=== PATIENT | male | born 1970 | race Caucasian/White ===

== ENCOUNTER 2016-09-08 19:47 | Inpatient (IN) | payer OTHER ==
[2016-09-08 20:16] VITALS: BMI 26.9
--- NOTE | 2016-09-08 20:42 | HP ---
COWS - Scale Resting Pulse: 2= SD 101-120 Sweatin= Chills/Flushing Restless Observation: 1= Difficult to Sit Still Pupil Size: 1= Pupils >than Normal Bone or Joint Aches: 1= Mild Discomfort Runny Nose/ Eye Tearin= Nasal Congestion GI Upset > 30mins: 3= Vomiting/Diarrhea Tremor Observation: 2= Slight Tremor Visible Yawning Observation: 1= 1-2x During Session Anxiety or Irritability: 2=Irritable/Anxious Goose Flesh Skin: 0=Smooth Skin COWS Score: 15 CIWA Score - CIWA Score Nausea/Vomitin Muscle Tremors: 4-Moderate,w/Arms Extend Anxiety: 4-Mod. Anxious/Guarded Agitation: 4-Moderately Restless Paroxysmal Sweats: 1-Minimal Palms Moist Orientation: 3-Disoriented Date>2 days Tacttile Disturbances: 0-None Auditory Disturbances: 0-None Visual Disturbances: 0-None Headache: 0-None Present CIWA-Ar Total Score: 18 Admission ROS S - HPI Chief Complaint: withdrawal sx Allergies/Adverse Reactions: Allergies Allergy/AdvReac Type Severity Reaction Status Date / Time No Known Allergies Allergy Verified 09/08/16 20:16 History of Present Illness: 46 years old male with long history alcohol, xanax nicotine dependence, has depression is admitted to detox Exam Limitations: No Limitations - Ebola screening Have you traveled outside of the country in the last 21 days: No Have you had contact with anyone from an Ebola affected area: No Have you been sick,other than usual withdrawal symptoms: No Do you have a fever: No - Review of Systems Constitutional: Chills, Changes in sleep, Weight Stable EENT: reports: No Symptoms Reported Respiratory: reports: SOB with Exertion Cardiac: reports: No Symptoms Reported GI: reports: Poor Fluid Intake, Abdominal cramping : reports: No Symptoms Reported Musculoskeletal: reports: No Symptoms Reported Integumentary: reports: Change in Color (both inner elbows) Neuro: reports: Tremors Endocrine: reports: No Symptoms Reported Hematology: reports: No Symptoms Reported Psychiatric: reports: Judgement Intact, Depressed Other Systems: Reviewed and Negative Patient History - Patient Medical History Hx Anemia: No Hx Asthma: No Hx Chronic Obstructive Pulmonary Disease (COPD): No Hx Cancer: No Hx Cardiac Disorders: No Hx Congestive Heart Failure: No Hx Hypertension: No Hx Hypercholesterolemia: No Hx Pacemaker: No HX Cerebrovascular Accident: No Hx Seizures: No Hx Dementia: No Hx Diabetes: No Hx Gastrointestinal Disorders: No Hx Liver Disease: Yes (UNTREATED HEP-C; DIAGNOSED 1997.) Hx Genitourinary Disorders: No Hx Sexually Transmitted Disorders: No Hx Renal Disease (ESRD): No Hx Thyroid Disease: No Hx Human Immunodeficiency Virus (HIV): No (LAST TESTED: 12/2015 AT [facility]: NEGATIVE.) Hx Hepatitis C: Yes (UNTREATED; DIAGNOSED 1997.) Hx Depression: No Hx Suicide Attempt: No Hx Bipolar Disorder: Yes (TAKES MEDICATION (SEROQUEL)) Hx Schizophrenia: No - Patient Surgical History Past Surgical History: No Hx Neurologic Surgery: No Hx Cataract Extraction: No Hx Cardiac Surgery: No Hx Lung Surgery: No Hx Breast Surgery: No Hx Breast Biopsy: No Hx Abdominal Surgery: No Hx Appendectomy: No Hx Cholecystectomy: No Hx Genitourinary Surgery: No Hx Orthopedic Surgery: No - PPD History Previous Implant?: Yes Documented Results: Negative w/proof Implanted On Prior [facility] Admission?: Yes Date: 07/21/15 Results: 0 mm PPD to be Administered?: Yes - Smoking Cessation Smoking history: Current every day smoker Have you smoked in the past 12 months: Yes Aproximately how many cigarettes per day: 10 Cigars Per Day: 0 Hx Chewing Tobacco Use: No Initiated information on smoking cessation: Yes 'Breaking Loose' booklet given: 09/08/16 - Substance & Tx. History Hx Alcohol Use: Yes Hx Substance Use: Yes Substance Use Type: Alcohol, Tranquilizers Hx Substance Use Treatment: Yes - Substances Abused Alcohol Route: Oral Frequency: Daily Amount used: 2 PINTS SUOMYA 12 BEERS Age of first use: 18 Date of Last Use: 09/08/16 Alprazolam (Xanax) Route: Oral Frequency: Daily Amount used: 6 mg Age of first use: 37 Date of Last Use: 09/07/16 Heroin Route: Injection Frequency: Daily Amount used: 8 BAGS Age of first use: 23 Date of Last Use: 09/08/16 Family Disease History - Family Disease History Family Disease History: Diabetes: Grandparent, [place]: Mother (LEUKEMIA.), Other: Brother (DSA,ALCOHOL; BIPOLAR DISORDER.) Admission Physical Exam S - Vital Signs Vital Signs: Vital Signs - 24 hr 09/08/16 20:12 Temperature 98.2 F Pulse Rate 102 H Respiratory 20 Rate Blood Pressure 131/70 - Physical General Appearance: Yes: Nourished, Appropriately Dressed, Moderate Distress, Alcohol on Breath, Tremorous, Irritable, Sweating, Anxious HEENTM: Yes: Hearing grossly Normal, Normal ENT Inspection, Normocephalic, Normal Voice Respiratory: Yes: Chest Non-Tender, Lungs Clear, Normal Breath Sounds, No Respiratory Distress, No Accessory Muscle Use Neck: Yes: Supple, Trachea in good position Breast: Yes: Breasts Symetrical Cardiology: Yes: Regular Rhythm, S1, S2, Tachycardia Abdominal: Yes: Non Tender, Soft Genitourinary: Yes: Within Normal Limits Back: Yes: Normal Inspection Musculoskeletal: Yes: full range of Motion, Gait Steady Extremities: Yes: Normal Range of Motion, Non-Tender, Tremors Neurological: Yes: Alert, Motor Strength 5/5, Normal Response, Depressed Affect Integumentary: Yes: Warm, Track [place] Lymphatic: Yes: Within Normal Limits - Diagnostic (1) Alcohol dependence with uncomplicated withdrawal Current Visit: Yes Status: Acute (2) Bipolar II disorder Current Visit: Yes Status: Suspected (3) Hepatitis C Current Visit: Yes Status: Chronic Qualifiers: Viral hepatitis chronicity: chronic Hepatic coma status: without hepatic coma Qualified Code(s): B18.2 - Chronic viral hepatitis C (4) Methadone maintenance therapy patient Current Visit: Yes Status: Acute Comment: LAST DOSE OF METHADONE ADMINISTERED AT [facility] OTP PROGRAM: 50 MG, verification pending (5) Nicotine dependence Current Visit: Yes Status: Acute Qualifiers: Nicotine product type: cigarettes Substance use status: in withdrawal Qualified Code(s): F17.213 - Nicotine dependence, cigarettes, with withdrawal (6) Sedative, hypnotic or anxiolytic dependence with withdrawal, uncomplicated Current Visit: Yes Status: Acute (7) Flat feet, bilateral Current Visit: Yes Status: Chronic Comment: own shoes Cleared for Admission S - Detox or Rehab [facility] Level of Care: Medically Managed Detox Regimen/Protocol: Valium [facility] Breath Alcohol Content Breath Alcohol Content: 0.170 Urine Drug Screen - Results Drug Screen Negative: No Urine Drug Screen Results: OPI-Opiates, MTD-Methadone, OXY-Oxycodone
[2016-09-08] MEDS ORDERED: guaiFENesin/D-METHORPHAN HB 10 ML UNIT-DOSE CUPS PO PRN (20:44)
[2016-09-08] MEDS ORDERED: MAGNESIUM HYDROX 2400MG/30ML ORAL SUSPENSION 30 ML CUP PO PRN (20:44)
[2016-09-08] MEDS ORDERED: MENTHOL/PHENOL 1 EACH UD MM PRN (20:44)
[2016-09-08] MEDS ORDERED: P-EPHED 60MG/TRIPROLIDI 2.5MG TABLET PO PRN (20:44)
[2016-09-08] MEDS ORDERED: diazePAM 5 MG TABLET PO ONE (20:44)
[2016-09-08] MEDS ORDERED: ACETAMINOPHEN 325 MG TABLET (FP) PO PRN (20:44)
[2016-09-08] MEDS ORDERED: IBUPROFEN 400 MG TABLET (FP) PO PRN (20:44)
[2016-09-08] MEDS ORDERED: NICOTINE POLACRILEX 2 MG GUM BC PRN (20:44)
[2016-09-08] MEDS ORDERED: MAG HYDROX/AL HYDROX/SIMETH 30 ML UNIT-DOSE CUP PO PRN (20:44)
[2016-09-08] MEDS ORDERED: MAGNESIUM CITRATE 300 ML BOTTLE PO PRN (20:44)
[2016-09-08] MEDS ORDERED: LOPERAMIDE HCL 2 MG CAPSULE PO PRN (20:44)
[2016-09-08] MEDS: THIAMINE HCL 100 MG TABLET (FP) PO SCH (21:23)
[2016-09-08] MEDS: diazePAM 5 MG TABLET PO SCH (21:33)
[2016-09-08] MEDS: diphenhydrAMINE HCL 50 MG CAPSULE PO PRN (22:22)
[2016-09-09] MEDS: diazePAM 5 MG TABLET PO PRN ×3 (00:27→17:20)
[2016-09-09] MEDS: diazePAM 5 MG TABLET PO SCH ×3 (05:24→22:10)
[2016-09-09] MEDS ORDERED: METHADONE HCL 40 MG DISPERSABLE TABLET PO SCH (07:30)
[2016-09-09] MEDS ORDERED: METHADONE HCL 10 MG TABLET (FOR DETOX USE ONLY) ONE (07:39)
[2016-09-09] MEDS ORDERED: METHADONE HCL 40 MG DISPERSABLE TABLET ONE (07:39)
[2016-09-09] MEDS: METHADONE 40 MG, METHADONE (DETOX) 20 MG PO SCH (07:45)
--- NOTE | 2016-09-09 09:26 | CONSULT ---
[facility] Psychiatric Consult - Data Date of interview: 09/09/16 Admission source: [facility] Identifying data: This is 46 years old male with no psychiatric hospiotalization history intoxicated with: Alcohol, Opioids, Xamax amd Nicotine Substance Abuse History: - Smoking Cessation. Smoking history: Current every day smoker. Have you smoked in the past 12 months: Yes. Aproximately how many cigarettes per day: 10. Cigars Per Day: 0. Hx Chewing Tobacco Use: No. Initiated information on smoking cessation: Yes. 'Breaking Loose' booklet given : 09/08/16. - Substance & Tx. History. Hx Alcohol Use: Yes. Hx Substance Use : Yes. Substance Use Type: Alcohol, Tranquilizers. Hx Substance Use Treatment : Yes. - Substances Abused. Alcohol. Route: Oral. Frequency: Daily. Amount used: 2 PINTS SOUMYA 12 BEERS. Age of first use: 18. Date of Last Use: 09/08/16. Alprazolam (Xanax). Route: Oral. Frequency: Daily. Amount used : 6 mg. Age of first use: 37. Date of Last Use: 09/07/16. Heroin. Route: Injection. Frequency: Daily. Amount used: 8 BAGS. Age of first use: 23. Date of Last Use: 09/08/16 Medical History: HepC+, Weight loss, Seizure history, MMTP history Psychiatric History: Patient erewports history of depression and insomjnia, reports good response on Seroquel 200mg po qhs prior to admission Physical/Sexual Abuse/Trauma History: Denies Additional Comment: Seroquel 200mg po qhs Mental Status Exam - Mental Status Exam Alert and Oriented to: Person Cognitive Function: Fair Patient Appearance: Unkempt Mood: Sad Affect: Flat Patient Behavior: Sedated Speech Pattern: Delayed Voice Loudness: Mildly Soft/Quiet Thought Process: Circumstantial Thought Disorder: Being Controlled Hallucinations: Denies Suicidal Ideation: Denies Homicidal Ideation: Denies Appetite: Weight loss Muscle strength/Tone: Mild Hypotonicity Gait/Station: Shuffling Additional Comments: Seroquel 200mg po qhs Psychiatric Findings - Problem List ([place] 1, 2,3) (1) Alcohol dependence with uncomplicated withdrawal Current Visit: Yes Status: Acute (2) Methadone maintenance therapy patient Current Visit: Yes Status: Acute Comment: LAST DOSE OF METHADONE ADMINISTERED AT [facility] OTP PROGRAM: 50 MG, verification pending (3) Nicotine dependence Current Visit: Yes Status: Acute Qualifiers: Nicotine product type: cigarettes Substance use status: in withdrawal Qualified Code(s): F17.213 - Nicotine dependence, cigarettes, with withdrawal (4) Sedative, hypnotic or anxiolytic dependence with withdrawal, uncomplicated Current Visit: Yes Status: Acute (5) Bipolar II disorder Current Visit: Yes Status: Suspected (6) Drug-induced mood disorder Current Visit: Yes Status: Acute - Initial Treatment Plan Initial Treatment Plan: Seroquel 200mg po qhs
--- NOTE | 2016-09-09 09:58 | PN ---
[facility] CIWA - CIWA Score Nausea/Vomitin-No Nausea/No Vomiting Muscle Tremors: 4-Moderate,w/Arms Extend Anxiety: 5 Agitation: 4-Moderately Restless Paroxysmal Sweats: 1-Minimal Palms Moist Orientation: 0-Oriented Tacttile Disturbances: 3-Moderate Itch/Numb/Burn Auditory Disturbances: 0-None Visual Disturbances: 0-None Headache: 0-None Present CIWA-Ar Total Score: 17 BHS Progress Note (SOAP) Subjective: ANXIETY,SWEATS, FATIGUE,INTERMITTENT SLEEP. Objective: 09/09/16 09:54 Vital Signs Temperature 97.5 F L 09/09/16 09:18 Pulse Rate 82 09/09/16 09:18 Respiratory Rate 18 09/09/16 09:18 Blood Pressure 111/72 09/09/16 09:18 O2 Sat by Pulse Oximetry (%) LABS PENDING Assessment: 09/09/16 09:58 WITHDRAWAL SX Plan: CONTINUE DETOX
[2016-09-09 10:12] LABS: MCH 29.3 pg (25.7-33.7); MCHC 33.4 g/dl (32.0-35.9); MEAN CELL VOLUME 87.7 fl (80-96); MEAN PLT VOLUME 8.9 fl (7.5-11.1); PLATELET COUNT 208 K/MM3 (134-434); RDW 13.2 % (11.9-15.9); WHITE BLOOD COUNT 5.5 K/mm3 (4.0-10.0)
[2016-09-09] MEDS: PRENATAL VITAMINS W/ FOLIC ACID TABLET (FP) PO SCH (10:24)
[2016-09-09] MEDS: NICOTINE 14 MG/24 HOURS TOPICAL PATCH TD SCH (10:24)
[2016-09-09 10:27] LABS: ALBUMIN 3.8 g/dl (3.4-5.0); ALK PHOS 77 U/L (45-117); ANION GAP 6 (8-16); BILIRUBIN,TOTAL 0.2 mg/dL (0.2-1.0); CALCIUM 8.9 mg/dL (8.5-10.1); CO2 32 mmol/L (21-32); CREATININE 0.9 mg/dL (0.7-1.3); GLUCOSE,RANDOM 108 mg/dL (74-106); SGOT/AST 60 U/L (15-37); SGPT/ALT 58 U/L (12-78); TOT PROT 7.7 g/dl (6.4-8.2)
[2016-09-09 11:35] LABS: HIV 1 & 2 AB NEGATIVE; HIV 1 AGp24 NEGATIVE
--- NOTE | 2016-09-09 14:15 | EKG ---
Test Reason : Blood Pressure : / mmHG Vent. Rate : 082 BPM Atrial Rate : 082 BPM P-R Int : 170 ms QRS Dur : 094 ms QT Int : 362 ms P-R-T Axes : 061 022 043 degrees QTc Int : 422 ms NORMAL SINUS RHYTHM NORMAL ECG NO PREVIOUS ECGS AVAILABLE Confirmed by GERSON TORREZ MD ([id number]) on 09/09/2016 2:14:43 PM Referred By: Confirmed By:GERSON TORREZ MD
[2016-09-09] MEDS: THIAMINE HCL 100 MG TABLET (FP) PO SCH (22:10)
[2016-09-09] MEDS: QUEtiapine FUMARATE 200 MG TABLET PO SCH (22:10)
[2016-09-10] MEDS: diazePAM 5 MG TABLET PO PRN ×4 (01:00→17:11)
[2016-09-10] MEDS: diphenhydrAMINE HCL 50 MG CAPSULE PO PRN ×2 (01:00→22:11)
[2016-09-10] MEDS ORDERED: METHADONE HCL 10 MG TABLET (FOR DETOX USE ONLY) ONE (03:19)
[2016-09-10] MEDS ORDERED: METHADONE HCL 40 MG DISPERSABLE TABLET ONE (03:20)
[2016-09-10] MEDS: METHADONE 40 MG, METHADONE (DETOX) 20 MG PO SCH (05:54)
[2016-09-10] MEDS: PRENATAL VITAMINS W/ FOLIC ACID TABLET (FP) PO SCH (10:04)
[2016-09-10] MEDS: NICOTINE 14 MG/24 HOURS TOPICAL PATCH TD SCH (10:05)
[2016-09-10] MEDS: diazePAM 5 MG TABLET PO SCH ×2 (10:05→22:10)
--- NOTE | 2016-09-10 11:20 | PN ---
[facility] CIWA - CIWA Score Nausea/Vomitin Muscle Tremors: 2 Anxiety: 3 Agitation: 0-Normal Activity Paroxysmal Sweats: 3 Orientation: 0-Oriented Tacttile Disturbances: 2-Mild Itch/Numbness/Burn Auditory Disturbances: 2-Mild Harshness/Frighten Visual Disturbances: 0-None Headache: 0-None Present CIWA-Ar Total Score: 15 BHS COWS - Scale Resting Pulse: 1= [place] 81-100 Sweatin= Chills/Flushing Restless Observation: 0= Sits Still Pupil Size: 0= Normal to Room Light Bone or Joint Aches: 2= Severe Diffuse Aches Runny Nose/ Eye Tearin= Nasal Congestion GI Upset > 30mins: 2= Nausea/Diarrhea Tremor Observation of Outstretched Hands: 2= Slight Tremor Visible Yawning Observation: 1= 1-2x During Session Anxiety or Irritability: 2=Irritable/Anxious Goose Flesh Skin: 3=Piloerection COWS Score: 15 S Progress Note (SOAP) Subjective: Interrupted sleep, Lower back ache, Stomach cramping, Diarrhea, Sweating. Objective: PT. A & O X 3, OBSERVED AMBULATING ON UNIT. 09/10/16 11:18 Vital Signs Temperature 96.8 F L 09/10/16 09:33 Pulse Rate 81 09/10/16 09:33 Respiratory Rate 20 09/10/16 09:33 Blood Pressure 122/87 09/10/16 09:33 O2 Sat by Pulse Oximetry (%) Laboratory Last Values WBC 5.5 K/mm3 (4.0-10.0) 09/09/16 07:00 RBC 4.31 M/mm3 (4.00-5.60) 09/09/16 07:00 Hgb 12.6 GM/dL (11.7-16.9) 09/09/16 07:00 Hct 37.8 % (35.4-49) 09/09/16 07:00 MCV 87.7 fl (80-96) 09/09/16 07:00 MCHC 33.4 g/dl (32.0-35.9) 09/09/16 07:00 RDW 13.2 % (11.9-15.9) D 09/09/16 07:00 Plt Count 208 K/MM3 (134-434) 09/09/16 07:00 MPV 8.9 fl (7.5-11.1) 09/09/16 07:00 Sodium 142 mmol/L (136-145) 09/09/16 07:00 Potassium 4.2 mmol/L (3.5-5.1) 09/09/16 07:00 Chloride 104 mmol/L (98-107) 09/09/16 07:00 Carbon Dioxide 32 mmol/L (21-32) 09/09/16 07:00 Anion Gap 6 (8-16) L 09/09/16 07:00 BUN 8 mg/dL (7-18) 09/09/16 07:00 Creatinine 0.9 mg/dL (0.7-1.3) 09/09/16 07:00 Creat Clearance w eGFR > 60 (>60) 09/09/16 07:00 Random Glucose 108 mg/dL (74-106) H D 09/09/16 07:00 Calcium 8.9 mg/dL (8.5-10.1) 09/09/16 07:00 Total Bilirubin 0.2 mg/dL (0.2-1.0) D 09/09/16 07:00 AST 60 U/L (15-37) H 09/09/16 07:00 ALT 58 U/L (12-78) D 09/09/16 07:00 Alkaline Phosphatase 77 U/L (45-117) 09/09/16 07:00 Total Protein 7.7 g/dl (6.4-8.2) 09/09/16 07:00 Albumin 3.8 g/dl (3.4-5.0) 09/09/16 07:00 RPR Titer Nonreactive (NONREACTIVE) 09/09/16 07:00 HIV 1&2 Antibody Screen Negative 09/08/16 07:00 HIV P24 Antigen Negative 09/08/16 07:00 LABS NOTED. Assessment: 09/10/16 11:19 WITHDRAWAL SYMPTOMS. Plan: CONTINUE DETOX. ADVISED PATIENT TO FOLLOW-UP WITH PLATFORM MATERIAL HANDLER MANAGER / REHAB MEDICAL PROVIDER AFTER DISCHARGE FROM DETOX FOR GENERAL MEDICAL ASSESSMENT AND FOR ABNORMAL ADMISSION LAB VALUES.
[2016-09-10 14:17] LABS: URINE APPEARANCE CLEAR; URINE BILIRUBIN NEGATIVE (NEGATIVE); URINE BLOOD NEGATIVE (NEGATIVE); URINE COLOR LTYELLOW; URINE GLUCOSE (UA) NEGATIVE (NEGATIVE); URINE KETONE NEGATIVE (NEGATIVE); URINE LEUK ESTERASE NEGATIVE (NEGATIVE); URINE NITRITE NEGATIVE (NEGATIVE); URINE PROTEIN NEGATIVE (NEGATIVE); URINE UROBILINOGEN NEGATIVE E.U./dl (0.2-1.0)
[2016-09-10] MEDS: QUEtiapine FUMARATE 200 MG TABLET PO SCH (22:10)
[2016-09-10] MEDS: THIAMINE HCL 100 MG TABLET (FP) PO SCH (22:10)
[2016-09-11] MEDS: diphenhydrAMINE HCL 50 MG CAPSULE PO PRN ×2 (00:20→22:09)
[2016-09-11] MEDS: diazePAM 5 MG TABLET PO PRN ×4 (00:20→18:41)
[2016-09-11] MEDS ORDERED: METHADONE HCL 40 MG DISPERSABLE TABLET ONE (04:31)
[2016-09-11] MEDS ORDERED: METHADONE HCL 10 MG TABLET (FOR DETOX USE ONLY) ONE (04:31)
[2016-09-11] MEDS: METHADONE 40 MG, METHADONE (DETOX) 20 MG PO SCH (05:21)
[2016-09-11] MEDS: diazePAM 5 MG TABLET PO SCH ×2 (10:07→22:09)
[2016-09-11] MEDS: PRENATAL VITAMINS W/ FOLIC ACID TABLET (FP) PO SCH (10:07)
[2016-09-11] MEDS: NICOTINE 14 MG/24 HOURS TOPICAL PATCH TD SCH (10:08)
--- NOTE | 2016-09-11 12:16 | PN ---
BHS Progress Note (SOAP) Subjective: sweating,restless,interrupted sleep. Objective: 09/11/16 12:15 Vital Signs - 8 hr 09/11/16 09/11/16 06:20 10:32 Temperature 95.8 F L 96.0 F L Pulse Rate 76 96 H Respiratory 18 20 Rate Blood Pressure 117/76 107/77 Laboratory Tests 09/08/16 09/09/16 09/09/16 07:00 07:00 07:00 WBC 5.5 RBC 4.31 Hgb 12.6 Hct 37.8 MCV 87.7 MCHC 33.4 RDW 13.2 D Plt Count 208 MPV 8.9 Sodium 142 Potassium 4.2 Chloride 104 Carbon Dioxide 32 Anion Gap 6 L BUN 8 Creatinine 0.9 Creat Clearance w eGFR > 60 Random Glucose 108 H D Calcium 8.9 Total Bilirubin 0.2 D AST 60 H ALT 58 D Alkaline Phosphatase 77 Total Protein 7.7 Albumin 3.8 Urine Color Urine Appearance Urine pH Ur Specific [place] Urine Protein Urine Glucose (UA) Urine Ketones Urine Blood Urine Nitrite Urine Bilirubin Urine Urobilinogen Ur Leukocyte Esterase RPR Titer HIV 1&2 Antibody Screen Negative HIV P24 Antigen Negative 09/09/16 09/10/16 07:00 11:00 WBC RBC Hgb Hct MCV MCHC RDW Plt Count MPV Sodium Potassium Chloride Carbon Dioxide Anion Gap BUN Creatinine Creat Clearance w eGFR Random Glucose Calcium Total Bilirubin AST ALT Alkaline Phosphatase Total Protein Albumin Urine Color Ltyellow Urine Appearance Clear Urine pH 7.0 Ur Specific [place] 1.012 Urine Protein Negative Urine Glucose (UA) Negative Urine Ketones Negative Urine Blood Negative Urine Nitrite Negative Urine Bilirubin Negative Urine Urobilinogen Negative Ur Leukocyte Esterase Negative RPR Titer Nonreactive HIV 1&2 Antibody Screen HIV P24 Antigen labs noted Assessment: 09/11/16 12:16 withdrawal sx. Plan: continue detox
[2016-09-11] MEDS: hydrOXYzine PAMOATE 50 MG CAPSULE (FP) PO PRN (17:42)
[2016-09-11] MEDS: QUEtiapine FUMARATE 200 MG TABLET PO SCH (22:09)
[2016-09-11] MEDS: THIAMINE HCL 100 MG TABLET (FP) PO SCH (22:09)
[2016-09-12] MEDS ORDERED: METHADONE HCL 10 MG TABLET (FOR DETOX USE ONLY) ONE (03:54)
[2016-09-12] MEDS ORDERED: METHADONE HCL 40 MG DISPERSABLE TABLET ONE (03:55)
[2016-09-12] MEDS: hydrOXYzine PAMOATE 50 MG CAPSULE (FP) PO PRN (04:45)
[2016-09-12] MEDS: METHADONE 40 MG, METHADONE (DETOX) 20 MG PO SCH (05:53)
[2016-09-12 06:17] VITALS: BP 112/74; PULSE 88; TEMP 96.1
[2016-09-12] MEDS ORDERED: diazePAM 5 MG TABLET PO SCH (10:00)
--- NOTE | 2016-09-12 12:26 | DS ---
[facility] Detox Discharge Summary Admission Date: 09/08/16 Discharge Date: 09/12/16 - History Present History: Alcohol Dependence, Sedative Dependence, MMTP Pertinent Past History: Hepatitis C - Physical Exam Results Vital Signs: Vital Signs Temperature 96.1 F L 09/12/16 06:16 Pulse Rate 88 09/12/16 06:16 Respiratory Rate 16 09/12/16 06:16 Blood Pressure 112/74 09/12/16 06:16 O2 Sat by Pulse Oximetry (%) Pertinent Admission Physical Exam Findings: Withdrawal symptoms Laboratory Tests 09/08/16 09/09/16 09/09/16 07:00 07:00 07:00 WBC 5.5 RBC 4.31 Hgb 12.6 Hct 37.8 MCV 87.7 MCHC 33.4 RDW 13.2 D Plt Count 208 MPV 8.9 Sodium 142 Potassium 4.2 Chloride 104 Carbon Dioxide 32 Anion Gap 6 L BUN 8 Creatinine 0.9 Creat Clearance w eGFR > 60 Random Glucose 108 H D Calcium 8.9 Total Bilirubin 0.2 D AST 60 H ALT 58 D Alkaline Phosphatase 77 Total Protein 7.7 Albumin 3.8 Urine Color Urine Appearance Urine pH Ur Specific [place] Urine Protein Urine Glucose (UA) Urine Ketones Urine Blood Urine Nitrite Urine Bilirubin Urine Urobilinogen Ur Leukocyte Esterase RPR Titer HIV 1&2 Antibody Screen Negative HIV P24 Antigen Negative 09/09/16 09/10/16 07:00 11:00 WBC RBC Hgb Hct MCV MCHC RDW Plt Count MPV Sodium Potassium Chloride Carbon Dioxide Anion Gap BUN Creatinine Creat Clearance w eGFR Random Glucose Calcium Total Bilirubin AST ALT Alkaline Phosphatase Total Protein Albumin Urine Color Ltyellow Urine Appearance Clear Urine pH 7.0 Ur Specific [place] 1.012 Urine Protein Negative Urine Glucose (UA) Negative Urine Ketones Negative Urine Blood Negative Urine Nitrite Negative Urine Bilirubin Negative Urine Urobilinogen Negative Ur Leukocyte Esterase Negative RPR Titer Nonreactive HIV 1&2 Antibody Screen HIV P24 Antigen Labs noted - Treatment Hospital Course: Detox Protocol Followed, Detoxed Safely, Responded well, Discharged Condition Good - Medication Discharge Medications: Ambulatory Orders Quetiapine Fumarate [Seroquel -] 200 mg PO HS #30 tab 05/06/16 Quetiapine Fumarate [Seroquel -] 200 mg PO HS #30 tab 09/09/16 - Diagnosis (1) Alcohol dependence with uncomplicated withdrawal Status: Acute (2) Methadone maintenance therapy patient Status: Chronic (3) Nicotine dependence Status: Chronic Qualifiers: Nicotine product type: cigarettes Substance use status: in withdrawal Qualified Code(s): F17.213 - Nicotine dependence, cigarettes, with withdrawal (4) Sedative, hypnotic or anxiolytic dependence with withdrawal, uncomplicated Status: Acute (5) Hepatitis C Status: Chronic Qualifiers: Viral hepatitis chronicity: chronic Hepatic coma status: without hepatic coma Qualified Code(s): B18.2 - Chronic viral hepatitis C - AMA Did Patient Leave Against Medical Advice: No
== END 2016-09-12 09:12 | disposition home or self-care (01) | DRG 773 ==
LOC: YASAS 19:47 → Y3N 20:41
PROVIDERS: ADMIT Internal Medicine; ATTEND Internal Medicine
PROC: HZ2ZZZZ Detoxification Services for Substance Abuse Treatment (ICD-10-PCS; principal; 2016-09-12)
DX: F11.20 Opioid dependence, uncomplicated (principal); F13.230 Sedative, hypnotic or anxiolytic dependence with withdrawal, uncomplicated; F10.230 Alcohol dependence with withdrawal, uncomplicated; F17.213 Nicotine dependence, cigarettes, with withdrawal; F19.24 Other psychoactive substance dependence with psychoactive substance-induced mood disorder; F31.81 Bipolar II disorder; B18.2 Chronic viral hepatitis C; M21.42 Flat foot [pes planus] (acquired), left foot; M21.41 Flat foot [pes planus] (acquired), right foot
CPT/HCPCS: 36415; 80053; 81003; 85027; 86593; 87389; 93005; 93010

== ENCOUNTER 2016-10-09 20:52 | Inpatient (IN) | payer OTHER ==
--- NOTE | 2016-10-09 21:09 | HP ---
[id number] Extend Anxiety: 4-Mod. Anxious/Guarded Agitation: 4-Moderately Restless Paroxysmal Sweats: 3 Orientation: 0-Oriented Tacttile Disturbances: 0-None Auditory Disturbances: 0-None Visual Disturbances: 0-None Headache: 0-None Present CIWA-Ar Total Score: 18 Admission ROS BHS - HPI Chief Complaint: WITHDRAWAL SYMPTOMS Allergies/Adverse Reactions: Allergies Allergy/AdvReac Type Severity Reaction Status Date / Time No Known Allergies Allergy Verified 09/08/16 20:16 History of Present Illness: 46 Y.O. MALE WITH EXTENSIVE HISTORY OF ALCOHOL DEPENDENCE IS SEEKING DETOX. HE LONGEST PERIOD OF SOBRIETY IS 3 YEARS. HIS LAST ADMISSION HERE WAS LAST MONTH. HE CURRENTLY IN A MMTP. Exam Limitations: Intoxication - Ebola screening Have you traveled outside of the country in the last 21 days: No Have you had contact with anyone from an Ebola affected area: No Do you have a fever: No - Review of Systems Constitutional: Loss of Appetite, Night Sweats, Changes in sleep EENT: reports: No Symptoms Reported Respiratory: reports: No Symptoms reported Cardiac: reports: Syncope (ETOH RELATED-2 DAYS AGO) GI: reports: Diarrhea, Nausea Musculoskeletal: reports: Back Pain Integumentary: reports: No Symptoms Reported Neuro: reports: Tremors Endocrine: reports: No Symptoms Reported Hematology: reports: No Symptoms Reported Psychiatric: reports: Depressed (BIPOLAR), other Other Systems: Reviewed and Negative Patient History - Patient Medical History Hx Anemia: No Hx Asthma: No Hx Chronic Obstructive Pulmonary Disease (COPD): No Hx Cancer: No Hx Cardiac Disorders: No Hx Congestive Heart Failure: No Hx Hypertension: No Hx Hypercholesterolemia: No Hx Pacemaker: No HX Cerebrovascular Accident: No Hx Seizures: No Hx Dementia: No Hx Diabetes: No Hx Gastrointestinal Disorders: No Hx Liver Disease: Yes (UNTREATED HEP-C; DIAGNOSED 1997.) Hx Genitourinary Disorders: No Hx Sexually Transmitted Disorders: No Hx Renal Disease (ESRD): No Hx Thyroid Disease: No Hx Human Immunodeficiency Virus (HIV): No (LAST TESTED: 12/2015 AT [facility]: NEGATIVE.) Hx Hepatitis C: Yes (UNTREATED; DIAGNOSED 1997.) Hx Depression: Yes Hx Suicide Attempt: No Hx Bipolar Disorder: Yes (TAKES MEDICATION (SEROQUEL)) Hx Schizophrenia: No - Patient Surgical History Past Surgical History: No Hx Neurologic Surgery: No Hx Cataract Extraction: No Hx Cardiac Surgery: No Hx Lung Surgery: No Hx Breast Surgery: No Hx Breast Biopsy: No Hx Abdominal Surgery: No Hx Appendectomy: No Hx Cholecystectomy: No Hx Genitourinary Surgery: No Hx Section: No Hx Orthopedic Surgery: No Anesthesia Reaction: No - PPD History Previous Implant?: Yes Documented Results: Negative w/proof Implanted On Prior [facility] Admission?: Yes Date: 09/10/16 Results: 0 mm PPD to be Administered?: No - Reproductive History Patient is a Female of Child Bearing Age (11 -55 yrs old): No - Smoking Cessation Smoking history: Current every day smoker Have you smoked in the past 12 months: Yes Aproximately how many cigarettes per day: 10 Cigars Per Day: 0 Hx Chewing Tobacco Use: No Initiated information on smoking cessation: Yes 'Breaking Loose' booklet given: 10/09/16 - Substance & Tx. History Hx Alcohol Use: Yes Hx Substance Use: Yes Substance Use Type: Alcohol, Heroin Hx Substance Use Treatment: Yes (DETOX AND [facility] ) - Substances Abused Alcohol Route: Oral Frequency: Daily Amount used: 2 PINTS OF VODKA Age of first use: 18 Date of Last Use: 10/09/16 Heroin Route: Inhalation Frequency: 1-3 times last 30 days Amount used: 4 BAGS Age of first use: 23 Date of Last Use: 10/06/16 Family Disease History - Family Disease History Family Disease History: Diabetes: Grandparent, [place]: Mother (LEUKEMIA.), Other: Brother (DSA,ALCOHOL; BIPOLAR DISORDER.) Admission Physical Exam BHS - Vital Signs Vital Signs: Last Vital Signs Temp Pulse Resp BP Pulse Ox 97.8 F 78 18 135/79 10/09/16 21:19 10/09/16 21:19 10/09/16 21:19 10/09/16 21:19 - Physical General Appearance: Yes: Disheveled, Alcohol on Breath, Intoxicated, Tremorous, Irritable, Anxious HEENTM: Yes: Hearing grossly Normal, Normocephalic, Normal Voice Respiratory: Yes: Chest Non-Tender, Lungs Clear, Normal Breath Sounds, No Respiratory Distress, No Accessory Muscle Use Neck: Yes: No masses,lesions,Nodules, Trachea in good position Breast: Yes: Breast Exam Deferred Cardiology: Yes: Regular Rhythm, Regular Rate Abdominal: Yes: Normal Bowel Sounds, Non Tender, Flat, Soft Genitourinary: Yes: Other (NO COMPLAINTS REPORTED) Back: Yes: Normal Inspection Musculoskeletal: Yes: Back pain Extremities: Yes: Non-Tender, Tremors Neurological: Yes: Alert Integumentary: Yes: Normal Color, Dry, Warm Lymphatic: Yes: Within Normal Limits - Diagnostic (1) Alcohol dependence with uncomplicated withdrawal Current Visit: Yes Status: Chronic (2) Hepatitis C carrier Current Visit: Yes Status: Chronic (3) Nicotine dependence Current Visit: Yes Status: Chronic Qualifiers: Nicotine product type: cigarettes Substance use status: in withdrawal Qualified Code(s): F17.213 - Nicotine dependence, cigarettes, with withdrawal (4) History of syncope Current Visit: Yes Status: Chronic (5) Opioid dependence on agonist therapy Current Visit: Yes Status: Chronic Cleared for Admission [facility] - Detox or Rehab [facility] Level of Care: Medically Managed Detox Regimen/Protocol: Valium S Breath Alcohol Content Breath Alcohol Content: 0.388 Vital Signs - Vital Signs Vital Signs Refused: No Temperature: 97.8 F Temperature Source: Oral Pulse Rate: 78 Respiratory Rate: 18 Blood Pressure: 135/79 BP Location: Left Arm Blood Pressure Position: Sitting - Height Height: 5 ft 9 in - Weight Weight: 194 lb Weight Measurement Method: Standing Scale Body Mass Index (BMI): 28.6 Urine Drug Screen - Test Device Lot Number: [id number] - Control Is Test Valid: Yes - Results Drug Screen Negative: No Urine Drug Screen Results: MTD-Methadone
[2016-10-09 21:15] VITALS: BMI 28.6
[2016-10-09] MEDS ORDERED: MAGNESIUM HYDROX 2400MG/30ML ORAL SUSPENSION 30 ML CUP PO PRN (21:16)
[2016-10-09] MEDS ORDERED: IBUPROFEN 400 MG TABLET (FP) PO PRN (21:16)
[2016-10-09] MEDS ORDERED: MAG HYDROX/AL HYDROX/SIMETH 30 ML UNIT-DOSE CUP PO PRN (21:16)
[2016-10-09] MEDS ORDERED: guaiFENesin/D-METHORPHAN HB 10 ML UNIT-DOSE CUPS PO PRN (21:16)
[2016-10-09] MEDS ORDERED: ACETAMINOPHEN 325 MG TABLET (FP) PO PRN (21:16)
[2016-10-09] MEDS ORDERED: NICOTINE POLACRILEX 2 MG GUM BC PRN (21:16)
[2016-10-09] MEDS ORDERED: MAGNESIUM CITRATE 300 ML BOTTLE PO PRN (21:16)
[2016-10-09] MEDS ORDERED: diazePAM 5 MG TABLET PO ONE (21:16)
[2016-10-09] MEDS ORDERED: diphenhydrAMINE HCL 50 MG CAPSULE PO PRN (21:16)
[2016-10-09] MEDS ORDERED: P-EPHED 60MG/TRIPROLIDI 2.5MG TABLET PO PRN (21:16)
[2016-10-09] MEDS ORDERED: LOPERAMIDE HCL 2 MG CAPSULE PO PRN (21:16)
[2016-10-09] MEDS ORDERED: MENTHOL/PHENOL 1 EACH UD MM PRN (21:16)
[2016-10-09 22:41] LABS: URINE APPEARANCE CLEAR; URINE BILIRUBIN NEGATIVE (NEGATIVE); URINE BLOOD NEGATIVE (NEGATIVE); URINE COLOR COLORLESS; URINE GLUCOSE (UA) NEGATIVE (NEGATIVE); URINE KETONE NEGATIVE (NEGATIVE); URINE LEUK ESTERASE NEGATIVE (NEGATIVE); URINE NITRITE NEGATIVE (NEGATIVE); URINE PROTEIN NEGATIVE (NEGATIVE); URINE UROBILINOGEN NEGATIVE E.U./dl (0.2-1.0)
[2016-10-09] MEDS: THIAMINE HCL 100 MG TABLET (FP) PO SCH (23:50)
[2016-10-10] MEDS: diazePAM 5 MG TABLET PO SCH ×4 (00:06→21:21)
[2016-10-10] MEDS: diazePAM 5 MG TABLET PO PRN ×4 (04:07→21:19)
[2016-10-10] MEDS ORDERED: METHADONE HCL 10 MG TABLET PO ONE (07:49)
[2016-10-10] MEDS ORDERED: METHADONE 40 MG, METHADONE 20 MG PO ONE (08:00)
[2016-10-10] MEDS ORDERED: METHADONE HCL 40 MG DISPERSABLE TABLET ONE (08:22)
[2016-10-10] MEDS ORDERED: METHADONE HCL 10 MG TABLET ONE (08:23)
[2016-10-10] MEDS: NICOTINE 14 MG/24 HOURS TOPICAL PATCH TD SCH (09:42)
[2016-10-10] MEDS: PRENATAL VITAMINS W/ FOLIC ACID TABLET (FP) PO SCH (09:42)
[2016-10-10 10:24] LABS: MCH 27.9 pg (25.7-33.7); MCHC 32.5 g/dl (32.0-35.9); MEAN CELL VOLUME 85.6 fl (80-96); MEAN PLT VOLUME 9.1 fl (7.5-11.1); PLATELET COUNT 177 K/MM3 (134-434); RDW 12.9 % (11.9-15.9); WHITE BLOOD COUNT 5.6 K/mm3 (4.0-10.0)
[2016-10-10 10:52] LABS: ALBUMIN 3.6 g/dl (3.4-5.0); ALK PHOS 76 U/L (45-117); ANION GAP 10 (8-16); BILIRUBIN,TOTAL 0.7 mg/dL (0.2-1.0); CALCIUM 8.5 mg/dL (8.5-10.1); CO2 29 mmol/L (21-32); CREATININE 0.8 mg/dL (0.7-1.3); GLUCOSE,RANDOM 81 mg/dL (74-106); SGOT/AST 47 U/L (15-37); SGPT/ALT 60 U/L (12-78); TOT PROT 7.5 g/dl (6.4-8.2)
[2016-10-10 11:13] LABS: HIV 1 & 2 AB NEGATIVE; HIV 1 AGp24 NEGATIVE
--- NOTE | 2016-10-10 12:36 | PN ---
S CIWA - CIWA Score Nausea/Vomitin Muscle Tremors: 3 Anxiety: 3 Agitation: 2 Paroxysmal Sweats: 1-Minimal Palms Moist Orientation: 0-Oriented Tacttile Disturbances: 1-Very Mild Itch/Numbness Auditory Disturbances: 1-Very Mild Visual Disturbances: 1-Very Mild Sensitivity Headache: 2-Mild CIWA-Ar Total Score: 17 BHS Progress Note (SOAP) Subjective: ALERT,IRRITABLE,ANXIOUS,INTERRUPTED SLEEP,TREMOR,PAIN IN THE BODY AND BACK Objective: 10/10/16 12:34 Vital Signs Temperature 98.4 F 10/10/16 10:49 Pulse Rate 80 10/10/16 10:49 Respiratory Rate 18 10/10/16 10:49 Blood Pressure 120/75 10/10/16 10:49 O2 Sat by Pulse Oximetry (%) EKG NSR,NORMAL ECG Laboratory Last Values WBC 5.6 K/mm3 (4.0-10.0) 10/10/16 07:45 RBC 4.42 M/mm3 (4.00-5.60) 10/10/16 07:45 Hgb 12.3 GM/dL (11.7-16.9) 10/10/16 07:45 Hct 37.8 % (35.4-49) 10/10/16 07:45 MCV 85.6 fl (80-96) 10/10/16 07:45 MCHC 32.5 g/dl (32.0-35.9) 10/10/16 07:45 RDW 12.9 % (11.9-15.9) 10/10/16 07:45 Plt Count 177 K/MM3 (134-434) 10/10/16 07:45 MPV 9.1 fl (7.5-11.1) 10/10/16 07:45 Sodium 140 mmol/L (136-145) 10/10/16 07:45 Potassium 4.0 mmol/L (3.5-5.1) 10/10/16 07:45 Chloride 101 mmol/L (98-107) 10/10/16 07:45 Carbon Dioxide 29 mmol/L (21-32) 10/10/16 07:45 Anion Gap 10 (8-16) 10/10/16 07:45 BUN 8 mg/dL (7-18) 10/10/16 07:45 Creatinine 0.8 mg/dL (0.7-1.3) 10/10/16 07:45 Creat Clearance w eGFR > 60 (>60) 10/10/16 07:45 Random Glucose 81 mg/dL (74-106) D 10/10/16 07:45 Calcium 8.5 mg/dL (8.5-10.1) 10/10/16 07:45 Total Bilirubin 0.7 mg/dL (0.2-1.0) D 10/10/16 07:45 AST 47 U/L (15-37) H D 10/10/16 07:45 ALT 60 U/L (12-78) 10/10/16 07:45 Alkaline Phosphatase 76 U/L (45-117) 10/10/16 07:45 Total Protein 7.5 g/dl (6.4-8.2) 10/10/16 07:45 Albumin 3.6 g/dl (3.4-5.0) 10/10/16 07:45 Urine Color Colorless 10/09/16 22:30 Urine Appearance Clear 10/09/16 22:30 Urine pH 7.0 (5.0-8.0) 10/09/16 22:30 Ur Specific [place] 1.003 (1.001-1.035) 10/09/16 22:30 Urine Protein Negative (NEGATIVE) 10/09/16 22:30 Urine Glucose (UA) Negative (NEGATIVE) 10/09/16 22:30 Urine Ketones Negative (NEGATIVE) 10/09/16 22:30 Urine Blood Negative (NEGATIVE) 10/09/16 22:30 Urine Nitrite Negative (NEGATIVE) 10/09/16 22:30 Urine Bilirubin Negative (NEGATIVE) 10/09/16 22:30 Urine Urobilinogen Negative E.U./dl (0.2-1.0) 10/09/16 22:30 Ur Leukocyte Esterase Negative (NEGATIVE) 10/09/16 22:30 RPR Titer Nonreactive (NONREACTIVE) 10/10/16 07:45 HIV 1&2 Antibody Screen Negative 10/10/16 07:45 HIV P24 Antigen Negative 10/10/16 07:45 Assessment: 10/10/16 12:35 WITHDRAWAL SYMPTOM Plan: CONTINUE DETOX
--- NOTE | 2016-10-10 20:03 | PN ---
DEX Progress Note Note: PLEASE DISRECARD FALL PROTOCOL,BELONG TO OTHER PATIENT
[2016-10-10] MEDS: THIAMINE HCL 100 MG TABLET (FP) PO SCH (21:20)
[2016-10-11] MEDS: diazePAM 5 MG TABLET PO PRN ×5 (01:33→22:06)
[2016-10-11] MEDS ORDERED: METHADONE HCL 40 MG DISPERSABLE TABLET ONE (04:15)
[2016-10-11] MEDS ORDERED: METHADONE HCL 10 MG TABLET ONE (04:16)
[2016-10-11] MEDS: METHADONE 40 MG, METHADONE 20 MG PO SCH (05:39)
[2016-10-11] MEDS ORDERED: METHADONE HCL 40 MG DISPERSABLE TABLET PO SCH (06:00)
--- NOTE | 2016-10-11 09:58 | PN ---
[facility] CIWA - CIWA Score Nausea/Vomitin-No Nausea/No Vomiting Muscle Tremors: 4-Moderate,w/Arms Extend Anxiety: 3 Agitation: 3 Paroxysmal Sweats: 3 Orientation: 0-Oriented Tacttile Disturbances: 0-None Auditory Disturbances: 0-None Visual Disturbances: 0-None Headache: 1-Very Mild CIWA-Ar Total Score: 14 S Progress Note (SOAP) Subjective: headache sweats body aches Objective: 10/11/16 09:53 Vital Signs Temperature 97.5 F L 10/11/16 06:00 Pulse Rate 62 10/11/16 06:00 Respiratory Rate 18 10/11/16 06:00 Blood Pressure 119/72 10/11/16 06:00 O2 Sat by Pulse Oximetry (%) Laboratory Tests 10/09/16 10/10/16 10/10/16 22:30 07:45 07:45 WBC 5.6 RBC 4.42 Hgb 12.3 Hct 37.8 MCV 85.6 MCHC 32.5 RDW 12.9 Plt Count 177 MPV 9.1 Sodium 140 Potassium 4.0 Chloride 101 Carbon Dioxide 29 Anion Gap 10 BUN 8 Creatinine 0.8 Creat Clearance w eGFR > 60 Random Glucose 81 D Calcium 8.5 Total Bilirubin 0.7 D AST 47 H D ALT 60 Alkaline Phosphatase 76 Total Protein 7.5 Albumin 3.6 Urine Color Colorless Urine Appearance Clear Urine pH 7.0 Ur Specific [place] 1.003 Urine Protein Negative Urine Glucose (UA) Negative Urine Ketones Negative Urine Blood Negative Urine Nitrite Negative Urine Bilirubin Negative Urine Urobilinogen Negative Ur Leukocyte Esterase Negative RPR Titer HIV 1&2 Antibody Screen HIV P24 Antigen 10/10/16 10/10/16 07:45 07:45 WBC RBC Hgb Hct MCV MCHC RDW Plt Count MPV Sodium Potassium Chloride Carbon Dioxide Anion Gap BUN Creatinine Creat Clearance w eGFR Random Glucose Calcium Total Bilirubin AST ALT Alkaline Phosphatase Total Protein Albumin Urine Color Urine Appearance Urine pH Ur Specific [place] Urine Protein Urine Glucose (UA) Urine Ketones Urine Blood Urine Nitrite Urine Bilirubin Urine Urobilinogen Ur Leukocyte Esterase RPR Titer Nonreactive HIV 1&2 Antibody Screen Negative HIV P24 Antigen Negative awake/alert ambulating no acute distress Assessment: 10/11/16 09:54 withdrawal sx Plan: continue detox increase fluids tylenol/motrin prn labs pending
[2016-10-11] MEDS: NICOTINE 14 MG/24 HOURS TOPICAL PATCH TD SCH (10:38)
[2016-10-11] MEDS: PRENATAL VITAMINS W/ FOLIC ACID TABLET (FP) PO SCH (10:38)
[2016-10-11] MEDS: diazePAM 5 MG TABLET PO SCH ×2 (10:38→22:07)
[2016-10-11] MEDS: NAPROXEN 500 MG TABLET (FP) PO SCH ×2 (11:48→22:06)
[2016-10-11] MEDS: LIDOCAINE 5% TOPICAL PATCH TP SCH (11:48)
--- NOTE | 2016-10-11 12:35 | CONSULT ---
[facility] Psychiatric Consult - Data Date of interview: 10/11/16 Admission source: [facility] Identifying data: Another admission to [facility] for this 46 y/o male seeking detox treatment on for alcohol,heroin and benzodiazepine dependence.Patient is single,a father of one,domiciled,unemployed and dependent on [facility] benefits. Substance Abuse History: - Smoking Cessation. Smoking history: Current every day smoker. Have you smoked in the past 12 months: Yes. Aproximately how many cigarettes per day: 10. Cigars Per Day: 0. Hx Chewing Tobacco Use: No. Initiated information on smoking cessation: Yes. 'Breaking Loose' booklet given : 10/09/16. - Substance & Tx. History. Hx Alcohol Use: Yes. Hx Substance Use : Yes. Substance Use Type: Alcohol, Heroin. Hx Substance Use Treatment: Yes ( [facility] ). - Substances Abused. Alcohol. Route: Oral. Frequency: Daily. Amount used: 2 PINTS OF VODKA. Age of first use: 18. Date of Last Use : 10/09/16. Heroin. Route: Inhalation. Frequency: 1-3 times last 30 days. Amount used: 4 BAGS. Age of first use: 23. Date of Last Use: 10/06/16. Confirmed by patient. Medical History: Hepatitis C. Psychiatric History: Diagnosed with bipolar depression.No history of psychiatric hospitalizations.Patient is prescribed seroquel 200 mg/hs.He is currently on methadone maintenance (60 mg/day) at the [facility] MMTP program.No history of suicide attempts. Physical/Sexual Abuse/Trauma History: Patient denies. Mental Status Exam - Mental Status Exam Alert and Oriented to: Time, Place, Person Cognitive Function: Good Patient Appearance: Well Groomed Mood: Hopeful, Euthymic Affect: Appropriate, Normal Range Patient Behavior: Appropriate, Cooperative Speech Pattern: Clear, Appropriate Voice Loudness: Normal Thought Process: Goal Oriented Thought Disorder: Not Present Hallucinations: Denies Suicidal Ideation: Denies Homicidal Ideation: Denies Insight/Judgement: Poor Sleep: Poorly, Difficulty falling asleep Appetite: Good Muscle strength/Tone: Normal Gait/Station: Normal Psychiatric Findings - Problem List ([place] 1, 2,3) (1) Alcohol dependence with uncomplicated withdrawal Current Visit: Yes Status: Acute (2) Opioid dependence on agonist therapy Current Visit: Yes Status: Acute (3) Nicotine dependence Current Visit: Yes Status: Acute Qualifiers: Nicotine product type: cigarettes Substance use status: in withdrawal Qualified Code(s): F17.213 - Nicotine dependence, cigarettes, with withdrawal (4) Drug-induced mood disorder Current Visit: Yes Status: Acute (5) Bipolar II disorder Current Visit: Yes Status: Chronic Comment: Self-report. (6) Hepatitis C carrier Current Visit: Yes Status: Chronic (7) Hepatitis C Current Visit: Yes Status: Chronic Qualifiers: Viral hepatitis chronicity: chronic Hepatic coma status: without hepatic coma Qualified Code(s): B18.2 - Chronic viral hepatitis C - Initial Treatment Plan Initial Treatment Plan: Psychoeducation.Detoxification.Seroquel 200 mg po hs.Side effects/benefits discussed with the patient.He agrees with this careplan.Observation.
[2016-10-11] MEDS: hydrOXYzine PAMOATE 50 MG CAPSULE (FP) PO PRN (15:50)
[2016-10-11] MEDS: QUEtiapine FUMARATE 200 MG TABLET PO SCH (22:06)
[2016-10-11] MEDS: THIAMINE HCL 100 MG TABLET (FP) PO SCH (22:06)
[2016-10-12] MEDS ORDERED: METHADONE HCL 40 MG DISPERSABLE TABLET ONE (04:08)
[2016-10-12] MEDS ORDERED: METHADONE HCL 10 MG TABLET ONE (04:09)
[2016-10-12] MEDS: diazePAM 5 MG TABLET PO PRN ×3 (05:32→14:58)
[2016-10-12] MEDS: METHADONE 40 MG, METHADONE 20 MG PO SCH (05:32)
[2016-10-12] MEDS: hydrOXYzine PAMOATE 50 MG CAPSULE (FP) PO PRN ×4 (06:33→22:18)
--- NOTE | 2016-10-12 10:36 | PN ---
BHS Progress Note (SOAP) Subjective: interrupted sleep, sweats , shakes , decreased appetite, lbp Objective: 10/12/16 10:32 Vital Signs Temperature 98.2 F 10/12/16 06:25 Pulse Rate 69 10/12/16 06:25 Respiratory Rate 16 10/12/16 06:25 Blood Pressure 107/72 10/12/16 06:25 O2 Sat by Pulse Oximetry (%) Laboratory Tests 10/09/16 10/10/16 10/10/16 22:30 07:45 07:45 WBC 5.6 RBC 4.42 Hgb 12.3 Hct 37.8 MCV 85.6 MCHC 32.5 RDW 12.9 Plt Count 177 MPV 9.1 Sodium 140 Potassium 4.0 Chloride 101 Carbon Dioxide 29 Anion Gap 10 BUN 8 Creatinine 0.8 Creat Clearance w eGFR > 60 Random Glucose 81 D Calcium 8.5 Total Bilirubin 0.7 D AST 47 H D ALT 60 Alkaline Phosphatase 76 Total Protein 7.5 Albumin 3.6 Urine Color Colorless Urine Appearance Clear Urine pH 7.0 Ur Specific [place] 1.003 Urine Protein Negative Urine Glucose (UA) Negative Urine Ketones Negative Urine Blood Negative Urine Nitrite Negative Urine Bilirubin Negative Urine Urobilinogen Negative Ur Leukocyte Esterase Negative RPR Titer HIV 1&2 Antibody Screen HIV P24 Antigen 10/10/16 10/10/16 07:45 07:45 WBC RBC Hgb Hct MCV MCHC RDW Plt Count MPV Sodium Potassium Chloride Carbon Dioxide Anion Gap BUN Creatinine Creat Clearance w eGFR Random Glucose Calcium Total Bilirubin AST ALT Alkaline Phosphatase Total Protein Albumin Urine Color Urine Appearance Urine pH Ur Specific [place] Urine Protein Urine Glucose (UA) Urine Ketones Urine Blood Urine Nitrite Urine Bilirubin Urine Urobilinogen Ur Leukocyte Esterase RPR Titer Nonreactive HIV 1&2 Antibody Screen Negative HIV P24 Antigen Negative pt aox3 in nad ambulating Assessment: 10/12/16 10:33 withdrawal sx's lbp Plan: cont. detox increase fluids flexeril 10mg tid d/c in am
[2016-10-12] MEDS: PRENATAL VITAMINS W/ FOLIC ACID TABLET (FP) PO SCH (10:50)
[2016-10-12] MEDS: NAPROXEN 500 MG TABLET (FP) PO SCH ×2 (10:50→22:18)
[2016-10-12] MEDS: diazePAM 5 MG TABLET PO SCH ×2 (10:52→22:18)
[2016-10-12] MEDS: NICOTINE 14 MG/24 HOURS TOPICAL PATCH TD SCH (10:52)
[2016-10-12] MEDS: LIDOCAINE 5% TOPICAL PATCH TP SCH (10:54)
[2016-10-12] MEDS: CYCLOBENZAPRINE HCL 10 MG TABLET (FP) PO PRN ×2 (11:32→22:18)
[2016-10-12] MEDS: THIAMINE HCL 100 MG TABLET (FP) PO SCH (22:18)
[2016-10-12] MEDS: QUEtiapine FUMARATE 200 MG TABLET PO SCH (22:18)
--- NOTE | 2016-10-12 23:07 | EKG ---
Test Reason : Blood Pressure : / mmHG Vent. Rate : 081 BPM Atrial Rate : 081 BPM P-R Int : 166 ms QRS Dur : 102 ms QT Int : 396 ms P-R-T Axes : 050 010 032 degrees QTc Int : 460 ms NORMAL SINUS RHYTHM NORMAL ECG WHEN COMPARED WITH ECG OF 08-SEP-2016 21:27, NO SIGNIFICANT CHANGE WAS FOUND Confirmed by MICHI JOHNSON MD ([id number]) on 10/12/2016 11:07:33 PM Referred By: Confirmed By:MICHI JOHNSON MD
[2016-10-13] MEDS ORDERED: METHADONE HCL 40 MG DISPERSABLE TABLET ONE (03:58)
[2016-10-13] MEDS ORDERED: METHADONE HCL 10 MG TABLET ONE (03:59)
[2016-10-13] MEDS: METHADONE 40 MG, METHADONE 20 MG PO SCH (05:15)
--- NOTE | 2016-10-13 08:48 | DS ---
[facility] Detox Discharge Summary Admission Date: 10/09/16 Discharge Date: 10/13/16 - History Present History: Alcohol Dependence, Opioid Dependence, Sedative Dependence, MMTP - Physical Exam Results Vital Signs: Vital Signs Temperature 96.3 F L 10/13/16 06:00 Pulse Rate 67 10/13/16 06:00 Respiratory Rate 18 10/13/16 06:00 Blood Pressure 119/84 10/13/16 06:00 O2 Sat by Pulse Oximetry (%) - Treatment Hospital Course: Detox Protocol Followed, Detoxed Safely, Responded well, Discharged Condition Good, Rehab Referral Accepted - Medication Discharge Medications: Ambulatory Orders Quetiapine Fumarate [Seroquel -] 200 mg PO HS #30 tab 09/09/16 Hydroxyzine Pamoate [Vistaril -] 25 mg PO TID #30 capsule 10/11/16 Quetiapine Fumarate [Seroquel -] 200 mg PO HS #30 tab 10/11/16 - Diagnosis (1) Alcohol dependence with uncomplicated withdrawal Current Visit: Yes Status: Chronic (2) Drug-induced mood disorder Current Visit: Yes Status: Acute (3) Nicotine dependence Current Visit: Yes Status: Chronic Qualifiers: Nicotine product type: cigarettes Substance use status: uncomplicated Qualified Code(s): F17.210 - Nicotine dependence, cigarettes, uncomplicated (4) Opioid dependence on agonist therapy Current Visit: Yes Status: Acute (5) Bipolar II disorder Current Visit: Yes Status: Chronic (6) Hepatitis C Current Visit: Yes Status: Chronic Qualifiers: Viral hepatitis chronicity: chronic Hepatic coma status: without hepatic coma Qualified Code(s): B18.2 - Chronic viral hepatitis C (7) Hepatitis C carrier Current Visit: Yes Status: Chronic (8) History of syncope Current Visit: Yes Status: Chronic (9) Sedative, hypnotic or anxiolytic dependence with withdrawal, uncomplicated Current Visit: Yes Status: Chronic (10) Weight loss Current Visit: No Status: Acute (11) Flat feet, bilateral Current Visit: No Status: Chronic (12) Methadone maintenance therapy patient Current Visit: Yes Status: Chronic (13) depression Current Visit: No Status: Suspected - AMA Did Patient Leave Against Medical Advice: No
[2016-10-13] MEDS: NICOTINE 14 MG/24 HOURS TOPICAL PATCH TD SCH (09:10)
[2016-10-13] MEDS: NAPROXEN 500 MG TABLET (FP) PO SCH (09:10)
[2016-10-13] MEDS: LIDOCAINE 5% TOPICAL PATCH TP SCH (09:10)
[2016-10-13] MEDS: PRENATAL VITAMINS W/ FOLIC ACID TABLET (FP) PO SCH (09:10)
[2016-10-13 09:53] VITALS: BP 107/61; PULSE 93; TEMP 97.7
[2016-10-13] MEDS ORDERED: diazePAM 5 MG TABLET PO SCH (10:00)
== END 2016-10-13 09:12 | disposition home or self-care (01) | DRG 773 ==
LOC: YASAS 20:52 → Y6N 20:54
PROVIDERS: ADMIT Internal Medicine; ATTEND Internal Medicine Addiction Medicine
PROC: HZ2ZZZZ Detoxification Services for Substance Abuse Treatment (ICD-10-PCS; principal; 2016-10-09)
DX: F10.230 Alcohol dependence with withdrawal, uncomplicated (principal); F11.20 Opioid dependence, uncomplicated; F17.210 Nicotine dependence, cigarettes, uncomplicated; F19.24 Other psychoactive substance dependence with psychoactive substance-induced mood disorder; F31.81 Bipolar II disorder; F32.9 Major depressive disorder, single episode, unspecified; B18.2 Chronic viral hepatitis C; M21.42 Flat foot [pes planus] (acquired), left foot; M21.41 Flat foot [pes planus] (acquired), right foot; M54.5 Low back pain; Z86.79 Personal history of other diseases of the circulatory system; Z87.898 Personal history of other specified conditions
CPT/HCPCS: 36415; 80053; 81003; 85027; 86593; 87389; 93005; 93010

== ENCOUNTER 2016-11-08 14:43 | Inpatient (IN) | payer OTHER ==
[2016-11-08 20:16] VITALS: BMI 20.9
--- NOTE | 2016-11-08 20:16 | HP ---
CIWA Score - CIWA Score Nausea/Vomitin-Mild Nausea/No Vomiting Muscle Tremors: 4-Moderate,w/Arms Extend Anxiety: 4-Mod. Anxious/Guarded Agitation: 4-Moderately Restless Paroxysmal Sweats: 1-Minimal Palms Moist Orientation: 1-Uncertain about Date Tacttile Disturbances: 0-None Auditory Disturbances: 0-None Visual Disturbances: 0-None Headache: 2-Mild CIWA-Ar Total Score: 17 Admission ROS BHS - HPI Chief Complaint: WITHDRAWAL SX Allergies/Adverse Reactions: Allergies Allergy/AdvReac Type Severity Reaction Status Date / Time No Known Allergies Allergy Verified 11/08/16 20:22 History of Present Illness: 46 YEARS OLD MALE WITH LONG HISTORY OF ALCOHOL XANAX NICOTINE DEPENDENCE HAS HEPATITIS C AND BIPOLAR II IS ADMITTED TO DETOX Exam Limitations: No Limitations - Ebola screening Have you traveled outside of the country in the last 21 days: No Have you had contact with anyone from an Ebola affected area: No Have you been sick,other than usual withdrawal symptoms: No Do you have a fever: No - Review of Systems Constitutional: Chills, Changes in sleep Patient History - Patient Medical History Hx Anemia: No Hx Asthma: No Hx Chronic Obstructive Pulmonary Disease (COPD): No Hx Cancer: No Hx Cardiac Disorders: No Hx Congestive Heart Failure: No Hx Hypertension: No Hx Hypercholesterolemia: No Hx Pacemaker: No HX Cerebrovascular Accident: No Hx Seizures: No Hx Dementia: No Hx Diabetes: No Hx Gastrointestinal Disorders: No Hx Liver Disease: Yes (UNTREATED HEP-C; DIAGNOSED 1997.) Hx Genitourinary Disorders: No Hx Sexually Transmitted Disorders: No Hx Renal Disease (ESRD): No Hx Thyroid Disease: No Hx Human Immunodeficiency Virus (HIV): No (LAST TESTED: 12/2015 AT [facility]: NEGATIVE.) Hx Hepatitis C: Yes (UNTREATED; DIAGNOSED 1997.) Hx Depression: Yes Hx Suicide Attempt: No Hx Bipolar Disorder: Yes (TAKES MEDICATION (SEROQUEL)) Hx Schizophrenia: No - Patient Surgical History Past Surgical History: No Hx Neurologic Surgery: No Hx Cataract Extraction: No Hx Cardiac Surgery: No Hx Lung Surgery: No Hx Breast Surgery: No Hx Breast Biopsy: No Hx Abdominal Surgery: No Hx Appendectomy: No Hx Cholecystectomy: No Hx Genitourinary Surgery: No Hx Section: No Hx Orthopedic Surgery: No Anesthesia Reaction: No - PPD History Date: 03/03/17 Results: 0 mm - Smoking Cessation Smoking history: Current every day smoker Have you smoked in the past 12 months: Yes Aproximately how many cigarettes per day: 10 Cigars Per Day: 0 Hx Chewing Tobacco Use: No Initiated information on smoking cessation: Yes 'Breaking Loose' booklet given: 11/09/16 - Substances Abused Alcohol Route: Oral Frequency: Daily Amount used: LIQUOR- 2 PINTS, BEER- 2 SIX PACKS Age of first use: 18 Date of Last Use: 11/08/16 Alprazolam (Xanax) Route: Oral Frequency: Daily Amount used: 4 MG Age of first use: 23 Date of Last Use: 11/06/16 Family Disease History - Family Disease History Family Disease History: Diabetes: Grandparent, [place]: Mother (LEUKEMIA.), Other: Brother (DSA,ALCOHOL; BIPOLAR DISORDER.) Admission Physical Exam [facility] - Physical General Appearance: Yes: Appropriately Dressed, Mild Distress, Thin, Tremorous, Irritable, Sweating, Anxious HEENTM: Yes: Hearing grossly Normal, Normal ENT Inspection, Normocephalic, Normal Voice Respiratory: Yes: Chest Non-Tender, Lungs Clear, Normal Breath Sounds, No Respiratory Distress, No Accessory Muscle Use Neck: Yes: Trachea in good position Breast: Yes: Breasts Symetrical Cardiology: Yes: Regular Rhythm, Regular Rate, S1, S2 Abdominal: Yes: Non Tender, Soft Genitourinary: Yes: Within Normal Limits Back: Yes: Normal Inspection Musculoskeletal: Yes: full range of Motion, Gait Steady, Back pain, Muscle Pain Extremities: Yes: Normal Range of Motion, Non-Tender, Tremors Neurological: Yes: Alert, Motor Strength 5/5, Normal Response, Depressed Affect Integumentary: Yes: Warm, Track [place] Lymphatic: Yes: Within Normal Limits - Diagnostic (1) Alcohol dependence with uncomplicated withdrawal Current Visit: Yes Status: Acute (2) Bipolar II disorder Current Visit: Yes Status: Chronic Comment: Self-report. (3) Hepatitis C Current Visit: Yes Status: Chronic Qualifiers: Viral hepatitis chronicity: chronic Hepatic coma status: without hepatic coma Qualified Code(s): B18.2 - Chronic viral hepatitis C (4) Methadone maintenance therapy patient Current Visit: Yes Status: Chronic Comment: LAST DOSE OF METHADONE ADMINISTERED AT [facility]: 60 MG, verification pending (5) Sedative, hypnotic or anxiolytic dependence with withdrawal, uncomplicated Current Visit: Yes Status: Acute Cleared for Admission [facility] - Detox or Rehab [facility] Level of Care: Medically Managed Detox Regimen/Protocol: Valium [facility] Breath Alcohol Content Breath Alcohol Content: 0.388 (0.131) Vital Signs - Vital Signs Vital Signs Refused: No Temperature: 98 F Temperature Source: Oral Pulse Rate: 82 Respiratory Rate: 18 Blood Pressure: 130/80 BP Location: Left Arm Blood Pressure Position: Sitting - Height Height: 5 ft 9 in - Weight Weight: 142 lb Weight Measurement Method: Standing Scale Body Mass Index (BMI): 20.9 - Bowel Function Bowel Movement: Yes Urine Drug Screen - Control Is Test Valid: Yes - Results Drug Screen Negative: No Urine Drug Screen Results: JONATHON-Cocaine, OPI-Opiates, BZO-Benzodiazepines, MTD- Methadone
[2016-11-08] MEDS ORDERED: NICOTINE POLACRILEX 4 MG GUM BC PRN (20:20)
[2016-11-08] MEDS ORDERED: MAGNESIUM CITRATE 300 ML BOTTLE PO PRN (20:20)
[2016-11-08] MEDS ORDERED: diphenhydrAMINE HCL 50 MG CAPSULE PO PRN (20:20)
[2016-11-08] MEDS ORDERED: MAG HYDROX/AL HYDROX/SIMETH 30 ML UNIT-DOSE CUP PO PRN (20:20)
[2016-11-08] MEDS ORDERED: MAGNESIUM HYDROX 2400MG/30ML ORAL SUSPENSION 30 ML CUP PO PRN (20:20)
[2016-11-08] MEDS ORDERED: MENTHOL/PHENOL 1 EACH UD MM PRN (20:20)
[2016-11-08] MEDS ORDERED: diazePAM 5 MG TABLET PO ONE (20:20)
[2016-11-08] MEDS ORDERED: P-EPHED 60MG/TRIPROLIDI 2.5MG TABLET PO PRN (20:20)
[2016-11-08] MEDS ORDERED: ACETAMINOPHEN 325 MG TABLET (FP) PO PRN (20:20)
[2016-11-08] MEDS ORDERED: guaiFENesin/D-METHORPHAN HB 10 ML UNIT-DOSE CUPS PO PRN (20:20)
[2016-11-08] MEDS ORDERED: IBUPROFEN 400 MG TABLET (FP) PO PRN (20:20)
[2016-11-08] MEDS ORDERED: LOPERAMIDE HCL 2 MG CAPSULE PO PRN (20:20)
[2016-11-08] MEDS: THIAMINE HCL 100 MG TABLET (FP) PO SCH (21:27)
[2016-11-08] MEDS: diazePAM 5 MG TABLET PO SCH (21:29)
[2016-11-09] MEDS: diazePAM 5 MG TABLET PO SCH ×3 (05:25→22:26)
[2016-11-09] MEDS ORDERED: METHADONE HCL 40 MG DISPERSABLE TABLET PO ONE (07:17)
[2016-11-09] MEDS: PRENATAL VITAMINS W/ FOLIC ACID TABLET (FP) PO SCH (10:06)
[2016-11-09] MEDS: diazePAM 5 MG TABLET PO PRN ×2 (10:06→17:15)
[2016-11-09] MEDS: NICOTINE 21 MG/24 HOURS TOPICAL PATCH TD SCH (10:07)
[2016-11-09 10:10] LABS: MCH 27.8 pg (25.7-33.7); MEAN CELL VOLUME 84.1 fl (80-96); MEAN PLT VOLUME 8.7 fl (7.5-11.1); PLATELET COUNT 209 K/MM3 (134-434); RDW 13.1 % (11.9-15.9); WHITE BLOOD COUNT 6.4 K/mm3 (4.0-10.0)
[2016-11-09 10:23] LABS: ALBUMIN 3.6 g/dl (3.4-5.0); ALK PHOS 87 U/L (45-117); ANION GAP 9 (8-16); BILIRUBIN,TOTAL 0.5 mg/dL (0.2-1.0); CALCIUM 8.7 mg/dL (8.5-10.1); CO2 28 mmol/L (21-32); COCKROFT - GAULT 95.4; CREATININE 0.9 mg/dL (0.7-1.3); GLUCOSE,RANDOM 100 mg/dL (74-106); SGOT/AST 45 U/L (15-37); SGPT/ALT 51 U/L (12-78); TOT PROT 7.5 g/dl (6.4-8.2)
--- NOTE | 2016-11-09 10:58 | PN ---
[facility] CIWA - CIWA Score Nausea/Vomitin-No Nausea/No Vomiting Muscle Tremors: 4-Moderate,w/Arms Extend Anxiety: 4-Mod. Anxious/Guarded Agitation: 4-Moderately Restless Paroxysmal Sweats: 1-Minimal Palms Moist Orientation: 0-Oriented Tacttile Disturbances: 3-Moderate Itch/Numb/Burn Auditory Disturbances: 0-None Visual Disturbances: 0-None Headache: 0-None Present CIWA-Ar Total Score: 16 S Progress Note (SOAP) Subjective: ANXIETY,SWEATS/CHILLS,TREMORS, Objective: 11/09/16 11:04 Vital Signs Temperature 96.7 F L 11/09/16 09:46 Pulse Rate 7 L 11/09/16 09:46 Respiratory Rate 18 11/09/16 09:46 Blood Pressure 124/84 11/09/16 09:46 O2 Sat by Pulse Oximetry (%) Laboratory Last Values WBC 6.4 K/mm3 (4.0-10.0) 11/09/16 07:00 RBC 4.37 M/mm3 (4.00-5.60) 11/09/16 07:00 Hgb 12.2 GM/dL (11.7-16.9) 11/09/16 07:00 Hct 36.8 % (35.4-49) 11/09/16 07:00 MCV 84.1 fl (80-96) 11/09/16 07:00 MCHC 33.0 g/dl (32.0-35.9) 11/09/16 07:00 RDW 13.1 % (11.9-15.9) 11/09/16 07:00 Plt Count 209 K/MM3 (134-434) 11/09/16 07:00 MPV 8.7 fl (7.5-11.1) 11/09/16 07:00 Sodium 141 mmol/L (136-145) 11/09/16 07:00 Potassium 3.8 mmol/L (3.5-5.1) 11/09/16 07:00 Chloride 104 mmol/L (98-107) 11/09/16 07:00 Carbon Dioxide 28 mmol/L (21-32) 11/09/16 07:00 Anion Gap 9 (8-16) 11/09/16 07:00 BUN 13 mg/dL (7-18) D 11/09/16 07:00 Creatinine 0.9 mg/dL (0.7-1.3) 11/09/16 07:00 Creat Clearance w eGFR > 60 (>60) 11/09/16 07:00 Random Glucose 100 mg/dL (74-106) D 11/09/16 07:00 Calcium 8.7 mg/dL (8.5-10.1) 11/09/16 07:00 Total Bilirubin 0.5 mg/dL (0.2-1.0) D 11/09/16 07:00 AST 45 U/L (15-37) H 11/09/16 07:00 ALT 51 U/L (12-78) 11/09/16 07:00 Alkaline Phosphatase 87 U/L (45-117) 11/09/16 07:00 Total Protein 7.5 g/dl (6.4-8.2) 11/09/16 07:00 Albumin 3.6 g/dl (3.4-5.0) 11/09/16 07:00 Assessment: 11/09/16 11:04 WITHDRAWAL SX Plan: CONTINUE DETOX
--- NOTE | 2016-11-09 13:39 | CONSULT ---
[facility] Psychiatric Consult - Data Date of interview: 11/09/16 Admission source: [facility] Identifying data: Another admission to [facility] for this 46 y/o male seeking detox treatment on for alcohol,heroin and benzodiazepine dependence.Patient is single,a father of one,domiciled,unemployed and dependent on [facility] benefits. Substance Abuse History: Patient admits to using alcohol,heroin and xanax prior to this [facility] visit. Medical History: Hepatitis C. Psychiatric History: Diagnosed with Bipolar Disorder.No history of psychiatric hospitalizations.Prescribed seroquel 200 mg/hs.Mr Jones is currently on methadone maintenance (60 mg/day) at the [facility] MMTP program.No history of suicide attempts. Physical/Sexual Abuse/Trauma History: Patient denies. Mental Status Exam - Mental Status Exam Alert and Oriented to: Time, Place, Person Cognitive Function: Good Patient Appearance: Well Groomed Mood: Hopeful, Euthymic Affect: Appropriate, Normal Range Patient Behavior: Fatigued, Appropriate, Cooperative Speech Pattern: Clear, Appropriate Voice Loudness: Normal Thought Process: Goal Oriented Thought Disorder: Not Present Hallucinations: Denies Suicidal Ideation: Denies Homicidal Ideation: Denies Insight/Judgement: Poor Sleep: Poorly, Difficulty falling asleep Appetite: Good Muscle strength/Tone: Normal Gait/Station: Normal Psychiatric Findings - Problem List ([place] 1, 2,3) (1) Alcohol dependence with uncomplicated withdrawal Current Visit: Yes Status: Acute (2) Sedative, hypnotic or anxiolytic dependence with withdrawal, uncomplicated Current Visit: Yes Status: Acute (3) Opioid dependence on agonist therapy Current Visit: Yes Status: Acute (4) Nicotine dependence Current Visit: Yes Status: Acute Qualifiers: Nicotine product type: cigarettes Substance use status: uncomplicated Qualified Code(s): F17.210 - Nicotine dependence, cigarettes, uncomplicated (5) Drug-induced mood disorder Current Visit: Yes Status: Acute (6) Bipolar II disorder Current Visit: Yes Status: Chronic Comment: Self-report. (7) Hepatitis C Current Visit: Yes Status: Chronic Qualifiers: Viral hepatitis chronicity: chronic Hepatic coma status: without hepatic coma Qualified Code(s): B18.2 - Chronic viral hepatitis C (8) Insomnia Current Visit: Yes Status: Acute - Initial Treatment Plan Initial Treatment Plan: Psychoeducation.Detoxification.Medication : seroquel 200 mg po hs.Side effects/benefits discussed with patient.He agrees with plan.Observation.
[2016-11-09 13:57] LABS: URINE APPEARANCE SLCLOUDY; URINE BILIRUBIN NEGATIVE (NEGATIVE); URINE BLOOD NEGATIVE (NEGATIVE); URINE COLOR DKYELLOW; URINE GLUCOSE (UA) NEGATIVE (NEGATIVE); URINE KETONE NEGATIVE (NEGATIVE); URINE LEUK ESTERASE NEGATIVE (NEGATIVE); URINE NITRITE NEGATIVE (NEGATIVE); URINE UROBILINOGEN NEGATIVE E.U./dl (0.2-1.0)
[2016-11-09 14:01] LABS: URINE PROTEIN 1+ (NEGATIVE)
[2016-11-09 14:10] LABS: CALCIUM OXALATE CRYSTALS MODERATE /hpf (NONE SEEN); URINE HYALINE CAST 20 /lpf; URINE MUCUS MANY; URINE RBC 5 /hpf (0-3); URINE WBC 3 /hpf (3-5)
[2016-11-09] MEDS: QUEtiapine FUMARATE 200 MG TABLET PO SCH (22:26)
[2016-11-09] MEDS: THIAMINE HCL 100 MG TABLET (FP) PO SCH (22:26)
--- NOTE | 2016-11-09 23:07 | EKG ---
Test Reason : Blood Pressure : / mmHG Vent. Rate : 065 BPM Atrial Rate : 065 BPM P-R Int : 180 ms QRS Dur : 110 ms QT Int : 416 ms P-R-T Axes : 029 015 041 degrees QTc Int : 432 ms NORMAL SINUS RHYTHM NORMAL ECG WHEN COMPARED WITH ECG OF 09-OCT-2016 20:45, NO SIGNIFICANT CHANGE WAS FOUND Confirmed by GENIA ASIF MD ([id number]) on 11/09/2016 11:07:11 PM Referred By: Erick Barba Confirmed By:GENIA ASIF MD
[2016-11-10] MEDS ORDERED: METHADONE HCL 10 MG TABLET ONE (04:07)
[2016-11-10] MEDS ORDERED: METHADONE HCL 40 MG DISPERSABLE TABLET ONE (04:07)
[2016-11-10] MEDS: diazePAM 5 MG TABLET PO PRN ×3 (05:33→17:10)
[2016-11-10] MEDS ORDERED: METHADONE HCL 10 MG TABLET PO ONE (06:00)
[2016-11-10] MEDS ORDERED: METHADONE 40 MG, METHADONE 10 MG PO ONE (06:00)
[2016-11-10] MEDS: NICOTINE 21 MG/24 HOURS TOPICAL PATCH TD SCH (10:44)
[2016-11-10] MEDS: PRENATAL VITAMINS W/ FOLIC ACID TABLET (FP) PO SCH (10:44)
[2016-11-10] MEDS: diazePAM 5 MG TABLET PO SCH ×2 (10:44→22:36)
--- NOTE | 2016-11-10 10:44 | PN ---
[facility] CIWA - CIWA Score Nausea/Vomitin-No Nausea/No Vomiting Muscle Tremors: 4-Moderate,w/Arms Extend Anxiety: 4-Mod. Anxious/Guarded Agitation: 4-Moderately Restless Paroxysmal Sweats: 1-Minimal Palms Moist Orientation: 0-Oriented Tacttile Disturbances: 3-Moderate Itch/Numb/Burn Auditory Disturbances: 0-None Visual Disturbances: 0-None Headache: 0-None Present CIWA-Ar Total Score: 16 S Progress Note (SOAP) Subjective: ANXIETY,IRRITABILITY,SWEATS,INTERMITTENT SLEEP. Objective: 11/10/16 10:43 Vital Signs Temperature 96.8 F L 11/10/16 09:32 Pulse Rate 64 11/10/16 09:32 Respiratory Rate 18 11/10/16 09:32 Blood Pressure 120/85 11/10/16 09:32 O2 Sat by Pulse Oximetry (%) Laboratory Last Values WBC 6.4 K/mm3 (4.0-10.0) 11/09/16 07:00 RBC 4.37 M/mm3 (4.00-5.60) 11/09/16 07:00 Hgb 12.2 GM/dL (11.7-16.9) 11/09/16 07:00 Hct 36.8 % (35.4-49) 11/09/16 07:00 MCV 84.1 fl (80-96) 11/09/16 07:00 MCHC 33.0 g/dl (32.0-35.9) 11/09/16 07:00 RDW 13.1 % (11.9-15.9) 11/09/16 07:00 Plt Count 209 K/MM3 (134-434) 11/09/16 07:00 MPV 8.7 fl (7.5-11.1) 11/09/16 07:00 Sodium 141 mmol/L (136-145) 11/09/16 07:00 Potassium 3.8 mmol/L (3.5-5.1) 11/09/16 07:00 Chloride 104 mmol/L (98-107) 11/09/16 07:00 Carbon Dioxide 28 mmol/L (21-32) 11/09/16 07:00 Anion Gap 9 (8-16) 11/09/16 07:00 BUN 13 mg/dL (7-18) D 11/09/16 07:00 Creatinine 0.9 mg/dL (0.7-1.3) 11/09/16 07:00 Creat Clearance w eGFR > 60 (>60) 11/09/16 07:00 Random Glucose 100 mg/dL (74-106) D 11/09/16 07:00 Calcium 8.7 mg/dL (8.5-10.1) 11/09/16 07:00 Total Bilirubin 0.5 mg/dL (0.2-1.0) D 11/09/16 07:00 AST 45 U/L (15-37) H 11/09/16 07:00 ALT 51 U/L (12-78) 11/09/16 07:00 Alkaline Phosphatase 87 U/L (45-117) 11/09/16 07:00 Total Protein 7.5 g/dl (6.4-8.2) 11/09/16 07:00 Albumin 3.6 g/dl (3.4-5.0) 11/09/16 07:00 Urine Color Dkyellow 11/09/16 10:05 Urine Appearance Slcloudy 11/09/16 10:05 Urine pH 5.0 (5.0-8.0) D 11/09/16 10:05 Ur Specific [place] 1.030 (1.001-1.035) 11/09/16 10:05 Urine Protein 1+ (NEGATIVE) H 11/09/16 10:05 Urine Glucose (UA) Negative (NEGATIVE) 11/09/16 10:05 Urine Ketones Negative (NEGATIVE) 11/09/16 10:05 Urine Blood Negative (NEGATIVE) 11/09/16 10:05 Urine Nitrite Negative (NEGATIVE) 11/09/16 10:05 Urine Bilirubin Negative (NEGATIVE) 11/09/16 10:05 Urine Urobilinogen Negative E.U./dl (0.2-1.0) 11/09/16 10:05 Ur Leukocyte Esterase Negative (NEGATIVE) 11/09/16 10:05 Urine RBC 5 /hpf (0-3) 11/09/16 10:05 Urine WBC 3 /hpf (3-5) 11/09/16 10:05 Ur Epithelial Cells Rare /hpf (FEW) 11/09/16 10:05 Calcium Oxalate Crystal Moderate /hpf (NONE SEEN) 11/09/16 10:05 Hyaline Casts 20 /lpf 11/09/16 10:05 Urine Mucus Many 11/09/16 10:05 RPR Titer Nonreactive (NONREACTIVE) 11/09/16 07:00 Assessment: 11/10/16 10:44 WITHDRAWAL SX Plan: CONTINUE DETOX
[2016-11-10] MEDS: hydrOXYzine PAMOATE 50 MG CAPSULE (FP) PO PRN ×2 (12:58→18:51)
[2016-11-10] MEDS: QUEtiapine FUMARATE 200 MG TABLET PO SCH (22:36)
[2016-11-10] MEDS: THIAMINE HCL 100 MG TABLET (FP) PO SCH (22:36)
[2016-11-11] MEDS ORDERED: METHADONE HCL 10 MG TABLET ONE (04:19)
[2016-11-11] MEDS ORDERED: METHADONE HCL 40 MG DISPERSABLE TABLET ONE (04:19)
[2016-11-11] MEDS: diazePAM 5 MG TABLET PO PRN ×4 (05:30→19:22)
[2016-11-11] MEDS: METHADONE 40 MG, METHADONE 20 MG PO SCH (05:30)
[2016-11-11] MEDS ORDERED: METHADONE HCL 10 MG TABLET PO SCH (06:00)
[2016-11-11] MEDS: PRENATAL VITAMINS W/ FOLIC ACID TABLET (FP) PO SCH (10:04)
[2016-11-11] MEDS: diazePAM 5 MG TABLET PO SCH ×2 (10:04→22:56)
[2016-11-11] MEDS: NICOTINE 21 MG/24 HOURS TOPICAL PATCH TD SCH (10:06)
[2016-11-11] MEDS: hydrOXYzine PAMOATE 50 MG CAPSULE (FP) PO PRN ×3 (10:06→18:49)
[2016-11-11] MEDS: HYDROCORTISONE 1% TOPICAL CREAM 30 GM TUBE TP SCH ×2 (11:13→22:55)
--- NOTE | 2016-11-11 11:40 | PN ---
[facility] Progress Note (SOAP) Subjective: SLIGHT ANXIETY,IRRITABILITY,N SWEATS. C/O RASH ON FACE. Objective: 11/11/16 11:38 Vital Signs Temperature 97.6 F 11/11/16 09:35 Pulse Rate 74 11/11/16 09:35 Respiratory Rate 18 11/11/16 09:35 Blood Pressure 117/79 11/11/16 09:35 O2 Sat by Pulse Oximetry (%) Laboratory Last Values WBC 6.4 K/mm3 (4.0-10.0) 11/09/16 07:00 RBC 4.37 M/mm3 (4.00-5.60) 11/09/16 07:00 Hgb 12.2 GM/dL (11.7-16.9) 11/09/16 07:00 Hct 36.8 % (35.4-49) 11/09/16 07:00 MCV 84.1 fl (80-96) 11/09/16 07:00 MCHC 33.0 g/dl (32.0-35.9) 11/09/16 07:00 RDW 13.1 % (11.9-15.9) 11/09/16 07:00 Plt Count 209 K/MM3 (134-434) 11/09/16 07:00 MPV 8.7 fl (7.5-11.1) 11/09/16 07:00 Sodium 141 mmol/L (136-145) 11/09/16 07:00 Potassium 3.8 mmol/L (3.5-5.1) 11/09/16 07:00 Chloride 104 mmol/L (98-107) 11/09/16 07:00 Carbon Dioxide 28 mmol/L (21-32) 11/09/16 07:00 Anion Gap 9 (8-16) 11/09/16 07:00 BUN 13 mg/dL (7-18) D 11/09/16 07:00 Creatinine 0.9 mg/dL (0.7-1.3) 11/09/16 07:00 Creat Clearance w eGFR > 60 (>60) 11/09/16 07:00 Random Glucose 100 mg/dL (74-106) D 11/09/16 07:00 Calcium 8.7 mg/dL (8.5-10.1) 11/09/16 07:00 Total Bilirubin 0.5 mg/dL (0.2-1.0) D 11/09/16 07:00 AST 45 U/L (15-37) H 11/09/16 07:00 ALT 51 U/L (12-78) 11/09/16 07:00 Alkaline Phosphatase 87 U/L (45-117) 11/09/16 07:00 Total Protein 7.5 g/dl (6.4-8.2) 11/09/16 07:00 Albumin 3.6 g/dl (3.4-5.0) 11/09/16 07:00 Urine Color Dkyellow 11/09/16 10:05 Urine Appearance Slcloudy 11/09/16 10:05 Urine pH 5.0 (5.0-8.0) D 11/09/16 10:05 Ur Specific [place] 1.030 (1.001-1.035) 11/09/16 10:05 Urine Protein 1+ (NEGATIVE) H 11/09/16 10:05 Urine Glucose (UA) Negative (NEGATIVE) 11/09/16 10:05 Urine Ketones Negative (NEGATIVE) 11/09/16 10:05 Urine Blood Negative (NEGATIVE) 11/09/16 10:05 Urine Nitrite Negative (NEGATIVE) 11/09/16 10:05 Urine Bilirubin Negative (NEGATIVE) 11/09/16 10:05 Urine Urobilinogen Negative E.U./dl (0.2-1.0) 11/09/16 10:05 Ur Leukocyte Esterase Negative (NEGATIVE) 11/09/16 10:05 Urine RBC 5 /hpf (0-3) 11/09/16 10:05 Urine WBC 3 /hpf (3-5) 11/09/16 10:05 Ur Epithelial Cells Rare /hpf (FEW) 11/09/16 10:05 Calcium Oxalate Crystal Moderate /hpf (NONE SEEN) 11/09/16 10:05 Hyaline Casts 20 /lpf 11/09/16 10:05 Urine Mucus Many 11/09/16 10:05 RPR Titer Nonreactive (NONREACTIVE) 11/09/16 07:00 AREAS OF PATCHY LIGHT DISCOLORATION Assessment: 11/11/16 11:39 WITHDRAWAL SX ECZEMA Plan: CONTINUE DETOX HYTONE CREAM 1% APPLY TO AFFECTED AREAS DIRECTED
[2016-11-11] MEDS: THIAMINE HCL 100 MG TABLET (FP) PO SCH (22:56)
[2016-11-11] MEDS: QUEtiapine FUMARATE 200 MG TABLET PO SCH (22:56)
[2016-11-12] MEDS ORDERED: METHADONE HCL 10 MG TABLET ONE (04:34)
[2016-11-12] MEDS ORDERED: METHADONE HCL 40 MG DISPERSABLE TABLET ONE (04:34)
[2016-11-12] MEDS: METHADONE 40 MG, METHADONE 20 MG PO SCH (05:51)
[2016-11-12] MEDS: hydrOXYzine PAMOATE 50 MG CAPSULE (FP) PO PRN ×2 (05:51→10:52)
[2016-11-12 06:48] VITALS: TEMP 95.9
--- NOTE | 2016-11-12 08:41 | DS ---
[facility] Detox Discharge Summary Admission Date: 11/08/16 Discharge Date: 11/12/16 - History Present History: Alcohol Dependence, Sedative Dependence, MMTP Pertinent Past History: Hep C - Physical Exam Results Vital Signs: Vital Signs Temperature 95.9 F L 11/12/16 06:48 Pulse Rate 75 11/12/16 06:48 Respiratory Rate 18 11/12/16 06:48 Blood Pressure 112/73 11/12/16 06:48 O2 Sat by Pulse Oximetry (%) Pertinent Admission Physical Exam Findings: Withdrawal sx. Laboratory Last Values WBC 6.4 K/mm3 (4.0-10.0) 11/09/16 07:00 RBC 4.37 M/mm3 (4.00-5.60) 11/09/16 07:00 Hgb 12.2 GM/dL (11.7-16.9) 11/09/16 07:00 Hct 36.8 % (35.4-49) 11/09/16 07:00 MCV 84.1 fl (80-96) 11/09/16 07:00 MCHC 33.0 g/dl (32.0-35.9) 11/09/16 07:00 RDW 13.1 % (11.9-15.9) 11/09/16 07:00 Plt Count 209 K/MM3 (134-434) 11/09/16 07:00 MPV 8.7 fl (7.5-11.1) 11/09/16 07:00 Sodium 141 mmol/L (136-145) 11/09/16 07:00 Potassium 3.8 mmol/L (3.5-5.1) 11/09/16 07:00 Chloride 104 mmol/L (98-107) 11/09/16 07:00 Carbon Dioxide 28 mmol/L (21-32) 11/09/16 07:00 Anion Gap 9 (8-16) 11/09/16 07:00 BUN 13 mg/dL (7-18) D 11/09/16 07:00 Creatinine 0.9 mg/dL (0.7-1.3) 11/09/16 07:00 Creat Clearance w eGFR > 60 (>60) 11/09/16 07:00 Random Glucose 100 mg/dL (74-106) D 11/09/16 07:00 Calcium 8.7 mg/dL (8.5-10.1) 11/09/16 07:00 Total Bilirubin 0.5 mg/dL (0.2-1.0) D 11/09/16 07:00 AST 45 U/L (15-37) H 11/09/16 07:00 ALT 51 U/L (12-78) 11/09/16 07:00 Alkaline Phosphatase 87 U/L (45-117) 11/09/16 07:00 Total Protein 7.5 g/dl (6.4-8.2) 11/09/16 07:00 Albumin 3.6 g/dl (3.4-5.0) 11/09/16 07:00 Urine Color Dkyellow 11/09/16 10:05 Urine Appearance Slcloudy 11/09/16 10:05 Urine pH 5.0 (5.0-8.0) D 11/09/16 10:05 Ur Specific [place] 1.030 (1.001-1.035) 11/09/16 10:05 Urine Protein 1+ (NEGATIVE) H 11/09/16 10:05 Urine Glucose (UA) Negative (NEGATIVE) 11/09/16 10:05 Urine Ketones Negative (NEGATIVE) 11/09/16 10:05 Urine Blood Negative (NEGATIVE) 11/09/16 10:05 Urine Nitrite Negative (NEGATIVE) 11/09/16 10:05 Urine Bilirubin Negative (NEGATIVE) 11/09/16 10:05 Urine Urobilinogen Negative E.U./dl (0.2-1.0) 11/09/16 10:05 Ur Leukocyte Esterase Negative (NEGATIVE) 11/09/16 10:05 Urine RBC 5 /hpf (0-3) 11/09/16 10:05 Urine WBC 3 /hpf (3-5) 11/09/16 10:05 Ur Epithelial Cells Rare /hpf (FEW) 11/09/16 10:05 Calcium Oxalate Crystal Moderate /hpf (NONE SEEN) 11/09/16 10:05 Hyaline Casts 20 /lpf 11/09/16 10:05 Urine Mucus Many 11/09/16 10:05 RPR Titer Nonreactive (NONREACTIVE) 11/09/16 07:00 labs noted - Treatment Hospital Course: Detox Protocol Followed, Detoxed Safely, Responded well, Discharged Condition Good, Rehab Referral Accepted Patient has Accepted a Rehab Referral to: [facility] - Medication Discharge Medications: Ambulatory Orders Quetiapine Fumarate [Seroquel -] 200 mg PO HS #30 tab 09/09/16 Hydroxyzine Pamoate [Vistaril -] 25 mg PO TID #30 capsule 10/11/16 Quetiapine Fumarate [Seroquel -] 200 mg PO HS #30 tab 11/09/16 - Diagnosis (1) Alcohol dependence with uncomplicated withdrawal Current Visit: Yes Status: Acute (2) Nicotine dependence Current Visit: Yes Status: Acute Qualifiers: Nicotine product type: cigarettes Substance use status: uncomplicated Qualified Code(s): F17.210 - Nicotine dependence, cigarettes, uncomplicated (3) Opioid dependence on agonist therapy Current Visit: Yes Status: Acute (4) Sedative, hypnotic or anxiolytic dependence with withdrawal, uncomplicated Current Visit: Yes Status: Acute (5) Hepatitis C Current Visit: Yes Status: Chronic Qualifiers: Viral hepatitis chronicity: chronic Hepatic coma status: without hepatic coma Qualified Code(s): B18.2 - Chronic viral hepatitis C (6) Bipolar II disorder Current Visit: Yes Status: Chronic - AMA Did Patient Leave Against Medical Advice: No
[2016-11-12] MEDS ORDERED: diazePAM 5 MG TABLET PO SCH (10:00)
[2016-11-12 10:47] VITALS: BP 117/74; PULSE 85
[2016-11-12] MEDS: PRENATAL VITAMINS W/ FOLIC ACID TABLET (FP) PO SCH (10:51)
[2016-11-12] MEDS: HYDROCORTISONE 1% TOPICAL CREAM 30 GM TUBE TP SCH (10:52)
[2016-11-12] MEDS: NICOTINE 21 MG/24 HOURS TOPICAL PATCH TD SCH (10:52)
== END 2016-11-12 13:13 | disposition other institution (70) | DRG 773 ==
LOC: YASAS 14:43 → Y3N 20:17
PROVIDERS: ADMIT Internal Medicine; ATTEND Internal Medicine
PROC: HZ2ZZZZ Detoxification Services for Substance Abuse Treatment (ICD-10-PCS; principal; 2016-11-12)
DX: F11.23 Opioid dependence with withdrawal (principal); F13.230 Sedative, hypnotic or anxiolytic dependence with withdrawal, uncomplicated; F10.230 Alcohol dependence with withdrawal, uncomplicated; F17.210 Nicotine dependence, cigarettes, uncomplicated; F19.24 Other psychoactive substance dependence with psychoactive substance-induced mood disorder; F31.81 Bipolar II disorder; B18.2 Chronic viral hepatitis C; G47.00 Insomnia, unspecified
CPT/HCPCS: 36415; 80053; 81003; 81015; 85027; 86593; 93005; 93010

== ENCOUNTER 2016-11-12 14:08 | Inpatient (IN) | payer OTHER ==
[2016-11-12] MEDS ORDERED: IBUPROFEN 400 MG TABLET (FP) PO PRN (15:30)
[2016-11-12] MEDS ORDERED: MENTHOL/PHENOL 1 EACH UD MM PRN (15:30)
[2016-11-12] MEDS ORDERED: MAGNESIUM CITRATE 300 ML BOTTLE PO PRN (15:30)
[2016-11-12] MEDS ORDERED: MAG HYDROX/AL HYDROX/SIMETH 30 ML UNIT-DOSE CUP PO PRN (15:30)
[2016-11-12] MEDS ORDERED: P-EPHED 60MG/TRIPROLIDI 2.5MG TABLET PO PRN (15:30)
[2016-11-12] MEDS ORDERED: diphenhydrAMINE HCL 50 MG CAPSULE PO PRN (15:30)
[2016-11-12] MEDS ORDERED: LOPERAMIDE HCL 2 MG CAPSULE PO PRN (15:30)
[2016-11-12] MEDS ORDERED: NICOTINE POLACRILEX 2 MG GUM BUC PRN (15:30)
[2016-11-12] MEDS ORDERED: MAGNESIUM HYDROX 2400MG/30ML ORAL SUSPENSION 30 ML CUP PO PRN (15:30)
[2016-11-12] MEDS ORDERED: guaiFENesin/D-METHORPHAN HB 10 ML UNIT-DOSE CUPS PO PRN (15:30)
[2016-11-12] MEDS ORDERED: ACETAMINOPHEN 325 MG TABLET (FP) PO PRN (15:30)
--- NOTE | 2016-11-12 16:24 | HP ---
[facility] Rehab Assess/Revision - Admission History Admitted to Rehab from: [facility] Date of Admission to Rehab: 11/12/16 - Findings Detox History & Physical reviewed: Yes Concur with findings: Yes Comments/Additional Findings: transferred from detox to rehab admission as per protocol
--- NOTE | 2016-11-12 19:44 | PN ---
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 Mr Jones is already known to me. Just transferred from [address] [place] [address]. Intervention : Seroquel 200 mg po hs.Ordered. Informed consent : in effect. Patient is in agreement with careplan.
[2016-11-12] MEDS: THIAMINE HCL 100 MG TABLET (FP) PO SCH (21:16)
[2016-11-12] MEDS: QUEtiapine FUMARATE 200 MG TABLET PO SCH (21:16)
[2016-11-12] MEDS: hydrOXYzine PAMOATE 50 MG CAPSULE (FP) PO PRN (21:17)
[2016-11-13] MEDS ORDERED: METHADONE HCL 10 MG TABLET ONE (05:53)
[2016-11-13] MEDS ORDERED: METHADONE HCL 40 MG DISPERSABLE TABLET ONE (05:53)
[2016-11-13] MEDS ORDERED: METHADONE HCL 10 MG TABLET PO SCH ×2 (06:00)
[2016-11-13] MEDS: METHADONE 40 MG, METHADONE 20 MG PO SCH (06:28)
[2016-11-13] MEDS: hydrOXYzine PAMOATE 50 MG CAPSULE (FP) PO PRN ×2 (10:01→17:31)
[2016-11-13] MEDS: NICOTINE 14 MG/24 HOURS TOPICAL PATCH TD SCH (10:01)
[2016-11-13] MEDS: PRENATAL VITAMINS W/ FOLIC ACID TABLET (FP) PO SCH (10:01)
[2016-11-13] MEDS: THIAMINE HCL 100 MG TABLET (FP) PO SCH (21:12)
[2016-11-13] MEDS: QUEtiapine FUMARATE 200 MG TABLET PO SCH (21:12)
[2016-11-14] MEDS ORDERED: METHADONE HCL 10 MG TABLET ONE (05:44)
[2016-11-14] MEDS ORDERED: METHADONE HCL 40 MG DISPERSABLE TABLET ONE (05:44)
[2016-11-14] MEDS: hydrOXYzine PAMOATE 50 MG CAPSULE (FP) PO PRN ×4 (06:28→21:29)
[2016-11-14] MEDS: METHADONE 40 MG, METHADONE 20 MG PO SCH (06:28)
[2016-11-14] MEDS: PRENATAL VITAMINS W/ FOLIC ACID TABLET (FP) PO SCH (09:40)
[2016-11-14] MEDS: NICOTINE 14 MG/24 HOURS TOPICAL PATCH TD SCH (09:40)
[2016-11-14] MEDS: THIAMINE HCL 100 MG TABLET (FP) PO SCH (21:28)
[2016-11-14] MEDS: QUEtiapine FUMARATE 200 MG TABLET PO SCH (21:28)
[2016-11-15] MEDS ORDERED: METHADONE HCL 10 MG TABLET ONE (04:03)
[2016-11-15] MEDS ORDERED: METHADONE HCL 40 MG DISPERSABLE TABLET ONE (04:03)
[2016-11-15] MEDS: METHADONE 40 MG, METHADONE 20 MG PO SCH (06:08)
[2016-11-15] MEDS: hydrOXYzine PAMOATE 50 MG CAPSULE (FP) PO PRN ×4 (06:09→18:08)
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
[2016-11-15] MEDS: PRENATAL VITAMINS W/ FOLIC ACID TABLET (FP) PO SCH (10:23)
[2016-11-15] MEDS: NICOTINE 14 MG/24 HOURS TOPICAL PATCH TD SCH (10:24)
[2016-11-15] MEDS: QUEtiapine FUMARATE 200 MG TABLET PO SCH (21:17)
[2016-11-15] MEDS: traZODone HCL 100 MG TABLET (FP) PO PRN (21:17)
[2016-11-15] MEDS: THIAMINE HCL 100 MG TABLET (FP) PO SCH (21:17)
[2016-11-16] MEDS ORDERED: METHADONE HCL 10 MG TABLET ONE (04:05)
[2016-11-16] MEDS ORDERED: METHADONE HCL 40 MG DISPERSABLE TABLET ONE (04:05)
[2016-11-16] MEDS: METHADONE 40 MG, METHADONE 20 MG PO SCH (06:00)
[2016-11-16] MEDS: hydrOXYzine PAMOATE 50 MG CAPSULE (FP) PO PRN ×3 (06:03→15:22)
[2016-11-16] MEDS: PRENATAL VITAMINS W/ FOLIC ACID TABLET (FP) PO SCH (10:04)
[2016-11-16] MEDS: NICOTINE 14 MG/24 HOURS TOPICAL PATCH TD SCH (10:06)
[2016-11-16] MEDS: QUEtiapine FUMARATE 200 MG TABLET PO SCH (21:14)
[2016-11-16] MEDS: traZODone HCL 100 MG TABLET (FP) PO PRN (21:14)
[2016-11-16] MEDS: THIAMINE HCL 100 MG TABLET (FP) PO SCH (21:14)
[2016-11-17] MEDS ORDERED: METHADONE HCL 40 MG DISPERSABLE TABLET ONE (05:10)
[2016-11-17] MEDS ORDERED: METHADONE HCL 10 MG TABLET ONE (05:10)
[2016-11-17] MEDS: METHADONE 40 MG, METHADONE 20 MG PO SCH (06:06)
[2016-11-17] MEDS: hydrOXYzine PAMOATE 50 MG CAPSULE (FP) PO PRN ×4 (06:06→21:44)
[2016-11-17] MEDS: PRENATAL VITAMINS W/ FOLIC ACID TABLET (FP) PO SCH (09:44)
[2016-11-17] MEDS: NICOTINE 14 MG/24 HOURS TOPICAL PATCH TD SCH (09:44)
[2016-11-17] MEDS: THIAMINE HCL 100 MG TABLET (FP) PO SCH (21:43)
[2016-11-17] MEDS: QUEtiapine FUMARATE 200 MG TABLET PO SCH (21:43)
[2016-11-18] MEDS ORDERED: METHADONE HCL 40 MG DISPERSABLE TABLET ONE (05:31)
[2016-11-18] MEDS ORDERED: METHADONE HCL 10 MG TABLET ONE (05:31)
[2016-11-18] MEDS: METHADONE 40 MG, METHADONE 20 MG PO SCH (06:05)
[2016-11-18] MEDS: hydrOXYzine PAMOATE 50 MG CAPSULE (FP) PO PRN ×3 (06:06→14:22)
[2016-11-18] MEDS: PRENATAL VITAMINS W/ FOLIC ACID TABLET (FP) PO SCH (09:48)
[2016-11-18] MEDS: NICOTINE 14 MG/24 HOURS TOPICAL PATCH TD SCH (09:48)
[2016-11-18] MEDS: THIAMINE HCL 100 MG TABLET (FP) PO SCH (21:38)
[2016-11-18] MEDS: QUEtiapine FUMARATE 200 MG TABLET PO SCH (21:38)
[2016-11-18] MEDS: traZODone HCL 100 MG TABLET (FP) PO PRN (21:39)
[2016-11-19] MEDS ORDERED: METHADONE HCL 40 MG DISPERSABLE TABLET ONE (04:03)
[2016-11-19] MEDS ORDERED: METHADONE HCL 10 MG TABLET ONE (04:03)
[2016-11-19] MEDS: METHADONE 40 MG, METHADONE 20 MG PO SCH (06:08)
[2016-11-19] MEDS: hydrOXYzine PAMOATE 50 MG CAPSULE (FP) PO PRN ×3 (06:08→13:43)
[2016-11-19] MEDS: PRENATAL VITAMINS W/ FOLIC ACID TABLET (FP) PO SCH (10:17)
[2016-11-19] MEDS: NICOTINE 14 MG/24 HOURS TOPICAL PATCH TD SCH (10:19)
[2016-11-19] MEDS: NICOTINE 21 MG/24 HOURS TOPICAL PATCH TD SCH (13:43)
[2016-11-19] MEDS: QUEtiapine FUMARATE 200 MG TABLET PO SCH (21:21)
[2016-11-19] MEDS: traZODone HCL 100 MG TABLET (FP) PO PRN (21:21)
[2016-11-19] MEDS: THIAMINE HCL 100 MG TABLET (FP) PO SCH (21:21)
[2016-11-20] MEDS ORDERED: METHADONE HCL 10 MG TABLET ONE (04:06)
[2016-11-20] MEDS ORDERED: METHADONE HCL 40 MG DISPERSABLE TABLET ONE (04:06)
[2016-11-20] MEDS: hydrOXYzine PAMOATE 50 MG CAPSULE (FP) PO PRN ×3 (05:57→20:09)
[2016-11-20] MEDS: METHADONE 40 MG, METHADONE 20 MG PO SCH (05:58)
[2016-11-20] MEDS ORDERED: PT OWN MED DRAWER 7, Y5N ONE (08:40)
[2016-11-20] MEDS: NICOTINE 21 MG/24 HOURS TOPICAL PATCH TD SCH (09:53)
[2016-11-20] MEDS: PRENATAL VITAMINS W/ FOLIC ACID TABLET (FP) PO SCH (09:54)
[2016-11-20] MEDS: THIAMINE HCL 100 MG TABLET (FP) PO SCH (21:44)
[2016-11-20] MEDS: QUEtiapine FUMARATE 200 MG TABLET PO SCH (21:44)
[2016-11-20] MEDS: traZODone HCL 100 MG TABLET (FP) PO PRN (21:44)
[2016-11-21] MEDS ORDERED: METHADONE HCL 40 MG DISPERSABLE TABLET ONE (04:18)
[2016-11-21] MEDS ORDERED: METHADONE HCL 10 MG TABLET ONE (04:18)
[2016-11-21] MEDS: hydrOXYzine PAMOATE 50 MG CAPSULE (FP) PO PRN ×3 (06:07→15:02)
[2016-11-21] MEDS: METHADONE 40 MG, METHADONE 20 MG PO SCH (06:07)
[2016-11-21] MEDS: NICOTINE 21 MG/24 HOURS TOPICAL PATCH TD SCH (09:35)
[2016-11-21] MEDS: PRENATAL VITAMINS W/ FOLIC ACID TABLET (FP) PO SCH (09:58)
[2016-11-21] MEDS ORDERED: traZODone HCL 50 MG TABLET (FP) ONE (19:39)
[2016-11-21] MEDS: THIAMINE HCL 100 MG TABLET (FP) PO SCH (21:57)
[2016-11-21] MEDS: QUEtiapine FUMARATE 200 MG TABLET PO SCH (21:58)
[2016-11-22] MEDS ORDERED: METHADONE HCL 40 MG DISPERSABLE TABLET ONE (02:06)
[2016-11-22] MEDS ORDERED: METHADONE HCL 10 MG TABLET ONE (02:06)
[2016-11-22] MEDS: hydrOXYzine PAMOATE 50 MG CAPSULE (FP) PO PRN ×3 (05:54→18:49)
[2016-11-22] MEDS: METHADONE 40 MG, METHADONE 20 MG PO SCH (05:54)
[2016-11-22] MEDS: NICOTINE 21 MG/24 HOURS TOPICAL PATCH TD SCH (09:52)
[2016-11-22] MEDS: PRENATAL VITAMINS W/ FOLIC ACID TABLET (FP) PO SCH (09:52)
[2016-11-22] MEDS: CYCLOBENZAPRINE HCL 10 MG TABLET (FP) PO PRN ×2 (18:49→21:48)
[2016-11-22] MEDS: traZODone HCL 100 MG TABLET (FP) PO PRN (21:48)
[2016-11-22] MEDS: QUEtiapine FUMARATE 200 MG TABLET PO SCH (21:48)
[2016-11-22] MEDS: THIAMINE HCL 100 MG TABLET (FP) PO SCH (21:48)
[2016-11-23] MEDS ORDERED: METHADONE HCL 40 MG DISPERSABLE TABLET ONE (04:01)
[2016-11-23] MEDS ORDERED: METHADONE HCL 10 MG TABLET ONE (04:01)
[2016-11-23] MEDS: hydrOXYzine PAMOATE 50 MG CAPSULE (FP) PO PRN ×3 (05:59→14:27)
[2016-11-23] MEDS: METHADONE 40 MG, METHADONE 20 MG PO SCH (06:00)
[2016-11-23] MEDS: CYCLOBENZAPRINE HCL 10 MG TABLET (FP) PO PRN ×3 (06:00→21:38)
[2016-11-23] MEDS: PRENATAL VITAMINS W/ FOLIC ACID TABLET (FP) PO SCH (10:00)
[2016-11-23] MEDS: NICOTINE 21 MG/24 HOURS TOPICAL PATCH TD SCH (10:00)
[2016-11-23] MEDS: THIAMINE HCL 100 MG TABLET (FP) PO SCH (21:37)
[2016-11-23] MEDS: QUEtiapine FUMARATE 200 MG TABLET PO SCH (21:37)
[2016-11-23] MEDS: traZODone HCL 100 MG TABLET (FP) PO PRN (21:38)
[2016-11-24] MEDS ORDERED: METHADONE HCL 10 MG TABLET ONE (04:16)
[2016-11-24] MEDS ORDERED: METHADONE HCL 40 MG DISPERSABLE TABLET ONE (04:16)
[2016-11-24] MEDS: hydrOXYzine PAMOATE 50 MG CAPSULE (FP) PO PRN ×3 (06:21→14:11)
[2016-11-24] MEDS: METHADONE 40 MG, METHADONE 20 MG PO SCH (06:21)
[2016-11-24] MEDS: CYCLOBENZAPRINE HCL 10 MG TABLET (FP) PO PRN ×3 (06:21→21:44)
[2016-11-24] MEDS: PRENATAL VITAMINS W/ FOLIC ACID TABLET (FP) PO SCH (09:49)
[2016-11-24] MEDS: NICOTINE 21 MG/24 HOURS TOPICAL PATCH TD SCH (09:50)
[2016-11-24] MEDS: traZODone HCL 100 MG TABLET (FP) PO PRN (21:43)
[2016-11-24] MEDS: THIAMINE HCL 100 MG TABLET (FP) PO SCH (21:43)
[2016-11-24] MEDS: QUEtiapine FUMARATE 200 MG TABLET PO SCH (21:43)
[2016-11-25] MEDS ORDERED: METHADONE HCL 10 MG TABLET ONE (04:27)
[2016-11-25] MEDS ORDERED: METHADONE HCL 40 MG DISPERSABLE TABLET ONE (04:27)
[2016-11-25] MEDS ORDERED: METHADONE HCL 40 MG DISPERSABLE TABLET PO SCH ×2 (06:00)
[2016-11-25] MEDS: hydrOXYzine PAMOATE 50 MG CAPSULE (FP) PO PRN ×3 (06:14→14:18)
[2016-11-25] MEDS: METHADONE 40 MG, METHADONE 20 MG PO SCH (06:14)
[2016-11-25] MEDS: CYCLOBENZAPRINE HCL 10 MG TABLET (FP) PO PRN ×4 (06:14→21:38)
[2016-11-25] MEDS: NICOTINE 21 MG/24 HOURS TOPICAL PATCH TD SCH (10:01)
[2016-11-25] MEDS: PRENATAL VITAMINS W/ FOLIC ACID TABLET (FP) PO SCH (10:01)
[2016-11-25] MEDS: THIAMINE HCL 100 MG TABLET (FP) PO SCH (21:37)
[2016-11-25] MEDS: traZODone HCL 100 MG TABLET (FP) PO PRN (21:37)
[2016-11-25] MEDS: QUEtiapine FUMARATE 200 MG TABLET PO SCH (21:38)
[2016-11-26] MEDS ORDERED: METHADONE HCL 10 MG TABLET ONE (04:02)
[2016-11-26] MEDS ORDERED: METHADONE HCL 40 MG DISPERSABLE TABLET ONE (04:02)
[2016-11-26] MEDS: CYCLOBENZAPRINE HCL 10 MG TABLET (FP) PO PRN ×3 (06:05→21:37)
[2016-11-26] MEDS: METHADONE 40 MG, METHADONE 20 MG PO SCH (06:05)
[2016-11-26] MEDS: PRENATAL VITAMINS W/ FOLIC ACID TABLET (FP) PO SCH (10:08)
[2016-11-26] MEDS: NICOTINE 21 MG/24 HOURS TOPICAL PATCH TD SCH (10:08)
[2016-11-26] MEDS: hydrOXYzine PAMOATE 50 MG CAPSULE (FP) PO PRN ×2 (10:08→21:36)
[2016-11-26] MEDS: traZODone HCL 100 MG TABLET (FP) PO PRN (21:36)
[2016-11-26] MEDS: QUEtiapine FUMARATE 200 MG TABLET PO SCH (21:36)
[2016-11-26] MEDS: THIAMINE HCL 100 MG TABLET (FP) PO SCH (21:36)
[2016-11-27] MEDS ORDERED: METHADONE HCL 10 MG TABLET ONE (05:55)
[2016-11-27] MEDS ORDERED: METHADONE HCL 40 MG DISPERSABLE TABLET ONE (05:55)
[2016-11-27] MEDS: CYCLOBENZAPRINE HCL 10 MG TABLET (FP) PO PRN ×3 (06:03→21:22)
[2016-11-27] MEDS: METHADONE 40 MG, METHADONE 20 MG PO SCH (06:03)
[2016-11-27] MEDS: hydrOXYzine PAMOATE 50 MG CAPSULE (FP) PO PRN ×3 (06:03→15:06)
[2016-11-27] MEDS: PRENATAL VITAMINS W/ FOLIC ACID TABLET (FP) PO SCH (09:43)
[2016-11-27] MEDS: NICOTINE 21 MG/24 HOURS TOPICAL PATCH TD SCH (09:43)
[2016-11-27] MEDS: traZODone HCL 100 MG TABLET (FP) PO PRN (21:22)
[2016-11-27] MEDS: QUEtiapine FUMARATE 200 MG TABLET PO SCH (21:22)
[2016-11-27] MEDS: THIAMINE HCL 100 MG TABLET (FP) PO SCH (21:22)
[2016-11-28] MEDS ORDERED: METHADONE HCL 10 MG TABLET ONE (05:54)
[2016-11-28] MEDS ORDERED: METHADONE HCL 40 MG DISPERSABLE TABLET ONE (05:55)
[2016-11-28] MEDS: CYCLOBENZAPRINE HCL 10 MG TABLET (FP) PO PRN ×2 (06:28→15:28)
[2016-11-28] MEDS: METHADONE 40 MG, METHADONE 20 MG PO SCH (06:29)
[2016-11-28] MEDS: NICOTINE 21 MG/24 HOURS TOPICAL PATCH TD SCH (09:47)
[2016-11-28] MEDS: PRENATAL VITAMINS W/ FOLIC ACID TABLET (FP) PO SCH (09:47)
[2016-11-28] MEDS: hydrOXYzine PAMOATE 50 MG CAPSULE (FP) PO PRN ×2 (09:49→15:29)
[2016-11-28] MEDS: THIAMINE HCL 100 MG TABLET (FP) PO SCH (21:09)
[2016-11-28] MEDS: QUEtiapine FUMARATE 200 MG TABLET PO SCH (21:09)
[2016-11-29] MEDS ORDERED: METHADONE HCL 40 MG DISPERSABLE TABLET ONE (04:27)
[2016-11-29] MEDS ORDERED: METHADONE HCL 10 MG TABLET ONE (04:27)
[2016-11-29] MEDS: METHADONE 40 MG, METHADONE 20 MG PO SCH (06:03)
[2016-11-29] MEDS: CYCLOBENZAPRINE HCL 10 MG TABLET (FP) PO PRN ×2 (06:03→16:00)
[2016-11-29] MEDS: NICOTINE 21 MG/24 HOURS TOPICAL PATCH TD SCH (10:06)
[2016-11-29] MEDS: PRENATAL VITAMINS W/ FOLIC ACID TABLET (FP) PO SCH (10:06)
[2016-11-29] MEDS ORDERED: diphenhydrAMINE HCL 25 MG CAPSULE (FP) PO PRN (13:37)
[2016-11-29] MEDS ORDERED: COLLOIDAL OATMEAL 1 BAR EACH TP PRN (13:37)
[2016-11-29] MEDS: HYDROCORTISONE 0.5% TOPICAL CREAM 30 GM TUBE TP SCH ×2 (14:56→22:34)
[2016-11-29] MEDS ORDERED: PT OWN MED DRAWER 7, Y5N ONE (15:59)
[2016-11-29] MEDS: hydrOXYzine PAMOATE 50 MG CAPSULE (FP) PO PRN (16:00)
[2016-11-29] MEDS: traZODone HCL 100 MG TABLET (FP) PO PRN (21:26)
[2016-11-29] MEDS: THIAMINE HCL 100 MG TABLET (FP) PO SCH (21:26)
[2016-11-29] MEDS: QUEtiapine FUMARATE 200 MG TABLET PO SCH (21:26)
[2016-11-30] MEDS ORDERED: METHADONE HCL 40 MG DISPERSABLE TABLET ONE (04:08)
[2016-11-30] MEDS ORDERED: METHADONE HCL 10 MG TABLET ONE (04:08)
[2016-11-30] MEDS: CYCLOBENZAPRINE HCL 10 MG TABLET (FP) PO PRN ×2 (05:51→09:58)
[2016-11-30] MEDS: METHADONE 40 MG, METHADONE 20 MG PO SCH (05:51)
[2016-11-30] MEDS: hydrOXYzine PAMOATE 50 MG CAPSULE (FP) PO PRN (09:58)
[2016-11-30] MEDS: PRENATAL VITAMINS W/ FOLIC ACID TABLET (FP) PO SCH (09:58)
[2016-11-30] MEDS: HYDROCORTISONE 0.5% TOPICAL CREAM 30 GM TUBE TP SCH ×2 (09:58→21:13)
[2016-11-30] MEDS: NICOTINE 21 MG/24 HOURS TOPICAL PATCH TD SCH (10:00)
[2016-11-30] MEDS: QUEtiapine FUMARATE 200 MG TABLET PO SCH (21:14)
[2016-11-30] MEDS: THIAMINE HCL 100 MG TABLET (FP) PO SCH (21:14)
[2016-12-01] MEDS ORDERED: METHADONE HCL 40 MG DISPERSABLE TABLET ONE (04:09)
[2016-12-01] MEDS ORDERED: METHADONE HCL 10 MG TABLET ONE (04:09)
[2016-12-01] MEDS: CYCLOBENZAPRINE HCL 10 MG TABLET (FP) PO PRN ×2 (05:59→09:56)
[2016-12-01] MEDS: METHADONE 40 MG, METHADONE 20 MG PO SCH (06:00)
[2016-12-01] MEDS ORDERED: PT OWN MED DRAWER 7, Y5N ONE (08:48)
[2016-12-01] MEDS: hydrOXYzine PAMOATE 50 MG CAPSULE (FP) PO PRN (09:56)
[2016-12-01] MEDS: PRENATAL VITAMINS W/ FOLIC ACID TABLET (FP) PO SCH (09:56)
[2016-12-01] MEDS: HYDROCORTISONE 0.5% TOPICAL CREAM 30 GM TUBE TP SCH ×2 (09:56→21:33)
[2016-12-01] MEDS: NICOTINE 21 MG/24 HOURS TOPICAL PATCH TD SCH (09:59)
[2016-12-01] MEDS: THIAMINE HCL 100 MG TABLET (FP) PO SCH (21:33)
[2016-12-01] MEDS: QUEtiapine FUMARATE 200 MG TABLET PO SCH (21:33)
[2016-12-02] MEDS ORDERED: METHADONE HCL 10 MG TABLET ONE (03:22)
[2016-12-02] MEDS ORDERED: METHADONE HCL 40 MG DISPERSABLE TABLET ONE (03:24)
[2016-12-02] MEDS: METHADONE 40 MG, METHADONE 20 MG PO SCH (06:05)
[2016-12-02] MEDS: hydrOXYzine PAMOATE 50 MG CAPSULE (FP) PO PRN (09:50)
[2016-12-02] MEDS: CYCLOBENZAPRINE HCL 10 MG TABLET (FP) PO PRN (09:50)
[2016-12-02] MEDS: PRENATAL VITAMINS W/ FOLIC ACID TABLET (FP) PO SCH (09:50)
[2016-12-02] MEDS: NICOTINE 21 MG/24 HOURS TOPICAL PATCH TD SCH (09:50)
[2016-12-02] MEDS: HYDROCORTISONE 0.5% TOPICAL CREAM 30 GM TUBE TP SCH ×2 (09:51→21:13)
[2016-12-02] MEDS: QUEtiapine FUMARATE 200 MG TABLET PO SCH (21:12)
[2016-12-02] MEDS: THIAMINE HCL 100 MG TABLET (FP) PO SCH (21:12)
[2016-12-02] MEDS ORDERED: PT OWN MED DRAWER 7, Y5N ONE (21:13)
[2016-12-03] MEDS ORDERED: METHADONE HCL 10 MG TABLET ONE (05:44)
[2016-12-03] MEDS ORDERED: METHADONE HCL 40 MG DISPERSABLE TABLET ONE (05:44)
[2016-12-03] MEDS: METHADONE 40 MG, METHADONE 20 MG PO SCH (05:57)
[2016-12-03] MEDS ORDERED: PT OWN MED DRAWER 7, Y5N ONE (09:00)
[2016-12-03] MEDS: NICOTINE 21 MG/24 HOURS TOPICAL PATCH TD SCH (10:22)
[2016-12-03] MEDS: PRENATAL VITAMINS W/ FOLIC ACID TABLET (FP) PO SCH (10:22)
[2016-12-03] MEDS: HYDROCORTISONE 0.5% TOPICAL CREAM 30 GM TUBE TP SCH ×2 (10:22→21:03)
[2016-12-03] MEDS: CYCLOBENZAPRINE HCL 10 MG TABLET (FP) PO PRN (10:23)
[2016-12-03] MEDS: hydrOXYzine PAMOATE 50 MG CAPSULE (FP) PO PRN (10:23)
[2016-12-03] MEDS: QUEtiapine FUMARATE 200 MG TABLET PO SCH (21:03)
[2016-12-03] MEDS: THIAMINE HCL 100 MG TABLET (FP) PO SCH (21:03)
[2016-12-04] MEDS ORDERED: METHADONE HCL 10 MG TABLET ONE (04:17)
[2016-12-04] MEDS ORDERED: METHADONE HCL 40 MG DISPERSABLE TABLET ONE (04:17)
[2016-12-04] MEDS: CYCLOBENZAPRINE HCL 10 MG TABLET (FP) PO PRN ×3 (05:58→18:30)
[2016-12-04] MEDS: METHADONE 40 MG, METHADONE 20 MG PO SCH (05:58)
[2016-12-04] MEDS: hydrOXYzine PAMOATE 50 MG CAPSULE (FP) PO PRN ×2 (09:55→17:44)
[2016-12-04] MEDS: PRENATAL VITAMINS W/ FOLIC ACID TABLET (FP) PO SCH (09:55)
[2016-12-04] MEDS: NICOTINE 21 MG/24 HOURS TOPICAL PATCH TD SCH (09:56)
[2016-12-04] MEDS: HYDROCORTISONE 0.5% TOPICAL CREAM 30 GM TUBE TP SCH ×2 (10:15→21:07)
[2016-12-04] MEDS: THIAMINE HCL 100 MG TABLET (FP) PO SCH (21:06)
[2016-12-04] MEDS: traZODone HCL 100 MG TABLET (FP) PO PRN (21:06)
[2016-12-04] MEDS: QUEtiapine FUMARATE 200 MG TABLET PO SCH (21:06)
[2016-12-05] MEDS ORDERED: METHADONE HCL 40 MG DISPERSABLE TABLET ONE (03:57)
[2016-12-05] MEDS ORDERED: METHADONE HCL 10 MG TABLET ONE (03:57)
[2016-12-05] MEDS: METHADONE 40 MG, METHADONE 20 MG PO SCH (06:10)
[2016-12-05] MEDS: NICOTINE 21 MG/24 HOURS TOPICAL PATCH TD SCH (09:50)
[2016-12-05] MEDS: HYDROCORTISONE 0.5% TOPICAL CREAM 30 GM TUBE TP SCH ×2 (09:51→21:08)
[2016-12-05] MEDS: CYCLOBENZAPRINE HCL 10 MG TABLET (FP) PO PRN (09:51)
[2016-12-05] MEDS: PRENATAL VITAMINS W/ FOLIC ACID TABLET (FP) PO SCH (09:51)
[2016-12-05] MEDS: QUEtiapine FUMARATE 200 MG TABLET PO SCH (21:07)
[2016-12-05] MEDS: THIAMINE HCL 100 MG TABLET (FP) PO SCH (21:07)
[2016-12-05] MEDS: traZODone HCL 100 MG TABLET (FP) PO PRN (21:07)
[2016-12-06] MEDS ORDERED: METHADONE HCL 10 MG TABLET ONE (03:57)
[2016-12-06] MEDS ORDERED: METHADONE HCL 40 MG DISPERSABLE TABLET ONE (03:57)
[2016-12-06] MEDS: METHADONE 40 MG, METHADONE 20 MG PO SCH (06:09)
[2016-12-06] MEDS: CYCLOBENZAPRINE HCL 10 MG TABLET (FP) PO PRN ×3 (06:10→21:05)
[2016-12-06] MEDS: PRENATAL VITAMINS W/ FOLIC ACID TABLET (FP) PO SCH (09:57)
[2016-12-06] MEDS: NICOTINE 21 MG/24 HOURS TOPICAL PATCH TD SCH (09:58)
[2016-12-06] MEDS: HYDROCORTISONE 0.5% TOPICAL CREAM 30 GM TUBE TP SCH ×2 (09:58→21:06)
[2016-12-06] MEDS: THIAMINE HCL 100 MG TABLET (FP) PO SCH (21:05)
[2016-12-06] MEDS: QUEtiapine FUMARATE 200 MG TABLET PO SCH (21:06)
[2016-12-07] MEDS ORDERED: METHADONE HCL 10 MG TABLET ONE (04:32)
[2016-12-07] MEDS ORDERED: METHADONE HCL 40 MG DISPERSABLE TABLET ONE (04:32)
[2016-12-07] MEDS ORDERED: METHADONE HCL 10 MG TABLET PO SCH (06:00)
[2016-12-07] MEDS: METHADONE 40 MG, METHADONE 20 MG PO SCH (06:17)
[2016-12-07] MEDS ORDERED: PT OWN MED DRAWER 7, Y5N ONE ×2 (08:39→21:07)
[2016-12-07] MEDS: PRENATAL VITAMINS W/ FOLIC ACID TABLET (FP) PO SCH (10:05)
[2016-12-07] MEDS: NICOTINE 21 MG/24 HOURS TOPICAL PATCH TD SCH (10:06)
[2016-12-07] MEDS: CYCLOBENZAPRINE HCL 10 MG TABLET (FP) PO PRN ×2 (10:06→15:33)
[2016-12-07] MEDS: HYDROCORTISONE 0.5% TOPICAL CREAM 30 GM TUBE TP SCH ×2 (10:07→21:07)
--- NOTE | 2016-12-07 15:33 | PN ---
Psychiatric Progress Note Vital Signs: Vital Signs Period Temp Pulse Resp BP Sys/Banuelos Pulse Ox Last 24 Hr 97.6 F 77 16-18 103/66 Date of Session: 12/07/16 Chief Complaint:: Discharge visit HPI: Case of a 46 y/o male admitted to [address] to address alcohol dependence,opioid dependence,sedaive/anxiolytic dependence co-morbid with nicotine dependence and bipolar-II disorder.Patient will complete this program on 12/08/16. ROS: Unremarkable.Patient is cognitively intact.Ambulatory,active,well- controlled.No evidence of distress.No complaints offered. Current Medications: Active Medications Generic Name Dose Route Start Last Admin Trade Name Freq PRN Reason Stop Dose Admin Acetaminophen 650 mg 11/12/16 15:30 Tylenol - PO Q4H PRN FEVER OR PAIN Al Hydroxide/Mg Hydroxide 30 ml 11/12/16 15:30 Mylanta Oral Suspension - PO Q6H PRN DYSPEPSIA Colloidal Oatmeal 1 applic 11/29/16 13:37 11/29/16 16:00 Aveeno Soap - TP 1 applic DAILY PRN Administration HYGEINE Cyclobenzaprine HCl 10 mg 11/22/16 14:15 12/07/16 10:06 Flexeril - PO 10 mg TID PRN Administration MUSCLE SPASMS Diphenhydramine HCl 50 mg 11/12/16 15:30 Benadryl - PO HSMR1 PRN FOR ITCHING Diphenhydramine HCl 25 mg 11/29/16 13:37 Benadryl - PO Q6H PRN FOR ITCHING Eucalyptus/Menthol/Phenol/Sorbitol 1 each 11/12/16 15:30 Cepastat Lozenge - MM Q4H PRN SORE THROAT Guaifenesin 10 ml 11/12/16 15:30 Robitussin Dm - PO Q6H PRN COUGH Hydrocortisone 1 applic 11/29/16 14:00 12/07/16 10:07 Hytone 0.5% Cream - TP Not Given BID AJ Hydroxyzine Pamoate 50 mg 11/12/16 15:30 12/04/16 17:44 Vistaril - PO 50 mg Q4H PRN Administration AGITATION Ibuprofen 400 mg 11/12/16 15:30 Motrin - PO Q6H PRN PAIN Loperamide HCl 4 mg 11/12/16 15:30 Imodium - PO Q6H PRN DIARRHEA Magnesium Hydroxide 30 ml 11/12/16 15:30 11/27/16 09:45 Milk Of Magnesia - PO 30 ml DAILY PRN Administration CONSTIPATION Methadone HCl 40 mg/ Methadone 60 mg 12/07/16 06:00 12/07/16 06:17 HCl 20 mg PO 60 mg DAILY@0600 AJ Administration Nicotine 21 mg 11/19/16 13:25 12/07/16 10:06 Nicoderm Patch - TD 21 mg DAILY AJ Administration Nicotine Polacrilex 2 mg 11/12/16 15:30 11/23/16 10:01 Nicorette Gum - BUC 2 mg Q2H PRN Administration NICOTINE REPLACEMENT RX Multivit/Folic Acid/Iron 1 tab 11/13/16 10:00 12/07/16 10:05 Vitamins (Sjr) - PO 1 tab DAILY AJ Administration Pseudoephedrine/Triprolidine 1 combo 11/12/16 15:30 Actifed - PO TID PRN NASAL CONGESTION Quetiapine Fumarate 200 mg 11/12/16 22:00 12/06/16 21:06 Seroquel - PO 200 mg HS AJ Administration Thiamine HCl 100 mg 11/12/16 22:00 12/06/16 21:05 Vitamin B1 - PO 100 mg HS AJ Administration Trazodone HCl 100 mg 11/15/16 10:50 12/05/16 21:07 Desyrel - PO 100 mg HS PRN Administration INSOMNIA Medication(s) Change(s): Script for seroquel 200 mg po hs : 30-day supply.Electronically sent to [facility].Side effects/benefits are discussed with the patient.Mr Jones is in agreement with this careplan. Current Side Effect: No Lab tests ordered: No Lab tests reviewed: Yes Provider note:: Patient has completed this program.He has addressed his issues and met his treatment goals.Mr Jones will continue to address his issues at the [facility] in [facility].Patient endorses euthymic mood,adequate sleep, good energy level,self-confidence and an overall sense of well-being.He declares his intent to utilize principles of conduct learned at [address] for the maintenance of sobriety.Patient indicates that he feels more confident to answer the challenges awaiting him in the community.He verbalizes his plan to avoid triggers,to distance self from behaviors that predispose to relapses,to adhere to his medications and utilize all supports available for maintenance of wellness.No acute medical issues at this time.Mental status is stable.See report.Mr Jones is at his baseline.He is stable for discharge on . Total face to face time:: 35 Mental Status Exam - Mental Status Exam Alert and Oriented to: Time, Place, Person Cognitive Function: Good Patient Appearance: Well Groomed Mood: Hopeful, Euthymic Affect: Appropriate, Normal Range Patient Behavior: Appropriate, Cooperative Speech Pattern: Clear Voice Loudness: Normal Thought Process: Intact, Goal Oriented Thought Disorder: Not Present Hallucinations: Denies Suicidal Ideation: Denies Homicidal Ideation: Denies Insight/Judgement: Fair Sleep: Well Appetite: Good Muscle strength/Tone: Normal Gait/Station: Normal Psychiatric Treatment Plan - Problem List (1) Alcohol dependence with uncomplicated withdrawal Current Visit: Yes (2) Drug-induced mood disorder Current Visit: Yes (3) Nicotine dependence Current Visit: Yes Qualifiers: Nicotine product type: cigarettes Substance use status: uncomplicated Qualified Code(s): F17.210 - Nicotine dependence, cigarettes, uncomplicated (4) Opioid dependence on agonist therapy Current Visit: Yes (5) Sedative, hypnotic or anxiolytic dependence with withdrawal, uncomplicated Current Visit: Yes (6) Bipolar II disorder Current Visit: Yes Comment: Self-report. (7) Insomnia Current Visit: Yes (8) Hepatitis C Current Visit: Yes Qualifiers: Viral hepatitis chronicity: chronic Hepatic coma status: without hepatic coma Qualified Code(s): B18.2 - Chronic viral hepatitis C
[2016-12-07] MEDS: THIAMINE HCL 100 MG TABLET (FP) PO SCH (21:07)
[2016-12-07] MEDS: QUEtiapine FUMARATE 200 MG TABLET PO SCH (21:07)
[2016-12-08] MEDS ORDERED: METHADONE HCL 40 MG DISPERSABLE TABLET ONE (04:16)
[2016-12-08] MEDS ORDERED: METHADONE HCL 10 MG TABLET ONE (04:16)
[2016-12-08] MEDS: METHADONE 40 MG, METHADONE 20 MG PO SCH (06:12)
[2016-12-08 07:12] VITALS: BP 119/72; PULSE 87; TEMP 97.7
== END 2016-12-08 08:53 | disposition home or self-care (01) | DRG 772 ==
LOC: YASAS 14:08 → Y3W 14:09
PROVIDERS: ADMIT Psychiatry & Neurology Psychiatry; ATTEND Psychiatry & Neurology Psychiatry
PROC: HZ42ZZZ Group Counseling for Substance Abuse Treatment, Cognitive-Behavioral (ICD-10-PCS; principal; 2016-12-08)
DX: F11.20 Opioid dependence, uncomplicated (principal); F13.230 Sedative, hypnotic or anxiolytic dependence with withdrawal, uncomplicated; F10.230 Alcohol dependence with withdrawal, uncomplicated; F17.210 Nicotine dependence, cigarettes, uncomplicated; F31.81 Bipolar II disorder; F19.24 Other psychoactive substance dependence with psychoactive substance-induced mood disorder; G47.00 Insomnia, unspecified; B18.2 Chronic viral hepatitis C

== ENCOUNTER 2017-04-25 16:27 | Inpatient (IN) | payer OTHER ==
[2017-04-25 19:14] VITALS: BMI 31.3
--- NOTE | 2017-04-25 22:11 | HP ---
CIWA Score - CIWA Score Nausea/Vomitin Muscle Tremors: 4-Moderate,w/Arms Extend Anxiety: 4-Mod. Anxious/Guarded Agitation: 5 Paroxysmal Sweats: 3 Orientation: 2-Disoriented Date<2 days Tacttile Disturbances: 3-Moderate Itch/Numb/Burn Auditory Disturbances: 0-None Visual Disturbances: 0-None Headache: 3-Moderate CIWA-Ar Total Score: 27 Admission ROS BHS - HPI Chief Complaint: SEEKING DETOX DUE TO WITHDRAWAL SX'S FROM ALCOHOL AND BENZO Allergies/Adverse Reactions: Allergies Allergy/AdvReac Type Severity Reaction Status Date / Time No Known Allergies Allergy Verified 11/08/16 20:22 History of Present Illness: 46 Y.YO. MALE WITH LONG HX OF POLYSUBSTANCE ABUSE ADMITTED TO DETOX. CLIENT IS ON MMTP 110MG DOES NOT RECALL NAME OF PROGRAM. HE IS ALSO DEPENDENT ON ALCOHOL AND XANAX. STATES LONGEST CLEAN TIME 2 YEARS, RELAPSING 2011. SELF REFERRED Exam Limitations: No Limitations - Ebola screening Have you traveled outside of the country in the last 21 days: No Have you had contact with anyone from an Ebola affected area: No Have you been sick,other than usual withdrawal symptoms: No Do you have a fever: No - Review of Systems Constitutional: Chills, Loss of Appetite, Night Sweats, Changes in sleep EENT: reports: No Symptoms Reported Respiratory: reports: No Symptoms reported Cardiac: reports: No Symptoms Reported GI: reports: Nausea, Poor Appetite, Abdominal cramping : reports: No Symptoms Reported Musculoskeletal: reports: Back Pain Integumentary: reports: No Symptoms Reported Neuro: reports: Tremors (R/T ETOH WITHDRAWAL) Endocrine: reports: No Symptoms Reported Hematology: reports: No Symptoms Reported Psychiatric: reports: Agitated, Anxious, Depressed Other Systems: Reviewed and Negative Patient History - Patient Medical History Hx Anemia: No Hx Asthma: No Hx Chronic Obstructive Pulmonary Disease (COPD): No Hx Cancer: No Hx Cardiac Disorders: No Hx Congestive Heart Failure: No Hx Hypertension: No Hx Hypercholesterolemia: No Hx Pacemaker: No HX Cerebrovascular Accident: No Hx Seizures: No Hx Dementia: No Hx Diabetes: No Hx Gastrointestinal Disorders: No Hx Liver Disease: Yes (UNTREATED HEP-C; DIAGNOSED 1997.) Hx Genitourinary Disorders: No Hx Sexually Transmitted Disorders: No Hx Renal Disease (ESRD): No Hx Thyroid Disease: No Hx Human Immunodeficiency Virus (HIV): No (LAST TESTED: 12/2015 AT [facility]: NEGATIVE.) Hx Hepatitis C: Yes (UNTREATED; DIAGNOSED 1997.) Hx Depression: Yes Hx Suicide Attempt: No Hx Bipolar Disorder: Yes (TAKES MEDICATION (SEROQUEL)) Hx Schizophrenia: No - Patient Surgical History Past Surgical History: No Hx Neurologic Surgery: No Hx Cataract Extraction: No Hx Cardiac Surgery: No Hx Lung Surgery: No Hx Breast Surgery: No Hx Breast Biopsy: No Hx Abdominal Surgery: No Hx Appendectomy: No Hx Cholecystectomy: No Hx Genitourinary Surgery: No Hx Section: No Hx Orthopedic Surgery: No Anesthesia Reaction: No - PPD History Previous Implant?: Yes Documented Results: Negative w/proof Implanted On Prior [facility] Admission?: Yes Date: 09/10/16 Results: 0 mm PPD to be Administered?: No - Smoking Cessation Smoking history: Current every day smoker Have you smoked in the past 12 months: Yes Aproximately how many cigarettes per day: 10 Cigars Per Day: 0 Hx Chewing Tobacco Use: No Initiated information on smoking cessation: Yes 'Breaking Loose' booklet given: 04/25/17 - Substance & Tx. History Hx Alcohol Use: Yes Hx Substance Use: Yes Substance Use Type: Alcohol, Opiates (MMTP), Tranquilizers (XANAX) Hx Substance Use Treatment: Yes ([facility]) - Substances Abused LIQUOR Route: Oral Frequency: Daily Amount used: 3 PINTS Age of first use: 18 Date of Last Use: 04/25/17 XANAX Route: Oral Frequency: Daily Amount used: 6 MG Age of first use: 23 Date of Last Use: 04/30/17 Family Disease History - Family Disease History Family Disease History: Diabetes: Grandparent, CA: Mother (LEUKEMIA.), Other: Brother (DSA,ALCOHOL; BIPOLAR DISORDER.) Admission Physical Exam S - Vital Signs Vital Signs: Vital Signs - 24 hr 04/25/17 19:12 Temperature 96.4 F L Pulse Rate 73 Respiratory 18 Rate Blood Pressure 125/73 - Physical General Appearance: Yes: Appropriately Dressed, Moderate Distress, Alcohol on Breath, Intoxicated, Tremorous, Irritable HEENTM: Yes: EOMI, Normocephalic, Pharynx Normal Respiratory: Yes: Chest Non-Tender, Lungs Clear, Normal Breath Sounds, No Respiratory Distress, No Accessory Muscle Use Neck: Yes: No masses,lesions,Nodules, Supple, Trachea in good position Breast: Yes: Breast Exam Deferred Cardiology: Yes: Regular Rhythm, Regular Rate, S1, S2 Abdominal: Yes: Normal Bowel Sounds, Non Tender, Soft Genitourinary: Yes: Within Normal Limits Back: Yes: Normal Inspection Musculoskeletal: Yes: full range of Motion, Gait Steady Extremities: Yes: Normal Capillary Refill, Normal Range of Motion, Non-Tender, Tremors Neurological: Yes: 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 II-XII NML intact, Alert, Motor Strength 5/5, Normal Mood /Affect, Normal Response Integumentary: Yes: Normal Color, Dry, Warm, Other (INJECTION SITES NOTED TO R/ L AC) Lymphatic: Yes: Within Normal Limits - Diagnostic (1) Alcohol dependence with uncomplicated withdrawal Current Visit: Yes Status: Chronic (2) Nicotine dependence Current Visit: Yes Status: Chronic Qualifiers: Nicotine product type: cigarettes Substance use status: uncomplicated Qualified Code(s): F17.210 - Nicotine dependence, cigarettes, uncomplicated; F17.210 - Nicotine dependence, cigarettes, uncomplicated (3) Opioid dependence on agonist therapy Current Visit: Yes Status: Chronic (4) Sedative, hypnotic or anxiolytic dependence with withdrawal, uncomplicated Current Visit: Yes Status: Chronic (5) Hepatitis C Current Visit: Yes Status: Chronic Qualifiers: Viral hepatitis chronicity: chronic Hepatic coma status: without hepatic coma Qualified Code(s): B18.2 - Chronic viral hepatitis C; B18.2 - Chronic viral hepatitis C; B18.2 - Chronic viral hepatitis C; B18.2 - Chronic viral hepatitis C (6) Methadone maintenance therapy patient Current Visit: No Status: Chronic Comment: LAST DOSE OF METHADONE ADMINISTERED AT [facility] OT PROGRAM: 60 MG, verification pending Cleared for Admission [facility] - Detox or Rehab [facility] Level of Care: Medically Managed Detox Regimen/Protocol: Valium [facility] Breath Alcohol Content Breath Alcohol Content: 0.115 Urine Drug Screen - Results Drug Screen Negative: No Urine Drug Screen Results: JONATHON-Cocaine, OPI-Opiates, BZO-Benzodiazepines, MTD- Methadone
[2017-04-25] MEDS ORDERED: MENTHOL/PHENOL 1 EACH UD MM PRN (22:22)
[2017-04-25] MEDS ORDERED: MAG HYDROX/AL HYDROX/SIMETH 30 ML UNIT-DOSE CUP PO PRN (22:22)
[2017-04-25] MEDS ORDERED: diazePAM 5 MG TABLET PO ONE (22:22)
[2017-04-25] MEDS ORDERED: ACETAMINOPHEN 325 MG TABLET (FP) PO PRN (22:22)
[2017-04-25] MEDS ORDERED: LOPERAMIDE HCL 2 MG CAPSULE PO PRN (22:22)
[2017-04-25] MEDS ORDERED: P-EPHED 60MG/TRIPROLIDI 2.5MG TABLET PO PRN (22:22)
[2017-04-25] MEDS ORDERED: diphenhydrAMINE HCL 50 MG CAPSULE PO PRN (22:22)
[2017-04-25] MEDS ORDERED: MAGNESIUM CITRATE 300 ML BOTTLE PO PRN (22:22)
[2017-04-25] MEDS ORDERED: guaiFENesin/D-METHORPHAN HB 10 ML UNIT-DOSE CUPS PO PRN (22:22)
[2017-04-25] MEDS ORDERED: MAGNESIUM HYDROX 2400MG/30ML ORAL SUSPENSION 30 ML CUP PO PRN (22:22)
[2017-04-26 01:24] LABS: URINE APPEARANCE CLEAR; URINE BILIRUBIN NEGATIVE (NEGATIVE); URINE BLOOD NEGATIVE (NEGATIVE); URINE COLOR YELLOW; URINE GLUCOSE (UA) NEGATIVE (NEGATIVE); URINE KETONE NEGATIVE (NEGATIVE); URINE NITRITE NEGATIVE (NEGATIVE); URINE PROTEIN NEGATIVE (NEGATIVE)
[2017-04-26] MEDS: diazePAM 5 MG TABLET PO PRN ×2 (01:45→09:24)
[2017-04-26] MEDS: IBUPROFEN 400 MG TABLET (FP) PO PRN ×2 (01:45→09:24)
[2017-04-26] MEDS: diazePAM 5 MG TABLET PO SCH ×4 (02:30→23:06)
[2017-04-26] MEDS ORDERED: METHADONE HCL 10 MG TABLET PO ONE (08:57)
[2017-04-26] MEDS ORDERED: METHADONE 80 MG, METHADONE 30 MG PO ONE (09:15)
[2017-04-26] MEDS ORDERED: METHADONE HCL 10 MG TABLET ONE (09:16)
[2017-04-26] MEDS ORDERED: METHADONE HCL 40 MG DISPERSABLE TABLET ONE (09:16)
[2017-04-26] MEDS: PRENATAL VITAMINS W/ FOLIC ACID TABLET (FP) PO SCH (09:24)
[2017-04-26 09:53] LABS: MCH 26.7 pg (25.7-33.7); MCHC 32.5 g/dl (32.0-35.9); MEAN CELL VOLUME 82.1 fl (80-96); MEAN PLT VOLUME 9.2 fl (7.5-11.1); PLATELET COUNT 147 K/MM3 (134-434); RDW 13.7 % (11.9-15.9); WHITE BLOOD COUNT 5.2 K/mm3 (4.0-10.0)
--- NOTE | 2017-04-26 09:57 | PN ---
S CIWA - CIWA Score Nausea/Vomitin-Mild Nausea/No Vomiting Muscle Tremors: 4-Moderate,w/Arms Extend Anxiety: 3 Agitation: 4-Moderately Restless Paroxysmal Sweats: 3 Orientation: 0-Oriented Tacttile Disturbances: 0-None Auditory Disturbances: 0-None Visual Disturbances: 0-None Headache: 1-Very Mild CIWA-Ar Total Score: 16 BHS Progress Note (SOAP) Subjective: agitation anxiety sweats interrupted sleep irritable body aches nausea Objective: 04/26/17 09:55 Vital Signs Temperature 102.0 04/26/17 10:00 Pulse Rate 107 04/26/17 10:00 Respiratory Rate 18 04/26/17 10:00 Blood Pressure 132/77 04/26/17 10:00 O2 Sat by Pulse Oximetry (%) Laboratory Tests 04/25/17 04/26/17 23:30 07:00 WBC 5.2 RBC 4.61 Hgb 12.3 Hct 37.9 MCV 82.1 MCH 26.7 MCHC 32.5 RDW 13.7 Plt Count 147 D MPV 9.2 Urine Color Yellow Urine Appearance Clear Urine pH 6.0 Urine Protein Negative Urine Glucose (UA) Negative Urine Ketones Negative Urine Blood Negative Urine Nitrite Negative Urine Bilirubin Negative Urine Urobilinogen 2.0 rest of labs pending aaox3 ambulating no acute distress temp 102; tylenol offered encourage fluids Assessment: 04/26/17 09:56 withdrawal sx Plan: continue detox increase fluids monitor labs and V/S
[2017-04-26 10:00] LABS: URINE LEUK ESTERASE Negative (NEGATIVE)
[2017-04-26 10:23] LABS: ALBUMIN 3.6 g/dl (3.4-5.0); ALK PHOS 78 U/L (45-117); ANION GAP 8 (8-16); BILIRUBIN,TOTAL 0.5 mg/dL (0.2-1.0); CO2 29 mmol/L (21-32); CREATININE 0.9 mg/dL (0.7-1.3); GLUCOSE,RANDOM 90 mg/dL (74-106); SGOT/AST 46 U/L (15-37); SGPT/ALT 54 U/L (12-78); TOT PROT 7.4 g/dl (6.4-8.2)
[2017-04-26] MEDS ORDERED: FLU VACCINE QUAD 60 MCG/0.5 ML (MDV 17-18) IM ONE ×2 (12:00→12:05)
--- NOTE | 2017-04-26 12:27 | CONSULT ---
[facility] Psychiatric Consult - Data Date of interview: 04/26/17 Admission source: [facility] Identifying data: Readmission to [facility] for this 46 y/o male seeking detox treatment on for alcohol,heroin and xanax dependence.Patient is single,a father of one,domiciled,unemployed and dependent on [facility] benefits. Substance Abuse History: Confirmed by patient. Smoking Cessation. Smoking history: Current every day smoker. Have you smoked in the past 12 months: Yes. Aproximately how many cigarettes per day: 10. Cigars Per Day: 0. Hx Chewing Tobacco Use: No. Initiated information on smoking cessation: Yes. 'Breaking Loose' booklet given: 04/25/17. - Substance & Tx. History. Hx Alcohol Use: Yes. Hx Substance Use: Yes. Substance Use Type: Alcohol, Opiates (MMTP), Tranquilizers (XANAX). Hx Substance Use Treatment: Yes ([facility]). - Substances Abused. LIQUOR. Route: Oral. Frequency: Daily. Amount used: 3 PINTS. Age of first use: 18. Date of Last Use: 04/25/17. XANAX. Route: Oral. Frequency: Daily. Amount used: 6 MG. Age of first use: 23. Date of Last Use: 04/30/17 Medical History: Hepatitis C. Psychiatric History: Diagnosed with Bipolar Disorder.No history of psychiatric hospitalizations.Prescribed seroquel 200 mg/hs.Mr Jones is currently on [facility] ([facility] [place].No history of suicide attempts. Physical/Sexual Abuse/Trauma History: No reported history of abuse. Additional Comment: Urine Drug Screen Results: JONATHON-Cocaine, OPI-Opiates, BZO- Benzodiazepines, MTD-Methadone.Noted. Mental Status Exam - Mental Status Exam Alert and Oriented to: Time, Place, Person Cognitive Function: Good Patient Appearance: Well Groomed Mood: Hopeful, Euthymic Affect: Normal Range Patient Behavior: Appropriate, Cooperative Speech Pattern: Clear Voice Loudness: Normal Thought Process: Goal Oriented Thought Disorder: Not Present Hallucinations: Denies Suicidal Ideation: Denies Homicidal Ideation: Denies Insight/Judgement: Poor Sleep: Poorly, Difficulty falling asleep Appetite: Good Muscle strength/Tone: Normal Gait/Station: Normal Psychiatric Findings - Problem List ([facility] 1, 2,3) (1) Alcohol dependence with uncomplicated withdrawal Current Visit: Yes Status: Acute (2) Opioid dependence on agonist therapy Current Visit: Yes Status: Chronic (3) Sedative, hypnotic or anxiolytic dependence with withdrawal, uncomplicated Current Visit: Yes Status: Acute (4) Nicotine dependence Current Visit: Yes Status: Acute Qualifiers: Nicotine product type: cigarettes Substance use status: uncomplicated Qualified Code(s): F17.210 - Nicotine dependence, cigarettes, uncomplicated; F17.210 - Nicotine dependence, cigarettes, uncomplicated (5) Drug-induced mood disorder Current Visit: Yes Status: Acute (6) Hepatitis C Current Visit: Yes Status: Chronic Qualifiers: Viral hepatitis chronicity: chronic Hepatic coma status: without hepatic coma Qualified Code(s): B18.2 - Chronic viral hepatitis C; B18.2 - Chronic viral hepatitis C; B18.2 - Chronic viral hepatitis C; B18.2 - Chronic viral hepatitis C (7) Bipolar II disorder Current Visit: Yes Status: Chronic Comment: Self-report. (8) Hepatitis C carrier Current Visit: Yes Status: Chronic (9) Insomnia Current Visit: Yes Status: Acute - Initial Treatment Plan Initial Treatment Plan: Psychoeducation.Detoxification.Seroquel 200 mg po hs.Side effects/benefits are discussed with the patient.He agrees with this careplan.Observation.
[2017-04-26] MEDS: QUEtiapine FUMARATE 200 MG TABLET PO SCH (23:06)
[2017-04-26] MEDS: THIAMINE HCL 100 MG TABLET (FP) PO SCH (23:07)
[2017-04-26] MEDS: MELATONIN 5 MG TABLETS PO SCH (23:07)
[2017-04-27] MEDS ORDERED: METHADONE HCL 10 MG TABLET ONE (04:00)
[2017-04-27] MEDS ORDERED: METHADONE HCL 40 MG DISPERSABLE TABLET ONE (04:00)
[2017-04-27] MEDS ORDERED: METHADONE HCL 40 MG DISPERSABLE TABLET PO SCH (06:00)
[2017-04-27] MEDS: PRENATAL VITAMINS W/ FOLIC ACID TABLET (FP) PO SCH (10:10)
[2017-04-27] MEDS: diazePAM 5 MG TABLET PO SCH ×2 (10:11→22:29)
[2017-04-27] MEDS: METHADONE 80 MG, METHADONE 30 MG PO SCH (10:11)
--- NOTE | 2017-04-27 11:53 | PN ---
BHS Progress Note (SOAP) Subjective: Body aches, sweating, anxious, interrupted sleep Objective: 04/27/17 11:49 Last Vital Signs Temp Pulse Resp BP Pulse Ox 96.2 F L 117 H 20 110/66 04/27/17 10:00 04/27/17 10:00 04/27/17 10:00 04/27/17 10:00 Tachycardic at 117 bpm Laboratory Tests 04/25/17 04/25/17 04/26/17 07:00 23:30 07:00 WBC 5.2 RBC 4.61 Hgb 12.3 Hct 37.9 MCV 82.1 MCH 26.7 MCHC 32.5 RDW 13.7 Plt Count 147 D MPV 9.2 Sodium Potassium Chloride Carbon Dioxide Anion Gap BUN Creatinine Creat Clearance w eGFR Random Glucose Calcium Total Bilirubin AST ALT Alkaline Phosphatase Total Protein Albumin Urine Color Yellow Urine Appearance Clear Urine pH 6.0 Ur Specific [place] 1.020 Urine Protein Negative Urine Glucose (UA) Negative Urine Ketones Negative Urine Blood Negative Urine Nitrite Negative Urine Bilirubin Negative Urine Urobilinogen 2.0 Ur Leukocyte Esterase Negative RPR Titer Hepatitis C Antibody >11.0 H 04/26/17 04/26/17 07:00 07:00 WBC RBC Hgb Hct MCV MCH MCHC RDW Plt Count MPV Sodium 139 Potassium 3.8 Chloride 102 Carbon Dioxide 29 Anion Gap 8 BUN 11 Creatinine 0.9 Creat Clearance w eGFR > 60 Random Glucose 90 Calcium 8.0 L Total Bilirubin 0.5 AST 46 H ALT 54 Alkaline Phosphatase 78 Total Protein 7.4 Albumin 3.6 Urine Color Urine Appearance Urine pH Ur Specific [place] Urine Protein Urine Glucose (UA) Urine Ketones Urine Blood Urine Nitrite Urine Bilirubin Urine Urobilinogen Ur Leukocyte Esterase RPR Titer Nonreactive Hepatitis C Antibody Labs noted Assessment: 04/27/17 11:51 Withdrawal symptoms Noted with tachycardia Plan: Continue detox Tachycardia possibly due to anxiety and withdrawal: encouraged to drink lots of water, encouraged relaxation techniques (deep breathing exercises, watching TV, socializing with peers and staff etc), continue to monitor
--- NOTE | 2017-04-27 11:59 | EKG ---
Test Reason : Blood Pressure : / mmHG Vent. Rate : 093 BPM Atrial Rate : 093 BPM P-R Int : 188 ms QRS Dur : 098 ms QT Int : 360 ms P-R-T Axes : 046 009 044 degrees QTc Int : 447 ms NORMAL SINUS RHYTHM NORMAL ECG WHEN COMPARED WITH ECG OF 08-NOV-2016 20:42, NO SIGNIFICANT CHANGE WAS FOUND Confirmed by CHARLINE MORRELL MD ([id number]) on 04/27/2017 11:59:10 AM Referred By: Confirmed By:CHARLINE MORRELL MD
[2017-04-27] MEDS: diazePAM 5 MG TABLET PO PRN ×2 (13:11→18:06)
[2017-04-27] MEDS: IBUPROFEN 400 MG TABLET (FP) PO PRN (15:37)
[2017-04-27] MEDS: QUEtiapine FUMARATE 200 MG TABLET PO SCH (22:29)
[2017-04-27] MEDS: THIAMINE HCL 100 MG TABLET (FP) PO SCH (22:29)
[2017-04-27] MEDS: MELATONIN 5 MG TABLETS PO SCH (22:30)
[2017-04-28] MEDS ORDERED: METHADONE HCL 10 MG TABLET ONE (06:23)
[2017-04-28] MEDS ORDERED: METHADONE HCL 40 MG DISPERSABLE TABLET ONE (06:23)
[2017-04-28] MEDS: METHADONE 80 MG, METHADONE 30 MG PO SCH (06:23)
[2017-04-28] MEDS: diazePAM 5 MG TABLET PO PRN ×3 (06:25→17:05)
[2017-04-28] MEDS: diazePAM 5 MG TABLET PO SCH ×2 (10:00→21:59)
[2017-04-28] MEDS: PRENATAL VITAMINS W/ FOLIC ACID TABLET (FP) PO SCH (10:01)
--- NOTE | 2017-04-28 10:10 | PN ---
BHS Progress Note (SOAP) Subjective: feeling so much better little anxiety Objective: 04/28/17 10:09 Vital Signs Temperature 97.0 F L 04/28/17 10:00 Pulse Rate 60 04/28/17 10:00 Respiratory Rate 16 04/28/17 10:00 Blood Pressure 132/92 04/28/17 10:00 O2 Sat by Pulse Oximetry (%) aaox3 ambulating no acute distress Assessment: 04/28/17 10:10 withdrawal sx Plan: continue detox increase fluids d/c in am
[2017-04-28] MEDS ORDERED: FLU VACCINE QUAD 60 MCG/0.5 ML (MDV 17-18) IM ONE (12:00)
[2017-04-28] MEDS: THIAMINE HCL 100 MG TABLET (FP) PO SCH (21:59)
[2017-04-28] MEDS: QUEtiapine FUMARATE 200 MG TABLET PO SCH (21:59)
[2017-04-28] MEDS: MELATONIN 5 MG TABLETS PO SCH (22:00)
[2017-04-29] MEDS ORDERED: METHADONE HCL 40 MG DISPERSABLE TABLET ONE (05:09)
[2017-04-29] MEDS ORDERED: METHADONE HCL 10 MG TABLET ONE (05:09)
[2017-04-29] MEDS: METHADONE 80 MG, METHADONE 30 MG PO SCH (05:48)
[2017-04-29 09:52] VITALS: BP 113/69; PULSE 96; TEMP 97.5
[2017-04-29] MEDS ORDERED: diazePAM 5 MG TABLET PO SCH (10:00)
[2017-04-29] MEDS: PRENATAL VITAMINS W/ FOLIC ACID TABLET (FP) PO SCH (10:11)
--- NOTE | 2017-04-29 11:57 | DS ---
[facility] Detox Discharge Summary Admission Date: 04/25/17 Discharge Date: 04/29/17 - History Present History: Alcohol Dependence, Opioid Dependence, Sedative Dependence - Physical Exam Results Vital Signs: Vital Signs Temperature 97.5 F L 04/29/17 09:52 Pulse Rate 96 H 04/29/17 09:52 Respiratory Rate 20 04/29/17 09:52 Blood Pressure 113/69 04/29/17 09:52 O2 Sat by Pulse Oximetry (%) - Treatment Hospital Course: Detox Protocol Followed, Detoxed Safely, Responded well, Discharged Condition Good, Rehab Referral Accepted - Medication Discharge Medications: Ambulatory Orders Quetiapine Fumarate [Seroquel -] 200 mg PO HS #30 tab 12/07/16 Melatonin 10 mg PO HS 04/26/17 Quetiapine Fumarate [Seroquel -] 200 mg PO HS #30 tab 04/26/17 Quetiapine Fumarate [Seroquel -] 200 mg PO HS #30 tab 04/29/17 - Diagnosis (1) Alcohol dependence with uncomplicated withdrawal Status: Acute (2) Hepatitis C Status: Acute Qualifiers: Viral hepatitis chronicity: chronic Hepatic coma status: without hepatic coma Qualified Code(s): B18.2 - Chronic viral hepatitis C; B18.2 - Chronic viral hepatitis C; B18.2 - Chronic viral hepatitis C; B18.2 - Chronic viral hepatitis C (3) Nicotine dependence Status: Acute Qualifiers: Nicotine product type: cigarettes Substance use status: uncomplicated Qualified Code(s): F17.210 - Nicotine dependence, cigarettes, uncomplicated; F17.210 - Nicotine dependence, cigarettes, uncomplicated (4) Sedative, hypnotic or anxiolytic dependence with withdrawal, uncomplicated Status: Chronic (5) Hepatitis C carrier Status: Chronic (6) Methadone maintenance therapy patient Status: Chronic - AMA Did Patient Leave Against Medical Advice: No ([facility])
[2017-05-04 14:16] LABS: HCV LOG 10 7.299 (.); HCV RNA IU/ML 19919000 IU/mL (.)
== END 2017-04-29 13:41 | disposition other institution (70) | DRG 773 ==
LOC: YASAS 16:27 → Y6N 22:57
PROVIDERS: ADMIT Internal Medicine; ATTEND Internal Medicine
PROC: HZ2ZZZZ Detoxification Services for Substance Abuse Treatment (ICD-10-PCS; principal; 2017-04-25)
DX: F11.20 Opioid dependence, uncomplicated (principal); F13.230 Sedative, hypnotic or anxiolytic dependence with withdrawal, uncomplicated; F10.230 Alcohol dependence with withdrawal, uncomplicated; F31.81 Bipolar II disorder; F19.24 Other psychoactive substance dependence with psychoactive substance-induced mood disorder; G47.00 Insomnia, unspecified; B18.2 Chronic viral hepatitis C
CPT/HCPCS: 36415; 80053; 81003; 85027; 86593; 86803; 87522; 90688; 93005; 93010; G0008

== ENCOUNTER 2017-06-13 13:44 | Inpatient (IN) | payer OTHER ==
[2017-06-13 18:21] VITALS: BMI 32.5
--- NOTE | 2017-06-13 22:26 | HP ---
CIWA Score - CIWA Score Nausea/Vomitin-Mild Nausea/No Vomiting Muscle Tremors: 3 Anxiety: 3 Agitation: 3 Paroxysmal Sweats: 1-Minimal Palms Moist Orientation: 3-Disoriented Date>2 days Tacttile Disturbances: 0-None Auditory Disturbances: 0-None Visual Disturbances: 0-None Headache: 0-None Present CIWA-Ar Total Score: 14 Admission ROS S - HPI Chief Complaint: withdrawal sx Allergies/Adverse Reactions: Allergies Allergy/AdvReac Type Severity Reaction Status Date / Time No Known Allergies Allergy Verified 04/26/17 01:59 History of Present Illness: 46 years old male with long history of xanax alcohol nicotine dependence on methadone program 110 mg po has bipolar ii fell 06/12, right knee on the ground, denies pain, able to walk without limitation Exam Limitations: No Limitations - Ebola screening Have you traveled outside of the country in the last 21 days: No Have you had contact with anyone from an Ebola affected area: No Have you been sick,other than usual withdrawal symptoms: No Do you have a fever: No - Review of Systems Constitutional: Changes in sleep, Weight Stable EENT: reports: No Symptoms Reported Respiratory: reports: No Symptoms reported Cardiac: reports: No Symptoms Reported GI: reports: Diarrhea, Nausea, Poor Fluid Intake, Indigestion, Abdominal cramping : reports: No Symptoms Reported Musculoskeletal: reports: Back Pain, Joint Pain, Muscle Pain, Neck Pain Integumentary: reports: Change in Color (inner elbows) Neuro: reports: Seizure (2014 xanax withdrawal related), Tremors Endocrine: reports: No Symptoms Reported Hematology: reports: No Symptoms Reported Psychiatric: reports: Judgement Intact, Anxious, Depressed Other Systems: Reviewed and Negative Patient History - Patient Medical History Hx Anemia: No Hx Asthma: No Hx Chronic Obstructive Pulmonary Disease (COPD): No Hx Cancer: No Hx Cardiac Disorders: No Hx Congestive Heart Failure: No Hx Hypertension: No Hx Hypercholesterolemia: No Hx Pacemaker: No HX Cerebrovascular Accident: No Hx Seizures: Yes (2014) Hx Dementia: No Hx Diabetes: No Hx Gastrointestinal Disorders: Yes Hx Liver Disease: Yes (UNTREATED HEP-C; DIAGNOSED 1997.) Hx Genitourinary Disorders: No Hx Sexually Transmitted Disorders: No Hx Renal Disease (ESRD): No Hx Thyroid Disease: No Hx Human Immunodeficiency Virus (HIV): No (LAST TESTED: 12/2015 AT [facility]: NEGATIVE.) Hx Hepatitis C: Yes (UNTREATED; DIAGNOSED 1997.) Hx Depression: No Hx Suicide Attempt: No Hx Bipolar Disorder: Yes (TAKES MEDICATION (SEROQUEL)) Hx Schizophrenia: No - Patient Surgical History Past Surgical History: No Hx Neurologic Surgery: No Hx Cataract Extraction: No Hx Cardiac Surgery: No Hx Lung Surgery: No Hx Breast Surgery: No Hx Breast Biopsy: No Hx Abdominal Surgery: No Hx Appendectomy: No Hx Cholecystectomy: No Hx Genitourinary Surgery: No Hx Orthopedic Surgery: No - PPD History Previous Implant?: Yes Documented Results: Negative w/o proof Implanted On Prior [facility] Admission?: Yes Date: 09/10/16 Results: 0 mm PPD to be Administered?: No - Smoking Cessation Smoking history: Current every day smoker Have you smoked in the past 12 months: Yes Aproximately how many cigarettes per day: 10 Cigars Per Day: 0 Hx Chewing Tobacco Use: No Initiated information on smoking cessation: Yes 'Breaking Loose' booklet given: 06/13/17 - Substance & Tx. History Hx Alcohol Use: Yes Hx Substance Use: Yes Substance Use Type: Alcohol, Heroin, Tranquilizers Hx Substance Use Treatment: Yes (04/2017) - Substances Abused Alprazolam (Xanax) Route: Oral Frequency: Daily Amount used: 12 mg Age of first use: 23 Date of Last Use: 06/12/17 Alcohol Route: Oral Frequency: Daily Amount used: [id number] beer + [place] x 3 pints Age of first use: 18 Date of Last Use: 06/13/17 Family Disease History - Family Disease History Family Disease History: Diabetes: Grandparent, [place]: Mother (LEUKEMIA.), Other: Brother (DSA,ALCOHOL; BIPOLAR DISORDER.) Admission Physical Exam S - Vital Signs Vital Signs: Vital Signs - 24 hr 06/13/17 18:20 Temperature 98.1 F Pulse Rate 72 Respiratory 20 Rate Blood Pressure 101/52 - Physical General Appearance: Yes: Appropriately Dressed, Mild Distress, Alcohol on Breath , Tremorous, Irritable, Sweating, Anxious HEENTM: Yes: Hearing grossly Normal, Normal ENT Inspection, Normocephalic, Normal Voice Respiratory: Yes: Chest Non-Tender, Lungs Clear, Normal Breath Sounds, No Respiratory Distress, No Accessory Muscle Use Neck: Yes: Supple, Trachea in good position Breast: Yes: Breasts Symetrical Cardiology: Yes: Regular Rhythm, Regular Rate, S1, S2 Abdominal: Yes: Non Tender, Soft, Increased Bowel Sounds Genitourinary: Yes: Within Normal Limits Back: Yes: Normal Inspection Musculoskeletal: Yes: full range of Motion, Gait Steady, Back pain, Muscle Pain Extremities: Yes: Normal Range of Motion, Non-Tender, Tremors Neurological: Yes: Alert, Motor Strength 5/5, Normal Response, Depressed Affect Integumentary: Yes: Warm Lymphatic: Yes: Within Normal Limits - Diagnostic (1) GERD (gastroesophageal reflux disease) Current Visit: Yes Status: Chronic Qualifiers: Esophagitis presence: without esophagitis Qualified Code(s): K21.9 - Gastro -esophageal reflux disease without esophagitis (2) Alcohol dependence with uncomplicated withdrawal Current Visit: Yes Status: Acute (3) Hepatitis C Current Visit: Yes Status: Chronic Qualifiers: Viral hepatitis chronicity: chronic Hepatic coma status: without hepatic coma Qualified Code(s): B18.2 - Chronic viral hepatitis C (4) Nicotine dependence Current Visit: Yes Status: Acute Qualifiers: Nicotine product type: cigarettes Substance use status: in withdrawal Qualified Code(s): F17.213 - Nicotine dependence, cigarettes, with withdrawal (5) Bipolar II disorder Current Visit: Yes Status: Suspected Comment: Self-report. (6) Methadone maintenance therapy patient Current Visit: Yes Status: Chronic Comment: LAST DOSE OF METHADONE ADMINISTERED AT [facility] PROGRAM: 110 MG, verification pending (7) Sedative, hypnotic or anxiolytic dependence with withdrawal, uncomplicated Current Visit: Yes Status: Acute Cleared for Admission [facility] - Detox or Rehab [facility] Level of Care: Medically Managed Detox Regimen/Protocol: Librium [facility] Breath Alcohol Content Breath Alcohol Content: 0.242 Urine Drug Screen - Results Drug Screen Negative: No Urine Drug Screen Results: OPI-Opiates, BZO-Benzodiazepines, MTD-Methadone
[2017-06-13] MEDS ORDERED: MAGNESIUM CITRATE 300 ML BOTTLE PO PRN (22:43)
[2017-06-13] MEDS ORDERED: guaiFENesin/D-METHORPHAN HB 10 ML UNIT-DOSE CUPS PO PRN (22:43)
[2017-06-13] MEDS ORDERED: IBUPROFEN 400 MG TABLET (FP) PO PRN (22:43)
[2017-06-13] MEDS ORDERED: MAGNESIUM HYDROX 2400MG/30ML ORAL SUSPENSION 30 ML CUP PO PRN (22:43)
[2017-06-13] MEDS ORDERED: NICOTINE POLACRILEX 2 MG GUM BC PRN (22:43)
[2017-06-13] MEDS ORDERED: ACETAMINOPHEN 325 MG TABLET (FP) PO PRN (22:43)
[2017-06-13] MEDS ORDERED: LOPERAMIDE HCL 2 MG CAPSULE PO PRN (22:43)
[2017-06-13] MEDS ORDERED: P-EPHED 60MG/TRIPROLIDI 2.5MG TABLET PO PRN (22:43)
[2017-06-13] MEDS ORDERED: MENTHOL/PHENOL 1 EACH UD MM PRN (22:43)
[2017-06-13] MEDS ORDERED: MAG HYDROX/AL HYDROX/SIMETH 30 ML UNIT-DOSE CUP PO PRN (22:43)
[2017-06-13] MEDS ORDERED: diazePAM 5 MG TABLET PO ONE (22:47)
[2017-06-14] MEDS: diazePAM 5 MG TABLET PO PRN ×3 (00:33→17:10)
[2017-06-14] MEDS: diazePAM 5 MG TABLET PO SCH ×4 (00:34→22:03)
[2017-06-14] MEDS ORDERED: METHADONE HCL 10 MG TABLET PO SCH (09:00)
[2017-06-14] MEDS ORDERED: CYCLOBENZAPRINE HCL 5 MG TABLET PO PRN (09:05)
[2017-06-14] MEDS ORDERED: METHADONE 80 MG, METHADONE 30 MG PO ONE (09:30)
[2017-06-14 10:09] LABS: MCH 26.8 pg (25.7-33.7); MCHC 32.2 g/dl (32.0-35.9); MEAN CELL VOLUME 83.3 fl (80-96); MEAN PLT VOLUME 8.6 fl (7.5-11.1); PLATELET COUNT 227 K/MM3 (134-434); WHITE BLOOD COUNT 5.7 K/mm3 (4.0-10.0)
[2017-06-14] MEDS ORDERED: METHADONE HCL 40 MG DISPERSABLE TABLET ONE (10:17)
[2017-06-14] MEDS ORDERED: METHADONE HCL 10 MG TABLET ONE (10:17)
[2017-06-14] MEDS: PRENATAL VITAMINS W/ FOLIC ACID TABLET (FP) PO SCH (10:18)
[2017-06-14] MEDS: NICOTINE 14 MG/24 HOURS TOPICAL PATCH TD SCH (10:18)
[2017-06-14] MEDS: RANITIDINE HCL 150 MG TABLET (FP) PO SCH ×2 (10:18→22:03)
[2017-06-14 10:27] LABS: ALBUMIN 3.4 g/dl (3.4-5.0); ALK PHOS 110 U/L (45-117); ANION GAP 6 (8-16); BILIRUBIN,TOTAL 0.4 mg/dL (0.2-1.0); CALCIUM 8.1 mg/dL (8.5-10.1); CO2 31 mmol/L (21-32); CREATININE 0.7 mg/dL (0.7-1.3); GLUCOSE,RANDOM 59 mg/dL (74-106); SGOT/AST 77 U/L (15-37); SGPT/ALT 86 U/L (12-78); TOT PROT 7.6 g/dl (6.4-8.2)
--- NOTE | 2017-06-14 13:10 | CONSULT ---
[facility] Psychiatric Consult - Data Date of interview: 06/14/17 Admission source: [facility] Identifying data: Another admission to [facility] for this 46 y/o male seeking detox treatment on for alcohol,heroin and xanax dependence.Patient is single,a father of one,domiciled,unemployed and supported by relatives. Substance Abuse History: Confirmed by patient in this interview.See current [facility] report for details. Smoking history: Current every day smoker. Have you smoked in the past 12 months: Yes. Aproximately how many cigarettes per day: 10. Cigars Per Day: 0. Hx Chewing Tobacco Use: No. Initiated information on smoking cessation: Yes. 'Breaking Loose' booklet given: 06/13/17. - Substance & Tx. History. Hx Alcohol Use: Yes. Hx Substance Use: Yes. Substance Use Type : Alcohol, Heroin, Tranquilizers. Hx Substance Use Treatment: Yes (04/2017). - Substances Abused. Alprazolam (Xanax). Route: Oral. Frequency: Daily. Amount used: 12 mg. Age of first use: 23. Date of Last Use: 06/12/17. Alcohol. Route: Oral. Frequency: Daily. Amount used: [id number] beer + [place] x 3 pints. Age of first use: 18. Date of Last Use: 06/13/17 Medical History: Hepatitis C. Psychiatric History: Diagnosed with Bipolar Disorder.No history of psychiatric hospitalizations.Still maintained on seroquel 200 mg/hs.Mr Jones is currently on methadone maintenance (110 mg/day).No history of suicide attempts. Physical/Sexual Abuse/Trauma History: No history. Additional Comment: Urine Drug Screen Results: OPI-Opiates, BZO-Benzodiazepines , MTD-Methadone.Noted. Mental Status Exam - Mental Status Exam Alert and Oriented to: Time, Place, Person Cognitive Function: Good Patient Appearance: Unkempt, Disheveled Mood: Nervous, Anxious Affect: Mood Congruent, Blunted Patient Behavior: Restless, Fatigued, Cooperative Speech Pattern: Clear Voice Loudness: Normal Thought Process: Goal Oriented Thought Disorder: Not Present Hallucinations: Denies Suicidal Ideation: Denies Homicidal Ideation: Denies Insight/Judgement: Poor Sleep: Poorly, Difficulty falling asleep Appetite: Good Muscle strength/Tone: Normal Gait/Station: Normal Psychiatric Findings - Problem List ([place] 1, 2,3) (1) Alcohol dependence with uncomplicated withdrawal Current Visit: Yes Status: Acute (2) Opioid dependence on agonist therapy Current Visit: Yes Status: Acute (3) Sedative, hypnotic or anxiolytic dependence with withdrawal, uncomplicated Current Visit: Yes Status: Acute (4) Nicotine dependence Current Visit: Yes Status: Acute Qualifiers: Nicotine product type: cigarettes Substance use status: in withdrawal Qualified Code(s): F17.213 - Nicotine dependence, cigarettes, with withdrawal (5) Drug-induced mood disorder Current Visit: Yes Status: Acute (6) Bipolar disorder Current Visit: Yes Status: Chronic Comment: As per records.Non-adherent to OPD care and medications. (7) Insomnia Current Visit: Yes Status: Acute - Initial Treatment Plan Initial Treatment Plan: Psychoeducation.Detoxification.Sleep hygiene.Seroquel 200 mg po hs.Side effects/benefits are discussed with the patient.He agrees with this careplan.Observation.
--- NOTE | 2017-06-14 13:35 | PN ---
[facility] CIWA - CIWA Score Nausea/Vomitin-No Nausea/No Vomiting Muscle Tremors: 4-Moderate,w/Arms Extend Anxiety: 4-Mod. Anxious/Guarded Agitation: 3 Paroxysmal Sweats: 3 Orientation: 0-Oriented Tacttile Disturbances: 3-Moderate Itch/Numb/Burn Auditory Disturbances: 0-None Visual Disturbances: 2-Mild Sensitivity Headache: 0-None Present CIWA-Ar Total Score: 19 BHS Progress Note (SOAP) Subjective: Tremors, Sweating, Interrupted Sleep, Anxious. Objective: PT. A & O X 3, OBSERVED AMBULATING ON UNIT. NO ACUTE DISTRESS. 06/14/17 13:33 Vital Signs Temperature 98.1 F 06/14/17 13:30 Pulse Rate 70 06/14/17 13:30 Respiratory Rate 18 06/14/17 13:30 Blood Pressure 112/74 06/14/17 13:30 O2 Sat by Pulse Oximetry (%) Laboratory Tests 06/14/17 06/14/17 06/14/17 07:00 07:00 07:00 WBC 5.7 RBC 4.50 Hgb 12.0 Hct 37.5 MCV 83.3 MCH 26.8 MCHC 32.2 RDW 15.0 Plt Count 227 D MPV 8.6 Sodium 140 Potassium 3.5 Chloride 103 Carbon Dioxide 31 Anion Gap 6 L BUN 7 D Creatinine 0.7 D Creat Clearance w eGFR > 60 Random Glucose 59 L D Calcium 8.1 L Total Bilirubin 0.4 AST 77 H D ALT 86 H D Alkaline Phosphatase 110 D Total Protein 7.6 Albumin 3.4 RPR Titer Nonreactive LABS NOTED. UA RESULTS PENDING. 06/14/17 13:34 Assessment: 06/14/17 13:33 WITHDRAWAL SYMPTOMS. Plan: CONTINUE DETOX. PRN FLEXERIL FOR BODY ACHES / MUSCLE SPASMS. INCREASE DAILY PO FLUID INTAKE.
[2017-06-14 18:12] LABS: URINE APPEARANCE CLEAR; URINE BILIRUBIN NEGATIVE (NEGATIVE); URINE BLOOD NEGATIVE (NEGATIVE); URINE COLOR LTYELLOW; URINE GLUCOSE (UA) NEGATIVE (NEGATIVE); URINE KETONE NEGATIVE (NEGATIVE); URINE NITRITE NEGATIVE (NEGATIVE); URINE PROTEIN NEGATIVE (NEGATIVE); URINE UROBILINOGEN NEGATIVE mg/dL (0.2-1.0)
[2017-06-14] MEDS: QUEtiapine FUMARATE 200 MG TABLET PO SCH (22:03)
[2017-06-14] MEDS: THIAMINE HCL 100 MG TABLET (FP) PO SCH (22:03)
[2017-06-14 22:32] LABS: URINE LEUK ESTERASE Negative (NEGATIVE)
[2017-06-15] MEDS: diazePAM 5 MG TABLET PO PRN ×3 (04:21→17:12)
[2017-06-15] MEDS ORDERED: METHADONE HCL 10 MG TABLET ONE ×2 (04:50→08:33)
[2017-06-15] MEDS ORDERED: METHADONE HCL 40 MG DISPERSABLE TABLET ONE ×2 (04:50→08:34)
--- NOTE | 2017-06-15 07:56 | EKG ---
Test Reason : Blood Pressure : / mmHG Vent. Rate : 067 BPM Atrial Rate : 067 BPM P-R Int : 194 ms QRS Dur : 112 ms QT Int : 430 ms P-R-T Axes : 025 016 023 degrees QTc Int : 454 ms NORMAL SINUS RHYTHM NORMAL ECG WHEN COMPARED WITH ECG OF 26-APR-2017 00:33, NO SIGNIFICANT CHANGE WAS FOUND Confirmed by MD Schwarz Daniel ([id number]) on 06/14/2017 3:00:43 PM Also confirmed by MD Schwarz Daniel ([id number]), content editor MEHREEN RASHID ([id number]) on 06/15/2017 7:56:39 AM Referred By: Confirmed By:Mehreen Schwarz MD
[2017-06-15] MEDS: METHADONE 80 MG, METHADONE 30 MG PO SCH (08:37)
[2017-06-15] MEDS: RANITIDINE HCL 150 MG TABLET (FP) PO SCH ×2 (10:27→22:03)
[2017-06-15] MEDS: diazePAM 5 MG TABLET PO SCH ×2 (10:27→22:02)
[2017-06-15] MEDS: PRENATAL VITAMINS W/ FOLIC ACID TABLET (FP) PO SCH (10:27)
[2017-06-15] MEDS: NICOTINE 14 MG/24 HOURS TOPICAL PATCH TD SCH (10:27)
--- NOTE | 2017-06-15 13:14 | PN ---
[facility] CIWA - CIWA Score Nausea/Vomitin-No Nausea/No Vomiting Muscle Tremors: None Anxiety: 5 Agitation: 4-Moderately Restless Paroxysmal Sweats: 3 Orientation: 0-Oriented Tacttile Disturbances: 2-Mild Itch/Numbness/Burn Auditory Disturbances: 0-None Visual Disturbances: 2-Mild Sensitivity Headache: 0-None Present CIWA-Ar Total Score: 16 BHS Progress Note (SOAP) Subjective: Interrupted Sleep, Sweating, Fatigue, Anxious. Objective: PT. A & O X 3, OBSERVED AMBULATING ON UNIT. NO ACUTE DISTRESS. 06/15/17 13:12 Vital Signs Temperature 97.7 F 06/15/17 13:04 Pulse Rate 75 06/15/17 13:04 Respiratory Rate 18 06/15/17 13:04 Blood Pressure 103/69 06/15/17 13:04 O2 Sat by Pulse Oximetry (%) Laboratory Tests 06/14/17 06/14/17 06/14/17 07:00 07:00 07:00 WBC 5.7 RBC 4.50 Hgb 12.0 Hct 37.5 MCV 83.3 MCH 26.8 MCHC 32.2 RDW 15.0 Plt Count 227 D MPV 8.6 Sodium 140 Potassium 3.5 Chloride 103 Carbon Dioxide 31 Anion Gap 6 L BUN 7 D Creatinine 0.7 D Creat Clearance w eGFR > 60 Random Glucose 59 L D Calcium 8.1 L Total Bilirubin 0.4 AST 77 H D ALT 86 H D Alkaline Phosphatase 110 D Total Protein 7.6 Albumin 3.4 Urine Color Urine Appearance Urine pH Ur Specific [place] Urine Protein Urine Glucose (UA) Urine Ketones Urine Blood Urine Nitrite Urine Bilirubin Urine Urobilinogen Ur Leukocyte Esterase RPR Titer Nonreactive 06/14/17 17:30 WBC RBC Hgb Hct MCV MCH MCHC RDW Plt Count MPV Sodium Potassium Chloride Carbon Dioxide Anion Gap BUN Creatinine Creat Clearance w eGFR Random Glucose Calcium Total Bilirubin AST ALT Alkaline Phosphatase Total Protein Albumin Urine Color Ltyellow Urine Appearance Clear Urine pH 7.0 Ur Specific [place] 1.005 Urine Protein Negative Urine Glucose (UA) Negative Urine Ketones Negative Urine Blood Negative Urine Nitrite Negative Urine Bilirubin Negative Urine Urobilinogen Negative Ur Leukocyte Esterase Negative RPR Titer LABS NOTED. Assessment: 06/15/17 13:12 WITHDRAWAL SYMPTOMS. Plan: CONTINUE DETOX. INCREASE DAILY PO FLUID INTAKE.
[2017-06-15] MEDS: QUEtiapine FUMARATE 200 MG TABLET PO SCH (22:03)
[2017-06-15] MEDS: THIAMINE HCL 100 MG TABLET (FP) PO SCH (22:03)
[2017-06-16] MEDS ORDERED: METHADONE HCL 40 MG DISPERSABLE TABLET ONE (05:30)
[2017-06-16] MEDS: METHADONE 80 MG, METHADONE 30 MG PO SCH (05:30)
[2017-06-16] MEDS ORDERED: METHADONE HCL 10 MG TABLET ONE (05:30)
[2017-06-16] MEDS: diazePAM 5 MG TABLET PO PRN ×3 (08:56→18:26)
[2017-06-16] MEDS: RANITIDINE HCL 150 MG TABLET (FP) PO SCH ×2 (10:28→22:06)
[2017-06-16] MEDS: PRENATAL VITAMINS W/ FOLIC ACID TABLET (FP) PO SCH (10:28)
[2017-06-16] MEDS: NICOTINE 14 MG/24 HOURS TOPICAL PATCH TD SCH (10:28)
[2017-06-16] MEDS: diazePAM 5 MG TABLET PO SCH ×2 (10:30→22:07)
--- NOTE | 2017-06-16 15:37 | PN ---
BHS Progress Note (SOAP) Subjective: Body aches, Anxious, Sweating. Objective: PT. A & O X 3, OBSERVED AMBULATING ON UNIT. NO ACUTE DISTRESS. 06/16/17 15:36 Vital Signs Temperature 98.2 F 06/16/17 13:07 Pulse Rate 80 06/16/17 13:07 Respiratory Rate 16 06/16/17 13:07 Blood Pressure 106/69 06/16/17 13:07 O2 Sat by Pulse Oximetry (%) Laboratory Tests 06/14/17 06/14/17 06/14/17 07:00 07:00 07:00 WBC 5.7 RBC 4.50 Hgb 12.0 Hct 37.5 MCV 83.3 MCH 26.8 MCHC 32.2 RDW 15.0 Plt Count 227 D MPV 8.6 Sodium 140 Potassium 3.5 Chloride 103 Carbon Dioxide 31 Anion Gap 6 L BUN 7 D Creatinine 0.7 D Creat Clearance w eGFR > 60 Random Glucose 59 L D Calcium 8.1 L Total Bilirubin 0.4 AST 77 H D ALT 86 H D Alkaline Phosphatase 110 D Total Protein 7.6 Albumin 3.4 Urine Color Urine Appearance Urine pH Ur Specific [place] Urine Protein Urine Glucose (UA) Urine Ketones Urine Blood Urine Nitrite Urine Bilirubin Urine Urobilinogen Ur Leukocyte Esterase RPR Titer Nonreactive 06/14/17 17:30 WBC RBC Hgb Hct MCV MCH MCHC RDW Plt Count MPV Sodium Potassium Chloride Carbon Dioxide Anion Gap BUN Creatinine Creat Clearance w eGFR Random Glucose Calcium Total Bilirubin AST ALT Alkaline Phosphatase Total Protein Albumin Urine Color Ltyellow Urine Appearance Clear Urine pH 7.0 Ur Specific [place] 1.005 Urine Protein Negative Urine Glucose (UA) Negative Urine Ketones Negative Urine Blood Negative Urine Nitrite Negative Urine Bilirubin Negative Urine Urobilinogen Negative Ur Leukocyte Esterase Negative RPR Titer LABS NOTED. Assessment: 06/16/17 15:36 WITHDRAWAL SYMPTOMS. Plan: CONTINUE DETOX.
[2017-06-16] MEDS: QUEtiapine FUMARATE 200 MG TABLET PO SCH (22:06)
[2017-06-16] MEDS: THIAMINE HCL 100 MG TABLET (FP) PO SCH (22:07)
[2017-06-17] MEDS ORDERED: METHADONE HCL 10 MG TABLET ONE (04:22)
[2017-06-17] MEDS ORDERED: METHADONE HCL 40 MG DISPERSABLE TABLET ONE (04:23)
[2017-06-17] MEDS: METHADONE 80 MG, METHADONE 30 MG PO SCH (05:48)
[2017-06-17 06:23] VITALS: BP 108/69; PULSE 58; TEMP 97.7
[2017-06-17] MEDS ORDERED: diazePAM 5 MG TABLET PO SCH (10:00)
--- NOTE | 2017-06-17 16:28 | DS ---
[facility] Detox Discharge Summary Admission Date: 06/13/17 Discharge Date: 06/17/17 - History Present History: Alcohol Dependence, Opioid Dependence, Sedative Dependence, MMTP Additional Comments: PATIENT RETURNING TO [facility] PROGRAM AND ACCOMPANYING OUTPATIENT DAY PROGRAM FOR AFTERCARE. PATIENT WAS DISCHARGED FROM DETOX UNIT IN STABLE MEDICAL CONDITION. Pertinent Past History: Bipolar Disorder, Nicotine Dependence, MMTP, Hep C, Insomnia, GERD. - Physical Exam Results Vital Signs: Vital Signs Temperature 97.7 F 06/17/17 06:23 Pulse Rate 58 L 06/17/17 06:23 Respiratory Rate 18 06/17/17 06:23 Blood Pressure 108/69 06/17/17 06:23 O2 Sat by Pulse Oximetry (%) Pertinent Admission Physical Exam Findings: WITHDRAWAL SYMPTOMS. Laboratory Tests 06/14/17 06/14/17 06/14/17 07:00 07:00 07:00 WBC 5.7 RBC 4.50 Hgb 12.0 Hct 37.5 MCV 83.3 MCH 26.8 MCHC 32.2 RDW 15.0 Plt Count 227 D MPV 8.6 Sodium 140 Potassium 3.5 Chloride 103 Carbon Dioxide 31 Anion Gap 6 L BUN 7 D Creatinine 0.7 D Creat Clearance w eGFR > 60 Random Glucose 59 L D Calcium 8.1 L Total Bilirubin 0.4 AST 77 H D ALT 86 H D Alkaline Phosphatase 110 D Total Protein 7.6 Albumin 3.4 Urine Color Urine Appearance Urine pH Ur Specific [place] Urine Protein Urine Glucose (UA) Urine Ketones Urine Blood Urine Nitrite Urine Bilirubin Urine Urobilinogen Ur Leukocyte Esterase RPR Titer Nonreactive 06/14/17 17:30 WBC RBC Hgb Hct MCV MCH MCHC RDW Plt Count MPV Sodium Potassium Chloride Carbon Dioxide Anion Gap BUN Creatinine Creat Clearance w eGFR Random Glucose Calcium Total Bilirubin AST ALT Alkaline Phosphatase Total Protein Albumin Urine Color Ltyellow Urine Appearance Clear Urine pH 7.0 Ur Specific [place] 1.005 Urine Protein Negative Urine Glucose (UA) Negative Urine Ketones Negative Urine Blood Negative Urine Nitrite Negative Urine Bilirubin Negative Urine Urobilinogen Negative Ur Leukocyte Esterase Negative RPR Titer LABS NOTED. - Treatment Hospital Course: Detox Protocol Followed, Detoxed Safely, Responded well, Discharged Condition Good Patient has Accepted a Rehab Referral to: PT RETURNING TO [facility] / DAY PROGRAM FOR AFTERCARE. - Medication Discharge Medications: Ambulatory Orders Quetiapine Fumarate [Seroquel -] 200 mg PO HS #30 tab 12/07/16 Quetiapine Fumarate [Seroquel -] 200 mg PO HS #30 tab 06/14/17 - Diagnosis (1) Alcohol dependence with uncomplicated withdrawal Status: Acute (2) Sedative, hypnotic or anxiolytic dependence with withdrawal, uncomplicated Status: Acute (3) Methadone maintenance therapy patient Status: Chronic (4) Drug-induced mood disorder Status: Acute (5) Insomnia Status: Acute Qualifiers: Insomnia type: unspecified Qualified Code(s): G47.00 - Insomnia, unspecified (6) Nicotine dependence Status: Acute Qualifiers: Nicotine product type: cigarettes Substance use status: in withdrawal Qualified Code(s): F17.213 - Nicotine dependence, cigarettes, with withdrawal (7) Opioid dependence on agonist therapy Status: Chronic (8) Bipolar disorder Status: Chronic Qualifiers: Active/Remission status: remission status unspecified Qualified Code(s): F31.9 - Bipolar disorder, unspecified - AMA Did Patient Leave Against Medical Advice: No
== END 2017-06-17 09:10 | disposition home or self-care (01) | DRG 773 ==
LOC: YASAS 13:44 → Y3N 23:01
PROVIDERS: ADMIT Internal Medicine; ATTEND Internal Medicine
PROC: HZ2ZZZZ Detoxification Services for Substance Abuse Treatment (ICD-10-PCS; principal; 2017-06-13)
DX: F11.20 Opioid dependence, uncomplicated (principal); F13.230 Sedative, hypnotic or anxiolytic dependence with withdrawal, uncomplicated; F10.230 Alcohol dependence with withdrawal, uncomplicated; F17.210 Nicotine dependence, cigarettes, uncomplicated; F19.24 Other psychoactive substance dependence with psychoactive substance-induced mood disorder; F31.9 Bipolar disorder, unspecified; F31.81 Bipolar II disorder; G47.00 Insomnia, unspecified; K21.9 Gastro-esophageal reflux disease without esophagitis; B18.2 Chronic viral hepatitis C
CPT/HCPCS: 36415; 80053; 81003; 85027; 86593; 93005; 93010

== ENCOUNTER 2017-07-15 10:21 | Inpatient (IN) | payer MEDICARE, OTHER ==
[2017-07-15 11:45] VITALS: BMI 31.0
--- NOTE | 2017-07-15 14:42 | HP ---
CIWA Score - CIWA Score Nausea/Vomitin (N/V/D) Muscle Tremors: 4-Moderate,w/Arms Extend Anxiety: 4-Mod. Anxious/Guarded Agitation: 3 Paroxysmal Sweats: 1-Minimal Palms Moist Orientation: 0-Oriented Tacttile Disturbances: 3-Moderate Itch/Numb/Burn Auditory Disturbances: 0-None Visual Disturbances: 0-None Headache: 1-Very Mild CIWA-Ar Total Score: 21 Admission ROS S - HPI Chief Complaint: WITHDRAWAL SX FROM ALCOHOL AND XANAX Allergies/Adverse Reactions: Allergies Allergy/AdvReac Type Severity Reaction Status Date / Time No Known Allergies Allergy Verified 07/15/17 12:56 History of Present Illness: 47 Y/O H/MALE WITH A LONG HX OF HEROIN,ALCOHOL AND XANAX DEPENDENCE AND MULTIPLE TX EPISODES SEEKING DETOX TREATMENT. Exam Limitations: No Limitations, Intoxication - Ebola screening Have you traveled outside of the country in the last 21 days: No Have you had contact with anyone from an Ebola affected area: No Have you been sick,other than usual withdrawal symptoms: No Do you have a fever: No - Review of Systems Constitutional: Chills, Loss of Appetite, Night Sweats, Unintentional Wgt. Loss EENT: reports: Nose Congestion Respiratory: reports: No Symptoms reported Cardiac: reports: No Symptoms Reported GI: reports: Constipated, Diarrhea, Nausea, Poor Appetite, Poor Fluid Intake, Vomiting : reports: No Symptoms Reported Musculoskeletal: reports: Joint Pain (RIGHT HEEL PAIN DUE TO FALL ON 07/09/17. WENT TO [facility] FOR CARE. STATES XRAY AND MRI DONE. NO FX REPORTED. ), Muscle Pain Integumentary: reports: Lesions, Pruritus (RASH DEVELOPED WHILE IN [place]. GIVEN SOME CREAM 2 WEEKS AGO TO APPLY.), Rash ([place]. REPORTS WAS TREATED FOR ITCHY RASH IN [place] 06/29/17 TO 07/06/17.) Neuro: reports: Seizure, Tremors, Other ([place]) Endocrine: reports: No Symptoms Reported Hematology: reports: No Symptoms Reported Psychiatric: reports: Orientated x3, Anxious, Depressed Other Systems: Reviewed and Negative Patient History - Patient Medical History Hx Anemia: No Hx Asthma: No Hx Chronic Obstructive Pulmonary Disease (COPD): No Hx Cancer: No Hx Cardiac Disorders: No Hx Congestive Heart Failure: No Hx Hypertension: No Hx Hypercholesterolemia: No Hx Pacemaker: No HX Cerebrovascular Accident: No Hx Seizures: Yes (2016) Hx Dementia: No Hx Diabetes: No Hx Gastrointestinal Disorders: No Hx Liver Disease: Yes (UNTREATED HEP-C; DIAGNOSED 1997.) Hx Genitourinary Disorders: No Hx Sexually Transmitted Disorders: No Hx Renal Disease (ESRD): No Hx Thyroid Disease: No Hx Human Immunodeficiency Virus (HIV): No (LAST TESTED: 12/2015 AT [facility]: NEGATIVE.) Hx Hepatitis C: Yes (UNTREATED; DIAGNOSED 1997.) Hx Depression: Yes Hx Suicide Attempt: No (DENIES) Hx Bipolar Disorder: Yes (TAKES MEDICATION (SEROQUEL)) Hx Schizophrenia: No - Patient Surgical History Past Surgical History: No Hx Neurologic Surgery: No Hx Cataract Extraction: No Hx Cardiac Surgery: No Hx Lung Surgery: No Hx Breast Surgery: No Hx Breast Biopsy: No Hx Abdominal Surgery: No Hx Appendectomy: No Hx Cholecystectomy: No Hx Genitourinary Surgery: No Hx Orthopedic Surgery: No Anesthesia Reaction: No - PPD History Previous Implant?: Yes Documented Results: Negative w/proof Date: 09/10/16 Results: 0 mm PPD to be Administered?: No - Reproductive History Patient is a Female of Child Bearing Age (11 -55 yrs old): No (MALE) - Smoking Cessation Smoking history: Current every day smoker Have you smoked in the past 12 months: Yes Aproximately how many cigarettes per day: 10 Cigars Per Day: 0 Hx Chewing Tobacco Use: No Initiated information on smoking cessation: Yes 'Breaking Loose' booklet given: 07/15/17 - Substance & Tx. History Hx Alcohol Use: Yes Hx Substance Use: Yes Substance Use Type: Alcohol, Tranquilizers Hx Substance Use Treatment: Yes (LAST TX AT [facility] ) - Substances Abused Heroin Route: Injection Frequency: Daily Amount used: 20 bags Age of first use: 23 Date of Last Use: 07/15/17 Alcohol Route: Oral Frequency: Daily Amount used: beer(4 loco 6 cans)/henessey(1 pint) Age of first use: 18 Date of Last Use: 07/15/17 Alprazolam (Xanax) Route: Oral Frequency: Daily Amount used: 4-5 stiks-2mg Age of first use: 42 Date of Last Use: 07/15/17 Family Disease History - Family Disease History Family Disease History: Diabetes: Grandparent, [place]: Mother (LEUKEMIA.), Other: Brother (DSA,ALCOHOL; BIPOLAR DISORDER.) Admission Physical Exam [facility] - Vital Signs Vital Signs: Vital Signs - 24 hr 07/15/17 11:43 Temperature 96.9 F L Pulse Rate 80 Respiratory 20 Rate Blood Pressure 126/78 - Physical General Appearance: Yes: Moderate Distress, Alcohol on Breath, Intoxicated, Irritable, Anxious HEENTM: Yes: EOMI, Normocephalic, PREET, Pharynx Normal, Nasal Congestion Respiratory: Yes: Chest Non-Tender, Lungs Clear, Normal Breath Sounds, No Respiratory Distress Neck: Yes: No masses,lesions,Nodules, Supple, Trachea in good position Breast: Yes: Breast Exam Deferred Cardiology: Yes: Regular Rhythm, Regular Rate, S1, S2 Abdominal: Yes: Normal Bowel Sounds, Non Tender, Flat Genitourinary: Yes: Other (N/C) Back: Yes: Within Normal Limits Musculoskeletal: Yes: full range of Motion, Gait Steady Extremities: Yes: Normal Range of Motion, Non-Tender 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 intact, Fully Oriented, Alert, Motor Strength 5/5 Integumentary: Yes: Dry, Warm, Rash ([place]), Track Ponce (BOTH ARMS) Lymphatic: Yes: Within Normal Limits - Diagnostic (1) Alcohol dependence with uncomplicated withdrawal Current Visit: Yes Status: Acute (2) Sedative, hypnotic or anxiolytic dependence with withdrawal, uncomplicated Current Visit: Yes Status: Acute (3) Hepatitis C Current Visit: Yes Status: Chronic Qualifiers: Viral hepatitis chronicity: chronic Hepatic coma status: without hepatic coma Qualified Code(s): B18.2 - Chronic viral hepatitis C (4) Methadone maintenance therapy patient Current Visit: Yes Status: Chronic Comment: LAST DOSE ON 07/08/17-AT [facility] MMTP (5) Rash Current Visit: Yes Status: Acute Comment: GENERALIZED RED RASH ALL OVER [place] FRONT AND BACK. (6) Scabies Current Visit: Yes Status: Acute (7) Dandruff, adult Current Visit: Yes Status: Acute Cleared for Admission [facility] - Detox or Rehab [facility] Level of Care: Medically Managed Detox Regimen/Protocol: Valium (PT PREFFERS VALIUM TO LIBRIUM.) [facility] Breath Alcohol Content Breath Alcohol Content: 0.184 Urine Drug Screen - Results Drug Screen Negative: No Urine Drug Screen Results: OPI-Opiates, BZO-Benzodiazepines, MTD-Methadone, TCA- Tricyclic Antidepress, OXY-Oxycodone
[2017-07-15] MEDS ORDERED: MENTHOL/PHENOL 1 EACH UD MM PRN (15:01)
[2017-07-15] MEDS ORDERED: MAGNESIUM HYDROX 2400MG/30ML ORAL SUSPENSION 30 ML CUP PO PRN (15:01)
[2017-07-15] MEDS ORDERED: IBUPROFEN 400 MG TABLET (FP) PO PRN (15:01)
[2017-07-15] MEDS ORDERED: NICOTINE POLACRILEX 4 MG GUM BUC PRN (15:01)
[2017-07-15] MEDS ORDERED: LOPERAMIDE HCL 2 MG CAPSULE PO PRN (15:01)
[2017-07-15] MEDS ORDERED: MAG HYDROX/AL HYDROX/SIMETH 30 ML UNIT-DOSE CUP PO PRN (15:01)
[2017-07-15] MEDS ORDERED: ACETAMINOPHEN 325 MG TABLET (FP) PO PRN (15:01)
[2017-07-15] MEDS ORDERED: guaiFENesin/D-METHORPHAN HB 10 ML UNIT-DOSE CUPS PO PRN (15:01)
[2017-07-15] MEDS ORDERED: MAGNESIUM CITRATE 300 ML BOTTLE PO PRN (15:01)
[2017-07-15] MEDS ORDERED: P-EPHED 60MG/TRIPROLIDI 2.5MG TABLET PO PRN (15:01)
[2017-07-15] MEDS ORDERED: diazePAM 5 MG TABLET PO ONE (15:07)
[2017-07-15] MEDS ORDERED: PERMETHRIN 5% TOPICAL CREAM 60 GM TUBE TP ONE (15:14)
[2017-07-15] MEDS ORDERED: IBUPROFEN 400 MG TABLET (FP) PO SCH (15:15)
[2017-07-15] MEDS ORDERED: NICOTINE 21 MG/24 HOURS TOPICAL PATCH TD SCH (15:15)
[2017-07-15] MEDS ORDERED: HYDROCORTISONE 1% TOPICAL OINT 30 GM TUBE TP PRN (15:19)
[2017-07-15] MEDS ORDERED: METHADONE HCL 10 MG TABLET PO ONE (15:39)
[2017-07-15] MEDS ORDERED: NICOTINE POLACRILEX 2 MG GUM BUC PRN (15:42)
[2017-07-15] MEDS ORDERED: METHADONE 40 MG, METHADONE 30 MG PO ONE (15:45)
[2017-07-15] MEDS ORDERED: METHADONE HCL 40 MG DISPERSABLE TABLET ONE (15:53)
[2017-07-15] MEDS ORDERED: METHADONE HCL 10 MG TABLET ONE (15:54)
[2017-07-15] MEDS: IBUPROFEN 600 MG TABLET (FP) PO SCH ×2 (15:57→22:04)
--- NOTE | 2017-07-15 17:01 | CONSULT ---
[facility] Psychiatric Consult - Data Date of interview: 07/15/17 Admission source: [facility] Identifying data: One of multiple admissions to [facility] for this 47 y/o male seeking detox treatment on for alcohol,heroin and xanax dependence.Patient is single,a father of one,domiciled,unemployed and supported on [employer] benefits. Substance Abuse History: Confirmed by patient in this interview.Details in current [facility] report : Smoking history: Current every day smoker. Have you smoked in the past 12 months: Yes. Aproximately how many cigarettes per day: 10. Cigars Per Day: 0. Hx Chewing Tobacco Use: No. Initiated information on smoking cessation: Yes. 'Breaking Loose' booklet given: 07/15/17. - Substance & Tx. History. Hx Alcohol Use: Yes. Hx Substance Use: Yes. Substance Use Type : Alcohol, Tranquilizers. Hx Substance Use Treatment: Yes (LAST TX AT [facility] ). - Substances Abused. Heroin. Route: Injection. Frequency: Daily. Amount used: 20 bags. Age of first use: 23. Date of Last Use: 07/15/17. Alcohol. Route: Oral. Frequency: Daily. Amount used: beer(4 loco 6 cans)/ [place](1 pint). Age of first use: 18. Date of Last Use: 07/15/17. Alprazolam (Xanax). Route: Oral. Frequency: Daily. Amount used: 4-5 stiks- 2mg. Age of first use: 42. Date of Last Use: 07/15/17 Medical History: Hepatitis C. Psychiatric History: Diagnosed with Bipolar Disorder.No reported history of psychiatric hospitalizations.Patient endorses scripts for seroquel 200 mg/hs.Mr Jones is currently on methadone maintenance (120 mg/day) at the [facility] program [facility].No history of suicide attempts. Physical/Sexual Abuse/Trauma History: Not discussed in this session (patient declines). Additional Comment: Urine Drug Screen Results: OPI-Opiates, BZO-Benzodiazepines , MTD-Methadone, TCA-Tricyclic Antidepress, OXY-Oxycodone.Noted. Mental Status Exam - Mental Status Exam Alert and Oriented to: Time, Place, Person Cognitive Function: Good Patient Appearance: Unkempt, Disheveled Mood: Nervous, Withdrawn, Anxious Affect: Mood Congruent Patient Behavior: Fatigued, Appropriate, Cooperative Speech Pattern: Clear, Appropriate Voice Loudness: Normal Thought Process: Goal Oriented Thought Disorder: Not Present Hallucinations: Denies Suicidal Ideation: Denies Homicidal Ideation: Denies Insight/Judgement: Poor Sleep: Poorly, Difficulty falling asleep Appetite: Good Muscle strength/Tone: Normal Gait/Station: Other (walks with a limp) Psychiatric Findings - Problem List ([place] 1, 2,3) (1) Alcohol dependence with uncomplicated withdrawal Current Visit: Yes Status: Acute (2) Opioid dependence on agonist therapy Current Visit: Yes Status: Acute (3) Sedative, hypnotic or anxiolytic dependence with withdrawal, uncomplicated Current Visit: Yes Status: Acute (4) Nicotine dependence Current Visit: Yes Status: Acute Qualifiers: Nicotine product type: cigarettes Substance use status: in withdrawal Qualified Code(s): F17.213 - Nicotine dependence, cigarettes, with withdrawal (5) Drug-induced mood disorder Current Visit: Yes Status: Acute (6) Insomnia Current Visit: Yes Status: Acute Qualifiers: Insomnia type: unspecified Qualified Code(s): G47.00 - Insomnia, unspecified - Initial Treatment Plan Initial Treatment Plan: Old records are revisited.Sleep hygiene discussed in this session.Psychoeducation provided.Detoxification in progress.Seroquel 100 mg po hs (reduced dose as caution against oversedation from drug-drug interactions).Side effects/benefits discussed with patient.Consent (verbal) given.Observation.
[2017-07-15] MEDS: SELENIUM SULFIDE 2.5% LOTION 4 OZ. TP SCH (18:29)
[2017-07-15] MEDS: diazePAM 5 MG TABLET PO PRN (19:58)
[2017-07-15 20:56] LABS: URINE APPEARANCE CLEAR; URINE BILIRUBIN NEGATIVE (NEGATIVE); URINE BLOOD NEGATIVE (NEGATIVE); URINE COLOR LTYELLOW; URINE GLUCOSE (UA) 2+ (NEGATIVE); URINE KETONE NEGATIVE (NEGATIVE); URINE LEUK ESTERASE NEGATIVE (NEGATIVE); URINE NITRITE NEGATIVE (NEGATIVE); URINE PROTEIN NEGATIVE (NEGATIVE); URINE UROBILINOGEN NEGATIVE mg/dL (0.2-1.0)
[2017-07-15] MEDS: diazePAM 5 MG TABLET PO SCH (22:04)
[2017-07-15] MEDS: THIAMINE HCL 100 MG TABLET (FP) PO SCH (22:05)
[2017-07-15] MEDS: QUEtiapine FUMARATE 100 MG TABLET (FP) PO SCH (22:05)
[2017-07-16] MEDS: IBUPROFEN 600 MG TABLET (FP) PO SCH (05:27)
[2017-07-16] MEDS: diazePAM 5 MG TABLET PO SCH ×3 (05:29→22:39)
[2017-07-16] MEDS ORDERED: METHADONE HCL 40 MG DISPERSABLE TABLET PO SCH (06:00)
[2017-07-16] MEDS: NICOTINE 14 MG/24 HOURS TOPICAL PATCH TD SCH (09:42)
[2017-07-16] MEDS: diazePAM 5 MG TABLET PO PRN ×3 (09:42→22:24)
[2017-07-16] MEDS: SELENIUM SULFIDE 2.5% LOTION 4 OZ. TP SCH (09:42)
[2017-07-16] MEDS: PRENATAL VITAMINS W/ FOLIC ACID TABLET (FP) PO SCH (09:42)
[2017-07-16] MEDS: BACITRACIN 0.9 GM PACKET TP SCH (09:43)
--- NOTE | 2017-07-16 10:37 | PN ---
S CIWA - CIWA Score Nausea/Vomitin Muscle Tremors: 3 Anxiety: 3 Agitation: 3 Paroxysmal Sweats: 1-Minimal Palms Moist Orientation: 0-Oriented Tacttile Disturbances: 1-Very Mild Itch/Numbness Auditory Disturbances: 1-Very Mild Visual Disturbances: 0-None Headache: 2-Mild CIWA-Ar Total Score: 17 BHS Progress Note (SOAP) Subjective: ALERT,IRRITABLE,ANXIOUS,INTERRUPTED SLEEP,TREMOR,PAIN IN RIGHT FOOT AND LEFT KNEE OLD INJURY 3 WEEKS AGO Objective: 07/16/17 10:35 Vital Signs Temperature 97 F L 07/16/17 10:11 Pulse Rate 70 07/16/17 10:11 Respiratory Rate 18 07/16/17 10:11 Blood Pressure 143/95 07/16/17 10:11 O2 Sat by Pulse Oximetry (%) EKG NSR,NORMAL ECG Laboratory Last Values Urine Color Ltyellow 07/15/17 19:00 Urine Appearance Clear 07/15/17 19:00 Urine pH 7.0 (5.0-8.0) 07/15/17 19:00 Ur Specific [place] 1.004 (1.001-1.035) 07/15/17 19:00 Urine Protein Negative (NEGATIVE) 07/15/17 19:00 Urine Glucose (UA) 2+ (NEGATIVE) H 07/15/17 19:00 Urine Ketones Negative (NEGATIVE) 07/15/17 19:00 Urine Blood Negative (NEGATIVE) 07/15/17 19:00 Urine Nitrite Negative (NEGATIVE) 07/15/17 19:00 Urine Bilirubin Negative (NEGATIVE) 07/15/17 19:00 Urine Urobilinogen Negative mg/dL (0.2-1.0) 07/15/17 19:00 Ur Leukocyte Esterase Negative (NEGATIVE) 07/15/17 19:00 HIV 1&2 Antibody Screen Negative 07/15/17 13:50 HIV P24 Antigen Negative 07/15/17 13:50 LABS PENDING Assessment: 07/16/17 10:36 WITHDRAWAL SYMPTOM Plan: CONTINUE DETOX,MOTRIN 800 MGS PO TID PRN FOR PAIN,CANE FOR AMBULATORY AIS
[2017-07-16 11:05] LABS: ALBUMIN 3.8 g/dl (3.4-5.0); ALK PHOS 119 U/L (45-117); ANION GAP 4 (8-16); BILIRUBIN,TOTAL 0.5 mg/dL (0.2-1.0); BLOOD UREA NITROGEN 6 mg/dL (7-18); CALCIUM 8.7 mg/dL (8.5-10.1); CHLORIDE 105 mmol/L (98-107); CO2 31 mmol/L (21-32); CREATININE 0.7 mg/dL (0.7-1.3); GLUCOSE,RANDOM 98 mg/dL (74-106); POTASSIUM 3.9 mmol/L (3.5-5.1); SGOT/AST 46 U/L (15-37); SGPT/ALT 57 U/L (12-78); SODIUM 140 mmol/L (136-145); TOT PROT 8.4 g/dl (6.4-8.2)
[2017-07-16 11:09] LABS: HEMATOCRIT 40.9 % (35.4-49); HEMOGLOBIN 12.8 GM/dL (11.7-16.9); MCH 26.5 pg (25.7-33.7); MCHC 31.4 g/dl (32.0-35.9); MEAN CELL VOLUME 84.2 fl (80-96); MEAN PLT VOLUME 9.6 fl (7.5-11.1); PLATELET COUNT 231 K/MM3 (134-434); RBC 4.85 M/mm3 (4.00-5.60); RDW 14.6 % (11.9-15.9); WHITE BLOOD COUNT 6.6 K/mm3 (4.0-10.0)
[2017-07-16] MEDS: hydrOXYzine PAMOATE 50 MG CAPSULE (FP) PO PRN (11:43)
[2017-07-16] MEDS: IBUPROFEN 400 MG TABLET (FP) PO PRN (12:27)
--- NOTE | 2017-07-16 13:43 | EKG ---
Test Reason : Blood Pressure : / mmHG Vent. Rate : 075 BPM Atrial Rate : 075 BPM P-R Int : 196 ms QRS Dur : 098 ms QT Int : 404 ms P-R-T Axes : 051 002 020 degrees QTc Int : 451 ms NORMAL SINUS RHYTHM NORMAL ECG WHEN COMPARED WITH ECG OF 14-JUN-2017 01:43, NO SIGNIFICANT CHANGE WAS FOUND Confirmed by TEX OJEDA MD ([id number]) on 07/16/2017 1:43:28 PM Referred By: Confirmed By:TEX OJEDA MD
[2017-07-16] MEDS: QUEtiapine FUMARATE 100 MG TABLET (FP) PO SCH (22:24)
[2017-07-16] MEDS: THIAMINE HCL 100 MG TABLET (FP) PO SCH (22:24)
[2017-07-17] MEDS ORDERED: METHADONE HCL 40 MG DISPERSABLE TABLET ONE (04:51)
[2017-07-17] MEDS ORDERED: METHADONE HCL 10 MG TABLET ONE (04:52)
[2017-07-17] MEDS: diazePAM 5 MG TABLET PO PRN ×3 (05:33→17:40)
[2017-07-17] MEDS: IBUPROFEN 400 MG TABLET (FP) PO PRN ×2 (05:34→14:13)
[2017-07-17] MEDS ORDERED: METHADONE HCL 10 MG TABLET PO SCH (06:00)
[2017-07-17] MEDS ORDERED: METHADONE 80 MG, METHADONE 10 MG PO ONE (06:00)
[2017-07-17] MEDS: hydrOXYzine PAMOATE 50 MG CAPSULE (FP) PO PRN (10:00)
[2017-07-17] MEDS: diazePAM 5 MG TABLET PO SCH ×2 (10:30→22:39)
[2017-07-17] MEDS: NICOTINE 14 MG/24 HOURS TOPICAL PATCH TD SCH (10:30)
[2017-07-17] MEDS: BACITRACIN 0.9 GM PACKET TP SCH (10:30)
[2017-07-17] MEDS: PRENATAL VITAMINS W/ FOLIC ACID TABLET (FP) PO SCH (10:30)
[2017-07-17] MEDS: SELENIUM SULFIDE 2.5% LOTION 4 OZ. TP SCH (10:31)
--- NOTE | 2017-07-17 10:34 | PN ---
S CIWA - CIWA Score Nausea/Vomitin-No Nausea/No Vomiting Muscle Tremors: 4-Moderate,w/Arms Extend Anxiety: 3 Agitation: 3 Paroxysmal Sweats: 1-Minimal Palms Moist Orientation: 0-Oriented Tacttile Disturbances: 0-None Auditory Disturbances: 0-None Visual Disturbances: 0-None Headache: 0-None Present CIWA-Ar Total Score: 11 BHS Progress Note (SOAP) Subjective: tremore anxiety sweating insomnia Objective: 07/17/17 10:33 Vital Signs Temperature 97.5 F L 07/17/17 06:31 Pulse Rate 63 07/17/17 06:31 Respiratory Rate 16 07/17/17 06:31 Blood Pressure 125/79 07/17/17 06:31 O2 Sat by Pulse Oximetry (%) Laboratory Last Values WBC 6.6 K/mm3 (4.0-10.0) 07/16/17 05:40 RBC 4.85 M/mm3 (4.00-5.60) 07/16/17 05:40 Hgb 12.8 GM/dL (11.7-16.9) 07/16/17 05:40 Hct 40.9 % (35.4-49) 07/16/17 05:40 MCV 84.2 fl (80-96) 07/16/17 05:40 MCH 26.5 pg (25.7-33.7) 07/16/17 05:40 MCHC 31.4 g/dl (32.0-35.9) L 07/16/17 05:40 RDW 14.6 % (11.9-15.9) 07/16/17 05:40 Plt Count 231 K/MM3 (134-434) 07/16/17 05:40 MPV 9.6 fl (7.5-11.1) D 07/16/17 05:40 Sodium 140 mmol/L (136-145) 07/16/17 05:40 Potassium 3.9 mmol/L (3.5-5.1) 07/16/17 05:40 Chloride 105 mmol/L (98-107) 07/16/17 05:40 Carbon Dioxide 31 mmol/L (21-32) 07/16/17 05:40 Anion Gap 4 (8-16) L 07/16/17 05:40 BUN 6 mg/dL (7-18) L 07/16/17 05:40 Creatinine 0.7 mg/dL (0.7-1.3) 07/16/17 05:40 Creat Clearance w eGFR > 60 (>60) 07/16/17 05:40 Random Glucose 98 mg/dL (74-106) D 07/16/17 05:40 Calcium 8.7 mg/dL (8.5-10.1) 07/16/17 05:40 Total Bilirubin 0.5 mg/dL (0.2-1.0) D 07/16/17 05:40 AST 46 U/L (15-37) H D 07/16/17 05:40 ALT 57 U/L (12-78) D 07/16/17 05:40 Alkaline Phosphatase 119 U/L (45-117) H 07/16/17 05:40 Total Protein 8.4 g/dl (6.4-8.2) H 07/16/17 05:40 Albumin 3.8 g/dl (3.4-5.0) 07/16/17 05:40 Urine Color Ltyellow 07/15/17 19:00 Urine Appearance Clear 07/15/17 19:00 Urine pH 7.0 (5.0-8.0) 07/15/17 19:00 Ur Specific [place] 1.004 (1.001-1.035) 07/15/17 19:00 Urine Protein Negative (NEGATIVE) 07/15/17 19:00 Urine Glucose (UA) 2+ (NEGATIVE) H 07/15/17 19:00 Urine Ketones Negative (NEGATIVE) 07/15/17 19:00 Urine Blood Negative (NEGATIVE) 07/15/17 19:00 Urine Nitrite Negative (NEGATIVE) 07/15/17 19:00 Urine Bilirubin Negative (NEGATIVE) 07/15/17 19:00 Urine Urobilinogen Negative mg/dL (0.2-1.0) 07/15/17 19:00 Ur Leukocyte Esterase Negative (NEGATIVE) 07/15/17 19:00 RPR Titer Nonreactive (NONREACTIVE) 07/16/17 05:40 HIV 1&2 Antibody Screen Negative 07/15/17 13:50 HIV P24 Antigen Negative 07/15/17 13:50 lab noted Assessment: 07/17/17 10:34 withdrawal sx Plan: continue detox
[2017-07-17] MEDS: THIAMINE HCL 100 MG TABLET (FP) PO SCH (22:39)
[2017-07-17] MEDS: QUEtiapine FUMARATE 100 MG TABLET (FP) PO SCH (22:39)
[2017-07-18] MEDS ORDERED: METHADONE HCL 40 MG DISPERSABLE TABLET ONE (04:09)
[2017-07-18] MEDS ORDERED: METHADONE HCL 10 MG TABLET ONE (04:10)
[2017-07-18] MEDS: diazePAM 5 MG TABLET PO PRN ×2 (04:17→13:38)
[2017-07-18] MEDS ORDERED: METHADONE 80 MG, METHADONE 20 MG PO ONE (06:00)
[2017-07-18] MEDS ORDERED: METHADONE HCL 10 MG TABLET PO SCH (06:00)
[2017-07-18] MEDS: BACITRACIN 0.9 GM PACKET TP SCH (10:07)
[2017-07-18] MEDS: diazePAM 5 MG TABLET PO SCH ×2 (10:07→22:10)
[2017-07-18] MEDS: PRENATAL VITAMINS W/ FOLIC ACID TABLET (FP) PO SCH (10:07)
--- NOTE | 2017-07-18 10:07 | PN ---
BHS Progress Note (SOAP) Subjective: ALERT,IRRITABLE,ANXIOUS,INTERRUPTED SLEEP,PAIN IN THE BODY AND BACK Objective: 07/18/17 10:06 Vital Signs Temperature 97 F L 07/18/17 06:05 Pulse Rate 68 07/18/17 06:05 Respiratory Rate 18 07/18/17 06:05 Blood Pressure 142/88 07/18/17 06:05 O2 Sat by Pulse Oximetry (%) Assessment: 07/18/17 10:06 WITHDRAWAL SYMPTOM Plan: CONTINUE DETOX,DISCHARGE IN AM
[2017-07-18] MEDS: NICOTINE 14 MG/24 HOURS TOPICAL PATCH TD SCH (10:08)
[2017-07-18] MEDS: SELENIUM SULFIDE 2.5% LOTION 4 OZ. TP SCH (10:09)
[2017-07-18] MEDS: IBUPROFEN 400 MG TABLET (FP) PO PRN ×2 (10:10→17:43)
[2017-07-18] MEDS: hydrOXYzine PAMOATE 50 MG CAPSULE (FP) PO PRN ×3 (11:10→22:11)
[2017-07-18] MEDS: QUEtiapine FUMARATE 100 MG TABLET (FP) PO SCH (22:10)
[2017-07-18] MEDS: THIAMINE HCL 100 MG TABLET (FP) PO SCH (22:10)
[2017-07-19] MEDS ORDERED: METHADONE HCL 40 MG DISPERSABLE TABLET ONE (04:47)
[2017-07-19] MEDS ORDERED: METHADONE HCL 10 MG TABLET ONE (04:48)
[2017-07-19] MEDS ORDERED: METHADONE HCL 10 MG TABLET PO SCH (06:00)
[2017-07-19] MEDS ORDERED: METHADONE 80 MG, METHADONE 30 MG PO ONE (06:00)
[2017-07-19] MEDS: IBUPROFEN 400 MG TABLET (FP) PO PRN (06:06)
[2017-07-19] MEDS: hydrOXYzine PAMOATE 50 MG CAPSULE (FP) PO PRN ×2 (06:08→10:10)
--- NOTE | 2017-07-19 08:41 | DS ---
[facility] Detox Discharge Summary Admission Date: 07/15/17 Discharge Date: 07/19/17 - History Present History: Alcohol Dependence, Sedative Dependence, MMTP Additional Comments: FOLLOW UP WITH AFTER CARE PROGRAM ARRANGEMENT Pertinent Past History: HEPATITIS C OLD INJURY RIGHT FOOT AND LEFT KNEE - Physical Exam Results Vital Signs: Vital Signs Temperature 97.2 F L 07/19/17 06:00 Pulse Rate 58 L 07/19/17 06:00 Respiratory Rate 20 07/19/17 06:00 Blood Pressure 120/67 07/19/17 06:00 O2 Sat by Pulse Oximetry (%) Pertinent Admission Physical Exam Findings: WITHDRAWAL SYMPTOM - Treatment Hospital Course: Detox Protocol Followed, Detoxed Safely, Responded well, Discharged Condition Good Patient has Accepted a Rehab Referral to: DECLNED - Medication Discharge Medications: Ambulatory Orders Quetiapine Fumarate [Seroquel -] 200 mg PO HS #30 tab 06/14/17 Ibuprofen [Motrin -] 800 mg PO TID 07/15/17 Methadone [Dolophine -] 120 mg PO DAILY 07/15/17 - Diagnosis (1) Alcohol dependence with uncomplicated withdrawal Current Visit: Yes Status: Acute (2) Hepatitis C Current Visit: Yes Status: Acute (3) Opioid dependence on agonist therapy Current Visit: Yes Status: Acute (4) Rash Current Visit: Yes Status: Acute (5) Sedative, hypnotic or anxiolytic dependence with withdrawal, uncomplicated Current Visit: Yes Status: Acute (6) Methadone maintenance therapy patient Current Visit: Yes Status: Chronic (7) Injury of right foot Current Visit: Yes Status: Acute (8) Injury of left knee Current Visit: Yes Status: Acute
[2017-07-19] MEDS ORDERED: diazePAM 5 MG TABLET PO SCH (10:00)
[2017-07-19] MEDS: NICOTINE 14 MG/24 HOURS TOPICAL PATCH TD SCH (10:08)
[2017-07-19] MEDS: PRENATAL VITAMINS W/ FOLIC ACID TABLET (FP) PO SCH (10:08)
[2017-07-19] MEDS: BACITRACIN 0.9 GM PACKET TP SCH (10:09)
[2017-07-19 10:12] VITALS: BP 110/83; PULSE 77; TEMP 97.5
[2017-07-19] MEDS: SELENIUM SULFIDE 2.5% LOTION 4 OZ. TP SCH (11:14)
[2017-07-20] MEDS ORDERED: METHADONE HCL 40 MG DISPERSABLE TABLET PO SCH (06:00)
== END 2017-07-19 11:40 | disposition home or self-care (01) | DRG 773 ==
LOC: YASAS 10:21 → Y6N 13:34
PROVIDERS: ADMIT Internal Medicine; ATTEND Internal Medicine
PROC: HZ2ZZZZ Detoxification Services for Substance Abuse Treatment (ICD-10-PCS; principal; 2017-07-15)
DX: F11.20 Opioid dependence, uncomplicated (principal); F10.230 Alcohol dependence with withdrawal, uncomplicated; F13.230 Sedative, hypnotic or anxiolytic dependence with withdrawal, uncomplicated; F17.213 Nicotine dependence, cigarettes, with withdrawal; F19.24 Other psychoactive substance dependence with psychoactive substance-induced mood disorder; R21 Rash and other nonspecific skin eruption; B18.2 Chronic viral hepatitis C; G47.00 Insomnia, unspecified; B86 Scabies; L21.0 Seborrhea capitis; Z86.69 Personal history of other diseases of the nervous system and sense organs
CPT/HCPCS: 36415; 80053; 81003; 85027; 86593; 87389; 93005; 93010

== ENCOUNTER 2017-08-16 08:46 | Inpatient (IN) | payer OTHER ==
[2017-08-16 10:27] VITALS: BMI 31.0
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
[2017-08-16] MEDS ORDERED: MAGNESIUM CITRATE 300 ML BOTTLE PO PRN (12:15)
[2017-08-16] MEDS ORDERED: ACETAMINOPHEN 325 MG TABLET (FP) PO PRN (12:15)
[2017-08-16] MEDS ORDERED: MAG HYDROX/AL HYDROX/SIMETH 30 ML UNIT-DOSE CUP PO PRN (12:15)
[2017-08-16] MEDS ORDERED: IBUPROFEN 400 MG TABLET (FP) PO PRN (12:15)
[2017-08-16] MEDS ORDERED: guaiFENesin/D-METHORPHAN HB 10 ML UNIT-DOSE CUPS PO PRN (12:15)
[2017-08-16] MEDS ORDERED: LOPERAMIDE HCL 2 MG CAPSULE PO PRN (12:15)
[2017-08-16] MEDS ORDERED: hydrOXYzine PAMOATE 25 MG CAPSULE (FP) PO PRN (12:15)
[2017-08-16] MEDS ORDERED: MAGNESIUM HYDROX 2400MG/30ML ORAL SUSPENSION 30 ML CUP PO PRN (12:15)
[2017-08-16] MEDS ORDERED: P-EPHED 60MG/TRIPROLIDI 2.5MG TABLET PO PRN (12:15)
[2017-08-16] MEDS ORDERED: MENTHOL/PHENOL 1 EACH UD MM PRN (12:15)
[2017-08-16] MEDS ORDERED: diazePAM 5 MG TABLET PO ONE (12:57)
[2017-08-16] MEDS: NICOTINE 21 MG/24 HOURS TOPICAL PATCH TD SCH (13:15)
[2017-08-16] MEDS ORDERED: METHADONE HCL 10 MG TABLET PO ONE (13:17)
[2017-08-16] MEDS: diazePAM 5 MG TABLET PO SCH ×2 (13:20→22:18)
[2017-08-16] MEDS ORDERED: METHADONE 80 MG, METHADONE 20 MG PO ONE (13:35)
[2017-08-16] MEDS ORDERED: METHADONE HCL 10 MG TABLET ONE (13:39)
[2017-08-16] MEDS ORDERED: METHADONE HCL 40 MG DISPERSABLE TABLET ONE (13:40)
[2017-08-16 16:57] LABS: URINE APPEARANCE CLEAR; URINE BILIRUBIN NEGATIVE (NEGATIVE); URINE BLOOD NEGATIVE (NEGATIVE); URINE COLOR YELLOW; URINE GLUCOSE (UA) NEGATIVE (NEGATIVE); URINE KETONE NEGATIVE (NEGATIVE); URINE LEUK ESTERASE NEGATIVE (NEGATIVE); URINE NITRITE NEGATIVE (NEGATIVE); URINE PROTEIN NEGATIVE (NEGATIVE)
--- NOTE | 2017-08-16 17:31 | EKG ---
Test Reason : Blood Pressure : / mmHG Vent. Rate : 069 BPM Atrial Rate : 069 BPM P-R Int : 186 ms QRS Dur : 106 ms QT Int : 418 ms P-R-T Axes : 036 -08 012 degrees QTc Int : 447 ms NORMAL SINUS RHYTHM NORMAL ECG WHEN COMPARED WITH ECG OF 15-JUL-2017 15:36, NO SIGNIFICANT CHANGE WAS FOUND Confirmed by Tremaine Sparrow ([id number]) on 08/16/2017 5:31:05 PM Referred By: Confirmed By:Tremaine Sparrow
[2017-08-16] MEDS: diazePAM 5 MG TABLET PO PRN (17:56)
[2017-08-16] MEDS: THIAMINE HCL 100 MG TABLET (FP) PO SCH (22:18)
[2017-08-17] MEDS ORDERED: METHADONE HCL 10 MG TABLET ONE (04:04)
[2017-08-17] MEDS ORDERED: METHADONE HCL 40 MG DISPERSABLE TABLET ONE (04:05)
[2017-08-17] MEDS: diazePAM 5 MG TABLET PO SCH ×3 (05:32→22:19)
[2017-08-17] MEDS ORDERED: METHADONE HCL 10 MG TABLET PO ONE (06:00)
[2017-08-17] MEDS ORDERED: METHADONE 80 MG, METHADONE 30 MG PO ONE (06:00)
[2017-08-17] MEDS: diazePAM 5 MG TABLET PO PRN ×2 (09:50→17:03)
[2017-08-17] MEDS: PRENATAL VITAMINS W/ FOLIC ACID TABLET (FP) PO SCH (09:51)
[2017-08-17] MEDS: NICOTINE 21 MG/24 HOURS TOPICAL PATCH TD SCH (09:51)
[2017-08-17 10:30] LABS: HEMATOCRIT 39.8 % (35.4-49); HEMOGLOBIN 12.8 GM/dL (11.7-16.9); MCH 26.8 pg (25.7-33.7); MCHC 32.1 g/dl (32.0-35.9); MEAN CELL VOLUME 83.5 fl (80-96); MEAN PLT VOLUME 9.2 fl (7.5-11.1); PLATELET COUNT 221 K/MM3 (134-434); RBC 4.77 M/mm3 (4.00-5.60); RDW 14.9 % (11.9-15.9)
[2017-08-17 10:33] LABS: ALK PHOS 128 U/L (45-117); ANION GAP 11 (8-16); BILIRUBIN,TOTAL 0.5 mg/dL (0.2-1.0); BLOOD UREA NITROGEN 7 mg/dL (7-18); CALCIUM 8.8 mg/dL (8.5-10.1); CHLORIDE 104 mmol/L (98-107); CO2 25 mmol/L (21-32); CREATININE 0.7 mg/dL (0.7-1.3); GLUCOSE,RANDOM 102 mg/dL (74-106); POTASSIUM 3.8 mmol/L (3.5-5.1); SGOT/AST 46 U/L (15-37); SGPT/ALT 48 U/L (12-78); SODIUM 140 mmol/L (136-145); TOT PROT 8.6 g/dl (6.4-8.2)
--- NOTE | 2017-08-17 10:42 | PN ---
[facility] CIWA - CIWA Score Nausea/Vomitin (DIARRHEA) Muscle Tremors: 3 Anxiety: 4-Mod. Anxious/Guarded Agitation: 3 Paroxysmal Sweats: 1-Minimal Palms Moist Orientation: 0-Oriented Tacttile Disturbances: 3-Moderate Itch/Numb/Burn Auditory Disturbances: 0-None Visual Disturbances: 0-None Headache: 0-None Present CIWA-Ar Total Score: 17 S Progress Note (SOAP) Subjective: ANXIETY,SWEATS,DIARRHEA,TREMORS,IRRITABILITY, PAIN RIGHT HEEL DUE TO OLD INJURY- REQUESTING MOTRIN. Objective: 08/17/17 10:42 Vital Signs Temperature 97.2 F L 08/17/17 09:03 Pulse Rate 70 08/17/17 09:03 Respiratory Rate 18 08/17/17 09:03 Blood Pressure 113/72 08/17/17 09:03 O2 Sat by Pulse Oximetry (%) Laboratory Last Values WBC 7.0 K/mm3 (4.0-10.0) 08/17/17 06:00 RBC 4.77 M/mm3 (4.00-5.60) 08/17/17 06:00 Hgb 12.8 GM/dL (11.7-16.9) 08/17/17 06:00 Hct 39.8 % (35.4-49) 08/17/17 06:00 MCV 83.5 fl (80-96) 08/17/17 06:00 MCH 26.8 pg (25.7-33.7) 08/17/17 06:00 MCHC 32.1 g/dl (32.0-35.9) 08/17/17 06:00 RDW 14.9 % (11.9-15.9) 08/17/17 06:00 Plt Count 221 K/MM3 (134-434) 08/17/17 06:00 MPV 9.2 fl (7.5-11.1) 08/17/17 06:00 Sodium 140 mmol/L (136-145) 08/17/17 06:00 Potassium 3.8 mmol/L (3.5-5.1) 08/17/17 06:00 Chloride 104 mmol/L (98-107) 08/17/17 06:00 Carbon Dioxide 25 mmol/L (21-32) 08/17/17 06:00 Anion Gap 11 (8-16) 08/17/17 06:00 BUN 7 mg/dL (7-18) 08/17/17 06:00 Creatinine 0.7 mg/dL (0.7-1.3) 08/17/17 06:00 Creat Clearance w eGFR > 60 (>60) 08/17/17 06:00 Random Glucose 102 mg/dL (74-106) 08/17/17 06:00 Calcium 8.8 mg/dL (8.5-10.1) 08/17/17 06:00 Total Bilirubin 0.5 mg/dL (0.2-1.0) 08/17/17 06:00 AST 46 U/L (15-37) H 08/17/17 06:00 ALT 48 U/L (12-78) 08/17/17 06:00 Alkaline Phosphatase 128 U/L (45-117) H 08/17/17 06:00 Total Protein 8.6 g/dl (6.4-8.2) H 08/17/17 06:00 Albumin 4.0 g/dl (3.4-5.0) 08/17/17 06:00 Urine Color Yellow 08/16/17 15:00 Urine Appearance Clear 08/16/17 15:00 Urine pH 6.0 (5.0-8.0) 08/16/17 15:00 Ur Specific [place] 1.011 (1.001-1.035) 08/16/17 15:00 Urine Protein Negative (NEGATIVE) 08/16/17 15:00 Urine Glucose (UA) Negative (NEGATIVE) 08/16/17 15:00 Urine Ketones Negative (NEGATIVE) 08/16/17 15:00 Urine Blood Negative (NEGATIVE) 08/16/17 15:00 Urine Nitrite Negative (NEGATIVE) 08/16/17 15:00 Urine Bilirubin Negative (NEGATIVE) 08/16/17 15:00 Urine Urobilinogen 2.0 mg/dL (0.2-1.0) 08/16/17 15:00 Ur Leukocyte Esterase Negative (NEGATIVE) 08/16/17 15:00 Assessment: 08/17/17 10:42 WITHDRAWAL SX Plan: CONTINUE DETOX MOTRIN DIRECTED.
[2017-08-17] MEDS ORDERED: IBUPROFEN 600 MG TABLET (FP) PO PRN (10:47)
[2017-08-17] MEDS ORDERED: METHADONE HCL 5 MG TABLET (FOR DETOX USE ONLY) PO ONE (13:14)
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
[2017-08-17] MEDS: CYCLOBENZAPRINE HCL 10 MG TABLET (FP) PO PRN (22:19)
[2017-08-17] MEDS: THIAMINE HCL 100 MG TABLET (FP) PO SCH (22:19)
[2017-08-17] MEDS ORDERED: QUEtiapine FUMARATE 200 MG TABLET PO ONE (22:45)
[2017-08-18] MEDS: diazePAM 5 MG TABLET PO PRN ×3 (03:21→19:50)
[2017-08-18] MEDS: METHADONE HCL 40 MG DISPERSABLE TABLET PO SCH (05:24)
[2017-08-18] MEDS: NICOTINE 21 MG/24 HOURS TOPICAL PATCH TD SCH (10:13)
[2017-08-18] MEDS: diazePAM 5 MG TABLET PO SCH ×2 (10:13→22:24)
[2017-08-18] MEDS: PRENATAL VITAMINS W/ FOLIC ACID TABLET (FP) PO SCH (10:13)
--- NOTE | 2017-08-18 10:44 | PN ---
[facility] CIWA - CIWA Score Nausea/Vomitin-No Nausea/No Vomiting Muscle Tremors: 4-Moderate,w/Arms Extend Anxiety: 4-Mod. Anxious/Guarded Agitation: 4-Moderately Restless Paroxysmal Sweats: 1-Minimal Palms Moist Orientation: 0-Oriented Tacttile Disturbances: 3-Moderate Itch/Numb/Burn Auditory Disturbances: 0-None Visual Disturbances: 0-None Headache: 0-None Present CIWA-Ar Total Score: 16 S Progress Note (SOAP) Subjective: PT SEEN IN BED DURING ROUNDS. APPEARS TIRED BUT VERBAL, ALERT O X 3. STATES "I' M DOING BETTER". Objective: 08/18/17 10:42 Vital Signs Temperature 96.1 F L 08/18/17 09:26 Pulse Rate 81 08/18/17 09:26 Respiratory Rate 18 08/18/17 09:26 Blood Pressure 115/78 08/18/17 09:26 O2 Sat by Pulse Oximetry (%) Laboratory Last Values WBC 7.0 K/mm3 (4.0-10.0) 08/17/17 06:00 RBC 4.77 M/mm3 (4.00-5.60) 08/17/17 06:00 Hgb 12.8 GM/dL (11.7-16.9) 08/17/17 06:00 Hct 39.8 % (35.4-49) 08/17/17 06:00 MCV 83.5 fl (80-96) 08/17/17 06:00 MCH 26.8 pg (25.7-33.7) 08/17/17 06:00 MCHC 32.1 g/dl (32.0-35.9) 08/17/17 06:00 RDW 14.9 % (11.9-15.9) 08/17/17 06:00 Plt Count 221 K/MM3 (134-434) 08/17/17 06:00 MPV 9.2 fl (7.5-11.1) 08/17/17 06:00 Sodium 140 mmol/L (136-145) 08/17/17 06:00 Potassium 3.8 mmol/L (3.5-5.1) 08/17/17 06:00 Chloride 104 mmol/L (98-107) 08/17/17 06:00 Carbon Dioxide 25 mmol/L (21-32) 08/17/17 06:00 Anion Gap 11 (8-16) 08/17/17 06:00 BUN 7 mg/dL (7-18) 08/17/17 06:00 Creatinine 0.7 mg/dL (0.7-1.3) 08/17/17 06:00 Creat Clearance w eGFR > 60 (>60) 08/17/17 06:00 Random Glucose 102 mg/dL (74-106) 08/17/17 06:00 Calcium 8.8 mg/dL (8.5-10.1) 08/17/17 06:00 Total Bilirubin 0.5 mg/dL (0.2-1.0) 08/17/17 06:00 AST 46 U/L (15-37) H 08/17/17 06:00 ALT 48 U/L (12-78) 08/17/17 06:00 Alkaline Phosphatase 128 U/L (45-117) H 08/17/17 06:00 Total Protein 8.6 g/dl (6.4-8.2) H 08/17/17 06:00 Albumin 4.0 g/dl (3.4-5.0) 08/17/17 06:00 Urine Color Yellow 08/16/17 15:00 Urine Appearance Clear 08/16/17 15:00 Urine pH 6.0 (5.0-8.0) 08/16/17 15:00 Ur Specific [place] 1.011 (1.001-1.035) 08/16/17 15:00 Urine Protein Negative (NEGATIVE) 08/16/17 15:00 Urine Glucose (UA) Negative (NEGATIVE) 08/16/17 15:00 Urine Ketones Negative (NEGATIVE) 08/16/17 15:00 Urine Blood Negative (NEGATIVE) 08/16/17 15:00 Urine Nitrite Negative (NEGATIVE) 08/16/17 15:00 Urine Bilirubin Negative (NEGATIVE) 08/16/17 15:00 Urine Urobilinogen 2.0 mg/dL (0.2-1.0) 08/16/17 15:00 Ur Leukocyte Esterase Negative (NEGATIVE) 08/16/17 15:00 RPR Titer Nonreactive (NONREACTIVE) 08/17/17 06:00 Assessment: 08/18/17 10:43 WITHDRAWAL SX Plan: CONTINUE DETOX INCREASE PO FLUIDS.
[2017-08-18] MEDS: THIAMINE HCL 100 MG TABLET (FP) PO SCH (22:24)
[2017-08-18] MEDS: QUEtiapine FUMARATE 200 MG TABLET PO SCH (22:24)
[2017-08-18] MEDS: CYCLOBENZAPRINE HCL 10 MG TABLET (FP) PO PRN (22:24)
[2017-08-19] MEDS: METHADONE HCL 40 MG DISPERSABLE TABLET PO SCH (05:38)
[2017-08-19] MEDS: diazePAM 5 MG TABLET PO PRN (05:38)
[2017-08-19] MEDS: PRENATAL VITAMINS W/ FOLIC ACID TABLET (FP) PO SCH (10:07)
[2017-08-19] MEDS: NICOTINE 21 MG/24 HOURS TOPICAL PATCH TD SCH (10:07)
[2017-08-19] MEDS: diazePAM 5 MG TABLET PO SCH ×2 (10:07→22:25)
--- NOTE | 2017-08-19 10:40 | PN ---
S Progress Note (SOAP) Subjective: SLIGHT ANXIETY,SWEATS,FATIGUE, STATES DETOXING WELL. Objective: 08/19/17 10:39 Vital Signs 08/19/17 08/19/17 08/19/17 03:30 06:26 10:05 Temperature 98.4 F 97.0 F L Pulse Rate 67 90 Respiratory 18 18 20 Rate Blood Pressure 122/69 96/66 Laboratory Last Values WBC 7.0 K/mm3 (4.0-10.0) 08/17/17 06:00 RBC 4.77 M/mm3 (4.00-5.60) 08/17/17 06:00 Hgb 12.8 GM/dL (11.7-16.9) 08/17/17 06:00 Hct 39.8 % (35.4-49) 08/17/17 06:00 MCV 83.5 fl (80-96) 08/17/17 06:00 MCH 26.8 pg (25.7-33.7) 08/17/17 06:00 MCHC 32.1 g/dl (32.0-35.9) 08/17/17 06:00 RDW 14.9 % (11.9-15.9) 08/17/17 06:00 Plt Count 221 K/MM3 (134-434) 08/17/17 06:00 MPV 9.2 fl (7.5-11.1) 08/17/17 06:00 Sodium 140 mmol/L (136-145) 08/17/17 06:00 Potassium 3.8 mmol/L (3.5-5.1) 08/17/17 06:00 Chloride 104 mmol/L (98-107) 08/17/17 06:00 Carbon Dioxide 25 mmol/L (21-32) 08/17/17 06:00 Anion Gap 11 (8-16) 08/17/17 06:00 BUN 7 mg/dL (7-18) 08/17/17 06:00 Creatinine 0.7 mg/dL (0.7-1.3) 08/17/17 06:00 Creat Clearance w eGFR > 60 (>60) 08/17/17 06:00 Random Glucose 102 mg/dL (74-106) 08/17/17 06:00 Calcium 8.8 mg/dL (8.5-10.1) 08/17/17 06:00 Total Bilirubin 0.5 mg/dL (0.2-1.0) 08/17/17 06:00 AST 46 U/L (15-37) H 08/17/17 06:00 ALT 48 U/L (12-78) 08/17/17 06:00 Alkaline Phosphatase 128 U/L (45-117) H 08/17/17 06:00 Total Protein 8.6 g/dl (6.4-8.2) H 08/17/17 06:00 Albumin 4.0 g/dl (3.4-5.0) 08/17/17 06:00 Urine Color Yellow 08/16/17 15:00 Urine Appearance Clear 08/16/17 15:00 Urine pH 6.0 (5.0-8.0) 08/16/17 15:00 Ur Specific [place] 1.011 (1.001-1.035) 08/16/17 15:00 Urine Protein Negative (NEGATIVE) 08/16/17 15:00 Urine Glucose (UA) Negative (NEGATIVE) 08/16/17 15:00 Urine Ketones Negative (NEGATIVE) 08/16/17 15:00 Urine Blood Negative (NEGATIVE) 08/16/17 15:00 Urine Nitrite Negative (NEGATIVE) 08/16/17 15:00 Urine Bilirubin Negative (NEGATIVE) 08/16/17 15:00 Urine Urobilinogen 2.0 mg/dL (0.2-1.0) 08/16/17 15:00 Ur Leukocyte Esterase Negative (NEGATIVE) 08/16/17 15:00 RPR Titer Nonreactive (NONREACTIVE) 08/17/17 06:00 Assessment: 08/19/17 10:40 WITHDRAWAL SX Plan: CONTINUE DETOX
[2017-08-19] MEDS: QUEtiapine FUMARATE 200 MG TABLET PO SCH (22:25)
[2017-08-19] MEDS: THIAMINE HCL 100 MG TABLET (FP) PO SCH (22:25)
[2017-08-19] MEDS: CYCLOBENZAPRINE HCL 10 MG TABLET (FP) PO PRN (22:25)
[2017-08-20] MEDS: METHADONE HCL 40 MG DISPERSABLE TABLET PO SCH (05:09)
[2017-08-20] MEDS: NICOTINE 21 MG/24 HOURS TOPICAL PATCH TD SCH (09:24)
[2017-08-20] MEDS: PRENATAL VITAMINS W/ FOLIC ACID TABLET (FP) PO SCH (09:24)
[2017-08-20] MEDS ORDERED: diazePAM 5 MG TABLET PO SCH (10:00)
--- NOTE | 2017-08-20 15:56 | PN ---
[facility] Progress Note (SOAP) Subjective: Sweating, interrupted sleep, anxious, restless Objective: 08/20/17 15:52 Last Vital Signs Temp Pulse Resp BP Pulse Ox 97.6 F 92 H 18 106/74 08/20/17 14:02 08/20/17 14:02 08/20/17 14:02 08/20/17 14:02 Laboratory Tests 08/16/17 08/17/17 08/17/17 15:00 06:00 06:00 WBC 7.0 RBC 4.77 Hgb 12.8 Hct 39.8 MCV 83.5 MCH 26.8 MCHC 32.1 RDW 14.9 Plt Count 221 MPV 9.2 Sodium 140 Potassium 3.8 Chloride 104 Carbon Dioxide 25 Anion Gap 11 BUN 7 Creatinine 0.7 Creat Clearance w eGFR > 60 Random Glucose 102 Calcium 8.8 Total Bilirubin 0.5 AST 46 H ALT 48 Alkaline Phosphatase 128 H Total Protein 8.6 H Albumin 4.0 Urine Color Yellow Urine Appearance Clear Urine pH 6.0 Ur Specific [place] 1.011 Urine Protein Negative Urine Glucose (UA) Negative Urine Ketones Negative Urine Blood Negative Urine Nitrite Negative Urine Bilirubin Negative Urine Urobilinogen 2.0 Ur Leukocyte Esterase Negative RPR Titer 08/17/17 06:00 WBC RBC Hgb Hct MCV MCH MCHC RDW Plt Count MPV Sodium Potassium Chloride Carbon Dioxide Anion Gap BUN Creatinine Creat Clearance w eGFR Random Glucose Calcium Total Bilirubin AST ALT Alkaline Phosphatase Total Protein Albumin Urine Color Urine Appearance Urine pH Ur Specific [place] Urine Protein Urine Glucose (UA) Urine Ketones Urine Blood Urine Nitrite Urine Bilirubin Urine Urobilinogen Ur Leukocyte Esterase RPR Titer Nonreactive Labs noted Assessment: 08/20/17 15:53 Withdrawal symptoms Plan: Continue detox Discharge cancelled until Tuesday as patient requesting rehab here at [facility] or at [facility]. Patient is afraid of relapsing if discharged and is willing to go to rehab so that he can stay sober.
[2017-08-20] MEDS: THIAMINE HCL 100 MG TABLET (FP) PO SCH (22:03)
[2017-08-20] MEDS: QUEtiapine FUMARATE 200 MG TABLET PO SCH (22:03)
[2017-08-20] MEDS: CYCLOBENZAPRINE HCL 10 MG TABLET (FP) PO PRN (22:04)
[2017-08-21] MEDS: METHADONE HCL 40 MG DISPERSABLE TABLET PO SCH (05:01)
[2017-08-21] MEDS: NICOTINE 21 MG/24 HOURS TOPICAL PATCH TD SCH (10:13)
[2017-08-21] MEDS: PRENATAL VITAMINS W/ FOLIC ACID TABLET (FP) PO SCH (10:13)
--- NOTE | 2017-08-21 21:26 | PN ---
B[facility] Progress Note (SOAP) Subjective: anxious sweating Objective: 08/21/17 21:25 A & o x 3 Laboratory Last Values WBC 7.0 K/mm3 (4.0-10.0) 08/17/17 06:00 RBC 4.77 M/mm3 (4.00-5.60) 08/17/17 06:00 Hgb 12.8 GM/dL (11.7-16.9) 08/17/17 06:00 Hct 39.8 % (35.4-49) 08/17/17 06:00 MCV 83.5 fl (80-96) 08/17/17 06:00 MCH 26.8 pg (25.7-33.7) 08/17/17 06:00 MCHC 32.1 g/dl (32.0-35.9) 08/17/17 06:00 RDW 14.9 % (11.9-15.9) 08/17/17 06:00 Plt Count 221 K/MM3 (134-434) 08/17/17 06:00 MPV 9.2 fl (7.5-11.1) 08/17/17 06:00 Sodium 140 mmol/L (136-145) 08/17/17 06:00 Potassium 3.8 mmol/L (3.5-5.1) 08/17/17 06:00 Chloride 104 mmol/L (98-107) 08/17/17 06:00 Carbon Dioxide 25 mmol/L (21-32) 08/17/17 06:00 Anion Gap 11 (8-16) 08/17/17 06:00 BUN 7 mg/dL (7-18) 08/17/17 06:00 Creatinine 0.7 mg/dL (0.7-1.3) 08/17/17 06:00 Creat Clearance w eGFR > 60 (>60) 08/17/17 06:00 Random Glucose 102 mg/dL (74-106) 08/17/17 06:00 Calcium 8.8 mg/dL (8.5-10.1) 08/17/17 06:00 Total Bilirubin 0.5 mg/dL (0.2-1.0) 08/17/17 06:00 AST 46 U/L (15-37) H 08/17/17 06:00 ALT 48 U/L (12-78) 08/17/17 06:00 Alkaline Phosphatase 128 U/L (45-117) H 08/17/17 06:00 Total Protein 8.6 g/dl (6.4-8.2) H 08/17/17 06:00 Albumin 4.0 g/dl (3.4-5.0) 08/17/17 06:00 Urine Color Yellow 08/16/17 15:00 Urine Appearance Clear 08/16/17 15:00 Urine pH 6.0 (5.0-8.0) 08/16/17 15:00 Ur Specific [place] 1.011 (1.001-1.035) 08/16/17 15:00 Urine Protein Negative (NEGATIVE) 08/16/17 15:00 Urine Glucose (UA) Negative (NEGATIVE) 08/16/17 15:00 Urine Ketones Negative (NEGATIVE) 08/16/17 15:00 Urine Blood Negative (NEGATIVE) 08/16/17 15:00 Urine Nitrite Negative (NEGATIVE) 08/16/17 15:00 Urine Bilirubin Negative (NEGATIVE) 08/16/17 15:00 Urine Urobilinogen 2.0 mg/dL (0.2-1.0) 08/16/17 15:00 Ur Leukocyte Esterase Negative (NEGATIVE) 08/16/17 15:00 RPR Titer Nonreactive (NONREACTIVE) 08/17/17 06:00 labs noted Assessment: 08/21/17 21:25 withdrawal sx Plan: continue detox
[2017-08-21] MEDS: THIAMINE HCL 100 MG TABLET (FP) PO SCH (22:04)
[2017-08-21] MEDS: QUEtiapine FUMARATE 200 MG TABLET PO SCH (22:04)
[2017-08-21] MEDS: CYCLOBENZAPRINE HCL 10 MG TABLET (FP) PO PRN (22:04)
[2017-08-22] MEDS: METHADONE HCL 40 MG DISPERSABLE TABLET PO SCH (05:33)
[2017-08-22 06:02] VITALS: BP 114/69; PULSE 69; TEMP 96.7
[2017-08-22] MEDS: PRENATAL VITAMINS W/ FOLIC ACID TABLET (FP) PO SCH (10:01)
[2017-08-22] MEDS: NICOTINE 21 MG/24 HOURS TOPICAL PATCH TD SCH (10:02)
--- NOTE | 2017-08-22 11:39 | DS ---
[facility] Detox Discharge Summary Admission Date: 08/16/17 Discharge Date: 08/22/17 - History Additional Comments: Pt ambulated steadily out of unit accompanied by staff Pt will do in patient at [facility] Rehab Pertinent Past History: Hep c Bipolar - Physical Exam Results Vital Signs: Vital Signs Temperature 96.7 F L 08/22/17 06:01 Pulse Rate 69 08/22/17 06:01 Respiratory Rate 16 08/22/17 06:01 Blood Pressure 114/69 08/22/17 06:01 O2 Sat by Pulse Oximetry (%) Pertinent Admission Physical Exam Findings: withdrawal sx - Treatment Hospital Course: Detox Protocol Followed, Detoxed Safely, Responded well, Discharged Condition Good, Rehab Referral Accepted Patient has Accepted a Rehab Referral to: [facility] rehab program - Medication Discharge Medications: Ambulatory Orders Quetiapine Fumarate [Seroquel -] 200 mg PO HS #30 tab 06/14/17 - Diagnosis (1) Alcohol dependence with uncomplicated withdrawal Current Visit: Yes Status: Acute (2) Opioid dependence on agonist therapy Current Visit: Yes Status: Acute (3) Sedative, hypnotic or anxiolytic dependence with withdrawal, uncomplicated Current Visit: Yes Status: Acute (4) Use of cane as ambulatory aid Current Visit: Yes Status: Acute (5) Nicotine dependence Current Visit: Yes Status: Chronic Qualifiers: Nicotine product type: cigarettes Substance use status: in withdrawal Qualified Code(s): F17.213 - Nicotine dependence, cigarettes, with withdrawal (6) depression Current Visit: No Status: Suspected - AMA Did Patient Leave Against Medical Advice: No
== END 2017-08-22 14:32 | disposition home or self-care (01) | DRG 773 ==
LOC: YASAS 08:46 → Y3N 12:19
PROVIDERS: ADMIT Internal Medicine; ATTEND Internal Medicine
PROC: HZ2ZZZZ Detoxification Services for Substance Abuse Treatment (ICD-10-PCS; principal; 2017-08-16)
DX: F10.230 Alcohol dependence with withdrawal, uncomplicated (principal); F11.20 Opioid dependence, uncomplicated; F13.230 Sedative, hypnotic or anxiolytic dependence with withdrawal, uncomplicated; F17.210 Nicotine dependence, cigarettes, uncomplicated; F32.9 Major depressive disorder, single episode, unspecified; F19.24 Other psychoactive substance dependence with psychoactive substance-induced mood disorder; F31.9 Bipolar disorder, unspecified; K21.9 Gastro-esophageal reflux disease without esophagitis; B18.2 Chronic viral hepatitis C; G47.00 Insomnia, unspecified; R26.2 Difficulty in walking, not elsewhere classified; S99.921D Unspecified injury of right foot, subsequent encounter; S05.11XD Contusion of eyeball and orbital tissues, right eye, subsequent encounter; Z99.89 Dependence on other enabling machines and devices; Z87.898 Personal history of other specified conditions; Z86.69 Personal history of other diseases of the nervous system and sense organs; Y09 Assault by unspecified means
CPT/HCPCS: 36415; 80053; 81003; 85027; 86593; 93005; 93010

== ENCOUNTER 2017-09-22 08:14 | Inpatient (IN) | payer OTHER ==
[2017-09-22 09:28] VITALS: BMI 29.5
--- NOTE | 2017-09-22 11:41 | HP ---
Admission ROS [facility] - [facility] Chief Complaint: reqeusting inpatient rehab for polysubstance use Allergies/Adverse Reactions: Allergies Allergy/AdvReac Type Severity Reaction Status Date / Time No Known Allergies Allergy Verified 09/22/17 09:38 History of Present Illness: 47 yo m w sever opioid use diosrder on OTP 120mg daily ldm today, relapsed to heroin use last week and cocaine, is not currently drinking or using benzodiazepiens daily requesting inpatient rehab. no h/o seizures, no DTs, no SI - Ebola screening Have you traveled outside of the country in the last 21 days: No (N) Have you had contact with anyone from an Ebola affected area: No Have you been sick,other than usual withdrawal symptoms: No Do you have a fever: No Patient History - Patient Medical History Hx Anemia: No Hx Asthma: No Hx Chronic Obstructive Pulmonary Disease (COPD): No Hx Cancer: No Hx Cardiac Disorders: No Hx Congestive Heart Failure: No Hx Hypertension: No Hx Hypercholesterolemia: No Hx Pacemaker: No HX Cerebrovascular Accident: No Hx Seizures: No Hx Dementia: No Hx Diabetes: No Hx Gastrointestinal Disorders: No Hx Liver Disease: Yes (UNTREATED HEP-C; DIAGNOSED 1997.) Hx Genitourinary Disorders: No Hx Sexually Transmitted Disorders: No Hx Renal Disease (ESRD): No Hx Thyroid Disease: No Hx Human Immunodeficiency Virus (HIV): No (negative in 07/28) Hx Hepatitis C: Yes (UNTREATED; DIAGNOSED 1997.) Hx Depression: Yes Hx Suicide Attempt: No (no si at this time) Hx Bipolar Disorder: Yes (TAKES MEDICATION (SEROQUEL)) Hx Schizophrenia: No - Patient Surgical History Past Surgical History: No Hx Neurologic Surgery: No Hx Cataract Extraction: No Hx Cardiac Surgery: No Hx Lung Surgery: No Hx Breast Surgery: No Hx Breast Biopsy: No Hx Abdominal Surgery: No Hx Appendectomy: No Hx Cholecystectomy: No Hx Genitourinary Surgery: No Hx Section: No Hx Orthopedic Surgery: No Anesthesia Reaction: No - PPD History Previous Implant?: Yes Documented Results: Negative w/proof Implanted On Prior [facility] Admission?: Yes Date: 09/10/16 Results: 0 mm PPD to be Administered?: Yes - Reproductive History Patient is a Female of Child Bearing Age (11 -55 yrs old): No Patient : No - Smoking Cessation Smoking history: Current every day smoker Have you smoked in the past 12 months: Yes Aproximately how many cigarettes per day: 5 Cigars Per Day: 0 Hx Chewing Tobacco Use: No Initiated information on smoking cessation: Yes 'Breaking Loose' booklet given: 09/22/17 - Substance & Tx. History Hx Alcohol Use: No Hx Substance Use: Yes Substance Use Type: Cocaine, Heroin, Opiates, Prescribed, Tranquilizers Hx Substance Use Treatment: Yes (otp 150mg daily, [email or web address]) - Substances Abused Heroin Route: Inhalation Frequency: 1-3 times last 30 days Amount used: 1 bag Age of first use: 23 Date of Last Use: 09/20/17 Cocaine Route: Inhalation Frequency: 1-3 times last 30 days Amount used: $10 Age of first use: 21 Date of Last Use: 09/20/17 Alcohol-madison/four lashanda Route: Oral Frequency: Daily Amount used: 2 pts./2-4 four lokos Age of first use: 18 Date of Last Use: 08/26/17 Xanax Route: Oral Frequency: Daily Amount used: 8 mg. Age of first use: 23 Date of Last Use: 08/26/17 Family Disease History - Family Disease History Family Disease History: Diabetes: Grandparent, CA: Mother (LEUKEMIA.), Other: Brother (DSA,ALCOHOL; BIPOLAR DISORDER.) Admission Physical Exam [facility] - Vital Signs Vital Signs: Vital Signs - 24 hr 09/22/17 09:24 Temperature 96.3 F L Pulse Rate 67 Respiratory 20 Rate Blood Pressure 135/98 - Physical General Appearance: Yes: Within Normal Limits, No Apparent Distress, Nourished, Appropriately Dressed HEENTM: Yes: Within Normal Limits, EOMI, Hearing grossly Normal, Normal ENT Inspection, Normocephalic, Normal Voice, PREET, Pharynx Normal Respiratory: Yes: Within Normal Limits, Chest Non-Tender, Lungs Clear, Normal Breath Sounds, No Respiratory Distress, No Accessory Muscle Use Neck: Yes: Within Normal Limits, No masses,lesions,Nodules, Supple, Trachea in good position Breast: Yes: Breast Exam Deferred Cardiology: Yes: Within Normal Limits, Regular Rhythm, Regular Rate, S1, S2 Abdominal: Yes: Within Normal Limits, Normal Bowel Sounds, Non Tender, Flat, Soft Genitourinary: Yes: Within Normal Limits Back: Yes: Within Normal Limits, Normal Inspection Musculoskeletal: Yes: Within Normal Limits, full range of Motion, Gait Steady, Pelvis Stable Extremities: Yes: Within Normal Limits, Normal Capillary Refill, Normal Inspection, Normal Range of Motion, Non-Tender Neurological: Yes: Within Normal Limits, rf test engineer II-XII NML intact, Fully Oriented, Alert, Motor Strength 5/5, Normal Response, Depressed Affect Integumentary: Yes: Within Normal Limits, Normal Color, Dry, Warm Lymphatic: Yes: Within Normal Limits - Diagnostic (1) Dandruff, adult Current Visit: No Status: Acute (2) Drug-induced mood disorder Current Visit: No Status: Acute (3) Opioid dependence on agonist therapy Current Visit: No Status: Acute (4) Rash Current Visit: No Status: Acute Comment: GENERALIZED RED RASH ALL OVER [place] FRONT AND BACK. (5) Hepatitis C Current Visit: No Status: Chronic Qualifiers: Viral hepatitis chronicity: carrier Qualified Code(s): B18.2 - Chronic viral hepatitis C (6) Nicotine dependence Current Visit: No Status: Chronic Qualifiers: (7) Bipolar II disorder Current Visit: No Status: Suspected Comment: Self-report. B[facility] Breath Alcohol Content Breath Alcohol Content: 0 Urine Drug Screen - Results Drug Screen Negative: No Urine Drug Screen Results: JONATHON-Cocaine, OPI-Opiates, BZO-Benzodiazepines, MTD- Methadone Inpatient Rehab Admission - Initial Determination Are CD services needed?: Yes Free of communicable disease: Yes Not in need of hospitalization: Yes - Rehab Admission Criteria Previous failed treatment: Yes Patient is meeting Inpatient Rehab admission criteria:: Yes
[2017-09-22] MEDS ORDERED: LOPERAMIDE HCL 2 MG CAPSULE PO PRN (11:42)
[2017-09-22] MEDS ORDERED: MENTHOL/PHENOL 1 EACH UD MM PRN (11:42)
[2017-09-22] MEDS ORDERED: P-EPHED 60MG/TRIPROLIDI 2.5MG TABLET PO PRN (11:42)
[2017-09-22] MEDS ORDERED: ACETAMINOPHEN 325 MG TABLET (FP) PO PRN (11:42)
[2017-09-22] MEDS ORDERED: MAG HYDROX/AL HYDROX/SIMETH 30 ML UNIT-DOSE CUP PO PRN (11:42)
[2017-09-22] MEDS ORDERED: NICOTINE POLACRILEX 2 MG GUM BUC PRN (11:42)
[2017-09-22] MEDS ORDERED: guaiFENesin/D-METHORPHAN HB 10 ML UNIT-DOSE CUPS PO PRN (11:42)
[2017-09-22] MEDS ORDERED: MAGNESIUM CITRATE 300 ML BOTTLE PO PRN (11:42)
[2017-09-22] MEDS ORDERED: hydrOXYzine PAMOATE 50 MG CAPSULE (FP) PO PRN (11:42)
[2017-09-22] MEDS: NICOTINE 14 MG/24 HOURS TOPICAL PATCH TD SCH (15:03)
[2017-09-22] MEDS: CLOTRIMAZOLE/BETAMET DIPROP TOPICAL CREAM 45 GM TUBE TP SCH ×2 (15:03→21:07)
[2017-09-22] MEDS ORDERED: TUBERCULIN PPD 5 TU/0.1ML VIAL ID ONE (15:06)
[2017-09-22] MEDS: SELENIUM SULFIDE 2.5% LOTION 4 OZ. TP SCH (15:08)
[2017-09-22 16:56] LABS: HEMATOCRIT 38.4 % (35.4-49); HEMOGLOBIN 12.9 GM/dL (11.7-16.9); MCHC 33.5 g/dl (32.0-35.9); MEAN CELL VOLUME 83.5 fl (80-96); MEAN PLT VOLUME 8.7 fl (7.5-11.1); PLATELET COUNT 221 K/MM3 (134-434); RDW 14.9 % (11.9-15.9)
[2017-09-22 17:09] LABS: ALBUMIN 4.1 g/dl (3.4-5.0); ANION GAP 6 (8-16); BLOOD UREA NITROGEN 11 mg/dL (7-18); CALCIUM 8.8 mg/dL (8.5-10.1); CHLORIDE 101 mmol/L (98-107); CO2 29 mmol/L (21-32); CREATININE 0.8 mg/dL (0.7-1.3); GLUCOSE,RANDOM 86 mg/dL (74-106); SGOT/AST 21 U/L (15-37); SGPT/ALT 29 U/L (12-78); SODIUM 136 mmol/L (136-145)
[2017-09-22 17:11] LABS: ALK PHOS 119 U/L (45-117); BILIRUBIN,TOTAL 0.6 mg/dL (0.2-1.0); TOT PROT 8.4 g/dl (6.4-8.2)
[2017-09-22 17:19] LABS: URINE APPEARANCE CLEAR; URINE BILIRUBIN NEGATIVE (NEGATIVE); URINE BLOOD NEGATIVE (NEGATIVE); URINE COLOR YELLOW; URINE GLUCOSE (UA) NEGATIVE (NEGATIVE); URINE KETONE NEGATIVE (NEGATIVE); URINE LEUK ESTERASE TRACE (NEGATIVE); URINE NITRITE NEGATIVE (NEGATIVE); URINE PROTEIN NEGATIVE (NEGATIVE); URINE UROBILINOGEN 4.0 E.U/dl mg/dL (0.2-1.0)
[2017-09-22 17:48] LABS: EPI CELLS RARE /HPF (FEW); URINE MUCUS RARE
[2017-09-22] MEDS: THIAMINE HCL 100 MG TABLET (FP) PO SCH (21:06)
[2017-09-22] MEDS: QUEtiapine FUMARATE 200 MG TABLET PO SCH (21:06)
--- NOTE | 2017-09-23 06:17 | HP ---
Psychiatrist Admission - Data Date of interview: 09/23/17 Admission source: [facility] Identifying data: This is the third [facility] admission for this 47 years old single male, father of a 27 years old son, unemployed with no source of income, homeless Medical History: Significant for hepatitis C. Patient attends [facility] on methadone 120 mg/day. smokes 5 cigarettes daily Psychiatric History: Patient is wel known to expert medical writer from previous admissions to this facility. He reports that his first psychiaric contact was in 2001 when he was admitted to rehab in this facility. He was then diagnosed with Bipolar Disorder and prescribed Seroquel . Following that admission, he saw a psychiatrist for 2 months at [facility] while at the [facility]. Denies history of previous psychiatric hospitalization or suicidal attempt. However, reports in a previous admission in 2013 that he was admitted to [facility] in 2001. When confronted with that information, he told expert medical writer that it was an inpatient rehab admission. He currently does not receive any formal psychiatric services but gets his medication(Seroquel) prescribed whenever he is admitted to detox in this facility. He recently saw Dr Bryant on 09/19/17 while in detox and was prescribed Seroquel 200 mg po HS. At present, reports feeling depressed andsleeping poorly . Physical/Sexual Abuse/Trauma History: Patient is not reliable historian and provides accounts which conflict with previous accounts given on previous admissions. He reports that his first psychiaric contact was in 2001 when he was admitted to rehab in this facility. He was diagnosed with Bipolar Disorder and prescribed Seroquel . Reports thay he saw a psychiatrist for 2 months at [facility] while at the [facility]. Denies history of previous psychiatric hospitalization or suicidal attempt. However, reports in a previous admission in 2013 that he was admitted to [facility] in [address]. [address] Bryant on 11/09/16 while in detox and was prescribed Seroquel 200 mg po HS. At present, reports sleeping poorly despite taking Seroquel Additional Comment: Reports history of multiple arrests including 2 felony convictions. Denies being on parole/probation at present Vital Signs: Vital Signs - 24 hr 09/22/17 09/23/17 09/23/17 09:24 00:30 03:30 Temperature 96.3 F L Pulse Rate 67 Respiratory 20 18 18 Rate Blood Pressure 135/98 Allergies/Adverse Reactions: Allergies Allergy/AdvReac Type Severity Reaction Status Date / Time No Known Allergies Allergy Verified 09/22/17 09:38 Date of last physical exam: 09/22/17 Concur with the findings of this exam: Yes - Substance Abuse/Tx History Hx Alcohol Use: Yes Hx Substance Use: Yes Substance Use Type: Alcohol (Started drinking alcohol at age 18, consumes 2pints of madison & 2-4x locodaily. Last drank on 08/26/17), Cocaine (Started using cocaine at age 21, consumes $10 worth 1-3times in the last 30 days. Last used on 09/20/17), Heroin (Started using heroin at age 23, consumes one bag1-3 times in the last 30 days. Last used on 09/20/17), Tranquilizers (Started using xanax at age 23, consumes 8 mg daily. Last used on 08/26/17) Hx Substance Use Treatment: Yes (Multiple(21) inpt detox & one inpt rehab @ [facility] ) Mental Status Exam - Mental Status Exam Alert and Oriented to: Time, Person Cognitive Function: Fair Patient Appearance: Well Groomed Mood: Depressed Affect: Appropriate Patient Behavior: Cooperative Speech Pattern: Clear Voice Loudness: Normal Thought Process: Intact, Goal Oriented Thought Disorder: Not Present Hallucinations: Denies Suicidal Ideation: Denies Homicidal Ideation: Denies Insight/Judgement: Fair Sleep: Poorly Appetite: Fair Muscle strength/Tone: Normal Gait/Station: Normal Psychiatric Findings - Problem List ([place] 1, 2,3) (1) Alcohol dependence Current Visit: Yes Status: Acute (2) Sedative hypnotic or anxiolytic dependence Current Visit: Yes Status: Acute (3) Cocaine abuse Current Visit: Yes Status: Acute (4) Opioid dependence on agonist therapy Current Visit: No Status: Chronic (5) Nicotine dependence Current Visit: No Status: Chronic Qualifiers: (6) Substance induced mood disorder Current Visit: Yes Status: Acute (7) Bipolar II disorder Current Visit: No Status: Ruled-out Comment: Self-report. (8) Substance-induced sleep disorder Current Visit: Yes Status: Acute (9) Hepatitis C Current Visit: No Status: Chronic Qualifiers: Viral hepatitis chronicity: chronic Hepatic coma status: without hepatic coma Qualified Code(s): B18.2 - Chronic viral hepatitis C - Initial Treatment Plan Initial Treatment Plan: 1) Continue Seroquel 200 mg po HS. 2) Monitor progress
[2017-09-23] MEDS: METHADONE HCL 40 MG DISPERSABLE TABLET PO SCH (07:11)
[2017-09-23] MEDS ORDERED: METHADONE HCL 40 MG DISPERSABLE TABLET PO SCH (10:00)
[2017-09-23] MEDS: PRENATAL VITAMINS W/ FOLIC ACID TABLET (FP) PO SCH (10:17)
[2017-09-23] MEDS: NICOTINE 14 MG/24 HOURS TOPICAL PATCH TD SCH (10:17)
[2017-09-23] MEDS: SELENIUM SULFIDE 2.5% LOTION 4 OZ. TP SCH (10:17)
[2017-09-23] MEDS: CLOTRIMAZOLE/BETAMET DIPROP TOPICAL CREAM 45 GM TUBE TP SCH ×2 (10:17→21:40)
--- NOTE | 2017-09-23 15:10 | EKG ---
Test Reason : Blood Pressure : / mmHG Vent. Rate : 059 BPM Atrial Rate : 059 BPM P-R Int : 188 ms QRS Dur : 104 ms QT Int : 464 ms P-R-T Axes : 020 004 011 degrees QTc Int : 459 ms SINUS BRADYCARDIA WITH OCCASIONAL PREMATURE VENTRICULAR COMPLEXES NON-SPECIFIC INTRA-VENTRICULAR CONDUCTION DELAY Confirmed by TEX OJEDA MD ([id number]) on 09/23/2017 3:10:35 PM Referred By: Confirmed By:TEX OJEDA MD
[2017-09-23] MEDS: THIAMINE HCL 100 MG TABLET (FP) PO SCH (21:40)
[2017-09-23] MEDS: QUEtiapine FUMARATE 200 MG TABLET PO SCH (21:40)
[2017-09-24] MEDS: METHADONE HCL 40 MG DISPERSABLE TABLET PO SCH (06:27)
[2017-09-24] MEDS: SELENIUM SULFIDE 2.5% LOTION 4 OZ. TP SCH (09:51)
[2017-09-24] MEDS: NICOTINE 14 MG/24 HOURS TOPICAL PATCH TD SCH (09:51)
[2017-09-24] MEDS: PRENATAL VITAMINS W/ FOLIC ACID TABLET (FP) PO SCH (09:51)
[2017-09-24] MEDS: CLOTRIMAZOLE/BETAMET DIPROP TOPICAL CREAM 45 GM TUBE TP SCH ×2 (09:51→22:04)
[2017-09-24] MEDS: QUEtiapine FUMARATE 200 MG TABLET PO SCH (21:31)
[2017-09-24] MEDS: THIAMINE HCL 100 MG TABLET (FP) PO SCH (21:31)
[2017-09-25] MEDS: METHADONE HCL 40 MG DISPERSABLE TABLET PO SCH (06:09)
[2017-09-25] MEDS: NICOTINE 14 MG/24 HOURS TOPICAL PATCH TD SCH (10:15)
[2017-09-25] MEDS: PRENATAL VITAMINS W/ FOLIC ACID TABLET (FP) PO SCH (10:16)
[2017-09-25] MEDS: CLOTRIMAZOLE/BETAMET DIPROP TOPICAL CREAM 45 GM TUBE TP SCH ×2 (10:16→21:33)
[2017-09-25] MEDS: SELENIUM SULFIDE 2.5% LOTION 4 OZ. TP SCH (10:17)
[2017-09-25] MEDS: THIAMINE HCL 100 MG TABLET (FP) PO SCH (21:32)
[2017-09-25] MEDS: QUEtiapine FUMARATE 200 MG TABLET PO SCH (21:33)
[2017-09-26] MEDS: METHADONE HCL 40 MG DISPERSABLE TABLET PO SCH (06:04)
[2017-09-26] MEDS: SELENIUM SULFIDE 2.5% LOTION 4 OZ. TP SCH (10:06)
[2017-09-26] MEDS: NICOTINE 14 MG/24 HOURS TOPICAL PATCH TD SCH (10:06)
[2017-09-26] MEDS: PRENATAL VITAMINS W/ FOLIC ACID TABLET (FP) PO SCH (10:06)
[2017-09-26] MEDS: CLOTRIMAZOLE/BETAMET DIPROP TOPICAL CREAM 45 GM TUBE TP SCH ×2 (10:06→21:45)
[2017-09-26] MEDS: QUEtiapine FUMARATE 200 MG TABLET PO SCH (21:45)
[2017-09-26] MEDS: THIAMINE HCL 100 MG TABLET (FP) PO SCH (21:45)
[2017-09-27] MEDS: METHADONE HCL 40 MG DISPERSABLE TABLET PO SCH (06:12)
[2017-09-27] MEDS: PRENATAL VITAMINS W/ FOLIC ACID TABLET (FP) PO SCH (10:20)
[2017-09-27] MEDS: NICOTINE 14 MG/24 HOURS TOPICAL PATCH TD SCH (10:20)
[2017-09-27] MEDS: SELENIUM SULFIDE 2.5% LOTION 4 OZ. TP SCH (10:21)
[2017-09-27] MEDS: CLOTRIMAZOLE/BETAMET DIPROP TOPICAL CREAM 45 GM TUBE TP SCH ×2 (10:21→22:12)
[2017-09-27] MEDS: THIAMINE HCL 100 MG TABLET (FP) PO SCH (21:42)
[2017-09-27] MEDS: QUEtiapine FUMARATE 200 MG TABLET PO SCH (21:42)
[2017-09-28] MEDS: METHADONE HCL 40 MG DISPERSABLE TABLET PO SCH (06:19)
[2017-09-28] MEDS: SELENIUM SULFIDE 2.5% LOTION 4 OZ. TP SCH (10:17)
[2017-09-28] MEDS: PRENATAL VITAMINS W/ FOLIC ACID TABLET (FP) PO SCH (10:17)
[2017-09-28] MEDS: NICOTINE 14 MG/24 HOURS TOPICAL PATCH TD SCH (10:18)
[2017-09-28] MEDS: CLOTRIMAZOLE/BETAMET DIPROP TOPICAL CREAM 45 GM TUBE TP SCH ×2 (10:18→22:03)
[2017-09-28] MEDS: QUEtiapine FUMARATE 200 MG TABLET PO SCH (21:35)
[2017-09-28] MEDS: THIAMINE HCL 100 MG TABLET (FP) PO SCH (21:35)
[2017-09-29] MEDS: METHADONE HCL 40 MG DISPERSABLE TABLET PO SCH (06:07)
[2017-09-29] MEDS: MAGNESIUM HYDROX 2400MG/30ML ORAL SUSPENSION 30 ML CUP PO PRN (06:09)
[2017-09-29] MEDS: PRENATAL VITAMINS W/ FOLIC ACID TABLET (FP) PO SCH (10:14)
[2017-09-29] MEDS: NICOTINE 14 MG/24 HOURS TOPICAL PATCH TD SCH (10:14)
[2017-09-29] MEDS: SELENIUM SULFIDE 2.5% LOTION 4 OZ. TP SCH (10:15)
[2017-09-29] MEDS: CLOTRIMAZOLE/BETAMET DIPROP TOPICAL CREAM 45 GM TUBE TP SCH ×2 (10:15→22:13)
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
[2017-09-29] MEDS: QUEtiapine FUMARATE 200 MG TABLET PO SCH (21:11)
[2017-09-29] MEDS: THIAMINE HCL 100 MG TABLET (FP) PO SCH (21:11)
[2017-09-29] MEDS: IBUPROFEN 400 MG TABLET (FP) PO PRN (21:12)
[2017-09-30] MEDS: METHADONE HCL 40 MG DISPERSABLE TABLET PO SCH (06:26)
[2017-09-30] MEDS: PRENATAL VITAMINS W/ FOLIC ACID TABLET (FP) PO SCH (10:15)
[2017-09-30] MEDS: NICOTINE 14 MG/24 HOURS TOPICAL PATCH TD SCH (10:15)
[2017-09-30] MEDS: CLOTRIMAZOLE/BETAMET DIPROP TOPICAL CREAM 45 GM TUBE TP SCH ×2 (10:16→21:42)
[2017-09-30] MEDS: IBUPROFEN 400 MG TABLET (FP) PO PRN (13:55)
[2017-09-30] MEDS: MAGNESIUM HYDROX 2400MG/30ML ORAL SUSPENSION 30 ML CUP PO PRN (16:08)
[2017-09-30] MEDS: THIAMINE HCL 100 MG TABLET (FP) PO SCH (21:42)
[2017-09-30] MEDS: QUEtiapine FUMARATE 200 MG TABLET PO SCH (21:42)
[2017-10-01] MEDS: METHADONE HCL 40 MG DISPERSABLE TABLET PO SCH (06:20)
[2017-10-01] MEDS ORDERED: PT OWN MED DRAWER 7, Y5N ONE ×2 (08:58→20:17)
[2017-10-01] MEDS: NICOTINE 14 MG/24 HOURS TOPICAL PATCH TD SCH (10:06)
[2017-10-01] MEDS: CLOTRIMAZOLE/BETAMET DIPROP TOPICAL CREAM 45 GM TUBE TP SCH ×2 (10:06→21:07)
[2017-10-01] MEDS: PRENATAL VITAMINS W/ FOLIC ACID TABLET (FP) PO SCH (10:06)
[2017-10-01] MEDS: MAGNESIUM HYDROX 2400MG/30ML ORAL SUSPENSION 30 ML CUP PO PRN (10:08)
[2017-10-01] MEDS: THIAMINE HCL 100 MG TABLET (FP) PO SCH (21:08)
[2017-10-01] MEDS: QUEtiapine FUMARATE 200 MG TABLET PO SCH (21:08)
[2017-10-01] MEDS: IBUPROFEN 400 MG TABLET (FP) PO PRN (21:09)
[2017-10-02] MEDS: METHADONE HCL 40 MG DISPERSABLE TABLET PO SCH (06:11)
[2017-10-02] MEDS ORDERED: PT OWN MED DRAWER 7, Y5N ONE ×2 (08:56→19:43)
[2017-10-02] MEDS: NICOTINE 14 MG/24 HOURS TOPICAL PATCH TD SCH (09:58)
[2017-10-02] MEDS: CLOTRIMAZOLE/BETAMET DIPROP TOPICAL CREAM 45 GM TUBE TP SCH ×2 (09:58→21:39)
[2017-10-02] MEDS: PRENATAL VITAMINS W/ FOLIC ACID TABLET (FP) PO SCH (09:58)
[2017-10-02] MEDS: IBUPROFEN 400 MG TABLET (FP) PO PRN ×2 (10:00→21:38)
[2017-10-02] MEDS: THIAMINE HCL 100 MG TABLET (FP) PO SCH (21:38)
[2017-10-02] MEDS: QUEtiapine FUMARATE 200 MG TABLET PO SCH (21:38)
[2017-10-03] MEDS: METHADONE HCL 40 MG DISPERSABLE TABLET PO SCH (06:26)
[2017-10-03] MEDS: IBUPROFEN 400 MG TABLET (FP) PO PRN ×2 (06:28→21:40)
[2017-10-03] MEDS: NICOTINE 14 MG/24 HOURS TOPICAL PATCH TD SCH (10:21)
[2017-10-03] MEDS: PRENATAL VITAMINS W/ FOLIC ACID TABLET (FP) PO SCH (10:22)
[2017-10-03] MEDS: CLOTRIMAZOLE/BETAMET DIPROP TOPICAL CREAM 45 GM TUBE TP SCH ×2 (10:23→21:41)
[2017-10-03] MEDS ORDERED: PT OWN MED DRAWER 7, Y5N ONE (10:24)
[2017-10-03] MEDS: QUEtiapine FUMARATE 200 MG TABLET PO SCH (21:39)
[2017-10-03] MEDS: THIAMINE HCL 100 MG TABLET (FP) PO SCH (21:39)
[2017-10-04] MEDS: METHADONE HCL 40 MG DISPERSABLE TABLET PO SCH (06:27)
[2017-10-04] MEDS: NICOTINE 14 MG/24 HOURS TOPICAL PATCH TD SCH (10:16)
[2017-10-04] MEDS: PRENATAL VITAMINS W/ FOLIC ACID TABLET (FP) PO SCH (10:16)
[2017-10-04] MEDS: IBUPROFEN 400 MG TABLET (FP) PO PRN ×2 (10:17→21:46)
[2017-10-04] MEDS ORDERED: PT OWN MED DRAWER 7, Y5N ONE (10:19)
[2017-10-04] MEDS: CLOTRIMAZOLE/BETAMET DIPROP TOPICAL CREAM 45 GM TUBE TP SCH ×2 (10:19→21:57)
[2017-10-04] MEDS: QUEtiapine FUMARATE 200 MG TABLET PO SCH (21:44)
[2017-10-04] MEDS: THIAMINE HCL 100 MG TABLET (FP) PO SCH (21:44)
[2017-10-05] MEDS: METHADONE HCL 40 MG DISPERSABLE TABLET PO SCH (06:30)
[2017-10-05] MEDS: NICOTINE 14 MG/24 HOURS TOPICAL PATCH TD SCH (10:12)
[2017-10-05] MEDS: PRENATAL VITAMINS W/ FOLIC ACID TABLET (FP) PO SCH (10:12)
[2017-10-05] MEDS: CLOTRIMAZOLE/BETAMET DIPROP TOPICAL CREAM 45 GM TUBE TP SCH ×2 (10:12→21:43)
[2017-10-05] MEDS ORDERED: DOCUSATE SODIUM 100 MG CAPSULE (FP) PO PRN (12:41)
--- NOTE | 2017-10-05 12:45 | PN ---
[facility] Progress Note Note: Patient c/o constipation Vital Signs Temperature 97.7 F 10/05/17 06:56 Pulse Rate 80 10/05/17 06:56 Respiratory Rate 18 10/05/17 06:56 Blood Pressure 100/71 10/05/17 06:56 O2 Sat by Pulse Oximetry (%) Subj: +constipation. No N/V/D. Last BM this morning. Firm. No rectal bleeding. Obj: Gen: A and O x 3. In NAD. Skin warm and dry GI: soft, BS+, NT A/P: constipation Increase oral fluids add colace 100mg bid continue to monitor
[2017-10-05] MEDS: QUEtiapine FUMARATE 200 MG TABLET PO SCH (21:41)
[2017-10-05] MEDS: THIAMINE HCL 100 MG TABLET (FP) PO SCH (21:41)
[2017-10-05] MEDS: IBUPROFEN 400 MG TABLET (FP) PO PRN (21:42)
[2017-10-06] MEDS: METHADONE HCL 40 MG DISPERSABLE TABLET PO SCH (06:10)
[2017-10-06] MEDS: NICOTINE 14 MG/24 HOURS TOPICAL PATCH TD SCH (10:34)
[2017-10-06] MEDS: CLOTRIMAZOLE/BETAMET DIPROP TOPICAL CREAM 45 GM TUBE TP SCH ×2 (10:34→21:06)
[2017-10-06] MEDS: IBUPROFEN 400 MG TABLET (FP) PO PRN ×2 (10:35→21:05)
[2017-10-06] MEDS: PRENATAL VITAMINS W/ FOLIC ACID TABLET (FP) PO SCH (10:35)
[2017-10-06] MEDS ORDERED: PT OWN MED DRAWER 7, Y5N ONE (20:56)
[2017-10-06] MEDS: THIAMINE HCL 100 MG TABLET (FP) PO SCH (21:04)
[2017-10-06] MEDS: QUEtiapine FUMARATE 200 MG TABLET PO SCH (21:04)
[2017-10-07] MEDS: METHADONE HCL 40 MG DISPERSABLE TABLET PO SCH (06:30)
[2017-10-07] MEDS ORDERED: PT OWN MED DRAWER 7, Y5N ONE (10:24)
[2017-10-07] MEDS: CLOTRIMAZOLE/BETAMET DIPROP TOPICAL CREAM 45 GM TUBE TP SCH ×2 (10:25→22:30)
[2017-10-07] MEDS: NICOTINE 14 MG/24 HOURS TOPICAL PATCH TD SCH (10:25)
[2017-10-07] MEDS: IBUPROFEN 400 MG TABLET (FP) PO PRN ×2 (10:26→21:47)
[2017-10-07] MEDS: PRENATAL VITAMINS W/ FOLIC ACID TABLET (FP) PO SCH (10:26)
[2017-10-07] MEDS: THIAMINE HCL 100 MG TABLET (FP) PO SCH (21:46)
[2017-10-07] MEDS: QUEtiapine FUMARATE 200 MG TABLET PO SCH (21:46)
[2017-10-08] MEDS: METHADONE HCL 40 MG DISPERSABLE TABLET PO SCH (06:50)
[2017-10-08] MEDS: CLOTRIMAZOLE/BETAMET DIPROP TOPICAL CREAM 45 GM TUBE TP SCH ×2 (10:04→21:39)
[2017-10-08] MEDS: PRENATAL VITAMINS W/ FOLIC ACID TABLET (FP) PO SCH (10:05)
[2017-10-08] MEDS: NICOTINE 14 MG/24 HOURS TOPICAL PATCH TD SCH (10:05)
[2017-10-08] MEDS: IBUPROFEN 400 MG TABLET (FP) PO PRN ×2 (10:06→21:38)
[2017-10-08] MEDS: THIAMINE HCL 100 MG TABLET (FP) PO SCH (21:36)
[2017-10-08] MEDS: QUEtiapine FUMARATE 200 MG TABLET PO SCH (21:36)
[2017-10-09] MEDS: METHADONE HCL 40 MG DISPERSABLE TABLET PO SCH (06:29)
[2017-10-09] MEDS: CLOTRIMAZOLE/BETAMET DIPROP TOPICAL CREAM 45 GM TUBE TP SCH ×2 (10:12→21:38)
[2017-10-09] MEDS: PRENATAL VITAMINS W/ FOLIC ACID TABLET (FP) PO SCH (10:12)
[2017-10-09] MEDS: NICOTINE 14 MG/24 HOURS TOPICAL PATCH TD SCH (10:12)
[2017-10-09] MEDS: IBUPROFEN 400 MG TABLET (FP) PO PRN ×2 (10:12→21:37)
[2017-10-09] MEDS: THIAMINE HCL 100 MG TABLET (FP) PO SCH (21:36)
[2017-10-09] MEDS: QUEtiapine FUMARATE 200 MG TABLET PO SCH (21:36)
[2017-10-10] MEDS: METHADONE HCL 40 MG DISPERSABLE TABLET PO SCH (06:18)
[2017-10-10] MEDS: IBUPROFEN 400 MG TABLET (FP) PO PRN ×2 (10:25→21:34)
[2017-10-10] MEDS: NICOTINE 14 MG/24 HOURS TOPICAL PATCH TD SCH (10:25)
[2017-10-10] MEDS: PRENATAL VITAMINS W/ FOLIC ACID TABLET (FP) PO SCH (10:25)
[2017-10-10] MEDS: CLOTRIMAZOLE/BETAMET DIPROP TOPICAL CREAM 45 GM TUBE TP SCH ×2 (10:25→21:35)
[2017-10-10] MEDS: QUEtiapine FUMARATE 200 MG TABLET PO SCH (21:34)
[2017-10-10] MEDS: THIAMINE HCL 100 MG TABLET (FP) PO SCH (21:34)
[2017-10-11] MEDS: METHADONE HCL 40 MG DISPERSABLE TABLET PO SCH (06:19)
[2017-10-11] MEDS: PRENATAL VITAMINS W/ FOLIC ACID TABLET (FP) PO SCH (10:06)
[2017-10-11] MEDS: CLOTRIMAZOLE/BETAMET DIPROP TOPICAL CREAM 45 GM TUBE TP SCH ×2 (10:06→21:16)
[2017-10-11] MEDS: NICOTINE 14 MG/24 HOURS TOPICAL PATCH TD SCH (10:06)
[2017-10-11] MEDS: IBUPROFEN 400 MG TABLET (FP) PO PRN ×2 (10:07→21:17)
[2017-10-11] MEDS: THIAMINE HCL 100 MG TABLET (FP) PO SCH (21:15)
[2017-10-11] MEDS: QUEtiapine FUMARATE 200 MG TABLET PO SCH (21:16)
[2017-10-12] MEDS: METHADONE HCL 40 MG DISPERSABLE TABLET PO SCH (06:28)
[2017-10-12] MEDS: CLOTRIMAZOLE/BETAMET DIPROP TOPICAL CREAM 45 GM TUBE TP SCH ×2 (10:22→22:17)
[2017-10-12] MEDS: PRENATAL VITAMINS W/ FOLIC ACID TABLET (FP) PO SCH (10:22)
[2017-10-12] MEDS: NICOTINE 14 MG/24 HOURS TOPICAL PATCH TD SCH (10:22)
[2017-10-12] MEDS: IBUPROFEN 400 MG TABLET (FP) PO PRN ×2 (10:23→21:40)
[2017-10-12] MEDS: QUEtiapine FUMARATE 200 MG TABLET PO SCH (21:39)
[2017-10-12] MEDS: THIAMINE HCL 100 MG TABLET (FP) PO SCH (21:39)
[2017-10-13] MEDS: METHADONE HCL 40 MG DISPERSABLE TABLET PO SCH (06:18)
[2017-10-13] MEDS: NICOTINE 14 MG/24 HOURS TOPICAL PATCH TD SCH (10:19)
[2017-10-13] MEDS: PRENATAL VITAMINS W/ FOLIC ACID TABLET (FP) PO SCH (10:19)
[2017-10-13] MEDS: IBUPROFEN 400 MG TABLET (FP) PO PRN ×2 (10:19→21:09)
[2017-10-13] MEDS: CLOTRIMAZOLE/BETAMET DIPROP TOPICAL CREAM 45 GM TUBE TP SCH ×2 (11:00→23:07)
[2017-10-13] MEDS: THIAMINE HCL 100 MG TABLET (FP) PO SCH (21:08)
[2017-10-13] MEDS: QUEtiapine FUMARATE 200 MG TABLET PO SCH (21:08)
[2017-10-14] MEDS: METHADONE HCL 40 MG DISPERSABLE TABLET PO SCH (06:07)
[2017-10-14] MEDS: PRENATAL VITAMINS W/ FOLIC ACID TABLET (FP) PO SCH (10:22)
[2017-10-14] MEDS: IBUPROFEN 400 MG TABLET (FP) PO PRN (10:22)
[2017-10-14] MEDS: NICOTINE 14 MG/24 HOURS TOPICAL PATCH TD SCH (10:22)
[2017-10-14] MEDS: CLOTRIMAZOLE/BETAMET DIPROP TOPICAL CREAM 45 GM TUBE TP SCH ×2 (10:22→21:25)
[2017-10-14] MEDS: THIAMINE HCL 100 MG TABLET (FP) PO SCH (21:24)
[2017-10-14] MEDS: QUEtiapine FUMARATE 200 MG TABLET PO SCH (21:25)
[2017-10-15] MEDS: METHADONE HCL 40 MG DISPERSABLE TABLET PO SCH (06:29)
[2017-10-15] MEDS: PRENATAL VITAMINS W/ FOLIC ACID TABLET (FP) PO SCH (09:58)
[2017-10-15] MEDS: NICOTINE 14 MG/24 HOURS TOPICAL PATCH TD SCH (09:58)
[2017-10-15] MEDS: CLOTRIMAZOLE/BETAMET DIPROP TOPICAL CREAM 45 GM TUBE TP SCH ×2 (09:58→22:45)
[2017-10-15] MEDS: IBUPROFEN 400 MG TABLET (FP) PO PRN ×2 (09:59→22:55)
[2017-10-15] MEDS: THIAMINE HCL 100 MG TABLET (FP) PO SCH (21:59)
[2017-10-15] MEDS: QUEtiapine FUMARATE 200 MG TABLET PO SCH (21:59)
[2017-10-16] MEDS: METHADONE HCL 40 MG DISPERSABLE TABLET PO SCH (06:35)
[2017-10-16] MEDS ORDERED: PT OWN MED DRAWER 7, Y5N ONE (09:02)
[2017-10-16] MEDS: CLOTRIMAZOLE/BETAMET DIPROP TOPICAL CREAM 45 GM TUBE TP SCH ×2 (10:13→21:56)
[2017-10-16] MEDS: NICOTINE 14 MG/24 HOURS TOPICAL PATCH TD SCH (10:14)
[2017-10-16] MEDS: PRENATAL VITAMINS W/ FOLIC ACID TABLET (FP) PO SCH (10:14)
[2017-10-16] MEDS: IBUPROFEN 400 MG TABLET (FP) PO PRN ×2 (10:14→21:55)
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
[2017-10-16] MEDS ORDERED: IBUPROFEN 400 MG TABLET (FP) PO ONE (14:45)
[2017-10-16] MEDS: QUEtiapine FUMARATE 200 MG TABLET PO SCH (21:54)
[2017-10-16] MEDS: THIAMINE HCL 100 MG TABLET (FP) PO SCH (21:54)
[2017-10-17] MEDS: METHADONE HCL 40 MG DISPERSABLE TABLET PO SCH (06:14)
[2017-10-17] MEDS: IBUPROFEN 400 MG TABLET (FP) PO PRN ×2 (06:15→21:42)
[2017-10-17] MEDS: NICOTINE 14 MG/24 HOURS TOPICAL PATCH TD SCH (10:26)
[2017-10-17] MEDS: PRENATAL VITAMINS W/ FOLIC ACID TABLET (FP) PO SCH (10:26)
[2017-10-17] MEDS: CLOTRIMAZOLE/BETAMET DIPROP TOPICAL CREAM 45 GM TUBE TP SCH ×2 (10:28→23:38)
[2017-10-17] MEDS ORDERED: PT OWN MED DRAWER 7, Y5N ONE (10:28)
[2017-10-17] MEDS: THIAMINE HCL 100 MG TABLET (FP) PO SCH (21:41)
[2017-10-17] MEDS: QUEtiapine FUMARATE 200 MG TABLET PO SCH (21:41)
[2017-10-18] MEDS: IBUPROFEN 400 MG TABLET (FP) PO PRN ×2 (06:29→21:43)
[2017-10-18] MEDS: METHADONE HCL 40 MG DISPERSABLE TABLET PO SCH (06:30)
[2017-10-18] MEDS: PRENATAL VITAMINS W/ FOLIC ACID TABLET (FP) PO SCH (10:12)
[2017-10-18] MEDS: CLOTRIMAZOLE/BETAMET DIPROP TOPICAL CREAM 45 GM TUBE TP SCH ×2 (10:12→21:44)
[2017-10-18] MEDS: NICOTINE 14 MG/24 HOURS TOPICAL PATCH TD SCH (10:12)
[2017-10-18] MEDS: THIAMINE HCL 100 MG TABLET (FP) PO SCH (21:42)
[2017-10-18] MEDS: QUEtiapine FUMARATE 200 MG TABLET PO SCH (21:43)
[2017-10-19] MEDS: METHADONE HCL 40 MG DISPERSABLE TABLET PO SCH (06:19)
--- NOTE | 2017-10-19 09:50 | PN ---
Psychiatric Progress Note Vital Signs: Vital Signs Period Temp Pulse Resp BP Sys/Banuelos Pulse Ox Last 24 Hr 97.7 F 80 18-20 102/64 ROS: Hep C Current Medications: Active Medications Generic Name Dose Route Start Last Admin Trade Name Freq PRN Reason Stop Dose Admin Acetaminophen 650 mg 09/22/17 11:42 Tylenol - PO Q4H PRN FEVER Al Hydroxide/Mg Hydroxide 30 ml 09/22/17 11:42 Mylanta Oral Suspension - PO Q6H PRN DYSPEPSIA Clotrimazole 1 applic 09/22/17 14:00 10/18/17 21:44 Lotrisone Cream (Large Tube) - TP Not Given BID AJ Docusate Sodium 100 mg 10/05/17 12:41 Colace - PO BID PRN CONSTIPATION Eucalyptus/Menthol/Phenol/Sorbitol 1 each 09/22/17 11:42 Cepastat Lozenge - MM Q4H PRN SORE THROAT Guaifenesin 10 ml 09/22/17 11:42 Robitussin Dm - PO Q6H PRN COUGH Hydroxyzine Pamoate 50 mg 09/22/17 11:42 Vistaril - PO Q4H PRN AGITATION Ibuprofen 400 mg 09/22/17 11:42 10/18/17 21:43 Motrin - PO 400 mg Q6H PRN Administration Pain level 4-6 Loperamide HCl 4 mg 09/22/17 11:42 Imodium - PO Q6H PRN DIARRHEA Magnesium Citrate 300 ml 09/22/17 11:42 Citroma - PO Q48H PRN CONSTIPATION Magnesium Hydroxide 30 ml 09/22/17 11:42 10/01/17 10:08 Milk Of Magnesia - PO 30 ml DAILY PRN Administration CONSTIPATION Methadone HCl 120 mg 10/18/17 06:00 10/19/17 06:19 Dolophine - PO 10/24/17 05:59 120 mg DAILY@0600 AJ Administration Nicotine 14 mg 09/22/17 14:00 10/18/17 10:12 Nicoderm Patch - TD 14 mg DAILY AJ Administration Nicotine Polacrilex 2 mg 09/22/17 11:42 10/15/17 10:00 Nicorette Gum - BUC 2 mg Q2H PRN Administration NICOTINE REPLACEMENT RX Multivit/Folic Acid/Iron 1 tab 09/23/17 10:00 10/18/17 10:12 Vitamins (Sjr) - PO 1 tab DAILY AJ Administration Pseudoephedrine/Triprolidine 1 combo 09/22/17 11:42 Actifed - PO TID PRN NASAL CONGESTION Quetiapine Fumarate 200 mg 09/22/17 22:00 10/18/17 21:43 Seroquel - PO 200 mg HS AJ Administration Thiamine HCl 100 mg 09/22/17 22:00 10/18/17 21:42 Vitamin B1 - PO 100 mg HS AJ Administration Mental Status Exam - Mental Status Exam Sleep: Fair Psychiatric Treatment Plan - Problem List (1) Alcohol dependence Current Visit: Yes (2) Sedative hypnotic or anxiolytic dependence Current Visit: Yes (3) Cocaine abuse Current Visit: Yes (4) Opioid dependence on agonist therapy Current Visit: No (5) Nicotine dependence Current Visit: No Qualifiers: (6) Substance induced mood disorder Current Visit: Yes (7) Bipolar II disorder Current Visit: No Comment: Self-report. (8) Substance-induced sleep disorder Current Visit: Yes (9) Hepatitis C Current Visit: No Qualifiers: Viral hepatitis chronicity: chronic Hepatic coma status: without hepatic coma Qualified Code(s): B18.2 - Chronic viral hepatitis C
[2017-10-19] MEDS: PRENATAL VITAMINS W/ FOLIC ACID TABLET (FP) PO SCH (10:27)
[2017-10-19] MEDS: NICOTINE 14 MG/24 HOURS TOPICAL PATCH TD SCH (10:27)
[2017-10-19] MEDS: IBUPROFEN 400 MG TABLET (FP) PO PRN ×2 (10:28→21:41)
[2017-10-19] MEDS: CLOTRIMAZOLE/BETAMET DIPROP TOPICAL CREAM 45 GM TUBE TP SCH ×2 (10:45→21:42)
[2017-10-19] MEDS: THIAMINE HCL 100 MG TABLET (FP) PO SCH (21:41)
[2017-10-19] MEDS: QUEtiapine FUMARATE 200 MG TABLET PO SCH (21:41)
[2017-10-20] MEDS: METHADONE HCL 40 MG DISPERSABLE TABLET PO SCH (06:26)
[2017-10-20] MEDS: IBUPROFEN 400 MG TABLET (FP) PO PRN ×2 (06:28→22:08)
[2017-10-20] MEDS: CLOTRIMAZOLE/BETAMET DIPROP TOPICAL CREAM 45 GM TUBE TP SCH ×2 (10:28→22:08)
[2017-10-20] MEDS: PRENATAL VITAMINS W/ FOLIC ACID TABLET (FP) PO SCH (10:28)
[2017-10-20] MEDS: NICOTINE 14 MG/24 HOURS TOPICAL PATCH TD SCH (10:28)
[2017-10-20] MEDS: QUEtiapine FUMARATE 200 MG TABLET PO SCH (22:07)
[2017-10-20] MEDS: THIAMINE HCL 100 MG TABLET (FP) PO SCH (22:07)
[2017-10-21] MEDS: METHADONE HCL 40 MG DISPERSABLE TABLET PO SCH (06:24)
[2017-10-21] MEDS ORDERED: PT OWN MED DRAWER 7, Y5N ONE (09:02)
[2017-10-21] MEDS: PRENATAL VITAMINS W/ FOLIC ACID TABLET (FP) PO SCH (10:21)
[2017-10-21] MEDS: IBUPROFEN 400 MG TABLET (FP) PO PRN ×2 (10:21→21:32)
[2017-10-21] MEDS: NICOTINE 14 MG/24 HOURS TOPICAL PATCH TD SCH (10:22)
[2017-10-21] MEDS: CLOTRIMAZOLE/BETAMET DIPROP TOPICAL CREAM 45 GM TUBE TP SCH ×2 (10:22→21:32)
[2017-10-21] MEDS: QUEtiapine FUMARATE 200 MG TABLET PO SCH (21:32)
[2017-10-21] MEDS: THIAMINE HCL 100 MG TABLET (FP) PO SCH (21:32)
[2017-10-22] MEDS: METHADONE HCL 40 MG DISPERSABLE TABLET PO SCH (06:11)
[2017-10-22] MEDS: IBUPROFEN 400 MG TABLET (FP) PO PRN ×2 (10:12→21:46)
[2017-10-22] MEDS: PRENATAL VITAMINS W/ FOLIC ACID TABLET (FP) PO SCH (10:12)
[2017-10-22] MEDS: NICOTINE 14 MG/24 HOURS TOPICAL PATCH TD SCH (10:12)
[2017-10-22] MEDS: CLOTRIMAZOLE/BETAMET DIPROP TOPICAL CREAM 45 GM TUBE TP SCH ×2 (10:25→21:47)
[2017-10-22] MEDS: THIAMINE HCL 100 MG TABLET (FP) PO SCH (21:46)
[2017-10-22] MEDS: QUEtiapine FUMARATE 200 MG TABLET PO SCH (21:46)
[2017-10-23] MEDS: IBUPROFEN 400 MG TABLET (FP) PO PRN ×2 (06:24→21:33)
[2017-10-23] MEDS: METHADONE HCL 40 MG DISPERSABLE TABLET PO SCH (06:25)
[2017-10-23] MEDS: NICOTINE 14 MG/24 HOURS TOPICAL PATCH TD SCH (09:59)
[2017-10-23] MEDS: PRENATAL VITAMINS W/ FOLIC ACID TABLET (FP) PO SCH (09:59)
[2017-10-23] MEDS: CLOTRIMAZOLE/BETAMET DIPROP TOPICAL CREAM 45 GM TUBE TP SCH ×2 (10:30→21:34)
[2017-10-23] MEDS: THIAMINE HCL 100 MG TABLET (FP) PO SCH (21:33)
[2017-10-23] MEDS: QUEtiapine FUMARATE 200 MG TABLET PO SCH (21:33)
[2017-10-24] MEDS: METHADONE HCL 40 MG DISPERSABLE TABLET PO SCH (06:34)
[2017-10-24] MEDS: NICOTINE 14 MG/24 HOURS TOPICAL PATCH TD SCH (09:53)
[2017-10-24] MEDS: PRENATAL VITAMINS W/ FOLIC ACID TABLET (FP) PO SCH (09:53)
[2017-10-24] MEDS: IBUPROFEN 400 MG TABLET (FP) PO PRN ×2 (09:53→21:28)
[2017-10-24] MEDS: CLOTRIMAZOLE/BETAMET DIPROP TOPICAL CREAM 45 GM TUBE TP SCH ×2 (09:54→21:32)
[2017-10-24] MEDS ORDERED: PT OWN MED DRAWER 7, Y5N ONE (09:55)
--- NOTE | 2017-10-24 12:19 | PN ---
Psychiatric Progress Note Vital Signs: Vital Signs Period Temp Pulse Resp BP Sys/Banuelos Pulse Ox Last 24 Hr 97.9 F 80 18-18 111/74 Date of Session: 10/24/17 Chief Complaint:: Discharge Note HPI: Patient addressing Alcohol and Sedative Dependence, Cocaine Abuse comorbid with Opioid Dependence, Nicotine Dependence, Substance-Induced Mood Disorder and Substance-Induced Sleep Disorder ROS: Hep C Current Medications: Active Medications Generic Name Dose Route Start Last Admin Trade Name Freq PRN Reason Stop Dose Admin Acetaminophen 650 mg 09/22/17 11:42 Tylenol - PO Q4H PRN FEVER Al Hydroxide/Mg Hydroxide 30 ml 09/22/17 11:42 Mylanta Oral Suspension - PO Q6H PRN DYSPEPSIA Clotrimazole 1 applic 09/22/17 14:00 10/24/17 09:54 Lotrisone Cream (Large Tube) - TP 1 applic BID AJ Administration Docusate Sodium 100 mg 10/05/17 12:41 Colace - PO BID PRN CONSTIPATION Eucalyptus/Menthol/Phenol/Sorbitol 1 each 09/22/17 11:42 Cepastat Lozenge - MM Q4H PRN SORE THROAT Guaifenesin 10 ml 09/22/17 11:42 Robitussin Dm - PO Q6H PRN COUGH Hydroxyzine Pamoate 50 mg 09/22/17 11:42 Vistaril - PO Q4H PRN AGITATION Ibuprofen 400 mg 09/22/17 11:42 10/24/17 09:53 Motrin - PO 400 mg Q6H PRN Administration Pain level 4-6 Loperamide HCl 4 mg 09/22/17 11:42 Imodium - PO Q6H PRN DIARRHEA Magnesium Citrate 300 ml 09/22/17 11:42 Citroma - PO Q48H PRN CONSTIPATION Magnesium Hydroxide 30 ml 09/22/17 11:42 10/01/17 10:08 Milk Of Magnesia - PO 30 ml DAILY PRN Administration CONSTIPATION Methadone HCl 120 mg 10/24/17 06:00 10/24/17 06:34 Dolophine - PO 10/31/17 05:59 120 mg DAILY@0600 AJ Administration Nicotine 14 mg 09/22/17 14:00 10/24/17 09:53 Nicoderm Patch - TD 14 mg DAILY AJ Administration Nicotine Polacrilex 2 mg 09/22/17 11:42 10/15/17 10:00 Nicorette Gum - BUC 2 mg Q2H PRN Administration NICOTINE REPLACEMENT RX Multivit/Folic Acid/Iron 1 tab 09/23/17 10:00 10/24/17 09:53 Vitamins (Sjr) - PO 1 tab DAILY AJ Administration Pseudoephedrine/Triprolidine 1 combo 09/22/17 11:42 Actifed - PO TID PRN NASAL CONGESTION Quetiapine Fumarate 200 mg 09/22/17 22:00 10/23/17 21:33 Seroquel - PO 200 mg HS AJ Administration Thiamine HCl 100 mg 09/22/17 22:00 10/23/17 21:33 Vitamin B1 - PO 100 mg HS AJ Administration Current Side Effect: No Lab tests ordered: Yes Lab tests reviewed: Yes Provider note:: Patient will complete this program on 10/25/17. He has met his treatment goals and will continue to address his issues in intermediate [facility] residential treatment at [facility]. He responded well to Seroquel 200 mg po HS. Script for 30 days supply of that medication will be electronically transmitted to [facility] at [address] [place] [address]. He is stable for dicharge on 10/25/17 Total face to face time:: 35 Mental Status Exam - Mental Status Exam Alert and Oriented to: Time, Place, Person Cognitive Function: Fair Patient Appearance: Well Groomed Mood: Hopeful, Euthymic Affect: Appropriate Patient Behavior: Cooperative Speech Pattern: Clear Voice Loudness: Normal Thought Process: Intact, Goal Oriented Thought Disorder: Not Present Hallucinations: Denies Suicidal Ideation: Denies Insight/Judgement: Fair Sleep: Fair Appetite: Good Muscle strength/Tone: Normal Gait/Station: Normal Psychiatric Treatment Plan - Problem List (1) Alcohol dependence Current Visit: Yes (2) Sedative hypnotic or anxiolytic dependence Current Visit: Yes (3) Cocaine abuse Current Visit: Yes (4) Opioid dependence on agonist therapy Current Visit: No (5) Nicotine dependence Current Visit: No Qualifiers: (6) Substance induced mood disorder Current Visit: Yes (7) Bipolar II disorder Current Visit: No Comment: Self-report. (8) Substance-induced sleep disorder Current Visit: Yes (9) Hepatitis C Current Visit: No Qualifiers: Viral hepatitis chronicity: chronic Hepatic coma status: without hepatic coma Qualified Code(s): B18.2 - Chronic viral hepatitis C Initial treatment plan: Patient will be discharged tomorrow and referred to [facility] for intermediate manager residential treatment
[2017-10-24] MEDS: QUEtiapine FUMARATE 200 MG TABLET PO SCH (21:28)
[2017-10-24] MEDS: THIAMINE HCL 100 MG TABLET (FP) PO SCH (21:28)
[2017-10-25] MEDS: METHADONE HCL 40 MG DISPERSABLE TABLET PO SCH (06:31)
[2017-10-25] MEDS: IBUPROFEN 400 MG TABLET (FP) PO PRN (06:31)
[2017-10-25 06:56] VITALS: BP 103/68; PULSE 93; TEMP 97.8
[2017-10-25] MEDS: NICOTINE 14 MG/24 HOURS TOPICAL PATCH TD SCH (09:54)
[2017-10-25] MEDS: PRENATAL VITAMINS W/ FOLIC ACID TABLET (FP) PO SCH (09:54)
[2017-10-25] MEDS: CLOTRIMAZOLE/BETAMET DIPROP TOPICAL CREAM 45 GM TUBE TP SCH (09:55)
[2017-10-25] MEDS ORDERED: SELENIUM SULFIDE 2.5% LOTION 4 OZ. TP SCH (10:00)
== END 2017-10-25 10:30 | disposition home or self-care (01) | DRG 772 ==
LOC: YASAS 08:14 → Y3W 13:38
PROVIDERS: ADMIT Psychiatry & Neurology Psychiatry; ATTEND Psychiatry & Neurology Psychiatry
PROC: HZ42ZZZ Group Counseling for Substance Abuse Treatment, Cognitive-Behavioral (ICD-10-PCS; principal; 2017-09-22)
DX: F11.20 Opioid dependence, uncomplicated (principal); F13.20 Sedative, hypnotic or anxiolytic dependence, uncomplicated; F14.20 Cocaine dependence, uncomplicated; F17.210 Nicotine dependence, cigarettes, uncomplicated; F19.24 Other psychoactive substance dependence with psychoactive substance-induced mood disorder; F19.282 Other psychoactive substance dependence with psychoactive substance-induced sleep disorder; F31.81 Bipolar II disorder
CPT/HCPCS: 36415; 80053; 81003; 81015; 85027; 86593; 93005; 93010

== ENCOUNTER 2021-03-13 22:29 | Inpatient (IN) | payer SELFPAY ==
[2021-03-13 23:12] VITALS: BMI 25.1
[2021-03-13] MEDS ORDERED: MAG HYDROX/AL HYDROX/SIMETH 30 ML UNIT-DOSE CUP PO PRN (23:47)
[2021-03-13] MEDS ORDERED: ACETAMINOPHEN 325 MG TABLET (FP) PO PRN ×2 (23:47)
[2021-03-13] MEDS ORDERED: METHOCARBAMOL 500 MG TABLET PO PRN (23:47)
[2021-03-13] MEDS ORDERED: MAGNESIUM CITRATE 300 ML BOTTLE PO PRN (23:47)
[2021-03-13] MEDS ORDERED: MENTHOL/PHENOL 1 EACH UD MM PRN (23:47)
[2021-03-13] MEDS ORDERED: hydrOXYzine PAMOATE 25 MG CAPSULE (FP) PO PRN (23:47)
[2021-03-13] MEDS ORDERED: IBUPROFEN 400 MG TABLET (FP) PO PRN (23:47)
[2021-03-13] MEDS ORDERED: ONDANSETRON *ODT* 4 MG TABLET SL PRN (23:47)
[2021-03-13] MEDS ORDERED: BISMUTH SUBSALICYLATE 524 MG/30 ML PO PRN (23:47)
[2021-03-13] MEDS ORDERED: MAGNESIUM HYDROX 2400MG/30ML ORAL SUSPENSION 30 ML CUP PO PRN (23:47)
[2021-03-13] MEDS ORDERED: cloNIDine HCL 0.1 MG TABLET PO PRN (23:49)
[2021-03-13] MEDS ORDERED: methaDONE HCL 10 MG TABLET (FOR DETOX USE ONLY) PO ONE ×2 (23:49)
[2021-03-14] MEDS: diazePAM 5 MG TABLET PO PRN ×3 (02:12→17:32)
[2021-03-14] MEDS: diazePAM 5 MG TABLET PO SCH ×6 (02:17→22:11)
[2021-03-14] MEDS ORDERED: methaDONE HCL 10 MG TABLET (FOR DETOX USE ONLY) ONE ×2 (08:57→09:41)
[2021-03-14] MEDS: PRENATAL VITAMINS W/ FOLIC ACID TABLET (FP) PO SCH (09:52)
[2021-03-14 15:21] LABS: HEMATOCRIT 35.9 % (35.4-49); HEMOGLOBIN 11.9 GM/dL (11.7-16.9); MCH 26.7 pg (25.7-33.7); MCHC 33.2 g/dl (32.0-35.9); MEAN CELL VOLUME 80.3 fl (80-96); MEAN PLT VOLUME 8.4 fl (7.5-11.1); PLATELET COUNT 229 10^3/uL (134-434); RBC 4.47 M/mm3 (4.00-5.60); WHITE BLOOD COUNT 4.7 K/mm3 (4.0-10.0)
[2021-03-14 15:26] LABS: ALBUMIN 3.2 g/dl (3.4-5.0); BLOOD UREA NITROGEN 11.2 mg/dL (7-18); CALCIUM 9.2 mg/dL (8.5-10.1); CREATININE 0.8 mg/dL (0.55-1.3)
[2021-03-14 15:27] LABS: BILIRUBIN,TOTAL 0.4 mg/dL (0.2-1); TOT PROT 7.5 g/dl (6.4-8.2)
[2021-03-14 16:16] LABS: HIV INTERPRETATION NEGATIVE (NEGATIVE)
[2021-03-14] MEDS: THIAMINE HCL 100 MG TABLET (FP) PO SCH (22:11)
[2021-03-14] MEDS: MELATONIN 5 MG TABLETS PO SCH (22:12)
[2021-03-15] MEDS: diazePAM 5 MG TABLET PO SCH ×2 (05:24→17:47)
[2021-03-15] MEDS ORDERED: methaDONE HCL 10 MG TABLET (FOR DETOX USE ONLY) PO ONE (10:00)
[2021-03-15] MEDS: diazePAM 5 MG TABLET PO PRN ×2 (10:15→22:21)
[2021-03-15] MEDS: PRENATAL VITAMINS W/ FOLIC ACID TABLET (FP) PO SCH (11:19)
[2021-03-15] MEDS: THIAMINE HCL 100 MG TABLET (FP) PO SCH (22:21)
[2021-03-15] MEDS: MELATONIN 5 MG TABLETS PO SCH (22:21)
[2021-03-16] MEDS ORDERED: diazePAM 5 MG TABLET PO ONE (06:00)
[2021-03-16 08:44] VITALS: BP 115/73; PULSE 76; TEMP 98
[2021-03-16] MEDS: diazePAM 5 MG TABLET PO PRN (09:10)
[2021-03-16] MEDS ORDERED: methaDONE HCL 10 MG TABLET (FOR DETOX USE ONLY) ONE (09:33)
[2021-03-16] MEDS: PRENATAL VITAMINS W/ FOLIC ACID TABLET (FP) PO SCH (10:42)
[2021-03-17] MEDS ORDERED: methaDONE HCL 10 MG TABLET (FOR DETOX USE ONLY) PO ONE (10:00)
== END 2021-03-16 10:03 | disposition left against medical advice (07) | DRG 770 ==
LOC: YASAS 22:29 → Y6N 23:57
PROVIDERS: ADMIT Allergy & Immunology; ATTEND Allergy & Immunology
PROC: HZ2ZZZZ Detoxification Services for Substance Abuse Treatment (ICD-10-PCS; principal; 2021-03-13)
DX: F10.230 Alcohol dependence with withdrawal, uncomplicated (principal); F11.20 Opioid dependence, uncomplicated; F14.20 Cocaine dependence, uncomplicated; F17.210 Nicotine dependence, cigarettes, uncomplicated; K21.9 Gastro-esophageal reflux disease without esophagitis; M54.89 Other dorsalgia; Z87.891 Personal history of nicotine dependence; Z87.828 Personal history of other (healed) physical injury and trauma
CPT/HCPCS: 36415; 80053; 85027; 86780; 87389; C9803; U0003; U0005

== ENCOUNTER 2021-07-04 03:21 | Inpatient (IN) | payer OTHER ==
[2021-07-04 03:30] VITALS: BMI 27.0
[2021-07-04] MEDS ORDERED: BISMUTH SUBSALICYLATE 524 MG/30 ML PO PRN (03:31)
[2021-07-04] MEDS ORDERED: NICOTINE 10 MG CARTRIDGE (INHALER) IH PRN (03:31)
[2021-07-04] MEDS ORDERED: NALOXONE (NARCAN) HCL 4 MG/0.1 ML SPRAY NS PRN (03:31)
[2021-07-04] MEDS ORDERED: METHOCARBAMOL 500 MG TABLET PO PRN (03:31)
[2021-07-04] MEDS ORDERED: ONDANSETRON *ODT* 4 MG TABLET SL PRN (03:31)
[2021-07-04] MEDS ORDERED: MAGNESIUM CITRATE 300 ML BOTTLE PO PRN (03:31)
[2021-07-04] MEDS ORDERED: NALOXONE HCL 0.4 MG/ML VIAL IM PRN (03:31)
[2021-07-04] MEDS ORDERED: guaiFENesin 200 MG/10 ML 10 ML UNIT-DOSE CUPS PO PRN (03:31)
[2021-07-04] MEDS ORDERED: P-EPHED 60MG/TRIPROLIDI 2.5MG TABLET PO PRN (03:31)
[2021-07-04] MEDS ORDERED: MAG HYDROX/AL HYDROX/SIMETH 30 ML UNIT-DOSE CUP PO PRN (03:31)
[2021-07-04] MEDS ORDERED: MAGNESIUM HYDROX 2400MG/30ML ORAL SUSPENSION 30 ML CUP PO PRN (03:31)
[2021-07-04] MEDS ORDERED: ACETAMINOPHEN 325 MG TABLET (FP) PO PRN ×2 (03:31)
[2021-07-04] MEDS ORDERED: MENTHOL/PHENOL 1 EACH UD MM PRN (03:31)
[2021-07-04] MEDS ORDERED: IBUPROFEN 400 MG TABLET (FP) PO PRN (03:31)
[2021-07-04] MEDS ORDERED: DICYCLOMINE HCL 10 MG CAPSULE PO PRN (03:31)
[2021-07-04] MEDS: PRENATAL VITAMINS W/ FOLIC ACID TABLET (FP) PO SCH (10:00)
[2021-07-04] MEDS ORDERED: methaDONE HCL 10 MG TABLET (FOR DETOX USE ONLY) PO ONE (10:45)
[2021-07-04] MEDS: LORazepam 1 MG TABLET PO SCH ×2 (12:53→18:27)
[2021-07-04] MEDS: cloNIDine HCL 0.1 MG TABLET PO PRN ×2 (12:54→22:49)
[2021-07-04] MEDS: hydrOXYzine PAMOATE 25 MG CAPSULE (FP) PO PRN (18:27)
[2021-07-04] MEDS: THIAMINE HCL 100 MG TABLET (FP) PO SCH (22:47)
[2021-07-04] MEDS: QUEtiapine FUMARATE 200 MG TABLET PO SCH (22:47)
[2021-07-04] MEDS: LORazepam 1 MG TABLET PO PRN (22:50)
[2021-07-04] MEDS: MELATONIN 5 MG TABLETS PO SCH (23:27)
[2021-07-05] MEDS: LORazepam 1 MG TABLET PO SCH (01:13)
[2021-07-05] MEDS: LORazepam 0.5 MG TABLET PO SCH ×4 (06:44→23:01)
[2021-07-05] MEDS ORDERED: methaDONE HCL 10 MG TABLET (FOR DETOX USE ONLY) ONE (09:57)
[2021-07-05 10:12] LABS: HEMATOCRIT 39.6 % (35.4-49); HEMOGLOBIN 12.8 GM/dL (11.7-16.9); MCH 26.6 pg (25.7-33.7); MCHC 32.3 g/dl (32.0-35.9); MEAN CELL VOLUME 82.3 fl (80-96); MEAN PLT VOLUME 8.7 fl (7.5-11.1); PLATELET COUNT 233 10^3/uL (134-434); RBC 4.81 M/mm3 (4.00-5.60); RDW 14.5 % (11.9-15.9)
[2021-07-05 10:16] LABS: CALCIUM 8.9 mg/dL (8.5-10.1)
[2021-07-05 10:17] LABS: ALBUMIN 3.1 g/dl (3.4-5.0); BLOOD UREA NITROGEN 11.2 mg/dL (7-18)
[2021-07-05 10:20] LABS: CREATININE 0.8 mg/dL (0.55-1.3)
[2021-07-05 10:21] LABS: TOT PROT 7.2 g/dl (6.4-8.2)
[2021-07-05 10:22] LABS: BILIRUBIN,TOTAL 0.2 mg/dL (0.2-1)
[2021-07-05] MEDS: PRENATAL VITAMINS W/ FOLIC ACID TABLET (FP) PO SCH (10:28)
[2021-07-05] MEDS: cloNIDine HCL 0.1 MG TABLET PO PRN (10:30)
[2021-07-05] MEDS: QUEtiapine FUMARATE 200 MG TABLET PO SCH (23:01)
[2021-07-05] MEDS: MELATONIN 5 MG TABLETS PO SCH (23:01)
[2021-07-05] MEDS: THIAMINE HCL 100 MG TABLET (FP) PO SCH (23:45)
[2021-07-06] MEDS ORDERED: LORazepam 0.5 MG TABLET PO ONE (05:00)
[2021-07-06] MEDS ORDERED: methaDONE HCL 10 MG TABLET (FOR DETOX USE ONLY) PO ONE (10:00)
[2021-07-06] MEDS: PRENATAL VITAMINS W/ FOLIC ACID TABLET (FP) PO SCH (10:05)
[2021-07-06] MEDS: LORazepam 1 MG TABLET PO PRN ×2 (15:34→22:09)
[2021-07-06] MEDS: cloNIDine HCL 0.1 MG TABLET PO PRN (17:58)
[2021-07-06] MEDS: hydrOXYzine PAMOATE 25 MG CAPSULE (FP) PO PRN (17:59)
[2021-07-06] MEDS: QUEtiapine FUMARATE 200 MG TABLET PO SCH (22:09)
[2021-07-06] MEDS: THIAMINE HCL 100 MG TABLET (FP) PO SCH (22:09)
[2021-07-06] MEDS: MELATONIN 5 MG TABLETS PO SCH (23:19)
[2021-07-07] MEDS ORDERED: LORazepam 0.5 MG TABLET PO PRN
[2021-07-07 07:00] VITALS: TEMP 97.5
[2021-07-07] MEDS ORDERED: methaDONE HCL 10 MG TABLET (FOR DETOX USE ONLY) ONE (09:02)
[2021-07-07 10:03] VITALS: BP 103/76; PULSE 99
[2021-07-07] MEDS: PRENATAL VITAMINS W/ FOLIC ACID TABLET (FP) PO SCH (10:16)
[2021-07-08] MEDS ORDERED: methaDONE HCL 10 MG TABLET (FOR DETOX USE ONLY) PO ONE (10:00)
== END 2021-07-07 10:30 | disposition left against medical advice (07) | DRG 770 ==
LOC: MERGE 03:21 → Y6N 03:21
PROVIDERS: ADMIT Allergy & Immunology; ATTEND Allergy & Immunology
PROC: HZ2ZZZZ Detoxification Services for Substance Abuse Treatment (ICD-10-PCS; principal; 2021-07-04)
DX: F11.23 Opioid dependence with withdrawal (principal); F10.230 Alcohol dependence with withdrawal, uncomplicated; F13.230 Sedative, hypnotic or anxiolytic dependence with withdrawal, uncomplicated; F14.20 Cocaine dependence, uncomplicated; F17.210 Nicotine dependence, cigarettes, uncomplicated; F19.24 Other psychoactive substance dependence with psychoactive substance-induced mood disorder; F31.9 Bipolar disorder, unspecified; G47.00 Insomnia, unspecified; R73.09 Other abnormal glucose; R00.0 Tachycardia, unspecified; Z56.0 Unemployment, unspecified
CPT/HCPCS: 36415; 80053; 85027; 86780; 93005; 93010; C9803-CS; U0003; U0005

== ENCOUNTER 2022-05-14 22:54 | Inpatient (IN) | payer OTHER ==
[2022-05-14 23:49] VITALS: BMI 24.7
[2022-05-15] MEDS ORDERED: IBUPROFEN 400 MG TABLET (FP) PO PRN (00:38)
[2022-05-15] MEDS ORDERED: MAGNESIUM CITRATE 300 ML BOTTLE PO PRN (00:38)
[2022-05-15] MEDS ORDERED: MAG HYDROX/AL HYDROX/SIMETH 30 ML UNIT-DOSE CUP PO PRN (00:38)
[2022-05-15] MEDS ORDERED: METHOCARBAMOL 500 MG TABLET PO PRN (00:38)
[2022-05-15] MEDS ORDERED: NALOXONE HCL (KLOXXADO) 8 MG SPRAY NS PRN (00:38)
[2022-05-15] MEDS ORDERED: ONDANSETRON *ODT* 4 MG TABLET SL PRN (00:38)
[2022-05-15] MEDS ORDERED: BENZOCAINE/MENTHOL (CHLORASEPTIC ) LOZENGE MM PRN (00:38)
[2022-05-15] MEDS ORDERED: BISMUTH SUBSALICYLATE 524 MG/30 ML PO PRN (00:38)
[2022-05-15] MEDS ORDERED: MAGNESIUM HYDROX 2400MG/30ML ORAL SUSPENSION 30 ML CUP PO PRN (00:38)
[2022-05-15] MEDS ORDERED: ACETAMINOPHEN 325 MG TABLET (FP) PO PRN ×2 (00:38)
[2022-05-15] MEDS ORDERED: LOPERAMIDE HCL 2 MG CAPSULE PO PRN (00:38)
[2022-05-15] MEDS ORDERED: IBUPROFEN 600 MG TABLET (FP) PO PRN (00:38)
[2022-05-15] MEDS ORDERED: NICOTINE 10 MG CARTRIDGE (INHALER) IH PRN (00:38)
[2022-05-15] MEDS ORDERED: DICYCLOMINE HCL 10 MG CAPSULE PO PRN (00:38)
[2022-05-15] MEDS: hydrOXYzine PAMOATE 25 MG CAPSULE (FP) PO PRN (02:08)
[2022-05-15] MEDS ORDERED: cloNIDine HCL 0.1 MG TABLET PO PRN (10:10)
[2022-05-15] MEDS: PRENATAL VITAMINS W/ FOLIC ACID TABLET (FP) PO SCH (10:30)
[2022-05-15] MEDS: NICOTINE 14 MG/24 HOURS TOPICAL PATCH TD SCH (10:30)
[2022-05-15] MEDS: diazePAM 5 MG TABLET PO SCH ×3 (10:30→22:38)
[2022-05-15 12:13] LABS: HIV INTERPRETATION NEGATIVE (NEGATIVE)
[2022-05-15] MEDS: diazePAM 5 MG TABLET PO PRN (14:44)
[2022-05-15] MEDS ORDERED: THIAMINE HCL 100 MG TABLET (FP) PO SCH (22:00)
[2022-05-15] MEDS ORDERED: QUEtiapine FUMARATE 200 MG TABLET PO SCH (22:00)
[2022-05-15] MEDS ORDERED: MELATONIN 5 MG TABLETS PO SCH (22:00)
[2022-05-16 05:44] VITALS: RESP 18
[2022-05-16] MEDS: diazePAM 5 MG TABLET PO SCH ×2 (06:14→14:34)
[2022-05-16] MEDS ORDERED: methaDONE HCL 10 MG TABLET (FOR DETOX USE ONLY) PO ONE (10:00)
[2022-05-16] MEDS: PRENATAL VITAMINS W/ FOLIC ACID TABLET (FP) PO SCH (10:15)
[2022-05-16] MEDS: NICOTINE 14 MG/24 HOURS TOPICAL PATCH TD SCH (10:16)
[2022-05-16] MEDS: diazePAM 5 MG TABLET PO PRN (10:18)
[2022-05-16 11:24] LABS: HEMOGLOBIN 10.8 GM/dL (11.7-16.9); MCH 25.8 pg (25.7-33.7); MCHC 31.8 g/dl (32.0-35.9); MEAN PLT VOLUME 9.6 fl (7.5-11.1); PLATELET COUNT 214 10^3/uL (134-434); RDW 15.9 % (11.9-15.9); WHITE BLOOD COUNT 8.7 K/mm3 (4.0-10.0)
[2022-05-16] MEDS ORDERED: FLU VACC QS2022-23(6MOS UP)/PF 60 MCG/0.5 ML SYRINGE IM ONE (11:35)
[2022-05-16 11:42] LABS: CALCIUM 8.5 mg/dL (8.5-10.1)
[2022-05-16 11:43] LABS: ALBUMIN 3.4 g/dl (3.4-5.0); BLOOD UREA NITROGEN 13.5 mg/dL (7-18)
[2022-05-16 11:46] LABS: CREATININE 0.8 mg/dL (0.55-1.3)
[2022-05-16 11:48] LABS: BILIRUBIN,TOTAL 0.2 mg/dL (0.2-1); TOT PROT 6.8 g/dl (6.4-8.2)
[2022-05-16 12:56] VITALS: BP 90/56; PULSE 80; TEMP 97.5
[2022-05-16] MEDS: hydrOXYzine PAMOATE 25 MG CAPSULE (FP) PO PRN (14:12)
[2022-05-17] MEDS ORDERED: diazePAM 5 MG TABLET PO SCH (06:00)
[2022-05-18] MEDS ORDERED: diazePAM 5 MG TABLET PO ONE (06:00)
[2022-05-18] MEDS ORDERED: methaDONE HCL 10 MG TABLET (FOR DETOX USE ONLY) PO ONE (10:00)
== END 2022-05-16 17:00 | disposition left against medical advice (07) | DRG 770 ==
LOC: YASAS 22:54 → Y3N 05-15 01:39
PROVIDERS: ADMIT Allergy & Immunology; ATTEND Surgery
PROC: HZ2ZZZZ Detoxification Services for Substance Abuse Treatment (ICD-10-PCS; principal; 2022-05-15)
DX: F11.20 Opioid dependence, uncomplicated (principal); F13.20 Sedative, hypnotic or anxiolytic dependence, uncomplicated; F14.20 Cocaine dependence, uncomplicated; F10.20 Alcohol dependence, uncomplicated; F17.210 Nicotine dependence, cigarettes, uncomplicated; F19.282 Other psychoactive substance dependence with psychoactive substance-induced sleep disorder; F19.24 Other psychoactive substance dependence with psychoactive substance-induced mood disorder; F31.9 Bipolar disorder, unspecified; D64.9 Anemia, unspecified; K21.9 Gastro-esophageal reflux disease without esophagitis; Z86.19 Personal history of other infectious and parasitic diseases; Z56.0 Unemployment, unspecified; Z59.01 Sheltered homelessness
CPT/HCPCS: 36415; 80053; 85027; 86780; 87389; 87811; 93005; 93010; C9803-CS; U0003; U0005

== ENCOUNTER 2022-08-22 00:50 | Inpatient (IN) | payer OTHER ==
[2022-08-22 01:22] VITALS: BMI 25.7
[2022-08-22] MEDS ORDERED: IBUPROFEN 400 MG TABLET (FP) PO PRN (02:09)
[2022-08-22] MEDS ORDERED: POLYETHYLENE GLYCOL (HEALTHYLAX) 3350 17 GM PACKET PO PRN (02:09)
[2022-08-22] MEDS ORDERED: cloNIDine HCL 0.1 MG TABLET PO PRN (02:09)
[2022-08-22] MEDS ORDERED: BENZOCAINE/MENTHOL (CHLORASEPTIC ) LOZENGE MM PRN (02:09)
[2022-08-22] MEDS ORDERED: ONDANSETRON *ODT* 4 MG TABLET SL PRN (02:09)
[2022-08-22] MEDS ORDERED: NICOTINE 10 MG CARTRIDGE (INHALER) IH PRN (02:09)
[2022-08-22] MEDS ORDERED: IBUPROFEN 600 MG TABLET (FP) PO PRN (02:09)
[2022-08-22] MEDS ORDERED: BISMUTH SUBSALICYLATE 524 MG/30 ML PO PRN (02:09)
[2022-08-22] MEDS ORDERED: MAG HYDROX/AL HYDROX/SIMETH 30 ML UNIT-DOSE CUP PO PRN (02:09)
[2022-08-22] MEDS ORDERED: DICYCLOMINE HCL 10 MG CAPSULE PO PRN (02:09)
[2022-08-22] MEDS ORDERED: LOPERAMIDE HCL 2 MG CAPSULE PO PRN (02:09)
[2022-08-22] MEDS ORDERED: chlordiazePOXIDE HCL 25 MG CAPSULE PO PRN (02:09)
[2022-08-22] MEDS ORDERED: MAGNESIUM HYDROX 2400MG/30ML ORAL SUSPENSION 30 ML CUP PO PRN (02:09)
[2022-08-22] MEDS ORDERED: ACETAMINOPHEN 325 MG TABLET (FP) PO PRN ×2 (02:09)
[2022-08-22] MEDS ORDERED: NALOXONE HCL (KLOXXADO) 8 MG SPRAY NS PRN (02:09)
[2022-08-22] MEDS ORDERED: methaDONE HCL 10 MG TABLET (FOR DETOX USE ONLY) PO ONE (03:00)
[2022-08-22] MEDS ORDERED: chlordiazePOXIDE HCL 25 MG CAPSULE PO SCH (05:00)
[2022-08-22] MEDS: diazePAM 5 MG TABLET PO SCH ×4 (05:33→22:29)
[2022-08-22] MEDS: PRENATAL VITAMINS W/ FOLIC ACID TABLET (FP) PO SCH (10:34)
[2022-08-22] MEDS: NICOTINE 14 MG/24 HOURS TOPICAL PATCH TD SCH (10:34)
[2022-08-22] MEDS: diazePAM 5 MG TABLET PO PRN (14:23)
[2022-08-22] MEDS: THIAMINE HCL 100 MG TABLET (FP) PO SCH (22:28)
[2022-08-22] MEDS: MELATONIN 5 MG TABLETS PO SCH (22:28)
[2022-08-22] MEDS: QUEtiapine FUMARATE 50 MG TABLET PO PRN (22:28)
[2022-08-23] MEDS ORDERED: chlordiazePOXIDE HCL 25 MG CAPSULE PO SCH (05:00)
[2022-08-23] MEDS: diazePAM 5 MG TABLET PO SCH ×3 (05:40→22:20)
[2022-08-23] MEDS: NICOTINE 14 MG/24 HOURS TOPICAL PATCH TD SCH (10:32)
[2022-08-23] MEDS: PRENATAL VITAMINS W/ FOLIC ACID TABLET (FP) PO SCH (10:32)
[2022-08-23] MEDS: diazePAM 5 MG TABLET PO PRN ×2 (12:04→17:52)
[2022-08-23 12:24] LABS: CALCIUM 8.9 mg/dL (8.5-10.1)
[2022-08-23 12:26] LABS: BLOOD UREA NITROGEN 15.8 mg/dL (7-18); CREATININE 0.8 mg/dL (0.55-1.3)
[2022-08-23 12:27] LABS: ALBUMIN 3.3 g/dl (3.4-5.0)
[2022-08-23 12:29] LABS: BILIRUBIN,TOTAL 0.1 mg/dL (0.2-1); TOT PROT 6.9 g/dl (6.4-8.2)
[2022-08-23 12:40] LABS: HEMATOCRIT 36.8 % (35.4-49); HEMOGLOBIN 11.8 GM/dL (11.7-16.9); MCH 25.9 pg (25.7-33.7); MCHC 32.1 g/dl (32.0-35.9); MEAN CELL VOLUME 80.5 fl (80-96); MEAN PLT VOLUME 8.9 fl (7.5-11.1); PLATELET COUNT 198 10^3/uL (134-434); RBC 4.57 M/mm3 (4.00-5.60); RDW 15.2 % (11.9-15.9); WHITE BLOOD COUNT 5.9 K/mm3 (4.0-10.0)
[2022-08-23] MEDS: THIAMINE HCL 100 MG TABLET (FP) PO SCH (22:19)
[2022-08-23] MEDS: QUEtiapine FUMARATE 50 MG TABLET PO PRN (22:19)
[2022-08-23] MEDS: MELATONIN 5 MG TABLETS PO SCH (22:20)
[2022-08-24] MEDS ORDERED: chlordiazePOXIDE HCL 10 MG CAPSULE PO PRN
[2022-08-24] MEDS: diazePAM 5 MG TABLET PO PRN ×3 (03:26→20:23)
[2022-08-24] MEDS ORDERED: chlordiazePOXIDE HCL 10 MG CAPSULE PO SCH (05:00)
[2022-08-24] MEDS: diazePAM 5 MG TABLET PO SCH ×2 (05:23→17:54)
[2022-08-24] MEDS ORDERED: methaDONE HCL 10 MG TABLET (FOR DETOX USE ONLY) PO ONE (10:00)
[2022-08-24] MEDS: METHOCARBAMOL 500 MG TABLET PO PRN (10:16)
[2022-08-24] MEDS: PRENATAL VITAMINS W/ FOLIC ACID TABLET (FP) PO SCH (10:16)
[2022-08-24] MEDS: NICOTINE 14 MG/24 HOURS TOPICAL PATCH TD SCH (10:16)
[2022-08-24] MEDS: MELATONIN 5 MG TABLETS PO SCH (22:28)
[2022-08-24] MEDS: THIAMINE HCL 100 MG TABLET (FP) PO SCH (22:28)
[2022-08-24] MEDS: QUEtiapine FUMARATE 50 MG TABLET PO PRN (22:28)
[2022-08-25] MEDS: METHOCARBAMOL 500 MG TABLET PO PRN (04:41)
[2022-08-25] MEDS ORDERED: chlordiazePOXIDE HCL 10 MG CAPSULE PO SCH (05:00)
[2022-08-25] MEDS ORDERED: diazePAM 5 MG TABLET PO ONE (06:00)
[2022-08-25 06:33] VITALS: RESP 18
[2022-08-25 09:48] VITALS: BP 102/61; PULSE 82; TEMP 97.6
[2022-08-25] MEDS ORDERED: NALOXONE HCL (KLOXXADO) 8 MG SPRAY NS ONE (10:00)
[2022-08-25] MEDS: PRENATAL VITAMINS W/ FOLIC ACID TABLET (FP) PO SCH (10:09)
[2022-08-25] MEDS: NICOTINE 14 MG/24 HOURS TOPICAL PATCH TD SCH (10:09)
[2022-08-26] MEDS ORDERED: chlordiazePOXIDE HCL 10 MG CAPSULE PO ONE (05:00)
[2022-08-26] MEDS ORDERED: methaDONE HCL 10 MG TABLET (FOR DETOX USE ONLY) PO ONE (10:00)
== END 2022-08-25 10:03 | disposition left against medical advice (07) | DRG 770 ==
LOC: YASAS 00:50 → Y6N 02:36
PROVIDERS: ADMIT Allergy & Immunology; ATTEND Allergy & Immunology
PROC: HZ2ZZZZ Detoxification Services for Substance Abuse Treatment (ICD-10-PCS; principal; 2022-08-22)
DX: F11.23 Opioid dependence with withdrawal (principal); F10.230 Alcohol dependence with withdrawal, uncomplicated; F14.20 Cocaine dependence, uncomplicated; F17.210 Nicotine dependence, cigarettes, uncomplicated; F19.282 Other psychoactive substance dependence with psychoactive substance-induced sleep disorder; F19.24 Other psychoactive substance dependence with psychoactive substance-induced mood disorder; F31.81 Bipolar II disorder; K21.9 Gastro-esophageal reflux disease without esophagitis; Z56.0 Unemployment, unspecified; Z59.01 Sheltered homelessness
CPT/HCPCS: 36415; 80053; 85027; 86780; 87811; C9803-CS; U0003; U0005

== ENCOUNTER 2022-09-16 21:15 | Inpatient (IN) | payer OTHER ==
[~2022-09-16 21:15] MED LIST: QUEtiapine FUMARATE 100 MG TABLET (FP) PO ONE
[2022-09-16 21:59] VITALS: BMI 27.6
[2022-09-16] MEDS ORDERED: MAGNESIUM HYDROX 2400MG/30ML ORAL SUSPENSION 30 ML CUP PO PRN (23:37)
[2022-09-16] MEDS ORDERED: BISMUTH SUBSALICYLATE 524 MG/30 ML PO PRN (23:37)
[2022-09-16] MEDS ORDERED: IBUPROFEN 600 MG TABLET (FP) PO PRN (23:37)
[2022-09-16] MEDS ORDERED: guaiFENesin 200 MG/10 ML 10 ML UNIT-DOSE CUPS PO PRN (23:37)
[2022-09-16] MEDS ORDERED: POLYETHYLENE GLYCOL (HEALTHYLAX) 3350 17 GM PACKET PO PRN (23:37)
[2022-09-16] MEDS ORDERED: ONDANSETRON *ODT* 4 MG TABLET SL PRN (23:37)
[2022-09-16] MEDS ORDERED: DICYCLOMINE HCL 10 MG CAPSULE PO PRN (23:37)
[2022-09-16] MEDS ORDERED: LOPERAMIDE HCL 2 MG CAPSULE PO PRN (23:37)
[2022-09-16] MEDS ORDERED: BENZOCAINE/MENTHOL (CHLORASEPTIC ) LOZENGE MM PRN (23:37)
[2022-09-16] MEDS ORDERED: P-EPHED 60MG/TRIPROLIDI 2.5MG TABLET PO PRN (23:37)
[2022-09-16] MEDS ORDERED: IBUPROFEN 400 MG TABLET (FP) PO PRN (23:37)
[2022-09-16] MEDS ORDERED: ACETAMINOPHEN 325 MG TABLET (FP) PO PRN ×2 (23:37)
[2022-09-16] MEDS ORDERED: MELATONIN 5 MG TABLETS PO PRN (23:37)
[2022-09-16] MEDS ORDERED: MAG HYDROX/AL HYDROX/SIMETH 30 ML UNIT-DOSE CUP PO PRN (23:37)
[2022-09-16] MEDS ORDERED: NALOXONE HCL (KLOXXADO) 8 MG SPRAY NS PRN (23:37)
[2022-09-16] MEDS ORDERED: NALOXONE HCL 0.4 MG/ML VIAL IM PRN (23:37)
[2022-09-16] MEDS ORDERED: cloNIDine HCL 0.1 MG TABLET PO PRN (23:40)
[2022-09-16] MEDS ORDERED: methaDONE HCL 10 MG TABLET (FOR DETOX USE ONLY) PO ONE (23:40)
[2022-09-17] MEDS ORDERED: diazePAM 5 MG TABLET ONE ×3 (02:10→10:33)
[2022-09-17] MEDS: diazePAM 5 MG TABLET PO PRN ×3 (02:14→20:23)
[2022-09-17] MEDS ORDERED: QUEtiapine FUMARATE 100 MG TABLET (FP) PO ONE (02:15)
[2022-09-17] MEDS: diazePAM 5 MG TABLET PO SCH ×5 (02:20→22:50)
[2022-09-17] MEDS ORDERED: methaDONE HCL 10 MG TABLET (FOR DETOX USE ONLY) PO ONE (08:28)
[2022-09-17] MEDS ORDERED: methaDONE HCL 10 MG TABLET (FOR DETOX USE ONLY) ONE (08:37)
[2022-09-17] MEDS ORDERED: NICOTINE 7 MG/24 HOURS TOPICAL PATCH TD ONE (10:34)
[2022-09-17] MEDS: NICOTINE 7 MG/24 HOURS TOPICAL PATCH TD SCH (10:40)
[2022-09-17] MEDS: PRENATAL VITAMINS W/ FOLIC ACID TABLET (FP) PO SCH (10:41)
[2022-09-17] MEDS: METHOCARBAMOL 500 MG TABLET PO PRN (13:06)
[2022-09-17 15:08] LABS: ALBUMIN 3.4 g/dl (3.4-5.0); BLOOD UREA NITROGEN 12.8 mg/dL (7-18); CALCIUM 8.6 mg/dL (8.5-10.1)
[2022-09-17 15:11] LABS: CREATININE 0.7 mg/dL (0.55-1.3)
[2022-09-17 15:12] LABS: BASO % 0.9 % (0-2.0); EOS % 2.9 % (0-4.5); HEMATOCRIT 35.9 % (35.4-49); HEMOGLOBIN 11.7 GM/dL (11.7-16.9); LYMPH % 34.7 % (8-40); MCH 25.6 pg (25.7-33.7); MCHC 32.6 g/dl (32.0-35.9); MEAN CELL VOLUME 78.5 fl (80-96); MEAN PLT VOLUME 8.9 fl (7.5-11.1); MONO % 9.3 % (3.8-10.2); NEUT % 52.2 % (42.8-82.8); PLATELET COUNT 236 10^3/uL (134-434); RBC 4.57 M/mm3 (4.00-5.60); RDW 15.3 % (11.9-15.9); WHITE BLOOD COUNT 7.3 K/mm3 (4.0-10.0)
[2022-09-17 15:13] LABS: BILIRUBIN,TOTAL 0.3 mg/dL (0.2-1); TOT PROT 7.4 g/dl (6.4-8.2)
[2022-09-17] MEDS: THIAMINE HCL 100 MG TABLET (FP) PO SCH (22:07)
[2022-09-17] MEDS: QUEtiapine FUMARATE 200 MG TABLET PO SCH (22:07)
[2022-09-18] MEDS: diazePAM 5 MG TABLET PO SCH ×3 (05:51→22:02)
[2022-09-18] MEDS ORDERED: methaDONE HCL 10 MG TABLET (FOR DETOX USE ONLY) PO ONE (10:00)
[2022-09-18] MEDS: diazePAM 5 MG TABLET PO PRN ×2 (10:10→16:32)
[2022-09-18] MEDS: METHOCARBAMOL 500 MG TABLET PO PRN ×2 (10:11→22:02)
[2022-09-18] MEDS: NICOTINE 7 MG/24 HOURS TOPICAL PATCH TD SCH (10:12)
[2022-09-18] MEDS: PRENATAL VITAMINS W/ FOLIC ACID TABLET (FP) PO SCH (10:13)
[2022-09-18] MEDS: NICOTINE 10 MG CARTRIDGE (INHALER) IH PRN ×2 (14:36→22:03)
[2022-09-18] MEDS ORDERED: diazePAM 5 MG TABLET PO ONE (19:26)
[2022-09-18] MEDS: THIAMINE HCL 100 MG TABLET (FP) PO SCH (22:02)
[2022-09-18] MEDS: QUEtiapine FUMARATE 200 MG TABLET PO SCH (22:02)
[2022-09-19] MEDS: diazePAM 5 MG TABLET PO SCH ×2 (05:31→17:37)
[2022-09-19] MEDS: PRENATAL VITAMINS W/ FOLIC ACID TABLET (FP) PO SCH (11:32)
[2022-09-19] MEDS: NICOTINE 7 MG/24 HOURS TOPICAL PATCH TD SCH (11:33)
[2022-09-19] MEDS: diazePAM 5 MG TABLET PO PRN ×2 (11:56→22:07)
[2022-09-19] MEDS: NICOTINE 10 MG CARTRIDGE (INHALER) IH PRN (13:07)
[2022-09-19] MEDS: METHOCARBAMOL 500 MG TABLET PO PRN (14:49)
[2022-09-19] MEDS: QUEtiapine FUMARATE 200 MG TABLET PO SCH (22:03)
[2022-09-19] MEDS: THIAMINE HCL 100 MG TABLET (FP) PO SCH (22:03)
[2022-09-20] MEDS ORDERED: diazePAM 5 MG TABLET PO ONE (06:00)
[2022-09-20] MEDS ORDERED: methaDONE HCL 10 MG TABLET (FOR DETOX USE ONLY) PO ONE (10:00)
[2022-09-20] MEDS: PRENATAL VITAMINS W/ FOLIC ACID TABLET (FP) PO SCH (10:07)
[2022-09-20] MEDS: NICOTINE 7 MG/24 HOURS TOPICAL PATCH TD SCH (10:08)
[2022-09-20] MEDS: METHOCARBAMOL 500 MG TABLET PO PRN ×2 (10:11→17:55)
[2022-09-20] MEDS: NICOTINE 10 MG CARTRIDGE (INHALER) IH PRN (20:44)
[2022-09-20] MEDS: THIAMINE HCL 100 MG TABLET (FP) PO SCH (21:59)
[2022-09-20] MEDS: QUEtiapine FUMARATE 200 MG TABLET PO SCH (22:00)
[2022-09-21] MEDS ORDERED: diazePAM 5 MG TABLET PO ONE (06:00)
[2022-09-21 09:38] VITALS: BP 130/81; PULSE 104; RESP 18; TEMP 98.9
[2022-09-21] MEDS: NICOTINE 7 MG/24 HOURS TOPICAL PATCH TD SCH (10:27)
[2022-09-21] MEDS: PRENATAL VITAMINS W/ FOLIC ACID TABLET (FP) PO SCH (10:27)
== END 2022-09-21 10:29 | disposition home or self-care (01) | DRG 773 ==
LOC: YASAS 21:15 → Y6N 09-17 12:25
PROVIDERS: ADMIT Allergy & Immunology; ATTEND Surgery
PROC: HZ2ZZZZ Detoxification Services for Substance Abuse Treatment (ICD-10-PCS; principal; 2022-09-17)
DX: F11.23 Opioid dependence with withdrawal (principal); F10.20 Alcohol dependence, uncomplicated; F14.20 Cocaine dependence, uncomplicated; F13.20 Sedative, hypnotic or anxiolytic dependence, uncomplicated; F17.210 Nicotine dependence, cigarettes, uncomplicated; F19.282 Other psychoactive substance dependence with psychoactive substance-induced sleep disorder; F31.9 Bipolar disorder, unspecified; Z86.19 Personal history of other infectious and parasitic diseases
CPT/HCPCS: 36415; 80053; 85025; 86780; 87811; C9803-CS; U0003; U0005

== ENCOUNTER 2023-01-18 19:14 | Inpatient (IN) | payer OTHER ==
[2023-01-18 20:02] VITALS: BMI 25.9
[2023-01-18] MEDS ORDERED: BENZONATATE 200 MG CAPSULE PO PRN (20:58)
[2023-01-18] MEDS ORDERED: DICYCLOMINE HCL 10 MG CAPSULE PO PRN (20:58)
[2023-01-18] MEDS ORDERED: P-EPHED 60MG/TRIPROLIDI 2.5MG TABLET PO PRN (20:58)
[2023-01-18] MEDS ORDERED: POLYETHYLENE GLYCOL (HEALTHYLAX) 3350 17 GM PACKET PO PRN (20:58)
[2023-01-18] MEDS ORDERED: guaiFENesin 600 MG TABLET.ER (FP) PO PRN (20:58)
[2023-01-18] MEDS ORDERED: LOPERAMIDE HCL 2 MG CAPSULE PO PRN (20:58)
[2023-01-18] MEDS ORDERED: MAG HYDROX/AL HYDROX/SIMETH 30 ML UNIT-DOSE CUP PO PRN (20:58)
[2023-01-18] MEDS ORDERED: BISMUTH SUBSALICYLATE 524 MG/30 ML PO PRN (20:58)
[2023-01-18] MEDS ORDERED: ACETAMINOPHEN 325 MG TABLET (FP) PO PRN (20:58)
[2023-01-18] MEDS ORDERED: MAGNESIUM HYDROX 2400MG/30ML ORAL SUSPENSION 30 ML CUP PO PRN (20:58)
[2023-01-18] MEDS ORDERED: ONDANSETRON *ODT* 4 MG TABLET SL PRN (20:58)
[2023-01-18] MEDS ORDERED: BENZOCAINE/MENTHOL (CHLORASEPTIC ) LOZENGE MM PRN (20:58)
[2023-01-18] MEDS ORDERED: IBUPROFEN 400 MG TABLET (FP) PO PRN (20:58)
[2023-01-18] MEDS ORDERED: IBUPROFEN 600 MG TABLET (FP) PO PRN (20:58)
[2023-01-18] MEDS ORDERED: cloNIDine HCL 0.1 MG TABLET PO PRN (21:02)
[2023-01-18] MEDS ORDERED: QUEtiapine FUMARATE 200 MG TABLET PO ONE (22:00)
[2023-01-18] MEDS: THIAMINE HCL 100 MG TABLET (FP) PO SCH (22:03)
[2023-01-18] MEDS: MELATONIN 5 MG TABLETS PO SCH (22:05)
[2023-01-19] MEDS: NICOTINE 14 MG/24 HOURS TOPICAL PATCH TD SCH (10:26)
[2023-01-19] MEDS: PRENATAL VITAMINS W/ FOLIC ACID TABLET (FP) PO SCH (10:28)
[2023-01-19] MEDS ORDERED: cloNIDine HCL 0.1 MG TABLET PO PRN (10:34)
[2023-01-19] MEDS ORDERED: methaDONE HCL 10 MG TABLET (FOR DETOX USE ONLY) PO ONE (11:00)
[2023-01-19] MEDS ORDERED: diazePAM 5 MG TABLET PO PRN (11:05)
[2023-01-19 11:10] LABS: HEMATOCRIT 35.8 % (35.4-49); HEMOGLOBIN 11.7 GM/dL (11.7-16.9); MCH 25.6 pg (25.7-33.7); MCHC 32.6 g/dl (32.0-35.9); MEAN CELL VOLUME 78.7 fl (80-96); PLATELET COUNT 182 10^3/uL (134-434); RBC 4.55 M/mm3 (4.00-5.60); RDW 14.4 % (11.9-15.9); WHITE BLOOD COUNT 7.2 K/mm3 (4.0-10.0)
[2023-01-19] MEDS: METHOCARBAMOL 500 MG TABLET PO PRN (11:22)
[2023-01-19] MEDS: hydrOXYzine PAMOATE 25 MG CAPSULE (FP) PO PRN (11:22)
[2023-01-19 11:51] LABS: POTASSIUM 4.2 mmol/L (3.5-5.1)
[2023-01-19 11:58] LABS: ALBUMIN 3.4 g/dl (3.4-5.0); CALCIUM 9.3 mg/dL (8.5-10.1)
[2023-01-19 12:01] LABS: CREATININE 0.8 mg/dL (0.55-1.3)
[2023-01-19 12:03] LABS: BILIRUBIN,TOTAL 0.2 mg/dL (0.2-1); TOT PROT 7.2 g/dl (6.4-8.2)
[2023-01-19] MEDS: diazePAM 5 MG TABLET PO SCH ×2 (17:24→22:13)
[2023-01-19] MEDS: THIAMINE HCL 100 MG TABLET (FP) PO SCH (22:13)
[2023-01-19] MEDS: MELATONIN 5 MG TABLETS PO SCH (23:23)
[2023-01-19] MEDS ORDERED: QUEtiapine FUMARATE 200 MG TABLET PO ONE (23:32)
[2023-01-20] MEDS: diazePAM 5 MG TABLET PO SCH ×4 (05:42→23:40)
[2023-01-20] MEDS: hydrOXYzine PAMOATE 25 MG CAPSULE (FP) PO PRN (10:36)
[2023-01-20] MEDS: PRENATAL VITAMINS W/ FOLIC ACID TABLET (FP) PO SCH (10:36)
[2023-01-20] MEDS: METHOCARBAMOL 500 MG TABLET PO PRN (10:36)
[2023-01-20] MEDS: NICOTINE 14 MG/24 HOURS TOPICAL PATCH TD SCH (10:38)
[2023-01-20] MEDS: diazePAM 5 MG TABLET PO PRN ×2 (13:48→19:31)
[2023-01-20] MEDS ORDERED: QUEtiapine FUMARATE 200 MG TABLET PO SCH (22:00)
[2023-01-20] MEDS: THIAMINE HCL 100 MG TABLET (FP) PO SCH (22:03)
[2023-01-20] MEDS: MELATONIN 5 MG TABLETS PO SCH (23:39)
[2023-01-21 02:20] VITALS: RESP 18
[2023-01-21] MEDS ORDERED: hydrOXYzine PAMOATE 50 MG CAPSULE (FP) PO ONE (02:29)
[2023-01-21] MEDS: METHOCARBAMOL 500 MG TABLET PO PRN (03:08)
[2023-01-21] MEDS ORDERED: diazePAM 5 MG TABLET PO SCH (06:00)
[2023-01-21 09:28] VITALS: BP 116/87; PULSE 94; TEMP 96.9
[2023-01-21] MEDS ORDERED: methaDONE HCL 10 MG TABLET (FOR DETOX USE ONLY) PO ONE (10:00)
[2023-01-21] MEDS: PRENATAL VITAMINS W/ FOLIC ACID TABLET (FP) PO SCH (10:58)
[2023-01-21] MEDS: NICOTINE 14 MG/24 HOURS TOPICAL PATCH TD SCH (10:58)
[2023-01-22] MEDS ORDERED: diazePAM 5 MG TABLET PO SCH (06:00)
[2023-01-23] MEDS ORDERED: diazePAM 5 MG TABLET PO ONE (06:00)
[2023-01-23] MEDS ORDERED: methaDONE HCL 10 MG TABLET (FOR DETOX USE ONLY) PO ONE (10:00)
== END 2023-01-21 11:20 | disposition left against medical advice (07) | DRG 770 ==
LOC: YASAS 19:14 → Y6N 21:21
PROVIDERS: ADMIT Allergy & Immunology; ATTEND Surgery
PROC: HZ2ZZZZ Detoxification Services for Substance Abuse Treatment (ICD-10-PCS; principal; 2023-01-18)
DX: F11.23 Opioid dependence with withdrawal (principal); F10.230 Alcohol dependence with withdrawal, uncomplicated; F14.20 Cocaine dependence, uncomplicated; F17.210 Nicotine dependence, cigarettes, uncomplicated; F19.280 Other psychoactive substance dependence with psychoactive substance-induced anxiety disorder; F19.282 Other psychoactive substance dependence with psychoactive substance-induced sleep disorder; F19.24 Other psychoactive substance dependence with psychoactive substance-induced mood disorder; F31.81 Bipolar II disorder; H55.00 Unspecified nystagmus; M54.50 Low back pain, unspecified; G89.29 Other chronic pain; R56.9 Unspecified convulsions; Z86.19 Personal history of other infectious and parasitic diseases; Z59.00 Homelessness unspecified; Z56.0 Unemployment, unspecified
CPT/HCPCS: 36415; 80053; 83036; 85027; 86780; 87635; 87811

== ENCOUNTER 2023-02-23 21:48 | Inpatient (IN) | payer OTHER ==
[2023-02-23 23:34] VITALS: BMI 26.6
[2023-02-24] MEDS ORDERED: guaiFENesin 600 MG TABLET.ER (FP) PO PRN (00:31)
[2023-02-24] MEDS ORDERED: ACETAMINOPHEN 325 MG TABLET (FP) PO PRN (00:31)
[2023-02-24] MEDS ORDERED: IBUPROFEN 400 MG TABLET (FP) PO PRN (00:31)
[2023-02-24] MEDS ORDERED: hydrOXYzine PAMOATE 25 MG CAPSULE (FP) PO PRN (00:31)
[2023-02-24] MEDS ORDERED: MAG HYDROX/AL HYDROX/SIMETH 30 ML UNIT-DOSE CUP PO PRN (00:31)
[2023-02-24] MEDS ORDERED: P-EPHED 60MG/TRIPROLIDI 2.5MG TABLET PO PRN (00:31)
[2023-02-24] MEDS ORDERED: NALOXONE HCL 0.4 MG/ML VIAL IM PRN (00:31)
[2023-02-24] MEDS ORDERED: NALOXONE HCL (KLOXXADO) 8 MG SPRAY NS PRN (00:31)
[2023-02-24] MEDS ORDERED: LOPERAMIDE HCL 2 MG CAPSULE PO PRN (00:31)
[2023-02-24] MEDS ORDERED: IBUPROFEN 600 MG TABLET (FP) PO PRN (00:31)
[2023-02-24] MEDS ORDERED: MAGNESIUM HYDROX 2400MG/30ML ORAL SUSPENSION 30 ML CUP PO PRN (00:31)
[2023-02-24] MEDS ORDERED: ONDANSETRON *ODT* 4 MG TABLET SL PRN (00:31)
[2023-02-24] MEDS ORDERED: NICOTINE POLACRILEX 2 MG GUM BUC PRN (00:31)
[2023-02-24] MEDS ORDERED: POLYETHYLENE GLYCOL (HEALTHYLAX) 3350 17 GM PACKET PO PRN (00:31)
[2023-02-24] MEDS ORDERED: BENZOCAINE/MENTHOL (CHLORASEPTIC ) LOZENGE MM PRN (00:31)
[2023-02-24] MEDS ORDERED: BENZONATATE 200 MG CAPSULE PO PRN (00:31)
[2023-02-24] MEDS ORDERED: DICYCLOMINE HCL 10 MG CAPSULE PO PRN (00:31)
[2023-02-24] MEDS ORDERED: BISMUTH SUBSALICYLATE 524 MG/30 ML PO PRN (00:31)
[2023-02-24] MEDS ORDERED: chlordiazePOXIDE HCL 25 MG CAPSULE PO PRN (00:32)
[2023-02-24] MEDS ORDERED: chlordiazePOXIDE HCL 25 MG CAPSULE PO ONE (00:32)
[2023-02-24] MEDS ORDERED: methaDONE HCL 10 MG TABLET (FOR DETOX USE ONLY) PO ONE ×2 (00:33→10:49)
[2023-02-24] MEDS ORDERED: cloNIDine HCL 0.1 MG TABLET PO PRN (00:33)
[2023-02-24] MEDS ORDERED: methaDONE HCL 10 MG TABLET (FOR DETOX USE ONLY) ONE (02:27)
[2023-02-24] MEDS ORDERED: chlordiazePOXIDE HCL 25 MG CAPSULE ONE (02:27)
[2023-02-24] MEDS ORDERED: chlordiazePOXIDE HCL 25 MG CAPSULE PO SCH (05:00)
[2023-02-24] MEDS: diazePAM 5 MG TABLET PO SCH ×3 (10:17→22:17)
[2023-02-24] MEDS: PRENATAL VITAMINS W/ FOLIC ACID TABLET (FP) PO SCH (10:17)
[2023-02-24] MEDS: diazePAM 5 MG TABLET PO PRN ×2 (13:11→20:15)
[2023-02-24] MEDS ORDERED: MELATONIN 5 MG TABLETS PO SCH (22:00)
[2023-02-24] MEDS: THIAMINE HCL 100 MG TABLET (FP) PO SCH (22:17)
[2023-02-24] MEDS: QUEtiapine FUMARATE 200 MG TABLET PO SCH (22:17)
[2023-02-25] MEDS ORDERED: chlordiazePOXIDE HCL 25 MG CAPSULE PO SCH (05:00)
[2023-02-25] MEDS: diazePAM 5 MG TABLET PO SCH ×4 (05:29→22:14)
[2023-02-25] MEDS: PRENATAL VITAMINS W/ FOLIC ACID TABLET (FP) PO SCH (10:26)
[2023-02-25] MEDS: diazePAM 5 MG TABLET PO PRN ×2 (12:58→19:53)
[2023-02-25 15:20] LABS: MCH 26.6 pg (25.7-33.7); MCHC 32.5 g/dl (32.0-35.9); MEAN CELL VOLUME 81.6 fl (80-96); MEAN PLT VOLUME 9.5 fl (7.5-11.1); PLATELET COUNT 209 10^3/uL (134-434); POTASSIUM 4.6 mmol/L (3.5-5.1); RDW 14.7 % (11.9-15.9); WHITE BLOOD COUNT 6.2 K/mm3 (4.0-10.0)
[2023-02-25 15:26] LABS: ALBUMIN 3.9 g/dl (3.4-5.0); BLOOD UREA NITROGEN 14.7 mg/dL (7-18); CALCIUM 8.9 mg/dL (8.5-10.1)
[2023-02-25 15:29] LABS: CREATININE 0.8 mg/dL (0.55-1.3)
[2023-02-25 15:31] LABS: BILIRUBIN,TOTAL 0.6 mg/dL (0.2-1); TOT PROT 7.8 g/dl (6.4-8.2)
[2023-02-25] MEDS: THIAMINE HCL 100 MG TABLET (FP) PO SCH (22:14)
[2023-02-25] MEDS: QUEtiapine FUMARATE 200 MG TABLET PO SCH (22:14)
[2023-02-26] MEDS ORDERED: chlordiazePOXIDE HCL 10 MG CAPSULE PO PRN
[2023-02-26] MEDS: diazePAM 5 MG TABLET PO PRN ×3 (01:18→17:44)
[2023-02-26] MEDS: METHOCARBAMOL 500 MG TABLET PO PRN (01:18)
[2023-02-26] MEDS ORDERED: chlordiazePOXIDE HCL 10 MG CAPSULE PO SCH (05:00)
[2023-02-26] MEDS: diazePAM 5 MG TABLET PO SCH ×3 (05:44→22:06)
[2023-02-26] MEDS ORDERED: methaDONE HCL 10 MG TABLET (FOR DETOX USE ONLY) PO ONE (10:00)
[2023-02-26] MEDS: PRENATAL VITAMINS W/ FOLIC ACID TABLET (FP) PO SCH (10:31)
[2023-02-26] MEDS: QUEtiapine FUMARATE 200 MG TABLET PO SCH (22:05)
[2023-02-26] MEDS: THIAMINE HCL 100 MG TABLET (FP) PO SCH (22:05)
[2023-02-27] MEDS: diazePAM 5 MG TABLET PO PRN ×2 (00:37→08:37)
[2023-02-27] MEDS ORDERED: chlordiazePOXIDE HCL 10 MG CAPSULE PO SCH (05:00)
[2023-02-27] MEDS: METHOCARBAMOL 500 MG TABLET PO PRN (05:07)
[2023-02-27] MEDS ORDERED: diazePAM 5 MG TABLET PO SCH (06:00)
[2023-02-27 09:15] VITALS: BP 107/66; PULSE 73; RESP 16; TEMP 97.1
[2023-02-27] MEDS: PRENATAL VITAMINS W/ FOLIC ACID TABLET (FP) PO SCH (10:05)
[2023-02-28] MEDS ORDERED: chlordiazePOXIDE HCL 10 MG CAPSULE PO ONE (05:00)
[2023-02-28] MEDS ORDERED: diazePAM 5 MG TABLET PO ONE (06:00)
[2023-02-28] MEDS ORDERED: methaDONE HCL 10 MG TABLET (FOR DETOX USE ONLY) PO ONE (10:00)
== END 2023-02-27 11:45 | disposition left against medical advice (07) | DRG 770 ==
LOC: YASAS 21:48 → Y3N 02-24 02:39
PROVIDERS: ADMIT Allergy & Immunology; ATTEND Allergy & Immunology
PROC: HZ2ZZZZ Detoxification Services for Substance Abuse Treatment (ICD-10-PCS; principal; 2023-02-24)
DX: F11.23 Opioid dependence with withdrawal (principal); F10.230 Alcohol dependence with withdrawal, uncomplicated; F13.230 Sedative, hypnotic or anxiolytic dependence with withdrawal, uncomplicated; F17.210 Nicotine dependence, cigarettes, uncomplicated; F19.282 Other psychoactive substance dependence with psychoactive substance-induced sleep disorder; F31.9 Bipolar disorder, unspecified; Z86.19 Personal history of other infectious and parasitic diseases
CPT/HCPCS: 36415; 80053; 85027; 86780; 87635; 87811

== ENCOUNTER 2023-12-02 17:58 | Inpatient (IN) | payer OTHER ==
[2023-12-02 19:35] VITALS: BMI 31.0
[2023-12-02] MEDS ORDERED: NICOTINE POLACRILEX 2 MG GUM BUC PRN (20:58)
[2023-12-02] MEDS ORDERED: LOPERAMIDE HCL 2 MG CAPSULE PO PRN (20:58)
[2023-12-02] MEDS ORDERED: NALOXONE HCL (KLOXXADO) 8 MG SPRAY NS PRN (20:58)
[2023-12-02] MEDS ORDERED: POLYETHYLENE GLYCOL (HEALTHYLAX) 3350 17 GM PACKET PO PRN (20:58)
[2023-12-02] MEDS ORDERED: IBUPROFEN 400 MG TABLET (FP) PO PRN (20:58)
[2023-12-02] MEDS ORDERED: BENZONATATE 200 MG CAPSULE PO PRN (20:58)
[2023-12-02] MEDS ORDERED: BENZOCAINE/MENTHOL (CHLORASEPTIC ) LOZENGE MM PRN (20:58)
[2023-12-02] MEDS ORDERED: ACETAMINOPHEN 325 MG TABLET (FP) PO PRN (20:58)
[2023-12-02] MEDS ORDERED: NICOTINE POLACRILEX 2 MG LOZENGE BC PRN (20:58)
[2023-12-02] MEDS ORDERED: MAGNESIUM HYDROX 2400MG/30ML ORAL SUSPENSION 30 ML CUP PO PRN (20:58)
[2023-12-02] MEDS ORDERED: DICYCLOMINE HCL 10 MG CAPSULE PO PRN (20:58)
[2023-12-02] MEDS ORDERED: NALOXONE HCL 0.4 MG/ML VIAL IM PRN (20:58)
[2023-12-02] MEDS ORDERED: guaiFENesin 600 MG TABLET.ER (FP) PO PRN (20:58)
[2023-12-02] MEDS ORDERED: BISMUTH SUBSALICYLATE 524 MG/30 ML PO PRN (20:58)
[2023-12-02] MEDS ORDERED: MAG HYDROX/AL HYDROX/SIMETH 30 ML UNIT-DOSE CUP PO PRN (20:58)
[2023-12-02] MEDS ORDERED: methaDONE HCL 10 MG TABLET (FOR DETOX USE ONLY) ONE (22:51)
[2023-12-02] MEDS ORDERED: diazePAM 5 MG TABLET ONE (22:51)
[2023-12-02] MEDS ORDERED: MELATONIN 5 MG TABLETS ONE (22:51)
[2023-12-02] MEDS: methaDONE HCL 10 MG TABLET (FOR DETOX USE ONLY) PO ONE (22:59)
[2023-12-02] MEDS: MELATONIN 5 MG TABLETS PO SCH (23:01)
[2023-12-02] MEDS: THIAMINE 100 MG TABLET PO SCH (23:01)
[2023-12-03] MEDS: diazePAM 5 MG TABLET PO SCH (00:17)
[2023-12-03] MEDS: PRENATAL VITAMINS W/ FOLIC ACID TABLET (FP) PO SCH (10:18)
[2023-12-03 12:16] LABS: HEMOGLOBIN 12.6 GM/dL (11.7-16.9); MCH 26.3 pg (25.7-33.7); MCHC 33.1 g/dl (32.0-35.9); MEAN CELL VOLUME 79.3 fl (80-96); MEAN PLT VOLUME 9.1 fl (7.5-11.1); PLATELET COUNT 227 10^3/uL (134-434); RBC 4.79 M/mm3 (4.00-5.60); RDW 13.8 % (11.9-15.9); WHITE BLOOD COUNT 6.8 K/mm3 (4.0-10.0)
[2023-12-03 12:17] LABS: CHLORIDE 105 mmol/L (98-107); POTASSIUM 4.3 mmol/L (3.5-5.1); SODIUM 137 mmol/L (136-145)
[2023-12-03 12:23] LABS: ALBUMIN 3.7 g/dl (3.4-5.0)
[2023-12-03 12:24] LABS: ANION GAP 5 mmol/L (4-13); BLOOD UREA NITROGEN 16.6 mg/dL (7-18); CO2 27 mmol/L (21-32); GLUCOSE,RANDOM 114 mg/dL (74-106)
[2023-12-03 12:25] LABS: CREATININE 0.9 mg/dL (0.55-1.3); SGOT/AST 27 U/L (15-37)
[2023-12-03 12:26] LABS: TOT PROT 7.6 g/dl (6.4-8.2)
[2023-12-03 12:27] LABS: BILIRUBIN,TOTAL 0.6 mg/dL (0.2-1); SGPT/ALT 34 U/L (13-61)
[2023-12-03 12:28] LABS: ALK PHOS 84 U/L (45-117)
[2023-12-03] MEDS: cloNIDine HCL 0.1 MG TABLET PO PRN (14:00)
[2023-12-03] MEDS: diazePAM 5 MG TABLET PO PRN (19:58)
[2023-12-03] MEDS: QUEtiapine FUMARATE 200 MG TABLET PO SCH (22:08)
[2023-12-04] MEDS: diazePAM 5 MG TABLET PO SCH (05:43)
[2023-12-04] MEDS: METHOCARBAMOL 500 MG TABLET PO PRN (05:44)
[2023-12-04] MEDS: methaDONE HCL 10 MG TABLET (FOR DETOX USE ONLY) PO ONE (09:51)
[2023-12-05] MEDS: diazePAM 5 MG TABLET PO SCH (05:40)
[2023-12-05] MEDS ORDERED: methaDONE HCL 10 MG TABLET PO ONE (12:44)
[2023-12-05] MEDS: HYDROCORTISONE 1% TOPICAL CREAM 30 GM TUBE TP SCH (14:10)
[2023-12-06] MEDS: diazePAM 5 MG TABLET PO ONE (05:26)
[2023-12-06] MEDS: HYDROCORTISONE 1% TOPICAL CREAM 30 GM TUBE TP ONE (06:03)
[2023-12-06] MEDS ORDERED: methaDONE HCL 10 MG TABLET (FOR DETOX USE ONLY) PO ONE ×2 (10:00)
[2023-12-06] MEDS: methaDONE 40 MG, methaDONE 10 MG PO ONE (10:22)
[2023-12-07] MEDS: methaDONE 40 MG, methaDONE 20 MG PO ONE (09:51)
[2023-12-07] MEDS: hydrOXYzine PAMOATE 25 MG CAPSULE (FP) PO ONE (12:41)
[2023-12-08] MEDS: methaDONE 40 MG, methaDONE 20 MG PO ONE (09:08)
[2023-12-08 09:30] VITALS: BP 108/54; PULSE 58; RESP 16; TEMP 97.7
== END 2023-12-08 09:43 | disposition home or self-care (01) | DRG 773 ==
LOC: YASAS 17:58 → Y6N 22:47
PROVIDERS: ADMIT Allergy & Immunology; ATTEND Surgery
PROC: HZ2ZZZZ Detoxification Services for Substance Abuse Treatment (ICD-10-PCS; principal; 2023-12-02)
DX: F11.23 Opioid dependence with withdrawal (principal); F10.230 Alcohol dependence with withdrawal, uncomplicated; F14.20 Cocaine dependence, uncomplicated; F13.20 Sedative, hypnotic or anxiolytic dependence, uncomplicated; F17.210 Nicotine dependence, cigarettes, uncomplicated; F19.24 Other psychoactive substance dependence with psychoactive substance-induced mood disorder; F39 Unspecified mood [affective] disorder; F25.9 Schizoaffective disorder, unspecified; B18.2 Chronic viral hepatitis C
CPT/HCPCS: 36415; 80053; 80305; 80307; 85027; 86780; 93005; 93010

== ENCOUNTER 2023-12-09 14:03 | Inpatient (IN) | payer OTHER ==
[2023-12-09 14:45] VITALS: BMI 29.7
[2023-12-09] MEDS ORDERED: BENZONATATE 200 MG CAPSULE PO PRN (14:53)
[2023-12-09] MEDS ORDERED: MAG HYDROX/AL HYDROX/SIMETH 30 ML UNIT-DOSE CUP PO PRN (14:53)
[2023-12-09] MEDS ORDERED: BENZOCAINE/MENTHOL (CHLORASEPTIC ) LOZENGE MM PRN (14:53)
[2023-12-09] MEDS ORDERED: NALOXONE HCL (KLOXXADO) 8 MG SPRAY NS PRN (14:53)
[2023-12-09] MEDS ORDERED: NALOXONE HCL 0.4 MG/ML VIAL IM PRN (14:53)
[2023-12-09] MEDS ORDERED: LOPERAMIDE HCL 2 MG CAPSULE PO PRN (14:53)
[2023-12-09] MEDS ORDERED: IBUPROFEN 400 MG TABLET (FP) PO PRN (14:53)
[2023-12-09] MEDS ORDERED: ACETAMINOPHEN 325 MG TABLET (FP) PO PRN (14:53)
[2023-12-09] MEDS ORDERED: guaiFENesin 600 MG TABLET.ER (FP) PO PRN (14:53)
[2023-12-09] MEDS ORDERED: MAGNESIUM HYDROX 2400MG/30ML ORAL SUSPENSION 30 ML CUP PO PRN (14:53)
[2023-12-09] MEDS ORDERED: PRENATAL VITAMINS W/ FOLIC ACID TABLET (FP) PO ONE (15:54)
[2023-12-09] MEDS: PRENATAL VITAMINS W/ FOLIC ACID TABLET (FP) PO SCH (15:54)
[2023-12-09] MEDS: methaDONE HCL 40 MG DISPERSABLE TABLET PO ONE (18:49)
[2023-12-09] MEDS: THIAMINE 100 MG TABLET PO SCH (22:11)
[2023-12-09] MEDS: MELATONIN 5 MG TABLETS PO SCH (22:11)
[2023-12-09] MEDS: ACAMPROSATE CALCIUM 333 MG TABLET.DR PO SCH (22:11)
[2023-12-09] MEDS: QUEtiapine FUMARATE 200 MG TABLET PO SCH (22:11)
[2023-12-10] MEDS: methaDONE 40 MG, methaDONE 20 MG PO SCH (05:41)
[2023-12-10] MEDS ORDERED: methaDONE HCL 40 MG DISPERSABLE TABLET PO SCH (06:00)
[2023-12-10] MEDS: NICOTINE 21 MG/24 HOURS TOPICAL PATCH TD SCH (10:21)
[2023-12-11] MEDS: hydrOXYzine PAMOATE 25 MG CAPSULE (FP) PO PRN (17:01)
[2023-12-12] MEDS: IBUPROFEN 600 MG TABLET (FP) PO PRN (18:54)
[2023-12-13] MEDS: HYDROCORTISONE 1% TOPICAL CREAM 30 GM TUBE TP PRN (10:25)
[2023-12-13] MEDS: GABAPENTIN 100 MG CAPSULE PO SCH (14:11)
[2023-12-21] MEDS: hydrOXYzine PAMOATE 50 MG CAPSULE (FP) PO PRN (14:12)
[2023-12-24] MEDS: POLYETHYLENE GLYCOL (HEALTHYLAX) 3350 17 GM PACKET PO PRN (13:54)
[2023-12-26] MEDS: GABAPENTIN 300 MG CAPSULE PO SCH (13:56)
[2023-12-28] MEDS: GABAPENTIN 400 MG CAPSULE PO SCH (21:12)
[2023-12-29] MEDS ORDERED: GABAPENTIN 400 MG CAPSULE PO SCH (16:43)
[2023-12-29] MEDS: GABAPENTIN 400 MG, GABAPENTIN 100 MG PO SCH (21:21)
[2024-01-05 06:57] VITALS: BP 110/69; PULSE 75; RESP 18; TEMP 97.6
== END 2024-01-05 10:32 | disposition home or self-care (01) | DRG 772 ==
LOC: YASAS 14:03 → Y3NR 15:35 → Y5N 12-10 13:44
PROVIDERS: ADMIT Allergy & Immunology; ATTEND Allergy & Immunology
PROC: HZ42ZZZ Group Counseling for Substance Abuse Treatment, Cognitive-Behavioral (ICD-10-PCS; principal; 2023-12-09)
DX: F10.20 Alcohol dependence, uncomplicated (principal); F14.20 Cocaine dependence, uncomplicated; F11.20 Opioid dependence, uncomplicated; F13.20 Sedative, hypnotic or anxiolytic dependence, uncomplicated; F17.210 Nicotine dependence, cigarettes, uncomplicated; F31.9 Bipolar disorder, unspecified; B18.2 Chronic viral hepatitis C
CPT/HCPCS: 36415; 80305; 86803; 87522; 87811

== ENCOUNTER 2024-01-16 18:31 | Inpatient (IN) | payer OTHER ==
[2024-01-16 19:45] VITALS: BMI 31.0
[2024-01-16] MEDS ORDERED: ACETAMINOPHEN 325 MG TABLET (FP) PO PRN (21:27)
[2024-01-16] MEDS ORDERED: IBUPROFEN 400 MG TABLET (FP) PO PRN (21:27)
[2024-01-16] MEDS ORDERED: guaiFENesin 600 MG TABLET.ER (FP) PO PRN (21:27)
[2024-01-16] MEDS ORDERED: NICOTINE POLACRILEX 2 MG GUM BUC PRN (21:27)
[2024-01-16] MEDS ORDERED: MAGNESIUM HYDROX 2400MG/30ML ORAL SUSPENSION 30 ML CUP PO PRN (21:27)
[2024-01-16] MEDS ORDERED: BENZOCAINE/MENTHOL (CHLORASEPTIC ) LOZENGE MM PRN (21:27)
[2024-01-16] MEDS ORDERED: BENZONATATE 200 MG CAPSULE PO PRN (21:27)
[2024-01-16] MEDS ORDERED: LOPERAMIDE HCL 2 MG CAPSULE PO PRN (21:27)
[2024-01-16] MEDS ORDERED: DICYCLOMINE HCL 10 MG CAPSULE PO PRN (21:27)
[2024-01-16] MEDS ORDERED: ONDANSETRON *ODT* 4 MG TABLET SL PRN (21:27)
[2024-01-16] MEDS ORDERED: POLYETHYLENE GLYCOL (HEALTHYLAX) 3350 17 GM PACKET PO PRN (21:27)
[2024-01-16] MEDS ORDERED: NALOXONE (NARCAN) HCL 4 MG/0.1 ML SPRAY NS PRN (21:27)
[2024-01-16] MEDS ORDERED: MAG HYDROX/AL HYDROX/SIMETH 30 ML UNIT-DOSE CUP PO PRN (21:27)
[2024-01-16] MEDS ORDERED: NALOXONE HCL 0.4 MG/ML VIAL IM PRN (21:27)
[2024-01-16] MEDS ORDERED: BISMUTH SUBSALICYLATE 524 MG/30 ML PO PRN (21:27)
[2024-01-16] MEDS ORDERED: cloNIDine HCL 0.1 MG TABLET PO PRN (21:30)
[2024-01-16] MEDS ORDERED: methaDONE HCL 10 MG TABLET (FOR DETOX USE ONLY) PO ONE (21:30)
[2024-01-16] MEDS: THIAMINE 100 MG TABLET PO SCH (22:35)
[2024-01-16] MEDS: diazePAM 5 MG TABLET PO SCH (22:35)
[2024-01-16] MEDS: MELATONIN 5 MG TABLETS PO SCH (22:36)
[2024-01-16] MEDS: IBUPROFEN 600 MG TABLET (FP) PO PRN (22:37)
[2024-01-16] MEDS: methaDONE HCL 10 MG TABLET (FOR DETOX USE ONLY) PO ONE (22:44)
[2024-01-17] MEDS: diazePAM 5 MG TABLET PO PRN (08:39)
[2024-01-17] MEDS: methaDONE HCL 40 MG DISPERSABLE TABLET PO ONE (10:09)
[2024-01-17] MEDS: PRENATAL VITAMINS W/ FOLIC ACID TABLET (FP) PO SCH (10:10)
[2024-01-17] MEDS: NICOTINE 14 MG/24 HOURS TOPICAL PATCH TD SCH (10:11)
[2024-01-17 11:22] LABS: CHLORIDE 105 mmol/L (98-107); HEMATOCRIT 32.8 % (35.4-49); HEMOGLOBIN 10.8 GM/dL (11.7-16.9); MCH 26.3 pg (25.7-33.7); MEAN CELL VOLUME 79.6 fl (80-96); MEAN PLT VOLUME 8.5 fl (7.5-11.1); PLATELET COUNT 176 10^3/uL (134-434); POTASSIUM 4.1 mmol/L (3.5-5.1); RBC 4.12 M/mm3 (4.00-5.60); RDW 14.2 % (11.9-15.9); SODIUM 139 mmol/L (136-145); WHITE BLOOD COUNT 6.1 K/mm3 (4.0-10.0)
[2024-01-17 11:32] LABS: ALK PHOS 77 U/L (45-117); BILIRUBIN,TOTAL 0.3 mg/dL (0.2-1)
[2024-01-17 11:34] LABS: TOT PROT 6.8 g/dl (6.4-8.2)
[2024-01-17 11:37] LABS: ALBUMIN 3.2 g/dl (3.4-5.0); GLUCOSE,RANDOM 157 mg/dL (74-106); SGPT/ALT 37 U/L (13-61)
[2024-01-17 11:39] LABS: CALCIUM 8.4 mg/dL (8.5-10.1)
[2024-01-17 11:40] LABS: ANION GAP 7 mmol/L (4-13); BLOOD UREA NITROGEN 11.8 mg/dL (7-18); CO2 28 mmol/L (21-32); CREATININE 0.8 mg/dL (0.55-1.3); SGOT/AST 25 U/L (15-37)
[2024-01-17] MEDS: QUEtiapine FUMARATE 200 MG TABLET PO SCH (22:10)
[2024-01-18] MEDS: diazePAM 5 MG TABLET PO SCH (05:26)
[2024-01-18] MEDS ORDERED: methaDONE HCL 40 MG DISPERSABLE TABLET PO ONE (10:00)
[2024-01-18] MEDS ORDERED: methaDONE HCL 10 MG TABLET (FOR DETOX USE ONLY) PO ONE (10:00)
[2024-01-18] MEDS: methaDONE 40 MG, methaDONE 10 MG PO ONE (10:03)
[2024-01-18] MEDS: hydrOXYzine PAMOATE 25 MG CAPSULE (FP) PO PRN (10:06)
[2024-01-18] MEDS: METHOCARBAMOL 500 MG TABLET PO PRN (14:01)
[2024-01-18] MEDS: GABAPENTIN 300 MG CAPSULE PO ONE (17:11)
[2024-01-18] MEDS: GABAPENTIN 300 MG CAPSULE PO SCH (22:24)
[2024-01-18] MEDS: HYDROCORTISONE 1% TOPICAL CREAM 30 GM TUBE TP SCH (22:24)
[2024-01-19] MEDS: diazePAM 5 MG TABLET PO SCH (05:22)
[2024-01-19] MEDS: methaDONE 40 MG, methaDONE 20 MG PO ONE (05:23)
[2024-01-19] MEDS ORDERED: methaDONE 40 MG, methaDONE 20 MG PO ONE (10:00)
[2024-01-19] MEDS ORDERED: methaDONE HCL 40 MG DISPERSABLE TABLET PO ONE (10:00)
[2024-01-19] MEDS: GABAPENTIN 400 MG, GABAPENTIN 100 MG PO SCH (13:22)
[2024-01-19] MEDS: hydrOXYzine PAMOATE 25 MG CAPSULE (FP) PO PRN (17:19)
[2024-01-20] MEDS: diazePAM 5 MG TABLET PO ONE (05:23)
[2024-01-20] MEDS: methaDONE 40 MG, methaDONE 30 MG PO ONE (05:24)
[2024-01-20] MEDS ORDERED: methaDONE HCL 40 MG DISPERSABLE TABLET PO ONE (10:00)
[2024-01-20] MEDS ORDERED: methaDONE HCL 10 MG TABLET (FOR DETOX USE ONLY) PO ONE (10:00)
[2024-01-20] MEDS ORDERED: methaDONE 40 MG, methaDONE 30 MG PO ONE (10:00)
[2024-01-20] MEDS: diazePAM 5 MG TABLET PO PRN (10:22)
[2024-01-20] MEDS ORDERED: GABAPENTIN 300 MG CAPSULE PO SCH (14:00)
[2024-01-21] MEDS: methaDONE HCL 40 MG DISPERSABLE TABLET PO ONE (05:30)
[2024-01-21 06:43] VITALS: RESP 18
[2024-01-21] MEDS ORDERED: methaDONE HCL 40 MG DISPERSABLE TABLET PO ONE (10:00)
[2024-01-21 12:24] VITALS: BP 105/70; PULSE 72; TEMP 97.5
== END 2024-01-21 11:11 | disposition home or self-care (01) | DRG 773 ==
LOC: YASAS 18:31 → Y6N 21:31
PROVIDERS: ADMIT Allergy & Immunology; ATTEND Surgery
PROC: HZ2ZZZZ Detoxification Services for Substance Abuse Treatment (ICD-10-PCS; principal; 2024-01-16)
DX: F11.23 Opioid dependence with withdrawal (principal); F10.230 Alcohol dependence with withdrawal, uncomplicated; F14.20 Cocaine dependence, uncomplicated; F17.210 Nicotine dependence, cigarettes, uncomplicated; F25.9 Schizoaffective disorder, unspecified; F19.280 Other psychoactive substance dependence with psychoactive substance-induced anxiety disorder; F19.282 Other psychoactive substance dependence with psychoactive substance-induced sleep disorder; F19.24 Other psychoactive substance dependence with psychoactive substance-induced mood disorder; F41.9 Anxiety disorder, unspecified; Z86.19 Personal history of other infectious and parasitic diseases
CPT/HCPCS: 36415; 80053; 80305; 80307; 83036; 85027; 86780; 93005; 93010

== ENCOUNTER 2024-08-22 23:01 | Inpatient (IN) | payer OTHER ==
[2024-08-22 23:51] VITALS: BMI 34.0
[2024-08-23] MEDS ORDERED: BENZOCAINE/MENTHOL (CHLORASEPTIC ) LOZENGE MM PRN (05:32)
[2024-08-23] MEDS ORDERED: NICOTINE POLACRILEX 2 MG GUM BUC PRN (05:32)
[2024-08-23] MEDS ORDERED: hydrOXYzine PAMOATE 25 MG CAPSULE (FP) PO PRN (05:32)
[2024-08-23] MEDS ORDERED: BISMUTH SUBSALICYLATE 524 MG/30 ML PO PRN (05:32)
[2024-08-23] MEDS ORDERED: ONDANSETRON *ODT* 4 MG TABLET SL PRN (05:32)
[2024-08-23] MEDS ORDERED: guaiFENesin 600 MG TABLET.ER (FP) PO PRN (05:32)
[2024-08-23] MEDS ORDERED: MAGNESIUM HYDROX 2400MG/30ML ORAL SUSPENSION 30 ML CUP PO PRN (05:32)
[2024-08-23] MEDS ORDERED: NALOXONE (NARCAN) HCL 4 MG/0.1 ML SPRAY NS PRN (05:32)
[2024-08-23] MEDS ORDERED: POLYETHYLENE GLYCOL (HEALTHYLAX) 3350 17 GM PACKET PO PRN (05:32)
[2024-08-23] MEDS ORDERED: MAG HYDROX/AL HYDROX/SIMETH 30 ML UNIT-DOSE CUP PO PRN (05:32)
[2024-08-23] MEDS ORDERED: LOPERAMIDE HCL 2 MG CAPSULE PO PRN (05:32)
[2024-08-23] MEDS ORDERED: BENZONATATE 200 MG CAPSULE PO PRN (05:32)
[2024-08-23] MEDS ORDERED: IBUPROFEN 600 MG TABLET (FP) PO PRN (05:32)
[2024-08-23] MEDS ORDERED: IBUPROFEN 400 MG TABLET (FP) PO PRN (05:32)
[2024-08-23] MEDS ORDERED: ACETAMINOPHEN 325 MG TABLET (FP) PO PRN (05:32)
[2024-08-23] MEDS ORDERED: DICYCLOMINE HCL 10 MG CAPSULE PO PRN (05:32)
[2024-08-23] MEDS ORDERED: NICOTINE POLACRILEX 2 MG GUM BC PRN (05:34)
[2024-08-23] MEDS ORDERED: diazePAM 5 MG TABLET ONE (06:04)
[2024-08-23] MEDS: diazePAM 5 MG TABLET PO SCH (06:05)
[2024-08-23] MEDS ORDERED: methaDONE HCL 10 MG TABLET PO ONE (09:35)
[2024-08-23] MEDS: methaDONE 80 MG, methaDONE 10 MG PO ONE (10:05)
[2024-08-23] MEDS: PRENATAL VITAMINS W/ FOLIC ACID TABLET (FP) PO SCH (10:06)
[2024-08-23] MEDS: NICOTINE 14 MG/24 HOURS TOPICAL PATCH TD SCH ×2 (10:07→10:08)
[2024-08-23] MEDS: methaDONE HCL 10 MG TABLET PO ONE (10:30)
[2024-08-23] MEDS: GABAPENTIN 300 MG CAPSULE PO SCH (13:14)
[2024-08-23] MEDS: diazePAM 5 MG TABLET PO PRN (13:16)
[2024-08-23] MEDS: QUEtiapine FUMARATE 200 MG TABLET PO SCH (22:12)
[2024-08-23] MEDS: MELATONIN 5 MG TABLETS PO SCH (22:12)
[2024-08-23] MEDS: THIAMINE 100 MG TABLET PO SCH (22:12)
[2024-08-24] MEDS: methaDONE 80 MG, methaDONE 10 MG PO SCH (05:43)
[2024-08-24] MEDS: diazePAM 5 MG TABLET PO SCH (05:44)
[2024-08-24] MEDS ORDERED: methaDONE HCL 10 MG TABLET PO SCH ×2 (06:00)
[2024-08-24] MEDS: METHOCARBAMOL 500 MG TABLET PO PRN (09:47)
[2024-08-24 11:21] LABS: HEMATOCRIT 37.8 % (35.4-49); MCH 26.1 pg (25.7-33.7); MCHC 31.9 g/dl (32.0-35.9); MEAN CELL VOLUME 81.7 fl (80-96); MEAN PLT VOLUME 8.5 fl (7.5-11.1); PLATELET COUNT 186 10^3/uL (134-434); RBC 4.62 M/mm3 (4.00-5.60); RDW 13.5 % (11.9-15.9); WHITE BLOOD COUNT 6.1 K/mm3 (4.0-10.0)
[2024-08-24 11:22] LABS: POTASSIUM 4.4 mmol/L (3.5-5.1)
[2024-08-24 11:28] LABS: ALBUMIN 3.6 g/dl (3.4-5.0); BLOOD UREA NITROGEN 10.4 mg/dL (7-18); CALCIUM 9.1 mg/dL (8.5-10.1)
[2024-08-24 11:31] LABS: CREATININE 0.9 mg/dL (0.55-1.3)
[2024-08-24 11:32] LABS: BILIRUBIN,TOTAL 0.6 mg/dL (0.2-1)
[2024-08-24 11:33] LABS: TOT PROT 7.2 g/dl (6.4-8.2)
[2024-08-24] MEDS: GABAPENTIN 300 MG CAPSULE PO SCH (22:34)
[2024-08-25] MEDS: diazePAM 5 MG TABLET PO SCH (06:09)
[2024-08-26] MEDS: diazePAM 5 MG TABLET PO ONE ×2 (06:12→17:39)
[2024-08-27 06:41] VITALS: RESP 18
[2024-08-27 09:23] VITALS: BP 118/64; PULSE 77; TEMP 96.9
== END 2024-08-27 10:26 | disposition home or self-care (01) | DRG 773 ==
LOC: YASAS 23:01 → Y6N 08-23 07:00
PROVIDERS: ADMIT Allergy & Immunology; ATTEND Allergy & Immunology
PROC: HZ2ZZZZ Detoxification Services for Substance Abuse Treatment (ICD-10-PCS; principal; 2024-08-23)
DX: F10.230 Alcohol dependence with withdrawal, uncomplicated (principal); F11.20 Opioid dependence, uncomplicated; F17.210 Nicotine dependence, cigarettes, uncomplicated; F19.282 Other psychoactive substance dependence with psychoactive substance-induced sleep disorder; F19.280 Other psychoactive substance dependence with psychoactive substance-induced anxiety disorder; F19.24 Other psychoactive substance dependence with psychoactive substance-induced mood disorder; F25.9 Schizoaffective disorder, unspecified; B18.2 Chronic viral hepatitis C
CPT/HCPCS: 36415; 80053; 80305; 80307; 85027; 86780; 93005; 93010

== ENCOUNTER 2024-11-11 16:37 | Inpatient (IN) | payer OTHER ==
[2024-11-11 17:14] VITALS: BMI 31.6
[2024-11-11] MEDS ORDERED: BENZOCAINE/MENTHOL (CHLORASEPTIC ) LOZENGE MM PRN (19:24)
[2024-11-11] MEDS ORDERED: POLYETHYLENE GLYCOL (HEALTHYLAX) 3350 17 GM PACKET PO PRN (19:24)
[2024-11-11] MEDS ORDERED: IBUPROFEN 600 MG TABLET (FP) PO PRN (19:24)
[2024-11-11] MEDS ORDERED: guaiFENesin 600 MG TABLET.ER (FP) PO PRN (19:24)
[2024-11-11] MEDS ORDERED: NALOXONE (NARCAN) HCL 4 MG/0.1 ML SPRAY NS PRN (19:24)
[2024-11-11] MEDS ORDERED: IBUPROFEN 400 MG TABLET (FP) PO PRN (19:24)
[2024-11-11] MEDS ORDERED: MAGNESIUM HYDROX 2400MG/30ML ORAL SUSPENSION 30 ML CUP PO PRN (19:24)
[2024-11-11] MEDS ORDERED: ONDANSETRON *ODT* 4 MG TABLET SL PRN (19:24)
[2024-11-11] MEDS ORDERED: LOPERAMIDE HCL 2 MG CAPSULE PO PRN (19:24)
[2024-11-11] MEDS ORDERED: ACETAMINOPHEN 325 MG TABLET (FP) PO PRN (19:24)
[2024-11-11] MEDS ORDERED: DICYCLOMINE HCL 10 MG CAPSULE PO PRN (19:24)
[2024-11-11] MEDS ORDERED: MAG HYDROX/AL HYDROX/SIMETH 30 ML UNIT-DOSE CUP PO PRN (19:24)
[2024-11-11] MEDS ORDERED: BENZONATATE 200 MG CAPSULE PO PRN (19:24)
[2024-11-11] MEDS ORDERED: methaDONE HCL 10 MG TABLET (FOR DETOX USE ONLY) ONE (19:58)
[2024-11-11] MEDS: methaDONE HCL 10 MG TABLET PO ONE (20:00)
[2024-11-11] MEDS: MELATONIN 5 MG TABLETS PO SCH (22:06)
[2024-11-11] MEDS: METHOCARBAMOL 500 MG TABLET PO PRN (22:06)
[2024-11-11] MEDS: diazePAM 5 MG TABLET PO SCH (22:06)
[2024-11-11] MEDS: THIAMINE 100 MG TABLET PO SCH (22:06)
[2024-11-12] MEDS: diazePAM 5 MG TABLET PO PRN (08:31)
[2024-11-12] MEDS: PRENATAL VITAMINS W/ FOLIC ACID TABLET (FP) PO SCH (09:06)
[2024-11-12] MEDS: methaDONE HCL 40 MG DISPERSABLE TABLET PO ONE (09:06)
[2024-11-12 11:46] LABS: HEMATOCRIT 38.6 % (40.1-51.0); HEMOGLOBIN 12.2 g/dL (13.7-17.5); MCHC 31.6 g/dl (32.3-36.5); MEAN PLT VOLUME 11.6 fl (9.4-12.4); PLATELET COUNT 229 x10^3/uL (163-337); RDW 13.7 % (12.2-16.1)
[2024-11-12 11:54] LABS: CHLORIDE 102 mmol/L (98-107); POTASSIUM 4.2 mmol/L (3.5-5.1); SODIUM 136 mmol/L (136-145)
[2024-11-12 12:00] LABS: ALBUMIN 3.6 g/dl (3.4-5.0); ANION GAP 4 mmol/L (4-13); BLOOD UREA NITROGEN 8.1 mg/dL (7-18); CALCIUM 9.6 mg/dL (8.5-10.1); CO2 30 mmol/L (21-32); GLUCOSE,RANDOM 138 mg/dL (74-106)
[2024-11-12 12:02] LABS: SGOT/AST 35 U/L (15-37); SGPT/ALT 48 U/L (13-61)
[2024-11-12 12:03] LABS: CREATININE 0.8 mg/dL (0.55-1.3)
[2024-11-12 12:04] LABS: BILIRUBIN,TOTAL 0.4 mg/dL (0.2-1)
[2024-11-12 12:05] LABS: ALK PHOS 66 U/L (45-117)
[2024-11-12] MEDS: GABAPENTIN 300 MG CAPSULE PO SCH (13:54)
[2024-11-12] MEDS ORDERED: NICOTINE POLACRILEX 2 MG GUM BUC PRN (15:41)
[2024-11-12] MEDS: hydrOXYzine PAMOATE 25 MG CAPSULE (FP) PO PRN (19:57)
[2024-11-12] MEDS: QUEtiapine FUMARATE 200 MG TABLET PO SCH (21:26)
[2024-11-13] MEDS ORDERED: cloNIDine HCL 0.1 MG TABLET PO PRN
[2024-11-13] MEDS: diazePAM 5 MG TABLET PO SCH (05:41)
[2024-11-13] MEDS: methaDONE 40 MG, methaDONE 10 MG PO ONE (09:44)
[2024-11-13] MEDS: NICOTINE 21 MG/24 HOURS TOPICAL PATCH TD SCH (09:46)
[2024-11-13] MEDS ORDERED: methaDONE HCL 40 MG DISPERSABLE TABLET PO ONE (10:00)
[2024-11-13] MEDS: BISMUTH SUBSALICYLATE 524 MG/30 ML PO PRN (13:20)
[2024-11-14] MEDS: diazePAM 5 MG TABLET PO SCH (05:36)
[2024-11-14] MEDS: methaDONE 40 MG, methaDONE 20 MG PO ONE (09:24)
[2024-11-14] MEDS ORDERED: methaDONE HCL 40 MG DISPERSABLE TABLET PO ONE (10:00)
[2024-11-14] MEDS: GABAPENTIN 400 MG CAPSULE PO SCH (13:55)
[2024-11-15] MEDS: methaDONE 40 MG, methaDONE 30 MG PO ONE (05:22)
[2024-11-15] MEDS: diazePAM 5 MG TABLET PO ONE (05:23)
[2024-11-15 09:02] VITALS: BP 101/63; PULSE 62; RESP 19; TEMP 97.3
[2024-11-15] MEDS ORDERED: methaDONE 40 MG, methaDONE 30 MG PO ONE (10:00)
[2024-11-15] MEDS ORDERED: methaDONE HCL 40 MG DISPERSABLE TABLET PO ONE (10:00)
[2024-11-16] MEDS ORDERED: methaDONE HCL 40 MG DISPERSABLE TABLET PO SCH (06:00)
[2024-11-16] MEDS ORDERED: methaDONE HCL 40 MG DISPERSABLE TABLET PO ONE (10:00)
== END 2024-11-15 11:34 | disposition other institution (70) | DRG 773 ==
LOC: YASAS 16:37 → Y3N 19:48
PROVIDERS: ADMIT Allergy & Immunology; ATTEND Allergy & Immunology
PROC: HZ2ZZZZ Detoxification Services for Substance Abuse Treatment (ICD-10-PCS; principal; 2024-11-11)
DX: F11.23 Opioid dependence with withdrawal (principal); F10.230 Alcohol dependence with withdrawal, uncomplicated; F13.20 Sedative, hypnotic or anxiolytic dependence, uncomplicated; F14.20 Cocaine dependence, uncomplicated; F17.210 Nicotine dependence, cigarettes, uncomplicated; F31.9 Bipolar disorder, unspecified; F25.9 Schizoaffective disorder, unspecified; F19.24 Other psychoactive substance dependence with psychoactive substance-induced mood disorder; F41.9 Anxiety disorder, unspecified
CPT/HCPCS: 36415; 80053; 80305; 80307; 85027; 86780; 87811; 93005; 93010

== ENCOUNTER 2024-11-15 11:39 | Inpatient (IN) | payer OTHER ==
[2024-11-15] MEDS ORDERED: LOPERAMIDE HCL 2 MG CAPSULE PO PRN (13:06)
[2024-11-15] MEDS ORDERED: NICOTINE POLACRILEX 2 MG GUM BUC PRN (13:06)
[2024-11-15] MEDS ORDERED: IBUPROFEN 400 MG TABLET (FP) PO PRN (13:06)
[2024-11-15] MEDS ORDERED: POLYETHYLENE GLYCOL (HEALTHYLAX) 3350 17 GM PACKET PO PRN (13:06)
[2024-11-15] MEDS ORDERED: guaiFENesin 600 MG TABLET.ER (FP) PO PRN (13:06)
[2024-11-15] MEDS ORDERED: IBUPROFEN 600 MG TABLET (FP) PO PRN (13:06)
[2024-11-15] MEDS ORDERED: ACETAMINOPHEN 325 MG TABLET (FP) PO PRN (13:06)
[2024-11-15] MEDS ORDERED: BENZOCAINE/MENTHOL (CHLORASEPTIC ) LOZENGE MM PRN (13:06)
[2024-11-15] MEDS ORDERED: BENZONATATE 200 MG CAPSULE PO PRN (13:06)
[2024-11-15] MEDS: GABAPENTIN 300 MG CAPSULE PO ONE (15:40)
[2024-11-15] MEDS: hydrOXYzine PAMOATE 25 MG CAPSULE (FP) PO PRN (17:30)
[2024-11-15] MEDS: METHOCARBAMOL 500 MG TABLET PO PRN (17:30)
[2024-11-15] MEDS: GABAPENTIN 400 MG CAPSULE PO SCH (21:22)
[2024-11-15] MEDS: QUEtiapine FUMARATE 200 MG TABLET PO SCH (21:22)
[2024-11-15] MEDS: THIAMINE 100 MG TABLET PO SCH (21:22)
[2024-11-15] MEDS: MELATONIN 5 MG TABLETS PO SCH (21:23)
[2024-11-16] MEDS: methaDONE HCL 40 MG DISPERSABLE TABLET PO SCH (05:49)
[2024-11-16] MEDS: NICOTINE 14 MG/24 HOURS TOPICAL PATCH TD SCH (05:49)
[2024-11-16] MEDS: PRENATAL VITAMINS W/ FOLIC ACID TABLET (FP) PO SCH (05:49)
[2024-11-18] MEDS: MAG HYDROX/AL HYDROX/SIMETH 30 ML UNIT-DOSE CUP PO PRN (15:22)
[2024-11-19] MEDS: GABAPENTIN 300 MG CAPSULE PO SCH ×2 (15:09→21:04)
[2024-11-19] MEDS: hydrOXYzine PAMOATE 25 MG CAPSULE (FP) PO PRN (21:04)
[2024-11-21] MEDS ORDERED: METHOCARBAMOL 500 MG TABLET PO PRN (14:10)
[2024-11-21] MEDS: MELATONIN 5 MG TABLETS PO SCH (21:19)
[2024-11-21] MEDS: METHOCARBAMOL 500 MG TABLET PO PRN (21:20)
[2024-11-23] MEDS: MAGNESIUM HYDROX 2400MG/30ML ORAL SUSPENSION 30 ML CUP PO PRN (16:19)
[2024-12-12 06:59] VITALS: RESP 17; TEMP 97.8
[2024-12-13 07:17] VITALS: BP 102/66; PULSE 69
== END 2024-12-13 09:12 | disposition home or self-care (01) | DRG 772 ==
LOC: YASAS 11:39 → Y3NR 11:43 → Y3E 11-16 10:51
PROVIDERS: ADMIT Psychiatry & Neurology Pain Medicine; ATTEND Psychiatry & Neurology Pain Medicine
PROC: HZ42ZZZ Group Counseling for Substance Abuse Treatment, Cognitive-Behavioral (ICD-10-PCS; principal; 2024-11-15)
DX: F11.20 Opioid dependence, uncomplicated (principal); F10.20 Alcohol dependence, uncomplicated; F13.20 Sedative, hypnotic or anxiolytic dependence, uncomplicated; F14.20 Cocaine dependence, uncomplicated; F17.210 Nicotine dependence, cigarettes, uncomplicated; F31.9 Bipolar disorder, unspecified; F19.282 Other psychoactive substance dependence with psychoactive substance-induced sleep disorder; F19.280 Other psychoactive substance dependence with psychoactive substance-induced anxiety disorder; F19.24 Other psychoactive substance dependence with psychoactive substance-induced mood disorder; F41.9 Anxiety disorder, unspecified; Z86.19 Personal history of other infectious and parasitic diseases; Z56.0 Unemployment, unspecified